=== PATIENT | female | born 1970 | race Caucasian/White ===

== ENCOUNTER 2016-05-16 17:40 | Observation (INO) | payer OTHER ==
[2016-05-16] VITALS (9 sets, daily range): BP systolic 96–119; BP diastolic 53–67
[~2016-05-16] VITALS: Ht 154.9 cm; Wt 75.3 kg
[~2016-05-16 17:40] MED LIST: AMIT10TA6 PO; ASPI-586 PO; DEXT1TAB13 PO; HYOS0.1217 PO; HYOS0.1218 PO; MECL-106 PO; OMEP10CA4 PO; OMEP20TA33 PO; ONDA4TAB8 SL
[2016-05-16] MEDS: RX-NITROGLYCERIN 0.4 MG TAB BTL 25'S SL PRN ×3 (17:55→18:08)
--- NOTE | 2016-05-16 17:57 | ED Chest Pain ---
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 patient denies other symptoms Nursing Sepsis Screen: No Definite Risk Source: patient History of Present Illness Time seen by provider: 17:40 Initial Comments PT ARRIVES VIA POV FROM WORK [facility] SHE WAS SITTING AT WORK AND SUDDENLY BEGAN TO HAVE LEFT CHEST PAIN RADIATING TO LEFT NECK--BEGAN AN HOUR AGO RATES PAIN 8/10 + LIGHTHEADEDNESS + PALPITATIONS--FELT LIKE HER HEART WAS BEATING HARD AND FAST NO NAUSEA/VOMITING NO SWEATS NO SWELLING IN LEGS/ FEET OR PAIN IN [place] HAD SIMILAR CHEST PAIN A YEAR AGO, EXCEPT IT RADIATED INTO LEFT ARM AND NOT INTO NECK--STRESS TEST NEGATIVE AT THAT TIME. HAD ALSO HAD SAME SYMPTOMS A YEAR BEFORE THAT AND WAS SEEN AT [facility] AND STRESS TEST WAS REPORTEDLY NORMAL AT THAT TIME WELL, AND ALSO WORE A 48 HOUR HOLTER MONITOR THAT WAS REPORTEDLY NORMAL WELL. 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 LISHA VAIL AT [facility] Allergies and Home Medications Allergies Coded Allergies: Sulfa (Sulfonamide Antibiotics) (Verified Allergy, Unknown, 01/18/14) ciprofloxacin (Verified Allergy, Unknown, 01/18/14) sulfamethoxazole (Verified Allergy, Unknown, 01/18/14) trimethoprim (Verified Allergy, Unknown, 01/18/14) Home Medications Amitriptyline HCl 10 Mg Tablet, 10 MG PO HS, (Reported) Aspirin 81 Mg Tablet.dr, 81 MG PO HS, (Reported) Hyoscyamine Sulfate 0.125 Mg Tab.rapdis, 0.125 MG PO, (Reported) Meclizine HCl 25 Mg Tab.chew, 25 MG PO, (Reported) Omeprazole Magnesium 20 Mg Tablet.dr, 20 MG PO BID, (Reported) Potassium Gluconate 99 Mg Tablet, 99 MG PO, (Reported) Review of Systems Constitutional: no symptoms reported EENTM: No Symptoms Reported Respiratory: No Symptoms Reported Cardiovascular: See HPI, Chest Pain, Denies Edema, Lightheadedness, Palpitations, Denies Syncope Gastrointestinal: No Symptoms Reported, Denies Abdominal Pain, Denies Nausea, Denies Vomiting Genitourinary: No Symptoms Reported Musculoskeletal: see HPI (LEFT NECK PAIN) Skin: no symptoms reported Psychiatric/Neurological: No Symptoms Reported Endocrine: No Symptoms Reported Hematologic/Lymphatic: No Symptoms Reported Past Jgrbuos-Wqreem-Rtxjge Hx Patient Social History Alcohol Use: Past History (HISTORY OF HEAVY USE--30 PACK/WEEK, QUIT 2001, PER PT ON 05/16/16) Recreational Drug Use: Yes (THC, METH--QUIT 2001,PER PT ON 05/16/16) Smoking Status: Former Smoker (1 1/2 PPD, QUIT 2001, PER PT ON 05/16/16) 2nd Hand Smoke Exposure: Yes Recent Foreign Travel: No Contact w/Someone Who Travel: No Recent Infectious Disease Expo: No Recent Hopitalizations: No Immunizations Up To Date Tetanus Booster (TDap): Less than 5yrs Date of Influenza Vaccine: Nov 12, 2015 Seasonal Allergies Seasonal Allergies: No Surgeries HX Surgeries: Yes (SINUS SURGERY;ABDOMINAL ADHESION REMOVAL;CYST REMOVED FROM NECK; HYST/RIGHT SALPINGO-OOPHORECTOMY; D&C) Surgeries: Appendectomy, Gallbladder, Hysterectomy, Oophorectomy Respiratory Hx Respiratory Disorders: No Cardiovascular Hx Cardiac Disorders: Yes (MURMUR; STRESS TEST 2016 NORMAL) Neurological Hx Neurological Disorders: No Reproductive System Hx Reproductive Disorders: Yes (CERVICAL CANCER) 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 Genitourinary Hx Genitourinary Disorders: No Gastrointestinal Hx Gastrointestinal Disorders: Yes Gastrointestinal Disorders: Gastroesophageal Reflux, Irritable Bowel Musculoskeletal Hx Musculoskeletal Disorders: No Endocrine Hx Endocrine Disorders: Yes (hypoglycemia, hypokalemia) HEENT HX ENT Disorders: No Cancer Hx Cancer: Yes Cancer: Cervical Psychosocial Hx Psychiatric Problems: Yes Behavioral Health Disorders: Depression Integumentary HX Skin/Integumentary Disorder: No Blood Transfusions Hx Blood Disorders: No Adverse Reaction to a Blood Tr: No Physical Exam Vital Signs Vital Sign - Last 12Hours 05/16/16 17:43 Temp 98.2 Pulse 97 Resp 21 B/P (MAP) 144/71 Pulse Ox 97 O2 Delivery Room Air Capillary Refill : Less Than 3 Seconds General Appearance: No Apparent Distress, WD/WN HEENT: PERRL/EOMI Neck: Full Range of Motion, Normal Inspection, Non Tender, Supple, No Carotid Bruit, No JVD Respiratory: Chest Non Tender, Normal Breath Sounds, No Accessory Muscle Use, No Respiratory Distress Cardiovascular: Regular Rate, Rhythm, No Edema, No JVD, No Murmur, Normal Peripheral Pulses Gastrointestinal: Normal Bowel Sounds, No Organomegaly, No Pulsatile Mass, Non Tender, Soft Extremity: Normal Capillary Refill, Normal Inspection, Normal Range of Motion, Non Tender, No Calf Tenderness, No Pedal Edema Neurologic/Psychiatric: Alert, Oriented x3, No Motor/Sensory Deficits, Normal 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, 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 Skin: Normal Color, No Rash Progress/Results/Core Measures Results/Orders Lab Results Laboratory Tests Test 05/16/16 17:50 Range/Units White Blood Count 8.4 4.3-11.0 10^3/uL Red Blood Count 3.93 L 4.35-5.85 10^6/uL Hemoglobin 11.6 11.5-16.0 G/DL Hematocrit 35 35-52 % Mean Corpuscular Volume 89 80-99 FL Mean Corpuscular Hemoglobin 30 25-34 PG Mean Corpuscular Hemoglobin Concent 33 32-36 G/DL Red Cell Distribution Width 12.3 10.0-14.5 % Platelet Count 182 130-400 10^3/uL Mean Platelet Volume 11.3 H 7.4-10.4 FL Neutrophils (%) (Auto) 63 42-75 % Lymphocytes (%) (Auto) 28 12-44 % Monocytes (%) (Auto) 8 0-12 % Eosinophils (%) (Auto) 1 0-10 % Basophils (%) (Auto) 0 0-10 % Neutrophils # (Auto) 5.3 1.8-7.8 X 10^3 Lymphocytes # (Auto) 2.4 1.0-4.0 X 10^3 Monocytes # (Auto) 0.7 0.0-1.0 X 10^3 Eosinophils # (Auto) 0.0 0.0-0.3 10^3/uL Basophils # (Auto) 0.0 0.0-0.1 10^3/uL Prothrombin Time 13.3 12.2-14.7 SEC INR Comment 1.0 0.8-1.4 Activated Partial Thromboplast Time 26 24-35 SEC Sodium Level 141 135-145 MMOL/L Potassium Level 3.6 3.6-5.0 MMOL/L Chloride Level 106 98-107 MMOL/L Carbon Dioxide Level 26 21-32 MMOL/L Anion Gap 9 5-14 MMOL/L Blood Urea Nitrogen 6 L 7-18 MG/DL Creatinine 0.80 0.60-1.30 MG/DL Estimat Glomerular Filtration Rate > 60 BUN/Creatinine Ratio 8 Glucose Level 99 70-105 MG/DL Calcium Level 8.5 8.5-10.1 MG/DL Magnesium Level 1.9 1.8-2.4 MG/DL Total Bilirubin 0.4 0.1-1.0 MG/DL Aspartate Amino Transf (AST/SGOT) 13 5-34 U/L Alanine Aminotransferase (ALT/SGPT) 10 0-55 U/L Alkaline Phosphatase 52 40-136 U/L Total Creatine Kinase 59 29-168 U/L Creatine Kinase MB 0.8 <6.6 NG/ML Troponin I < 0.30 <0.30 NG/ML B-Type Natriuretic Peptide < 10.0 <100.0 PG/ML Total Protein 6.5 6.4-8.2 G/DL Albumin 3.8 3.2-4.5 G/DL Amylase Level 54 25-125 U/L Lipase 27 8-78 U/L My Orders Orders - RICHARD MANN DO Saline Lock/Iv-Start (05/16/16 17:42) Ekg Tracing (05/16/16 17:42) Monitor-Rhythm Ecg Trace Only (05/16/16 17:42) Amylase (05/16/16 17:50) Cbc With Automated Diff (05/16/16 17:50) Comprehensive Metabolic Panel (05/16/16 17:50) Creatine Kinase (05/16/16 17:50) Creatine Kinase Mb (05/16/16 17:50) Lipase (05/16/16 17:50) Partial Thromboplastin Time (05/16/16 17:50) Protime With Inr (05/16/16 17:50) Troponin I (05/16/16 17:50) Chest 1 View, Ap/Pa Only (05/16/16 17:50) Aspirin Chewable Tablet (Baby Aspirin Ch (05/16/16 18:00) Rx-Nitroglycerin Sl Tabs (Rx-Nitrostat S (05/16/16 18:00) BNP (05/16/16 17:50) Magnesium (05/16/16 17:50) Ketorolac Injection (Toradol Injection) (05/16/16 18:30) Ondansetron Injection (Zofran Injectio (05/16/16 18:30) Ondansetron Injection (Zofran Injectio (05/16/16 18:45) Pantoprazole Injection (Protonix Injecti (05/16/16 18:45) Morphine Injection (Morphine Injection (05/16/16 18:39) Scopolamine Patch (Transderm-Scop Patch) (05/16/16 19:00) Medications Given in ED Current Medications Medications Dose Ordered Sig/Gus Route Start Time Stop Time Status Last Admin Dose Admin Aspirin 324 mg ONCE ONCE PO 05/16/16 18:00 05/16/16 18:01 DC 05/16/16 17:54 324 MG Ketorolac Tromethamine 30 mg ONCE ONCE IVP 05/16/16 18:30 05/16/16 18:31 DC 05/16/16 18:23 30 MG Nitroglycerin 0.4 mg UD PRN SL 05/16/16 18:00 05/16/16 19:43 DC 05/16/16 18:08 0.4 MG Ondansetron HCl 4 mg ONCE ONCE IVP 05/16/16 18:30 05/16/16 18:31 DC 05/16/16 18:23 4 MG Ondansetron HCl 8 mg ONCE ONCE IVP 05/16/16 18:45 05/16/16 18:46 DC 05/16/16 18:48 8 MG Pantoprazole 40 mg ONCE ONCE IV 05/16/16 18:45 05/16/16 18:46 DC 05/16/16 18:48 40 MG Vital Signs/I&O Vital Sign - Last 12Hours 05/16/16 05/16/16 17:43 17:43 Temp 98.2 Pulse 97 Resp 21 B/P (MAP) 144/71 Pulse Ox 97 O2 Delivery Room Air Blood Pressure Mean: 95 Progress Note : Progress Note MINIMAL RELIEF WITH NTG X 3--PAIN DOWN TO A 7/10, AND NOW NAUSEATED AND VOMITING GIVEN ZOFRAN AND PROTONIX FOR NAUSEA/VOMITING GIVEN TORADOL WITHOUT RELIEF--STILL RATES PAIN 7/10 PT AMBULATED TO BATHROOM AND SUDDENLY BECAME VERY DIZZY--NO ARRHYTHMIAS NOTED, SCOPOLAMINE PATCH APPLIED MORPHINE NOT GIVEN UNTIL AFTER SHE RETURNED FROM BATHROOM AND NOTED TO HAVE STABLE VITALS, PT STILL C/O CHEST PAIN AND LEFT NECK PAIN AT 7/10 PAIN 6/10 AT TIME OF ADMIT, AFTER MORPHINE DIZZINESS IMPROVED NAUSEA IMPROVED VITAL STABLE ECG Initial ECG Impression Time: 18:44 Initial ECG Rate: 96 Initial ECG Rhythm: Normal Sinus Initial ECG Impression: Normal Initial ECG Comparisson: Unchanged Diagnostic Imaging Comments CXR--NO ACUTE PROCESS, PER RADIOLOGIST REPORT @ 1812 CT CHEST ANGIOGRAM--NO ACUTE PROCESS, NO P.E. --PER RADIOLOGIST REPORT @ 2018 Reviewed: Reviewed by Me Departure Communication Progress Notes 1839--SPOKE WITH DR. RYAN, ACCEPTS PT FOR ADMIT 1842--SPOKE WITH DR. SALEEM FOR CARDIOLOGY CONSULT 1904--DR. SALEEM HERE TO SEE PT. CT CHEST ANGIOGRAM ORDERED. Impression Impression: Primary Impression: Chest pain Additional Impressions: Dizziness Nausea & vomiting Disposition: ADMITTED INPATIENT Condition: Stable Decision to Admit Reason: Admit from ER (General) Decision to Admit/Date: May 16, 2016 Time/Decision to Admit Time: 18:40 Departure-Patient Inst. Referrals: MANISH MEIER (PCP/Family) Primary Care Physician RICHARD MANN DO May 16, 2016 17:57
[2016-05-16 17:58] LABS: BASOPHILS % (AUTO) 0 % (0-10); EOSINOPHILS % (AUTO) 1 % (0-10); LYMPHOCYTES # (AUTO) 2.4 X 10^3 (1.0-4.0); LYMPHOCYTES % (AUTO) 28 % (12-44); MEAN CORPUSCULAR HEMOGLOBIN 30 PG (25-34); MEAN CORPUSCULAR HGB CONC 33 G/DL (32-36); MEAN CORPUSCULAR VOLUME 89 FL (80-99); MEAN PLATELET VOLUME 11.3 FL (7.4-10.4); MONOCYTES # (AUTO) 0.7 X 10^3 (0.0-1.0); MONOCYTES % (AUTO) 8 % (0-12); NEUTROPHILS # (AUTO) 5.3 X 10^3 (1.8-7.8); NEUTROPHILS % (AUTO) 63 % (42-75); PLATELET COUNT 182 10^3/uL (130-400); RED BLOOD COUNT 3.93 10^6/uL (4.35-5.85); RED CELL DISTRIBUTION WIDTH 12.3 % (10.0-14.5); WHITE BLOOD COUNT 8.4 10^3/uL (4.3-11.0)
[2016-05-16] MEDS ORDERED: ASPIRIN 81 MG CHEW (CHILDREN'S ASA) PO ONE (18:00)
--- NOTE | 2016-05-16 18:08 | Diagnostic Imaging Report ---
INDICATION: Chest pain. EXAMINATION: Portable chest at6 6:02 p.m. FINDINGS: Heart size and pulmonary vascularity are normal. Lungs are clear. There are no effusions or pneumothoraces. IMPRESSION: Negative chest. Dictated by: Dictated on workstation # [id number]
[2016-05-16 18:09] LABS: PROTHROMBIN TIME PATIENT 13.3 SEC (12.2-14.7)
[2016-05-16] MEDS ORDERED: HYOS0.1217 PO (18:10)
[2016-05-16] MEDS ORDERED: POTA99TA21 PO ×2 (18:10→22:21)
[2016-05-16] MEDS ORDERED: MECL-124 PO (18:10)
[2016-05-16 18:17] LABS: ALANINE AMINOTRANSFERASE 10 U/L (0-55); ALBUMIN 3.8 G/DL (3.2-4.5); AMYLASE 54 U/L (25-125); ANION GAP 9 MMOL/L (5-14); ASPARTATE AMINO TRANSFERASE 13 U/L (5-34); BILIRUBIN,TOTAL 0.4 MG/DL (0.1-1.0); BLOOD UREA NITROGEN 6 MG/DL (7-18); BUN/CREATININE RATIO 8; CALCIUM 8.5 MG/DL (8.5-10.1); CARBON DIOXIDE 26 MMOL/L (21-32); CHLORIDE 106 MMOL/L (98-107); CREATINE KINASE 59 U/L (29-168); GFR ESTIMATED > 60; GLUCOSE 99 MG/DL (70-105); LIPASE 27 U/L (8-78); MAGNESIUM 1.9 MG/DL (1.8-2.4); POTASSIUM 3.6 MMOL/L (3.6-5.0); SODIUM 141 MMOL/L (135-145); TOTAL PROTEIN 6.5 G/DL (6.4-8.2)
[2016-05-16 18:25] LABS: TROPONIN I < 0.30 NG/ML (<0.30)
[2016-05-16] MEDS ORDERED: ONDANSETRON 4 MG/2 ML (SDV) Z0FRAN IVP ONE ×2 (18:30→18:45)
[2016-05-16] MEDS ORDERED: KETOROLAC 30 MG/ML VIAL IVP ONE (18:30)
[2016-05-16] MEDS ORDERED: morphine INJ 10 MG/ML 1ML (SYR OR VIAL) IVP STA (18:39)
[2016-05-16] MEDS ORDERED: PANTOPRAZOLE 40 MG/10 ML (PROTONIX) VIAL IV ONE (18:45)
[2016-05-16] MEDS ORDERED: SCOPOLAMINE 1.5 MG (TRANSDERM-SCOP) PATCH TD ONE (19:00)
--- NOTE | 2016-05-16 19:21 | Consultation-Cardiology ---
HPI-Cardiology Cardiology Consultation Date of Consultation 05/16/16 Date of Admission Indication: chest pain HPI 45 years old lady with history of chest pain, she was seen in May 2015 for similar episode had a stress test which did not show any ischemia or infarction. Patient was in her usual state of health until this morning when she started having chest pain described it as dull in nature achiness in the retrosternal area radiating to the left side of her neck and jaw, came into the emergency room and had minimal relief with sublingual nitroglycerin. Denied any palpitation, syncope or near syncopal episodes. Denied any claudications. While in the emergency room had episode of nausea and dizziness. Received scopolamine. Feeling slightly better at this time, denied any abdominal pain, no vomiting, no diarrhea or constipation. Home Medications & Allergies Allergies: Coded Allergies: Sulfa (Sulfonamide Antibiotics) (Verified Allergy, Unknown, 01/18/14) ciprofloxacin (Verified Allergy, Unknown, 01/18/14) sulfamethoxazole (Verified Allergy, Unknown, 01/18/14) trimethoprim (Verified Allergy, Unknown, 01/18/14) Home Medication List Reviewed: Yes [id number]-[id number]-Sykoqs Hx Patient Social History Alcohol Use: Past History (HISTORY OF HEAVY USE--30 PACK/WEEK, QUIT 2001, PER PT ON 05/16/16) Recreational Drug Use: Yes (THC, METH--QUIT 2001,PER PT ON 05/16/16) Smoking Status: Former Smoker (1 1/2 PPD, QUIT 2001, PER PT ON 05/16/16) 2nd Hand Smoke Exposure: Yes Recent Foreign Travel: No Recent Infectious Disease Expo: No Recent Hopitalizations: No Immunizations Up To Date Tetanus Booster (TDap): Less than 5yrs Date of Influenza Vaccine: Nov 12, 2015 Past Medical History past medical history as discussed below Family Medical History Family Medical Hx mother has history of hypertension Constitutional: see HPI, dizziness, malaise EENTM: no symptoms reported, see HPI Respiratory: no symptoms reported, see HPI Cardiovascular: see HPI, chest pain, No edema, No Hx of Intervention, No palpitations, No syncope, No vascular heart diseas, No other Gastrointestinal: see HPI, nausea Genitourinary: no symptoms reported, see HPI Musculoskeletal: no symptoms reported, see HPI Skin: no symptoms reported, see HPI Psychiatric/Neurological: No Symptoms Reported, See HPI Reviewed Test Results Reviewed Test Results Lab Laboratory Tests Test 05/16/16 17:50 Range/Units White Blood Count 8.4 4.3-11.0 10^3/uL Red Blood Count 3.93 L 4.35-5.85 10^6/uL Hemoglobin 11.6 11.5-16.0 G/DL Hematocrit 35 35-52 % Mean Corpuscular Volume 89 80-99 FL Mean Corpuscular Hemoglobin 30 25-34 PG Mean Corpuscular Hemoglobin Concent 33 32-36 G/DL Red Cell Distribution Width 12.3 10.0-14.5 % Platelet Count 182 130-400 10^3/uL Mean Platelet Volume 11.3 H 7.4-10.4 FL Neutrophils (%) (Auto) 63 42-75 % Lymphocytes (%) (Auto) 28 12-44 % Monocytes (%) (Auto) 8 0-12 % Eosinophils (%) (Auto) 1 0-10 % Basophils (%) (Auto) 0 0-10 % Neutrophils # (Auto) 5.3 1.8-7.8 X 10^3 Lymphocytes # (Auto) 2.4 1.0-4.0 X 10^3 Monocytes # (Auto) 0.7 0.0-1.0 X 10^3 Eosinophils # (Auto) 0.0 0.0-0.3 10^3/uL Basophils # (Auto) 0.0 0.0-0.1 10^3/uL Prothrombin Time 13.3 12.2-14.7 SEC INR Comment 1.0 0.8-1.4 Activated Partial Thromboplast Time 26 24-35 SEC Sodium Level 141 135-145 MMOL/L Potassium Level 3.6 3.6-5.0 MMOL/L Chloride Level 106 98-107 MMOL/L Carbon Dioxide Level 26 21-32 MMOL/L Anion Gap 9 5-14 MMOL/L Blood Urea Nitrogen 6 L 7-18 MG/DL Creatinine 0.80 0.60-1.30 MG/DL Estimat Glomerular Filtration Rate > 60 BUN/Creatinine Ratio 8 Glucose Level 99 70-105 MG/DL Calcium Level 8.5 8.5-10.1 MG/DL Magnesium Level 1.9 1.8-2.4 MG/DL Total Bilirubin 0.4 0.1-1.0 MG/DL Aspartate Amino Transf (AST/SGOT) 13 5-34 U/L Alanine Aminotransferase (ALT/SGPT) 10 0-55 U/L Alkaline Phosphatase 52 40-136 U/L Total Creatine Kinase 59 29-168 U/L Creatine Kinase MB 0.8 <6.6 NG/ML Troponin I < 0.30 <0.30 NG/ML B-Type Natriuretic Peptide < 10.0 <100.0 PG/ML Total Protein 6.5 6.4-8.2 G/DL Albumin 3.8 3.2-4.5 G/DL Amylase Level 54 25-125 U/L Lipase 27 8-78 U/L Physical Exam Vital Signs Vital Sign - Last 12Hours 05/16/16 17:43 Temp 98.2 Pulse 97 Resp 21 B/P (MAP) 144/71 Pulse Ox 97 O2 Delivery Room Air Capillary Refill : Less Than 3 Seconds General Appearance: No Apparent Distress, WD/WN Eyes: Bilateral Eye EOMI, Bilateral Eye Normal Inspection, Bilateral Eye PERRL HEENT: PERRL/EOMI, TMs Normal, Normal ENT Inspection, Pharynx Normal Neck: Full Range of Motion, Normal Inspection, Non Tender, Supple, Carotid Bruit Respiratory: Chest Non Tender, Lungs Clear, Normal Breath Sounds, No Accessory Muscle Use, No Respiratory Distress Cardiovascular: Regular Rate, Rhythm, No Edema, No Gallop, No JVD, No Murmur, Normal Peripheral Pulses Gastrointestinal: Normal Bowel Sounds, No Organomegaly, No Pulsatile Mass, Non Tender, Soft Back: Normal Inspection, No CVA Tenderness, No Vertebral Tenderness Extremity: Normal Capillary Refill, Normal Inspection, Normal Range of Motion, Non Tender, No Calf Tenderness, No Pedal Edema Neurologic/Psychiatric: Alert, Oriented x3, No Motor/Sensory Deficits, Normal Mood/Affect Skin: Normal Color, Warm/Dry Lymphatic: No Adenopathy A/P-Cardiology Admission Diagnosis Chest pain nonspecific etiology Nausea Dizziness Assessment/Plan Chest pain nonspecific etiology, resembling angina, did not improve with sublingual nitroglycerin, first set of cardiac enzymes and EKG were normal. I will continue monitoring overnight, planning to evaluate stress test if her EKG and cardiac enzymes continue to be negative, patient will have CT scan of the chest done today. Nausea, dizziness, received scopolamine. Reporting improvement. Continue to monitor History of irritable bowel syndrome, she was seen by Dr. Madden in the past History of tobaccoism, stopped smoking 14 years ago History of alcohol use, stopped in the remote past. History of cholecystectomy, appendectomy Clinical Quality Measures AMI/AHF: ASA po Prior to arrival: KENISHA Gómez MD May 16, 2016 19:21
[2016-05-16] MEDS ORDERED: NS 100 ML (IVPB) BAG IV ONE (19:30)
[2016-05-16] MEDS ORDERED: IOHEXOL 350 MG/ML 150 ML (OMNIPAQUE 350) VIAL IV ONE (19:30)
--- NOTE | 2016-05-16 20:04 | Diagnostic Imaging Report ---
Clinical indication: Patient with chest pain and left-sided neck pain. Patient has history of cervical cancer. Exam: CT angiogram of the chest performed with 125 cc of Omnipaque 350 IV contrast. Coronal and oblique MIP images were created to better evaluate the vascular anatomy. Comparison: Chest x-ray dated 05/16/2016. Findings: There is no evidence of pulmonary embolism. Pulmonary arteries are patent. There is no thoracic aortic dissection or aneurysm seen. There is mild dependent atelectasis involving the posterior aspects of both lungs. Otherwise, lungs are clear. There is no pleural effusion or pneumothorax. Pulmonary bronchi are unremarkable. Limited visualization of the thyroid gland is unremarkable. There is no mediastinal lymphadenopathy. There is no axillary lymphadenopathy. Extrathoracic soft tissue is unremarkable. Gallbladder is surgically resected. The remainder of the visualized upper abdominal structures are unremarkable. There is small degenerative spurs involving the thoracic spine. Impression: 1: There is no evidence of pulmonary embolism or thoracic aortic dissection. 2: The remainder of the CT chest exam shows no acute process. Dictated by: Dictated on workstation # [id number]
[2016-05-16] MEDS ORDERED: D5 1/2 NS 1000 ML IV SOLUTION 1,000 ML IV ONE (20:09)
[2016-05-16] MEDS ORDERED: NITROGLYCERIN SUBLINGUAL 0.4 MG TAB (NITROSTAT) SL PRN (20:15)
[2016-05-16] MEDS ORDERED: CATHETER FLUSH 10 ML SYR IV PRN (20:15)
[2016-05-16] MEDS ORDERED: ONDANSETRON 4 MG/2 ML (SDV) Z0FRAN IV PRN (20:15)
[2016-05-16] MEDS: D5 1/2 NS 1000 ML IV SOLUTION 1,000 ML IV SCH (20:29)
[2016-05-16] MEDS ORDERED: ASPI-999 PO (22:17)
[2016-05-16] MEDS ORDERED: HYOS0.1218 SL (22:19)
[2016-05-16] MEDS ORDERED: ONDN4T PO (22:23)
[2016-05-16] MEDS ORDERED: ONDANSETRON 4 MG (ZOFRAN) ORAL DISSOLVE TAB ONE (22:45)
[2016-05-17] VITALS (13 sets, daily range): BP systolic 80–170; BP diastolic 41–63
[2016-05-17 00:35] LABS: MYOGLOBIN SERUM 31.1 NG/ML (10.0-92.0)
[2016-05-17 03:39] LABS: BASOPHILS % (AUTO) 0 % (0-10); EOSINOPHILS # (AUTO) 0.1 10^3/uL (0.0-0.3); EOSINOPHILS % (AUTO) 1 % (0-10); LYMPHOCYTES # (AUTO) 2.8 X 10^3 (1.0-4.0); LYMPHOCYTES % (AUTO) 38 % (12-44); MEAN CORPUSCULAR HEMOGLOBIN 30 PG (25-34); MEAN CORPUSCULAR HGB CONC 33 G/DL (32-36); MEAN CORPUSCULAR VOLUME 89 FL (80-99); MEAN PLATELET VOLUME 11.6 FL (7.4-10.4); MONOCYTES # (AUTO) 0.6 X 10^3 (0.0-1.0); MONOCYTES % (AUTO) 8 % (0-12); NEUTROPHILS # (AUTO) 3.9 X 10^3 (1.8-7.8); NEUTROPHILS % (AUTO) 53 % (42-75); PLATELET COUNT 159 10^3/uL (130-400); RED BLOOD COUNT 3.63 10^6/uL (4.35-5.85); RED CELL DISTRIBUTION WIDTH 12.4 % (10.0-14.5); WHITE BLOOD COUNT 7.4 10^3/uL (4.3-11.0)
[2016-05-17 03:57] LABS: ALANINE AMINOTRANSFERASE 10 U/L (0-55); ALBUMIN 3.2 G/DL (3.2-4.5); ANION GAP 6 MMOL/L (5-14); ASPARTATE AMINO TRANSFERASE 12 U/L (5-34); BILIRUBIN,TOTAL 0.5 MG/DL (0.1-1.0); BLOOD UREA NITROGEN 5 MG/DL (7-18); BUN/CREATININE RATIO 6; CALCIUM 7.9 MG/DL (8.5-10.1); CARBON DIOXIDE 27 MMOL/L (21-32); CHLORIDE 107 MMOL/L (98-107); CHOLESTEROL 156 MG/DL (< 200); CREATININE SERUM 0.78 MG/DL (0.60-1.30); DIRECT LDL 97 MG/DL (1-129); GFR ESTIMATED > 60; GLUCOSE 98 MG/DL (70-105); POTASSIUM 3.8 MMOL/L (3.6-5.0); SODIUM 140 MMOL/L (135-145); TOTAL PROTEIN 5.5 G/DL (6.4-8.2); TRIGLYCERIDES 97 MG/DL (<150); VLDL CHOLESTEROL 19 MG/DL (5-40)
[2016-05-17] MEDS: D5 1/2 NS 1000 ML IV SOLUTION 1,000 ML IV SCH (06:52)
[2016-05-17] MEDS ORDERED: ONDA4TAB10 PO (08:14)
[2016-05-17] MEDS: morphine INJ 4 MG/ML 1 ML (VIAL/SYRINGE) IV PRN ×2 (08:28→14:44)
[2016-05-17] MEDS ORDERED: PANTOPRAZOLE 40 MG/10 ML (PROTONIX) VIAL IV SCH (09:00)
[2016-05-17] MEDS ORDERED: ASPIRIN E.C. 325 MG (ECOTRIN) TABLET PO SCH (09:00)
[2016-05-17] MEDS ORDERED: HYOSCYAMINE 0.125 MG (LEVSIN) TAB SL PRN (10:45)
[2016-05-17] MEDS ORDERED: MECLIZINE 25 MG (ANTIVERT) TAB PO PRN (10:45)
[2016-05-17] MEDS ORDERED: ONDANSETRON 4 MG (ZOFRAN) ORAL DISSOLVE TAB PO PRN (10:45)
--- NOTE | 2016-05-17 10:49 | Short Stay Summary-Hospitalist ---
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 SW Review: Will DC after stress test. Pt has IBS. Patient Interview: Pt states her PCP is Josué Carmen. Pt also sees Dr. Hilton who manages her IBS. Pt denies hx of heart issues. Pt states she quit smoking 14 years ago. Physical exam was stable. Pt was told about stomach issues caused by IBS can mimic heart pain. Pt will have stress test to rule out heart issues. Scribed by Stephen Hidalgo under the direct supervision of Dr. Ryan. Source: patient Exam Limitations: no limitations Date Seen 05/17/16 Attending Physician Mercedez Ryan DO PCP Drew Carmen Referring Physician Date of Admission May 16, 2016 at 18:59 Home Medications & Allergies Home Medications Reviewed patient Home Medication Reconciliation Form Allergies Allergies Coded Allergies Sulfa (Sulfonamide Antibiotics) (Verified Allergy, Unknown, 01/18/14) ciprofloxacin (Verified Allergy, Unknown, 01/18/14) sulfamethoxazole (Verified Allergy, Unknown, 01/18/14) trimethoprim (Verified Allergy, Unknown, 01/18/14) Past Tajalkw-Qrfiar-Iuwcyk Hx Patient Social History Alcohol Use: Denies Use Recreational Drug Use: No Drug of Choice: Hx of HTC and Meth abuse, 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 Smoking Status: Former Smoker Type Used: Cigarettes 2nd Hand Smoke Exposure: Yes Physical Abuse Screen: No Sexual Abuse: No Recent Foreign Travel: No Contact w/other who traveled: No Recent Hopitalizations: No Recent Infectious Disease Expo: No Immunizations Up To Date Tetanus Booster (TDap): Less than 5yrs Date of Influenza Vaccine: Nov 12, 2015 Seasonal Allergies Seasonal Allergies: Yes Surgeries HX Surgeries: Yes (SINUS SURGERY;ABDOMINAL ADHESION REMOVAL;CYST REMOVED FROM NECK; HYST/RIGHT SALPINGO-OOPHORECTOMY; D&C) Surgeries: Appendectomy, Gallbladder, Hysterectomy, Oophorectomy Respiratory Hx Respiratory Disorders: No Cardiovascular Hx Cardiovascular Disorders: Yes (MURMUR; STRESS TEST 2016 NORMAL) Neurological Hx Neurological Disorders: No Reproductive System Hx Reproductive Disorders: Yes (CERVICAL CANCER) Sexually Transmitted Disease: No HIV/AIDS: No Female Reproductive Disorders: Menstrual Problems, Ovarian Cyst Genitourinary Hx Genitourinary Disorders: No Gastrointestinal Hx Gastrointestinal Disorders: Yes Gastrointestinal Disorders: Gastroesophageal Reflux, Irritable Bowel Musculoskeletal Hx Musculoskeletal Disorders: No Endocrine Hx Endocrine Disorders: Yes (hypoglycemia, hypokalemia) HEENT HX ENT Disorders: No Cancer Hx Cancer: Yes Cancer: Cervical Psychosocial Hx Psychiatric Problems: Yes Behavioral Health Disorders: Depression Integumentary HX Skin/Integumentary Disorder: No Blood Transfusions Hx Blood Disorders: No Adverse Reaction to a Blood Tr: No Family Medical History Family Hx: Blood coagulation disorder 19 MOTHER Cancer of mouth Diabetes mellitus 19 MOTHER FH: COPD (chronic obstructive pulmonary disease) 19 MOTHER Hypercholesterolemia 19 MOTHER Hypertension 19 MOTHER Thyroid disease 19 MOTHER Review of Systems Constitutional: see HPI EENTM: no symptoms reported Respiratory: dyspnea on exertion Cardiovascular: chest pain Gastrointestinal: no symptoms reported Genitourinary: no symptoms reported Musculoskeletal: no symptoms reported Skin: no symptoms reported Psychiatric/Neurological: No Symptoms Reported All Other Systems Reviewed Negative Unless Noted: Yes Physical Exam Physical Exam Vital Signs Vital Sign - Last 12Hours 05/16/16 17:43 Temp 98.2 Pulse 97 Resp 21 B/P (MAP) 144/71 O2 Delivery Room Air Capillary Refill : Less Than 3 Seconds General Appearance: No Apparent Distress, WD/WN, Chronically ill Eyes: Bilateral Eye Normal Inspection, Bilateral Eye PERRL HEENT: PERRL/EOMI, Normal ENT Inspection, Pharynx Normal Neck: Full Range of Motion, Normal Inspection, Non Tender, Supple, Carotid Bruit Respiratory: Chest Non Tender, Lungs Clear, Normal Breath Sounds, No Accessory Muscle Use, No Respiratory Distress Cardiovascular: Regular Rate, Rhythm, No Edema, No Gallop, No JVD, No Murmur, Normal Peripheral Pulses Gastrointestinal: Normal Bowel Sounds, No Organomegaly, No Pulsatile Mass, Non Tender, Soft Back: Normal Inspection, No CVA Tenderness, No Vertebral Tenderness Extremity: Normal Capillary Refill, Normal Inspection, Normal Range of Motion, Non Tender, No Calf Tenderness, No Pedal Edema Neurologic/Psychiatric: Alert, Oriented x3, No Motor/Sensory Deficits, Normal Mood/Affect Skin: Normal Color, Warm/Dry Lymphatic: No Adenopathy Results Results/Procedures Lab Laboratory Tests 05/16/16 17:50 05/17/16 03:12 Short Stay Diagnosis Discharge Diagnosis-Short Stay Admission Diagnosis Assessment: Chest pain of unknown etiology Irritable bowel syndrome Chronic dyspepsia Final Discharge Diagnosis Assessment: Chest pain of unknown etiology Irritable bowel syndrome Chronic dyspepsia Conclusion Plan Plan: Appreciate cardiology input likely chest pain is from stomach or esophagus issues that she has chronic dyspepsia and herbal bowel syndrome issues so we'll discharge home cardiac stress test is normal. Clinical Quality Measures AMI/AHF: ASA po Prior to arrival: No DVT/VTE Risk/Contraindication: Risk Factor Score Per Nursin RFS Level Per Nursing on Admit: 2=Moderate MERCEDEZ RYAN DO May 17, 2016 10:49
--- NOTE | 2016-05-17 13:11 | Cardiology Progress Note ---
Subjective Subjective/Events-last exam [facility] for stress test. Denies any active CP. Denies any CP overnight Review of Systems General: No Night Sweats, No Fatigue, No Malaise HEENT: No Visual Changes, No Dysphasia, No Sore Throat Pulmonary: No Dyspnea, No Cough Cardiovascular: No: Chest Pain, Edema, Palpitations Gastrointestinal: No: Abdominal Pain, Nausea, Vomiting Genitourinary: No Dysuria, No Frequency Musculoskeletal: No: back pain, neck pain Neurological: No: Change in speech, Confusion, Numbness, Weakness Objective-Cardiology Exam Last Set of Vital Signs Vital Signs 05/17/16 05/17/16 08:10 12:45 Temp 98.9 Pulse 107 Resp 19 B/P (MAP) 170/62 Pulse Ox 99 O2 Delivery Room Air Capillary Refill : Less Than 3 Seconds I&O Bad tableGeneral: Alert, Oriented X3, Cooperative HEENT: Atraumatic, PERRLA Neck: Supple, No JVD, No Thyromegaly Lungs: Clear to Auscultation, Normal Air Movement Heart: Regular Rate, Normal S1, Normal S2, No Murmurs Abdomen: Normal Bowel Sounds, Soft, No Tenderness, No Hepatosplenomegaly, No Masses Extremities: No Clubbing, No Cyanosis, No Edema, Normal Pulses, No Tenderness/ Swelling Skin: No Rashes, No Breakdown, No Significant Lesion Neuro: Normal Gait, Normal Speech, Strength at 5/5 X4 Ext, Normal Tone, Sensation Intact Psych/Mental Status: Mental Status NL, Mood NL Results Lab Laboratory Tests 05/16/16 17:50 05/17/16 03:12 A/P-Cardiology Admission Diagnosis Chest pain nonspecific etiology Nausea Dizziness Assessment/Plan Chest pain nonspecific etiology, resembling angina, did not improve with sublingual nitroglycerin,cardiac enzymes and EKG were normal. CT chest was normal. Dr. Whitten to read stress test this afternoon. Nausea, dizziness, received scopolamine. Reporting improvement. Continue to monitor History of irritable bowel syndrome, she was seen by Dr. Madden in the past History of tobaccoism, stopped smoking 14 years ago History of alcohol use, stopped in the remote past. History of cholecystectomy, appendectomy Clinical Quality Measures AMI/AHF: ASA po Prior to arrival: No DVT/VTE Risk/Contraindication: Risk Factor Score Per Nursin RFS Level Per Nursing on Admit: 2=Moderate VICK-WAYNE,SARITA K PA May 17, 2016 13:11
--- NOTE | 2016-05-17 14:45 | STRESS TEST ---
PROCEDURE PHYSICIAN: KENISHA SALEEM EXERCISE MYOVIEW STRESS TEST REPORT DATE OF PROCEDURE: 05/17/2016 REFERRING PHYSICIAN: BERTRAM Ngo INDICATION: Chest pain. Baseline heart rate is 64, baseline blood pressure: 106/64. Baseline EKG: Sinus rhythm with no ischemic changes. SUMMARY: The patient was injected with 9.66 mCi of technetium 99 Myoview and the resting images were obtained. Then the patient started exercising with a baseline heart rate, blood pressure and EKG mentioned above. At minute 7, the patient was injected with 32.9 mCi of technetium 99 Myoview. The patient was able to exercise for total of 8 minutes on standard [place] protocol, achieving maximum heart rate of 153, which is 86% of maximum expected heart rate. With peak exercise level, blood pressure was 170/62. EKG was showing minimal nondiagnostic changes. During recovery, heart rate and blood pressure returned to baseline. EKG returned to baseline. The resting and stress images were reviewed and compared in the short axis, horizontal long axis, and vertical long axis views. Review of the images showed good radiotracer uptake with no ischemia or infarction. SSS is 2, SDS 2, TID value 1.02. On the gated images, the left ventricle appeared to be normal size with normal contractility. Calculated ejection fraction 80%. CONCLUSION: 1. Good exercise tolerance a total of 8 minutes on standard [place] protocol. Total of 10.1 METs achieving 86% of maximum expected heart rate. 2. Appropriate heart rate and blood pressure response to exercise. Returned to baseline during recovery. 3. Negative exercise stress test by EKG criteria. 4. No ischemia or infarction on SPECT images. 5. Normal left ventricular size with normal contractility. Calculated ejection fraction 80%. Job ID: [id number] Dictated Date: 05/17/2016 14:10:00 Meat Inspector Date: 05/17/2016 14:40:26 / bandar
--- NOTE | 2016-05-17 15:01 | Cardiology Progress Note ---
Subjective Subjective/Events-last exam Patient is in bed, feeling better, no new complaint. Denied any chest pain. No palpitation. No syncope. Review of Systems General: No Chills, No Night Sweats, No Fatigue, No Malaise, No Appetite, No Other HEENT: No Head Aches, No Visual Changes, No Eye Pain, No Ear Pain, No Dysphasia , No Sinus Congestion, No Post Nasal Drip, No Sore Throat, No Other Pulmonary: No Dyspnea, No Cough, No Pleuritic Chest Pain, No Other Cardiovascular: No: Chest Pain, Edema, Lt Headedness, Orthopnea, Other, Palpitations, Paroxysmal Noc. Dyspnea Objective-Cardiology Exam Last Set of Vital Signs Vital Signs 05/17/16 05/17/16 08:10 12:45 Temp 98.9 Pulse 107 Resp 19 B/P (MAP) 170/62 Pulse Ox 99 O2 Delivery Room Air Capillary Refill : Less Than 3 Seconds I&O Bad tableGeneral: Alert, Oriented X3, Cooperative HEENT: Atraumatic, PERRLA Neck: Supple, No JVD, No Thyromegaly Lungs: Clear to Auscultation, Normal Air Movement Heart: Regular Rate, Normal S1, Normal S2, No Murmurs Abdomen: Normal Bowel Sounds, Soft, No Tenderness, No Hepatosplenomegaly, No Masses Extremities: No Clubbing, No Cyanosis, No Edema, Normal Pulses, No Tenderness/ Swelling Skin: No Rashes, No Breakdown, No Significant Lesion Neuro: Normal Gait, Normal Speech, Strength at 5/5 X4 Ext, Normal Tone, Sensation Intact Psych/Mental Status: Mental Status NL, Mood NL Results Lab Laboratory Tests 05/16/16 17:50 05/17/16 03:12 A/P-Cardiology Admission Diagnosis Chest pain nonspecific etiology Nausea Dizziness Assessment/Plan Chest pain nonspecific etiology, resembling angina, did not improve with sublingual nitroglycerin,cardiac enzymes and EKG were normal. CT chest was normal. stress test did not show ischemia or infarction. Normal LV function. Okay for discharge from cardiology standpoint, follow-up as an outpatient. Nausea, dizziness, received scopolamine. Reporting improvement. Continue to monitor History of irritable bowel syndrome, she was seen by Dr. Madden in the past History of tobaccoism, stopped smoking 14 years ago History of alcohol use, stopped in the remote past. History of cholecystectomy, appendectomy Clinical Quality Measures AMI/AHF: ASA po Prior to arrival: No DVT/VTE Risk/Contraindication: Risk Factor Score Per Nursin RFS Level Per Nursing on Admit: 2=Moderate KENISHA SALEEM MD May 17, 2016 15:01
[2016-05-17] MEDS ORDERED: ASPIRIN 81 MG CHEW (CHILDREN'S ASA) PO SCH (21:00)
[2016-05-17] MEDS ORDERED: AMITRIPTYLINE 10 MG (ELAVIL) TAB PO SCH (21:00)
[2016-05-17] MEDS ORDERED: PANTOPRAZOLE 20 MG TABLET (PROTONIX) PO SCH (21:00)
[2016-05-18] MEDS ORDERED: NON-FORMULARY MEDICATION 1 EA EA (Potassium Gluconate (Potassium) 99 MG) PO SCH (09:00)
--- OUTSIDE RECORDS SUMMARY | 2016-06-17 17:46 | XMS REPORT ---
Author Author DREW MEIER [facility] Address [address] [place], [place] [id number] Care Team Providers Care Rehabilitation Services Coordinator Name Role Phone DREW MEIER PCP Unavailable Allergies and Adverse Reactions Name Reaction Notes ciprofloxacin hives SULFA (SULFONAMIDES) hives Bactrim DS hives Cipro hives Plan of Treatment Not available. Medications Active Name Start Date Estimated Completion Date SIG Comments estradiol 2 mg oral tablet take 1 tablet (2 mg) by oral route once daily Name Start Date Expiration Date SIG Comments Motrin 800 mg oral tablet 03/25/2009 04/04/2009 take 1 tablet by oral route 3 times a day for 10 days phentermine 37.5 mg oral tablet 09/02/2009 09/17/2009 take 1 tablet (37.5 mg/ day) by oral route once daily before breakfast for 15 days Keflex 500 mg oral capsule 10/31/2009 11/10/2009 take 1 capsule (500 mg) by oral route 3 times a day for 10 days Zithromax Z-Addy 250 mg oral tablet 02/14/2011 02/19/2011 take 2 tablets (500 mg ) by oral route once daily for 1 day then 1 tablet (250 mg) by oral route once daily for 4 days citalopram 20 mg oral tablet 10/18/2011 11/17/2011 TAKE ONE TABLET BY MOUTH EVERY DAY [id number]-lxltzpgniwlku-ofwc 50-325-40 mg oral tablet 10/29/2011 11/08/2011 TAKE 1 TABLET EVERY 4 HOURS NEEDED NOT MORE THAN 6 TABS/24HRS hydrocodone-acetaminophen 7.5-325 mg oral tablet 10/29/2011 11/13/2011 TAKE 2 TABLETS DAILY -THANK YOU. amoxicillin 500 mg oral capsule 02/19/2012 take one TID Keflex 500 mg oral capsule 11/11/2012 11/21/2012 take 1 capsule by oral route 3 times a day for 10 days Cipro 500 mg oral tablet 11/25/2012 take 1 tablet (500 mg) by oral route 2 times per day Keflex 500 mg oral capsule take 1 capsule (500 mg) by oral route every 6 hours for 10 days Macrobid 100 mg oral capsule 05/19/2013 05/26/2013 take 1 capsule (100 mg) by oral route every 12 hours with food for 7 days hydrocodone-acetaminophen 7.5-325 mg oral tablet 06/10/2013 06/25/2013 TAKE 2 TABLETS DAILY -THANK YOU. cephalexin 500 mg oral capsule 08/21/2014 08/31/2014 take 1 capsule by oral route 3 times a day for 10 days Discontinued Name Start Date Discontinued Date SIG Comments decadron/depomedrol 6 mg decadron/120 mg depomedrol 02/07/2009 10/18/2011 injected in office Celexa 10 mg oral tablet 03/08/2011 take 1 tablet (10 mg) by oral route once daily ciprofloxacin HCl 500 mg oral tablet 01/12/2010 02/14/2011 take 1 tablet (500 mg) by oral route every 12 hours Cipro 500 mg oral tablet 05/31/2010 02/14/2011 take 1 tablet (500 mg) by oral route 2 times per day Symbicort 80-4.5 mcg/actuation inhalation HFA aerosol inhaler 12/11/201002/28 inhale 2 puffs by inhalation route 2 times per day in the morning and evening Phenergan-Codeine 6.25-10 mg/5 mL oral syrup 02/14/2011 01/01/2012 take 5 milliliters by oral route 4 times a day triamcinolone acetonide 0.1 % topical cream 02/14/2011 02/28/2015 apply a thin layer to the affected area(s) by topical route 3 times per day doxycycline hyclate 100 mg oral capsule 04/12/2011 01/01/2012 take 1 capsule ( 100 mg) by oral route 2 times per day Tessalon Perles 100 mg oral capsule 04/12/2011 01/01/2012 take 1 capsule (100 mg) by oral route every 4 hours as needed Sudafed 30 mg oral tablet 09/03/2011 02/28/2015 take 2 tablets (60 mg) by oral route every 6 hours as needed omeprazole 20 mg oral capsule,delayed release(DR/EC) 01/01/2012 take 1 capsule (20 mg) by oral route once daily before a meal for 30 days Wojciech-Tab 500 mg oral tablet,delayed release (DR/EC) 11/29/2011 01/01/2012 one three times daily Flonase 50 mcg/actuation nasal spray,suspension 02/19/2012 02/28/2015 inhale 1 spray by nasal route 2 times a day Acid Assistant Operations Manager (cimetidine) 200 mg oral tablet 07/22/2013 Premarin 0.3 mg oral tablet 04/28/2012 take 1 tablet (0.3 mg) by oral route once daily Pulmicort Flexhaler 180 mcg/actuation inhalation aerosol powdr breath activated 04/28/2012 02/28/2015 inhale 1 puff (180 mcg) by inhalation route 2 times per day Combivent Respimat 20-100 mcg/actuation inhalation mist 04/28/2012 02/28/2015 inhale 1 puff by inhalation route 4 times per day ; may take additional puffs as needed not to exceed 6 puffs in 24hrs Imitrex 50 mg oral tablet 11/05/2012 02/28/2015 take 1 tablet (50 mg) by oral route once with fluids as early as possible after the onset of a migraine attack ;may repeat after 2 hours if headache returns, not to exceed 200mg in 24hrs Bactrim DS 800-160 mg oral tablet 05/19/2013 05/19/2013 take 1 tablet by oral route 2 times a day for 7 days per history imlsgwjexz-gaopeznkxodqu-uevh 50-325-40 mg oral tablet 06/09/2013 02/28/2015 TAKE 1 TABLET EVERY 4 HOURS NEEDED NOT MORE THAN 6 TABS/24HRS promethazine 25 mg oral tablet 06/10/2013 02/28/2015 take 1 tablet (25 mg) by oral route every 6 hours as needed Dexilant 60 mg oral capsule,biphase delayed releas 02/28/2015 take 1 capsule (60 mg) by oral route once daily Zofran (as hydrochloride) 8 mg oral tablet 02/18/2014 02/28/2015 take 1 tablet (8 mg) by oral route 2 times per day Nitrostat 0.4 mg sublingual tablet, sublingual 07/30/2014 02/28/2015 place 1 tablet (0.4 mg) by buccal route at the first sign of an attack; no more than 3 tabs are recommended within a 15 minute period. Problem List Description Status Onset depression Active Headache Active Allergic rhinitis Active Dyspepsia Active Nausea Active Hyperlipidemia, mixed Active Anemia Active Atopic dermatitis Active 07/28/2012 Migraine Active 11/05/2012 Diarrhea Active 07/21/2013 Abdominal Pain Active 08/06/2013 Vomiting Active 08/06/2013 IBS (irritable bowel syndrome) Active 07/30/2014 Chest discomfort Active 07/30/2014 Vital Signs Date Time BP-Sys(mm[Hg] BP-Nay(mm[Hg]) HR(bpm) RR(rpm) Temp WT HT HC BMI BSA BMI Percentile O2 Sat(%) 06/23/2015 4:02:00 PM 125 mmHg 70 mmHg 80 bpm 16 rpm 97.8 F 168 lbs 61 in 31.74 kg/m2 1.81 m2 99 % 02/24/2015 1:08:00 PM 110 mmHg 70 mmHg 96 bpm 18 rpm 98 F 167.125 lbs 61 in 31.5777 kg/m 1.8063 m 99 % 08/20/2014 11:36:00 AM 110 mmHg 60 mmHg 88 bpm 18 rpm 98.1 F 169 lbs 61 in 31.93 kg/m2 1.82 m2 99 % 07/29/2014 3:05:00 PM 130 mmHg 80 mmHg 76 bpm 18 rpm 98.3 F 169 lbs 61 in 31.9319 kg/m 1.8164 m 99 % 05/28/2014 10:53:00 AM 90 mmHg 60 mmHg 80 bpm 18 rpm 98.8 F 169 lbs 61 in 31.93 kg/m2 1.82 m2 98 % 11/25/2013 10:43:00 AM 118 mmHg 62 mmHg 90 bpm 16 rpm 97.5 F 148 lbs 61 in 27.9641 kg/m 1.6998 m 100 % 10/05/2013 10:14:00 AM 106 mmHg 60 mmHg 84 bpm 16 rpm 97.4 F 143 lbs 61 in 27.02 kg/m2 1.67 m2 99 % 08/07/2013 8:19:00 AM 118 mmHg 66 mmHg 74 bpm 20 rpm 98.6 F 145 lbs 61 in 27.3972 kg/m 1.6825 m 99 % 08/06/2013 8:56:00 AM 116 mmHg 60 mmHg 90 bpm 22 rpm 97.3 F 145 lbs 61 in 27.40 kg/m2 1.68 m2 98 % 07/21/2013 10:33:00 AM 108 mmHg 64 mmHg 74 bpm 18 rpm 97.8 F 150.312 lbs 61 in 28.401 kg/m 1.713 m 07/13/2013 9:10:00 AM 110 mmHg 54 mmHg 84 bpm 16 rpm 97.1 F 153 lbs 61 in 28.91 kg/m2 1.73 m2 99 % 05/18/2013 3:56:00 PM 110 mmHg 60 mmHg 78 bpm 16 rpm 98.3 F 161 lbs 61 in 30.4204 kg/m 1.7729 m 99 % 04/20/2013 2:32:00 PM 130 mmHg 70 mmHg 88 bpm 20 rpm 98.4 F 61 in 100 % 12/02/2012 10:56:00 AM 110 mmHg 60 mmHg 100 bpm 16 rpm 97.1 F 160 lbs 61 in 30.2314 kg/m 1.7674 m 99 % 11/25/2012 9:03:00 AM 120 mmHg 60 mmHg 76 bpm 20 rpm 97.3 F 155 lbs 61 in 29.29 kg/m2 1.74 m2 99 % 11/03/2012 2:06:00 PM 122 mmHg 62 mmHg 88 bpm 16 rpm 97.8 F 156 lbs 61 in 29.4756 kg/m 1.7451 m 100 % 09/30/2012 3:38:00 PM 122 mmHg 60 mmHg 90 bpm 16 rpm 97.8 F 156 lbs 61 in 29.48 kg/m2 1.75 m2 100 % 07/25/2012 10:39:00 AM 120 mmHg 60 mmHg 80 bpm 16 rpm 96 F 156 lbs 61 in 29.4756 kg/m 1.7451 m 99 % 06/12/2012 9:31:00 AM 100 mmHg 64 mmHg 76 bpm 16 rpm 97.1 F 160 lbs 61 in 30.23 kg/m2 1.77 m2 100 % 05/14/2012 9:30:00 AM 110 mmHg 60 mmHg 88 bpm 14 rpm 97.1 F 164 lbs 61 in 30.9872 kg/m 1.7893 m 99 % 04/28/2012 3:04:00 PM 110 mmHg 60 mmHg 80 bpm 16 rpm 98.1 F 168 lbs 61 in 31.74 kg/m2 1.81 m2 99 % 04/01/2012 12:24:00 PM 122 mmHg 62 mmHg 80 bpm 16 rpm 96.9 F 164 lbs 61 in 30.9872 kg/m 1.7893 m 99 % 02/19/2012 1:43:00 PM 110 mmHg 60 mmHg 88 bpm 16 rpm 97.2 F 169.5 lbs 61 in 32.03 kg/m2 1.82 m2 98 % 01/10/2012 9:54:00 AM 128 mmHg 64 mmHg 104 bpm 18 rpm 98.1 F 175 lbs 61 in 33.0656 kg/m 1.8483 m 100 % 01/01/2012 2:41:00 PM 130 mmHg 72 mmHg 100 bpm 16 rpm 97.4 F 170 lbs 61 in 32.12 kg/m2 1.82 m2 100 % 12/13/2011 9:39:00 AM 120 mmHg 65 mmHg 85 bpm 18 rpm 97.4 F 172 lbs 61 in 32.4988 kg/m 1.8324 m 99 % 11/29/2011 1:58:00 PM 110 mmHg 60 mmHg 76 bpm 18 rpm 98.1 F 172 lbs 61 in 32.50 kg/m2 1.83 m2 100 % 10/17/2011 11:23:00 AM 120 mmHg 60 mmHg 90 bpm 18 rpm 97.8 F 170 lbs 61 in 32.1209 kg/m 1.8218 m 09/03/2011 10:16:00 AM 110 mmHg 68 mmHg 88 bpm 170 lbs 61 in 32.12 kg/m2 1.82 m2 07/23/2011 10:38:00 AM 108 mmHg 60 mmHg 80 bpm 166 lbs 61 in 31.3651 kg/m 1.8002 m 06/22/2011 10:45:00 AM 110 mmHg 72 mmHg 76 bpm 166 lbs 61 in 31.37 kg/m2 1.80 m2 05/10/2011 11:37:00 AM 112 mmHg 60 mmHg 80 bpm 166 lbs 61 in 31.3651 kg/m 1.8002 m 04/12/2011 9:16:00 AM 106 mmHg 62 mmHg 68 bpm 167 lbs 61 in 31.55 kg/m2 1.81 m2 02/14/2011 9:50:00 AM 116 mmHg 72 mmHg 72 bpm 168 lbs 61 in 31.743 kg/m 1.811 m 02/06/2011 11:32:00 AM 108 mmHg 60 mmHg 72 bpm 169 lbs 61 in 31.93 kg/m2 1.82 m2 12/11/2010 11:26:00 AM 110 mmHg 62 mmHg 72 bpm 166 lbs 61 in 31.3651 kg/m 1.8002 m 10/13/2010 11:12:00 AM 112 mmHg 74 mmHg 80 bpm 162 lbs 61 in 30.61 kg/m2 1.78 m2 07/13/2010 10:13:00 AM 118 mmHg 76 mmHg 80 bpm 164 lbs 06/05/2010 11:23:00 AM 118 mmHg 68 mmHg 100 bpm 167 lbs 05/31/2010 9:27:00 AM 110 mmHg 64 mmHg 80 bpm 161 lbs 05/24/2010 2:10:00 PM 110 mmHg 60 mmHg 80 bpm 161 lbs 01/12/2010 9:11:00 AM 118 mmHg 70 mmHg 76 bpm 151 lbs 11/22/2009 10:53:00 AM 110 mmHg 60 mmHg 72 bpm 154 lbs 06/14/2009 10:38:00 AM 110 mmHg 64 mmHg 72 bpm 165.437 lbs 03/25/2009 10:40:00 AM 118 mmHg 69 mmHg 68 bpm 165 lbs 61 in 31.18 kg/m2 1.79 m2 02/07/2009 1:41:00 PM 110 mmHg 62 mmHg 76 bpm 161.375 lbs Social History Name Description Comments denies alcohol use Tobacco Never smoker some college Active but no formal exercise Uses seatbelts History of Procedures Date Ordered Description Order Status 10/13/2010 12:00 AM THER/PROPH/DIAG INJ SC/IM Reviewed 10/13/2010 12:00 AM Phenergan 50 Mg Im [id number] Reviewed 10/13/2010 12:00 AM Nubain 10mg Reviewed 02/28/2015 12:00 AM Toradol 60 Mg [facility]#4494-6237-31 Reviewed 03/25/2009 12:00 AM COMPREHEN METABOLIC PANEL Reviewed 03/25/2009 12:00 AM COMPLETE CBC W/AUTO DIFF WBC Reviewed 03/25/2009 12:00 AM CYTOPATH C/V MANUAL Reviewed 03/25/2009 12:00 AM BIOPSY OF UTERUS LINING Reviewed 03/25/2009 12:00 AM ECHO EXAMINATION PROCEDURE Reviewed 03/25/2009 12:00 AM BIOPSY OF UTERUS LINING Reviewed 12/11/2010 12:00 AM THER/PROPH/DIAG INJ SC/IM Reviewed 12/11/2010 12:00 AM Decadron Inj.1mg-([facility]) [facility] #[id number] Reviewed 04/10/2011 12:00 AM ROUTINE VENIPUNCTURE Reviewed 04/10/2011 12:00 AM COMPLETE CBC W/AUTO DIFF WBC Returned 04/10/2011 12:00 AM COMPREHEN METABOLIC PANEL Returned 04/10/2011 12:00 AM LIPID PANEL Returned 05/10/2011 12:00 AM THER/PROPH/DIAG INJ SC/IM Reviewed 05/10/2011 12:00 AM Decadron Inj.1mg-([facility]) [facility] #[id number] Reviewed 05/10/2011 12:00 AM Depo-Medrol 80 Mg Im/[facility] [id number] Reviewed 06/22/2011 12:00 AM THER/PROPH/DIAG INJ SC/IM Reviewed 06/22/2011 12:00 AM Phenergan 50 Mg Im [id number] Reviewed 06/22/2011 12:00 AM Nubain 10mg Reviewed 07/24/2011 12:00 AM ROUTINE VENIPUNCTURE Reviewed 07/24/2011 12:00 AM COMPREHEN METABOLIC PANEL Returned 07/24/2011 12:00 AM ASSAY THYROID STIM HORMONE Returned 07/24/2011 12:00 AM ASSAY OF FREE THYROXINE Returned 10/17/2011 12:00 AM THER/PROPH/DIAG INJ SC/IM Reviewed 10/17/2011 12:00 AM Decadron, Per 1 Mg [facility]# [address]-12 Reviewed 10/17/2011 12:00 AM Depo-Medrol, Per 80 Mg [facility]#6669-3545-12 Reviewed 11/21/2011 12:00 AM THER/PROPH/DIAG INJ SC/IM Reviewed 11/21/2011 12:00 AM Toradol 60 Mg [facility]#6747-7439-63 Reviewed 11/29/2011 12:00 AM THER/PROPH/DIAG INJ SC/IM Reviewed 11/29/2011 12:00 AM Decadron, Per 1 Mg [facility]# [address]-19 Reviewed 12/13/2011 12:00 AM THER/PROPH/DIAG INJ SC/IM Reviewed 12/13/2011 12:00 AM Phenergan, Up to 50 Mg [facility]#5973-8937-50 Reviewed 01/10/2012 12:00 AM THER/PROPH/DIAG INJ SC/IM Reviewed 01/10/2012 12:00 AM Phenergan, Up to 50 Mg [facility]#6774-6145-17 Reviewed 03/28/2012 12:00 AM THER/PROPH/DIAG INJ SC/IM Reviewed 03/28/2012 12:00 AM Toradol 60 Mg [facility]#4405-2455-42 Reviewed 03/28/2012 12:00 AM Phenergan, Up to 50 Mg [facility]#7073-4816-88 Reviewed 05/14/2012 12:00 AM APPLICATION LOWER LEG SPLINT Reviewed 06/12/2012 12:00 AM THER/PROPH/DIAG INJ SC/IM Reviewed 06/12/2012 12:00 AM Decadron, Per 1 Mg [facility]# [address]-87 Reviewed 07/10/2012 12:00 AM COMPLETE CBC W/AUTO DIFF WBC Reviewed 07/10/2012 12:00 AM COMPREHEN METABOLIC PANEL Reviewed 07/10/2012 12:00 AM LIPID PANEL Reviewed 07/10/2012 12:00 AM ASSAY THYROID STIM HORMONE Reviewed 07/10/2012 12:00 AM ROUTINE VENIPUNCTURE Reviewed 09/30/2012 12:00 AM THER/PROPH/DIAG INJ SC/IM Reviewed 09/30/2012 12:00 AM Toradol 60 Mg [facility]#0494-7401-71 Reviewed 09/30/2012 12:00 AM Phenergan, Up to 50 Mg [facility]#2961-0023-63 Reviewed 06/14/2009 12:00 AM THER/PROPH/DIAG INJ SC/IM Reviewed 06/14/2009 12:00 AM Decadron Inj.8mg-([facility]) [facility] #[id number] Reviewed 06/14/2009 12:00 AM Depo-Medrol 80 Mg Im/[facility] [id number] Reviewed 11/03/2012 12:00 AM THER/PROPH/DIAG INJ SC/IM Reviewed 11/03/2012 12:00 AM Toradol 60 Mg [facility]#2810-1597-44 Reviewed 11/03/2012 12:00 AM Phenergan, Up to 50 Mg [facility]#5452-8091-77 Reviewed 11/25/2012 12:00 AM THER/PROPH/DIAG INJ SC/IM Reviewed 11/25/2012 12:00 AM Decadron, Per 1 Mg [facility]# [address]-79 Reviewed 12/04/2012 12:00 AM COMPLETE CBC W/AUTO DIFF WBC Reviewed 12/04/2012 12:00 AM ASSAY THYROID STIM HORMONE Reviewed 12/04/2012 12:00 AM ROUTINE VENIPUNCTURE Reviewed 12/04/2012 12:00 AM RMSF Ab IgG Reviewed 12/04/2012 12:00 AM RICKETTSIA ANTIBODY Reviewed 12/04/2012 12:00 AM Invalid Code Reviewed 12/04/2012 12:00 AM EHRLICHIA ANTIBODY Reviewed 12/04/2012 12:00 AM Invalid Code Reviewed 12/04/2012 12:00 AM LYME DISEASE ANTIBODY Reviewed 12/04/2012 12:00 AM ANTINUCLEAR ANTIBODIES Reviewed 12/04/2012 12:00 AM DNA ANTIBODY [place] Reviewed 12/04/2012 12:00 AM NUCLEAR ANTIGEN ANTIBODY Reviewed 12/04/2012 12:00 AM RHEUMATOID FACTOR QUANT Reviewed 12/04/2012 12:00 AM COMPLEMENT ANTIGEN Reviewed 12/04/2012 12:00 AM THROMBOPLASTIN TIME PARTIAL Reviewed 12/04/2012 12:00 AM ANTINUCLEAR ANTIBODIES Reviewed 12/04/2012 12:00 AM RBC SED RATE AUTOMATED Reviewed 12/04/2012 12:00 AM NUCLEAR ANTIGEN ANTIBODY Reviewed 12/04/2012 12:00 AM ASSAY OF BLOOD/URIC ACID Reviewed 12/04/2012 12:00 AM RHEUMATOID FACTOR QUANT Reviewed 04/20/2013 12:00 AM THER/PROPH/DIAG INJ SC/IM Reviewed 04/20/2013 12:00 AM Phenergan Up to 50 mg [facility] Reviewed 06/04/2013 12:00 AM COMPREHEN METABOLIC PANEL Reviewed 06/04/2013 12:00 AM ROUTINE VENIPUNCTURE Reviewed 11/22/2009 12:00 AM THER/PROPH/DIAG INJ SC/IM Reviewed 11/22/2009 12:00 AM Decadron Inj.8mg-([facility]) [facility] #[id number] Reviewed 11/22/2009 12:00 AM Depo-Medrol 80 Mg Im/[facility] [id number] Reviewed 11/22/2009 12:00 AM Rocephin, Per 250MG - 1 Gram Vial Reviewed 01/12/2010 12:00 AM THER/PROPH/DIAG INJ SC/IM Reviewed 01/12/2010 12:00 AM Decadron Inj.12mg-([facility]) [facility] #[id number] Reviewed 07/21/2013 12:00 AM EGD DIAGNOSTIC BRUSH WASH Reviewed 07/21/2013 12:00 AM DIAGNOSTIC COLONOSCOPY Reviewed 08/07/2013 8:22 AM ASSAY GLUCOSE BLOOD QUANT Reviewed 08/07/2013 12:00 AM ASSAY GLUCOSE BLOOD QUANT Reviewed 10/07/2013 12:00 AM Internal Medicine Consult Reviewed 05/24/2010 12:00 AM THER/PROPH/DIAG INJ SC/IM Reviewed 05/24/2010 12:00 AM Decadron Inj.8mg-([facility]) [facility] #[id number] Reviewed 05/24/2010 12:00 AM Depo-Medrol 80 Mg Im/[facility] [id number] Reviewed 05/31/2010 12:00 AM THER/PROPH/DIAG INJ SC/IM Reviewed 05/31/2010 12:00 AM Decadron Inj.12 mg-([facility]) [facility] #[id number] Reviewed 06/12/2010 12:00 AM ROUTINE VENIPUNCTURE Reviewed 06/12/2010 12:00 AM COMPLETE CBC W/AUTO DIFF WBC Reviewed 06/12/2010 12:00 AM COMPREHEN METABOLIC PANEL Reviewed 06/12/2010 12:00 AM LIPID PANEL Reviewed 07/13/2010 12:00 AM DESTRUCT PREMALG LESION Reviewed 07/29/2014 12:00 AM THER/PROPH/DIAG INJ SC/IM Reviewed 07/29/2014 12:00 AM Toradol 60 Mg [facility]#3725-2833-67 Reviewed Results Summary Data and Description Results 03/25/2009 11:52 AM MCH 29.30 pg%MONO 8.10 %MPV 11.20 fLMCHC 34.10 g/dL#MONO 0.47 HCT 35.80 %HGB 12.20 g/dL%EOS 1.60 %#LYMP 2.27 RBC 4.16 %LYMP 39.20 %#BASO 0.03 RDW CV 12.90 %#NEUT 2.93 #EOS 0.09 MCV 86.0 fLWBC 5.8 %BASO 0.5 %PLT 194 % NEUT 50.60 %GLUCOSE 96 SODIUM 141.0 mmol/LPOTASSIUM 3.70 mmol/LCHLORIDE 107.0 mmol/LCO2 26.0 mmol/LBUN 8.0 mg/dLCREATININE 0.70 mg/dLSGOT/AST 10.0 IU/LSGPT/ ALT 10.0 IU/LALK PHOS 53.0 IU/LTOTAL PROTEIN 6.60 g/dLALBUMIN 3.80 g/dLTOTAL BILI 0.40 mg/dLCALCIUM 8.40 mg/dLeGFR >60 mL/min/1.73 m 06/12/2010 3:28 PM TRIGLYCERIDES 84.0 mg/dLCHOLESTEROL 229.0 mg/dLHDL 65.0 mg/ dLLDL 152.0 mg/dLGLUCOSE 97.0 mg/dLSODIUM 135.0 mmol/LPOTASSIUM 4.40 mmol/ LCHLORIDE 103.0 mmol/LCO2 25.0 mmol/LBUN 9.0 mg/dLCREATININE 0.60 mg/dLSGOT/AST 24.0 IU/LSGPT/ALT 35.0 IU/LALK PHOS 60.0 IU/LTOTAL PROTEIN 6.40 g/dLALBUMIN 3.90 g/dLTOTAL BILI 0.40 mg/dLCALCIUM 7.90 mg/dLeGFR >60 mL/min/1.73 m2WBC 9.2 RBC 4.27 HGB 12.40 g/dLHCT 38.40 %MCV 90.0 fLMCH 29.0 pgMCHC 32.30 g/dLRDW CV 13.40 %MPV 12.10 fLPLT 198 %NEUT 65.40 %%LYMP 25.30 %%MONO 6.60 %%EOS 2.30 %% BASO 0.40 %#NEUT 5.99 #LYMP 2.32 #MONO 0.60 #EOS 0.21 #BASO 0.04 04/10/2011 4:02 PM WBC 5.1 RBC 4.16 HGB 12.30 g/dLHCT 37.0 %MCV 89.0 fLMCH 29.60 pgMCHC 33.20 g/dLRDW CV 13.0 %MPV 13.30 fLPLT 195 %NEUT 54.50 %%LYMP 35.80 %%MONO 8.30 %%EOS 1.0 %%BASO 0.40 %#NEUT 2.75 #LYMP 1.81 #MONO 0.42 #EOS 0.05 #BASO 0.02 GLUCOSE 101.0 mg/dLSODIUM 139.0 mmol/LPOTASSIUM 3.70 mmol/ LCHLORIDE 106.0 mmol/LCO2 25.0 mmol/LBUN 7.0 mg/dLCREATININE 0.80 mg/dLSGOT/AST 13.0 IU/LSGPT/ALT 8.0 IU/LALK PHOS 60.0 IU/LTOTAL PROTEIN 6.60 g/dLALBUMIN 4.20 g/dLTOTAL BILI 0.60 mg/dLCALCIUM 8.50 mg/dLeGFR >60 mL/min/1.73 [id number] 82.0 mg/dLCHOLESTEROL 159.0 mg/dLHDL 42.0 mg/dLLDL (CALC) 101.0 mg/dL 07/24/2011 4:19 PM GLUCOSE 96.0 mg/dLSODIUM 137.0 mmol/LPOTASSIUM 4.40 mmol/ LCHLORIDE 105.0 mmol/LCO2 22.0 mmol/LBUN 10.0 mg/dLCREATININE 0.70 mg/dLSGOT/ AST 11.0 IU/LSGPT/ALT 11.0 IU/LALK PHOS 64.0 IU/LTOTAL PROTEIN 6.70 g/dLALBUMIN 4.10 g/dLTOTAL BILI 0.20 mg/dLCALCIUM 8.60 mg/dLeGFR 60 TSH 1.290 uIU/mL 07/10/2012 3:01 PM WBC 5.8 RBC 4.26 HGB 12.60 g/dLHCT 37.60 %MCV 88.0 fLMCH 29.60 pgMCHC 33.50 g/dLRDW CV 12.70 %MPV 12.90 fLPLT 170 %NEUT 59.90 %%LYMP 32.30 %%MONO 5.90 %%EOS 1.60 %%BASO 0.30 %#NEUT 3.45 #LYMP 1.86 #MONO 0.34 #EOS 0.09 #BASO 0.02 GLUCOSE 73.0 mg/dLSODIUM 140.0 mmol/LPOTASSIUM 4.30 mmol/ LCHLORIDE 105.0 mmol/LCO2 22.0 mmol/LBUN 9.0 mg/dLCREATININE 0.80 mg/dLSGOT/AST 12.0 IU/LSGPT/ALT 9.0 IU/LALK PHOS 58.0 IU/LTOTAL PROTEIN 6.90 g/dLALBUMIN 3.90 g/dLTOTAL BILI 0.20 mg/dLCALCIUM 9.10 mg/dLeGFR 60 TRIGLYCERIDES 136.0 mg/ dLCHOLESTEROL 161.0 mg/dLHDL 46.0 mg/dLLDL 83.0 mg/dLTSH 2.60 uIU/mL 12/04/2012 4:00 PM SEDRATE 16.0 mm/hrTSH 2.740 uIU/mLWBC 7.7 RBC 3.72 HGB 10.90 g/dLHCT 33.0 %MCV 89.0 fLMCH 29.30 pgMCHC 33.0 g/dLRDW CV 13.0 %MPV 12.30 fLPLT 202 %NEUT 47.20 %%LYMP 44.60 %%MONO 7.0 %%EOS 0.90 %%BASO 0.30 %#NEUT 3.62 #LYMP 3.42 #MONO 0.54 #EOS 0.07 #BASO 0.02 C REACTIVE PROTEIN 7.0 mg/LURIC ACID 4.4 mg/dL 06/04/2013 5:05 PM GLUCOSE 84.0 mg/dLSODIUM 139.0 mmol/LPOTASSIUM 3.90 mmol/ LCHLORIDE 106.0 mmol/LCO2 26.0 mmol/LBUN 7.0 mg/dLCREATININE 0.70 mg/dLSGOT/AST 11.0 IU/LSGPT/ALT 9.0 IU/LALK PHOS 53.0 IU/LTOTAL PROTEIN 6.40 g/dLALBUMIN 3.70 g/dLTOTAL BILI 0.40 mg/dLCALCIUM 8.30 mg/dLeGFR 60 07/23/2013 10:30 AM Ova + Parasite Exam Final report 07/23/2013 11:00 AM C DIFFICILE NEGATIVE -- C DIFF TOXIN NOT DETECTED 04/07/2015 2:35 PM TSH 0.740 uIU/mLMAGNESIUM 2.50 mg/dLGLUCOSE 90.0 mg/ dLSODIUM 141.0 mmol/LPOTASSIUM 4.0 mmol/LCHLORIDE 105.0 mmol/LCO2 27.0 mmol/ LBUN 9.0 mg/dLCREATININE 0.70 mg/dLSGOT/AST 16.0 IU/LSGPT/ALT 18.0 IU/LALK PHOS 68.0 IU/LTOTAL PROTEIN 6.90 g/dLALBUMIN 4.0 g/dLTOTAL BILI 0.30 mg/dLCALCIUM 8.60 mg/dLeGFR >60 mL/min/1.73m History Of Immunizations Not available. History of Past Illness Name Date of Onset Comments Bronchitis, Acute Feb 07 2009 1:42PM Cough Feb 07 2009 1:42PM depression Abnormal Uterine Bleeding Mar 25 2009 10:47AM Excessive Or Frequent Menstruation Mar 25 2009 10:47AM Dysfunctional Uterine Bleeding Mar 25 2009 10:47AM Nasopharyngitis, Acute (Common Cold) Jun 14 2009 10:39AM Eustachian Tube Dysfunction Jun 14 2009 10:39AM Seasonal Allergies Jun 14 2009 10:39AM Headache Dyspepsia Allergic rhinitis Nausea Hyperlipidemia, mixed Anemia Atopic dermatitis 07/28/2012 Migraine 11/05/2012 Diarrhea 07/21/2013 Abdominal Pain 08/06/2013 Vomiting 08/06/2013 Nasopharyngitis, Acute (Common Cold) Nov 22 2009 10:54AM Seasonal Allergies Nov 22 2009 10:54AM Cough Jan 12 2010 9:10AM Sinusitis, Acute Jan 12 2010 9:10AM IBS (irritable bowel syndrome) 07/30/2014 Chest discomfort 07/30/2014 Eustachian Tube Dysfunction May 24 2010 2:10PM Sinusitis, Acute May 24 2010 2:10PM Seasonal Allergies May 24 2010 2:10PM Post-nasal drainage May 24 2010 2:10PM Cough May 31 2010 9:27AM Bronchitis, Acute May 31 2010 9:27AM Seasonal Allergies May 31 2010 9:27AM General Medical Exam, Adult Jun 05 2010 11:23AM Palpitations Jun 12 2010 9:49AM Skin tag Jul 13 2010 10:14AM Headache Oct 13 2010 11:09AM Cough Dec 11 2010 11:23AM Seasonal Allergies Dec 11 2010 11:23AM Post-nasal drainage Dec 11 2010 11:23AM Costochondritis Dec 11 2010 11:23AM Lymphadenitis, Acute Feb 06 2011 11:33AM Cough Feb 14 2011 9:51AM Bronchitis, Acute Feb 14 2011 9:51AM Fatigue Apr 10 2011 8:33AM Depression Apr 10 2011 8:33AM Cough Apr 12 2011 9:18AM Sinusitis, Acute Apr 12 2011 9:18AM Post-nasal drainage Apr 12 2011 9:18AM Seasonal Allergies May 10 2011 11:38AM Allergic conjunctivitis May 10 2011 11:38AM Migraine Jun 22 2011 10:46AM Fatigue Jul 23 2011 10:39AM Seasonal Allergies Jul 23 2011 10:39AM Follow-Up Examination Jul 23 2011 10:39AM Fatigue Jul 24 2011 8:13AM Post-nasal drainage Sep 03 2011 10:20AM Effects of heat and light; heat exhaustion, anhydrotic Sep 03 2011 10:20AM Seasonal Allergies Oct 17 2011 11:24AM Headache Nov 21 2011 1:07PM Bronchitis, Acute Nov 29 2011 1:59PM Gastroenteritis, Viral Dec 13 2011 9:41AM Gastroenteritis, Viral Dec 13 2011 12:27PM Gynecological Exam Jan 01 2012 2:42PM Gastroenteritis, Viral Jan 10 2012 9:55AM Nausea Jan 10 2012 9:55AM Vomiting Jan 10 2012 9:55AM Post-nasal drainage Feb 19 2012 1:43PM Sinusitis, Chronic Feb 19 2012 1:43PM Nausea Feb 19 2012 1:43PM Migraine Apr 01 2012 12:25PM Bronchitis, Acute Apr 28 2012 3:04PM 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 3: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 Sprain/Strain May 14 2012 9:31AM Pain in joint; ankle and foot May 14 2012 9:31AM Eustachian Tube Dysfunction Jun 12 2012 9:31AM Seasonal Allergies Jun 12 2012 9:31AM Post-nasal drainage Jun 12 2012 9:31AM Headache Jul 10 2012 10:23AM Dyspepsia Jul 10 2012 10:23AM Nausea Jul 10 2012 10:23AM Hyperlipidemia, Mixed Jul 10 2012 10:23AM Anemia Jul 10 2012 10:23AM Atopic Dermatitis Jul 25 2012 10:39AM Headache Sep 30 2012 3:39PM Migraine Nov 03 2012 2:06PM Cough Nov 25 2012 9:04AM Bronchitis, Acute Nov 25 2012 9:04AM Post-nasal drainage Nov 25 2012 9:04AM Migraine Dec 04 2012 8:40AM Headache Dec 04 2012 8:40AM Nausea Dec 04 2012 8:40AM Anemia Dec 04 2012 8:40AM Fatigue Dec 04 2012 8:40AM Joint Pain Dec 04 2012 8:40AM Upper Respiratory Infection Dec 02 2012 10:56AM Viral Syndrome Dec 02 2012 10:56AM Gastroenteritis, Viral Apr 20 2013 2:33PM Dysuria May 18 2013 3:56PM Urinary Tract Infection May 18 2013 3:56PM Hypokalemia Jun 04 2013 9:21AM Infectious Colitis, Enteritis, And Gastroenteritis Jul 13 2013 9:10AM Abdominal Pain Jul 21 2013 10:34AM Diarrhea Jul 21 2013 10:34AM Abdominal Pain Aug 06 2013 12:12PM Vomiting Aug 06 2013 12:12PM Nausea Aug 06 2013 12:12PM Headache Aug 06 2013 8:57AM Nausea Aug 06 2013 8:57AM Nausea Aug 07 2013 8:22AM Light-headed feeling Aug 07 2013 8:22AM Hypoglycemia Oct 05 2013 10:14AM Hypoglycemia Oct 07 2013 3:13PM Upper Respiratory Infection Nov 25 2013 10:43AM Anxiety Disorder May 28 2014 10:54AM Acute nasopharyngitis (common cold) May 28 2014 10:54AM Lymphadenitis May 28 2014 10:54AM Breast Lump, left May 28 2014 10:54AM Chest discomfort Jul 29 2014 3:05PM IBS (irritable bowel syndrome) Jul 29 2014 3:05PM Cellulitis Aug 20 2014 11:37AM Slow transit constipation Feb 24 2015 1:12PM Mild Acute Abdominal Pain, RLQ Feb 24 2015 1:12PM Insect Bite, Nonvenomous, Without Infection Jun 23 2015 4:02PM Mild Acute Insect bite Jun 23 2015 4:02PM Payers Insurance Name Company Name Plan Name Plan Number Policy Number Policy Group Number Start Date Confinity Confinity [id number] N/A [facility] [id number] N/A [facility] [id number] N/A [facility] [id number] N/A [facility] [id number] N/A [facility] [id number] N/A History of Encounters Visit Date Visit Type Provider 06/23/2015 Office visit DREW BURDEN 02/24/2015 Office visit DREW BURDEN 08/20/2014 Office visit DREW BURDEN 07/29/2014 Office visit 07/29/2014 Office visit DREW BURDEN 05/28/2014 Office visit DREW BURDEN 11/25/2013 Office visit DREW BURDEN 10/05/2013 Office visit DREW BURDEN 08/07/2013 Office visit DREW BURDEN 08/06/2013 Office visit DREW BURDEN 08/01/2013 [facility] Km Tripp MD 07/23/2013 [facility] Luis Branch DO 07/21/2013 Office visit Luis Branch DO 07/13/2013 Office visit DREW MEIER PA 06/04/2013 Office visit DREW MEIER PA 05/18/2013 Office visit DREW MEIER PA 04/20/2013 Office visit DREW MEIER PA 12/04/2012 Office visit DREW MEIER PA 12/02/2012 Office visit DREW MEIER PA 11/25/2012 Office visit DREW MEIER PA 11/03/2012 Office visit DREW MEIER PA 09/30/2012 Office visit DREW MEIER PA 07/25/2012 Office visit DREW MEIER PA 07/10/2012 Office visit DREW MEIER PA 06/12/2012 Office visit DREW MEIER PA 05/14/2012 Office visit DREW MEIER PA 04/28/2012 Office visit DREW MEIER PA 03/28/2012 Office visit DREW MEIER PA 02/19/2012 Office visit DREW MEIER PA 01/10/2012 Office visit DREW MEIER PA 01/01/2012 Office visit DREW MEIER PA 12/13/2011 Office visit DREW MEIER PA 11/29/2011 Office visit DREW MEIER PA 11/21/2011 Office visit DREW MEIER PA 10/17/2011 Office visit DREW MEIER PA 09/03/2011 Office visit DREW MEIER PA 08/21/2011 Kofi Tripp MD 07/24/2011 Office visit DREW MEIER PA 07/23/2011 Office visit DREW MEIER PA 06/22/2011 Office visit DREW MEIER PA 05/10/2011 Office visit DREW MEIER PA 04/12/2011 Office visit DREW MEIER PA 04/10/2011 Office visit DREW MEIER PA 02/14/2011 Office visit DREW MEIER PA 02/06/2011 Office visit DREW MEIER PA 12/11/2010 Office visit Drew Meier PA-C 10/13/2010 Office visit Drew Meier PA-C 07/13/2010 Office visit Drew Meier PA-C 06/12/2010 Office visit Drew Meier PA-C 06/05/2010 Office visit Drew Meier PA-C 05/31/2010 Office visit Drew Meier PA-C 05/24/2010 Office visit Drew BURDEN-C 01/12/2010 Office visit Drew BURDEN-C 12/22/2009 Office visit Drew BURDEN-C 11/22/2009 Office visit Drew BURDEN-C 06/14/2009 Office visit Drew BURDEN-C 04/25/2009 Surgery Drew Patiño MD 03/25/2009 Office visit rEick Carrillo MD 02/07/2009 Office visit Drew BURDEN-C 10/13/2008 Office visit DREW BURDEN 10/04/2008 Office visit DREW BURDEN
--- OUTSIDE RECORDS SUMMARY | 2016-06-17 17:48 | XMS REPORT ---
Author Author DREW MEIER [facility] Address [address] [place], [place] [id number] Care Team Providers Care Dye Range Tender Name Role Phone DREW MEIER PCP Unavailable Allergies and Adverse Reactions Name Reaction Notes ciprofloxacin hives SULFA (SULFONAMIDES) hives Bactrim DS hives Cipro hives Plan of Treatment Not available. Medications Active Name Start Date Estimated Completion Date SIG Comments estradiol 2 mg oral tablet take 1 tablet (2 mg) by oral route once daily fluticasone 50 mcg/actuation nasal spray,suspension 08/12/2015 inhale 1 spray (50 mcg) in each nostril by intranasal route 2 times per day promethazine-codeine 6.25-10 mg/5 mL oral syrup 02/20/2016 take 5 milliliters by oral route every 4-6 hours as needed, not to exceed 30 mL in 24 hours Name Start Date Expiration Date SIG Comments [...] TAKE ONE TABLET BY MOUTH EVERY DAY [id number]-tnfkdhckrkzrz-xcco 50-325-40 mg oral tablet 10/29/2011 11/08/2011 TAKE [...] days Zithromax Z-Addy 250 mg oral tablet 02/22/2016 02/27/2016 take 2 tablets (500 mg) by oral route once daily for 1 day then 1 tablet (250 mg) by oral route once daily for 4 days Medrol (Addy) 4 mg oral tablets,dose pack 02/22/2016 02/27/2016 take as directed for 5 days Discontinued Name Start Date Discontinued Date [...] nasal route 2 times a day Acid Agency Sales Management Assistant (cimetidine) 200 mg oral tablet 07/22/2013 Premarin [...] a day for 7 days per history oqwcvrpxqq-vpzlnluobstoy-sxfe 50-325-40 mg oral tablet 06/09/2013 02/28/2015 TAKE [...] rhinitis Active Dyspepsia Active Nausea Active Hyperlipidemia, Mixed Active Anemia Active Atopic dermatitis Active 07/28/2012 Migraine Active 11/05/2012 Diarrhea Active 07/21/2013 Abdominal Pain Active 08/06/2013 Vomiting Active 08/06/2013 IBS (irritable bowel syndrome) Active 07/30/2014 Chest discomfort Active 07/30/2014 Vital Signs Date Time BP-Sys(mm[Hg] BP-Nay(mm[Hg]) HR(bpm) RR(rpm) Temp WT HT HC BMI BSA BMI Percentile O2 Sat(%) 02/20/2016 3:04:00 PM 122 mmHg 70 mmHg 78 bpm 18 rpm 98.2 F 166 lbs 61 in 31.37 kg/m2 1.80 m2 99 % 08/12/2015 9:01:00 AM 108 mmHg 62 mmHg 76 bpm 16 rpm 98.2 F 169 lbs 61 in 31.9319 kg/m 1.8164 m 99 % 07/05/2015 9:39:00 AM 122 mmHg 80 mmHg 110 bpm 18 rpm 165 lbs 96 % 06/23/2015 4:02:00 PM 125 mmHg 70 mmHg 80 bpm 16 rpm 97.8 F 168 lbs 61 in 31.743 kg/m 1.811 m 99 % 02/24/2015 1:08:00 PM 110 mmHg 70 mmHg 96 bpm 18 rpm 98 F 167.125 lbs 61 in 31.58 kg/m2 1.81 m2 99 % 08/20/2014 11:36:00 AM 110 mmHg 60 mmHg 88 bpm 18 rpm 98.1 F 169 lbs 61 in 31.9319 kg/m 1.8164 m 99 % 07/29/2014 3:05:00 PM 130 mmHg 80 mmHg 76 bpm 18 rpm 98.3 F 169 lbs 61 in 31.93 kg/m2 1.82 m2 99 % 05/28/2014 10:53:00 AM 90 mmHg 60 mmHg 80 bpm 18 rpm 98.8 F 169 lbs 61 in 31.9319 kg/m 1.8164 m 98 % 11/25/2013 10:43:00 AM 118 mmHg 62 mmHg 90 bpm 16 rpm 97.5 F 148 lbs 61 in 27.96 kg/m2 1.70 m2 100 % 10/05/2013 10:14:00 AM 106 mmHg 60 mmHg 84 bpm 16 rpm 97.4 F 143 lbs 61 in 27.0193 kg/m 1.6708 m 99 % 08/07/2013 8:19:00 AM 118 mmHg 66 mmHg 74 bpm 20 rpm 98.6 F 145 lbs 61 in 27.40 kg/m2 1.68 m2 99 % 08/06/2013 8:56:00 AM 116 mmHg 60 mmHg 90 bpm 22 rpm 97.3 F 145 lbs 61 in 27.3972 kg/m 1.6825 m 98 % 07/21/2013 10:33:00 AM 108 mmHg 64 mmHg 74 bpm 18 rpm 97.8 F 150.312 lbs 61 in 28.40 kg/m2 1.71 m2 07/13/2013 9:10:00 AM 110 mmHg 54 mmHg 84 bpm 16 rpm 97.1 F 153 lbs 61 in 28.9088 kg/m 1.7283 m 99 % 05/18/2013 3:56:00 PM 110 mmHg 60 mmHg 78 bpm 16 rpm 98.3 F 161 lbs 61 in 30.42 kg/m2 1.77 m2 99 % 04/20/2013 2:32:00 PM 130 mmHg 70 mmHg 88 bpm 20 rpm 98.4 F 61 in 100 % 12/02/2012 10:56:00 AM 110 mmHg 60 mmHg 100 bpm 16 rpm 97.1 F 160 lbs 61 in 30.23 kg/m2 1.77 m2 99 % 11/25/2012 9:03:00 AM 120 mmHg 60 mmHg 76 bpm 20 rpm 97.3 F 155 lbs 61 in 29.2867 kg/m 1.7395 m 99 % 11/03/2012 2:06:00 PM 122 mmHg 62 mmHg 88 bpm 16 rpm 97.8 F 156 lbs 61 in 29.48 kg/m2 1.75 m2 100 % 09/30/2012 3:38:00 PM 122 mmHg 60 mmHg 90 bpm 16 rpm 97.8 F 156 lbs 61 in 29.4756 kg/m 1.7451 m 100 % 07/25/2012 10:39:00 AM 120 mmHg 60 mmHg 80 bpm 16 rpm 96 F 156 lbs 61 in 29.48 kg/m2 1.75 m2 99 % 06/12/2012 9:31:00 AM 100 mmHg 64 mmHg 76 bpm 16 rpm 97.1 F 160 lbs 61 in 30.2314 kg/m 1.7674 m 100 % 05/14/2012 9:30:00 AM 110 mmHg 60 mmHg 88 bpm 14 rpm 97.1 F 164 lbs 61 in 30.99 kg/m2 1.79 m2 99 % 04/28/2012 3:04:00 PM 110 mmHg 60 mmHg 80 bpm 16 rpm 98.1 F 168 lbs 61 in 31.743 kg/m 1.811 m 99 % 04/01/2012 12:24:00 PM 122 mmHg 62 mmHg 80 bpm 16 rpm 96.9 F 164 lbs 61 in 30.99 kg/m2 1.79 m2 99 % 02/19/2012 1:43:00 PM 110 mmHg 60 mmHg 88 bpm 16 rpm 97.2 F 169.5 lbs 61 in 32.0264 kg/m 1.8191 m 98 % 01/10/2012 9:54:00 AM 128 mmHg 64 mmHg 104 bpm 18 rpm 98.1 F 175 lbs 61 in 33.07 kg/m2 1.85 m2 100 % 01/01/2012 2:41:00 PM 130 mmHg 72 mmHg 100 bpm 16 rpm 97.4 F 170 lbs 61 in 32.1209 kg/m 1.8218 m 100 % 12/13/2011 9:39:00 AM 120 mmHg 65 mmHg 85 bpm 18 rpm 97.4 F 172 lbs 61 in 32.50 kg/m2 1.83 m2 99 % 11/29/2011 1:58:00 PM 110 mmHg 60 mmHg 76 bpm 18 rpm 98.1 F 172 lbs 61 in 32.4988 kg/m 1.8324 m 100 % 10/17/2011 11:23:00 AM 120 mmHg 60 mmHg 90 bpm 18 rpm 97.8 F 170 lbs 61 in 32.12 kg/m2 1.82 m2 09/03/2011 10:16:00 AM 110 mmHg 68 mmHg 88 bpm 170 lbs 61 in 32.1209 kg/m 1.8218 m 07/23/2011 10:38:00 AM 108 mmHg 60 mmHg 80 bpm 166 lbs 61 in 31.37 kg/m2 1.80 m2 06/22/2011 10:45:00 AM 110 mmHg 72 mmHg 76 bpm 166 lbs 61 in 31.3651 kg/m 1.8002 m 05/10/2011 11:37:00 AM 112 mmHg 60 mmHg 80 bpm 166 lbs 61 in 31.37 kg/m2 1.80 m2 04/12/2011 9:16:00 AM 106 mmHg 62 mmHg 68 bpm 167 lbs 61 in 31.554 kg/m 1.8056 m 02/14/2011 9:50:00 AM 116 mmHg 72 mmHg 72 bpm 168 lbs 61 in 31.74 kg/m2 1.81 m2 02/06/2011 11:32:00 AM 108 mmHg 60 mmHg 72 bpm 169 lbs 61 in 31.9319 kg/m 1.8164 m 12/11/2010 11:26:00 AM 110 mmHg 62 mmHg 72 bpm 166 lbs 61 in 31.37 kg/m2 1.80 m2 10/13/2010 11:12:00 AM 112 mmHg 74 mmHg 80 bpm 162 lbs 61 in 30.6093 kg/m 1.7784 m 07/13/2010 10:13:00 AM 118 mmHg 76 mmHg [...] mmHg 68 bpm 165 lbs 61 in 31.1762 kg/m 1.7948 m 02/07/2009 1:41:00 PM 110 mmHg 62 mmHg 76 bpm 161.375 lbs Social History Name Description Comments denies alcohol use Tobacco Never smoker some college Active but no formal exercise Uses seatbelts History of Procedures Date Ordered Description Order Status 10/13/2010 12:00 AM THER/PROPH/DIAG INJ SC/IM Reviewed 10/13/2010 12:00 AM Phenergan 50 Mg Im [id number] Reviewed 10/13/2010 12:00 AM Nubain 10mg Reviewed 02/28/2015 12:00 AM Toradol 60 Mg [facility]#5588-4888-59 Reviewed 03/25/2009 12:00 AM COMPREHEN METABOLIC PANEL Reviewed 03/25/2009 12:00 AM COMPLETE CBC W/AUTO DIFF WBC Reviewed 03/25/2009 12:00 AM CYTOPATH C/V MANUAL Reviewed 03/25/2009 12:00 AM BIOPSY OF UTERUS LINING Reviewed 03/25/2009 12:00 AM ECHO EXAMINATION PROCEDURE Reviewed 03/25/2009 12:00 AM BIOPSY OF UTERUS LINING Reviewed 12/11/2010 12:00 AM THER/PROPH/DIAG INJ SC/IM Reviewed 12/11/2010 12:00 AM Decadron Inj.1mg-([facility]) [facility] #[id number] Reviewed 07/05/2015 12:00 AM Decadron, Per 1 Mg [facility]# [address]-19 Reviewed 08/12/2015 12:00 AM Decadron, Per 1 Mg [facility]# [address]-69 Reviewed 08/12/2015 12:00 AM Depo-Medrol, Per 80 Mg [facility]#1885-2532-99 Reviewed 04/10/2011 12:00 AM ROUTINE VENIPUNCTURE Reviewed 04/10/2011 12:00 AM COMPLETE CBC W/AUTO DIFF WBC Reviewed 04/10/2011 12:00 AM COMPREHEN METABOLIC PANEL Reviewed 04/10/2011 12:00 AM LIPID PANEL Reviewed 05/10/2011 12:00 AM THER/PROPH/DIAG INJ SC/IM Reviewed 05/10/2011 12:00 AM Decadron Inj.1mg-([facility]) [facility] #[id number] Reviewed 05/10/2011 12:00 AM Depo-Medrol 80 Mg Im/[facility] [id number] Reviewed 02/20/2016 12:00 AM THER/PROPH/DIAG INJ SC/IM Reviewed 02/20/2016 12:00 AM Decadron 8mg Injection Reviewed 02/20/2016 12:00 AM Depo-Medrol 80mg Injection Reviewed 02/20/2016 12:00 AM Rocephin 1 gram Injection Reviewed 06/22/2011 12:00 AM THER/PROPH/DIAG INJ SC/IM Reviewed 06/22/2011 12:00 AM Phenergan 50 Mg Im [id number] Reviewed 06/22/2011 12:00 AM Nubain 10mg Reviewed 07/24/2011 12:00 AM ROUTINE VENIPUNCTURE Reviewed 07/24/2011 12:00 AM COMPREHEN METABOLIC PANEL Reviewed 07/24/2011 12:00 AM ASSAY THYROID STIM HORMONE Reviewed 07/24/2011 12:00 AM ASSAY OF FREE THYROXINE Reviewed 10/17/2011 12:00 AM THER/PROPH/DIAG INJ SC/IM Reviewed 10/17/2011 12:00 AM Decadron, Per 1 Mg [facility]# [address]-88 Reviewed 10/17/2011 12:00 AM Depo-Medrol, Per 80 Mg [facility]#7993-4209-33 Reviewed 11/21/2011 12:00 AM THER/PROPH/DIAG INJ SC/IM Reviewed 11/21/2011 12:00 AM Toradol 60 Mg [facility]#9152-3333-50 Reviewed 11/29/2011 12:00 AM THER/PROPH/DIAG INJ SC/IM Reviewed 11/29/2011 12:00 AM Decadron, Per 1 Mg [facility]# [address]-77 Reviewed 12/13/2011 12:00 AM THER/PROPH/DIAG INJ SC/IM Reviewed 12/13/2011 12:00 AM Phenergan, Up to 50 Mg [facility]#5083-6366-79 Reviewed 01/10/2012 12:00 AM THER/PROPH/DIAG INJ SC/IM Reviewed 01/10/2012 12:00 AM Phenergan, Up to 50 Mg [facility]#6736-2847-15 Reviewed 03/28/2012 12:00 AM THER/PROPH/DIAG INJ SC/IM Reviewed 03/28/2012 12:00 AM Toradol 60 Mg [facility]#0140-8668-96 Reviewed 03/28/2012 12:00 AM Phenergan, Up to 50 Mg [facility]#9813-8597-47 Reviewed 05/14/2012 12:00 AM APPLICATION LOWER LEG SPLINT Reviewed 06/12/2012 12:00 AM THER/PROPH/DIAG INJ SC/IM Reviewed 06/12/2012 12:00 AM Decadron, Per 1 Mg [facility]# [address]-53 Reviewed 07/10/2012 12:00 AM COMPLETE CBC W/AUTO DIFF WBC Reviewed 07/10/2012 12:00 AM COMPREHEN METABOLIC PANEL Reviewed 07/10/2012 12:00 AM LIPID PANEL Reviewed 07/10/2012 12:00 AM ASSAY THYROID STIM HORMONE Reviewed 07/10/2012 12:00 AM ROUTINE VENIPUNCTURE Reviewed 09/30/2012 12:00 AM THER/PROPH/DIAG INJ SC/IM Reviewed 09/30/2012 12:00 AM Toradol 60 Mg [facility]#0558-3959-29 Reviewed 09/30/2012 12:00 AM Phenergan, Up to 50 Mg [facility]#2164-0428-55 Reviewed 06/14/2009 12:00 AM THER/PROPH/DIAG INJ SC/IM Reviewed 06/14/2009 12:00 AM Decadron Inj.8mg-([facility]) [facility] #[id number] Reviewed 06/14/2009 12:00 AM Depo-Medrol 80 Mg Im/[facility] [id number] Reviewed 11/03/2012 12:00 AM THER/PROPH/DIAG INJ SC/IM Reviewed 11/03/2012 12:00 AM Toradol 60 Mg [facility]#0568-8092-27 Reviewed 11/03/2012 12:00 AM Phenergan, Up to 50 Mg [facility]#9801-3173-13 Reviewed 11/25/2012 12:00 AM THER/PROPH/DIAG INJ SC/IM Reviewed 11/25/2012 12:00 AM Decadron, Per 1 Mg [facility]# [address]-20 Reviewed 12/04/2012 12:00 AM COMPLETE CBC W/AUTO [...] ANTIBODIES Reviewed 12/04/2012 12:00 AM DNA ANTIBODY CAHTO Reviewed 12/04/2012 12:00 AM NUCLEAR ANTIGEN ANTIBODY [...] SC/IM Reviewed 11/22/2009 12:00 AM Decadron Inj.8mg-([facility]) [facility] #[id number] Reviewed 11/22/2009 12:00 AM Depo-Medrol 80 Mg Im/[facility] [id number] Reviewed 11/22/2009 12:00 AM Rocephin, Per 250MG - 1 Gram Vial Reviewed 01/12/2010 12:00 AM THER/PROPH/DIAG INJ SC/IM Reviewed 01/12/2010 12:00 AM Decadron Inj.12mg-([facility]) [facility] #[id number] Reviewed 07/21/2013 12:00 AM EGD DIAGNOSTIC BRUSH WASH Reviewed 07/21/2013 12:00 AM DIAGNOSTIC COLONOSCOPY Reviewed 08/07/2013 8:22 AM ASSAY GLUCOSE BLOOD QUANT Reviewed 08/07/2013 12:00 AM ASSAY GLUCOSE BLOOD QUANT Reviewed 10/07/2013 12:00 AM Internal Medicine Consult Reviewed 05/24/2010 12:00 AM THER/PROPH/DIAG INJ SC/IM Reviewed 05/24/2010 12:00 AM Decadron Inj.8mg-([facility]) [facility] #[id number] Reviewed 05/24/2010 12:00 AM Depo-Medrol 80 Mg Im/[facility] [id number] Reviewed 05/31/2010 12:00 AM THER/PROPH/DIAG INJ SC/IM Reviewed 05/31/2010 12:00 AM Decadron Inj.12 mg-([facility]) [facility] #[id number] Reviewed 06/12/2010 12:00 AM ROUTINE VENIPUNCTURE Reviewed 06/12/2010 12:00 AM COMPLETE CBC W/AUTO DIFF WBC Reviewed 06/12/2010 12:00 AM COMPREHEN METABOLIC PANEL Reviewed 06/12/2010 12:00 AM LIPID PANEL Reviewed 07/13/2010 12:00 AM DESTRUCT PREMALG LESION Reviewed 07/29/2014 12:00 AM THER/PROPH/DIAG INJ SC/IM Reviewed 07/29/2014 12:00 AM Toradol 60 Mg [facility]#4866-7059-51 Reviewed Results Summary Data and Description Results 03/25/2009 11:52 AM NRBC# 0.00 MCH 29.30 pg%MONO 8.10 %MPV 11.20 fLMCHC 34.10 g /dLRDW SD 40 NRBC% 0.0 #MONO 0.47 HCT 35.80 %HGB 12.20 g/dL%EOS 1.60 %#LYMP 2.27 RBC 4.16 %LYMP 39.20 %#BASO 0.03 RDW CV 12.90 %#NEUT 2.93 #EOS 0.09 MCV 86.0 fLMANUAL DIFF NOT IND WBC 5.8 %BASO 0.5 %PLT 194 %NEUT 50.60 %GLUCOSE 96 SODIUM 141.0 mmol/LPOTASSIUM 3.70 mmol/LCHLORIDE 107.0 mmol/LCO2 26.0 mmol/LBUN 8.0 mg/dLCREATININE 0.70 mg/dLSGOT/AST 10.0 IU/LSGPT/ALT 10.0 IU/LALK PHOS 53.0 IU/LTOTAL PROTEIN 6.60 g/dLALBUMIN 3.80 g/dLTOTAL BILI 0.40 mg/dLCALCIUM 8.40 mg /dLAGE 38 GFR NonAA 95 GFR AA 115 eGFR >60 mL/min/1.73 meGFR AA* >60 06/12/2010 3:28 PM TRIGLYCERIDES 84.0 mg/dLCHOLESTEROL 229.0 mg/dLHDL 65.0 mg/ dLTOT CHOL/HDL 3.5 LDL 152.0 mg/dLGLUCOSE 97.0 mg/dLSODIUM 135.0 mmol/ LPOTASSIUM 4.40 mmol/LCHLORIDE 103.0 mmol/LCO2 25.0 mmol/LBUN 9.0 mg/ dLCREATININE 0.60 mg/dLSGOT/AST 24.0 IU/LSGPT/ALT 35.0 IU/LALK PHOS 60.0 IU/ LTOTAL PROTEIN 6.40 g/dLALBUMIN 3.90 g/dLTOTAL BILI 0.40 mg/dLCALCIUM 7.90 mg/ dLAGE 39 GFR NonAA 112 GFR AA 136 eGFR >60 mL/min/1.73 m2eGFR AA* >60 WBC 9.2 RBC 4.27 HGB 12.40 g/dLHCT 38.40 %MCV 90.0 fLMCH 29.0 pgMCHC 32.30 g/dLRDW SD 44 RDW CV 13.40 %MPV 12.10 fLPLT 198 NRBC# 0.00 NRBC% 0.0 %NEUT 65.40 %%LYMP 25.30 %%MONO 6.60 %%EOS 2.30 %%BASO 0.40 %#NEUT 5.99 #LYMP 2.32 #MONO 0.60 #EOS 0.21 #BASO 0.04 MANUAL DIFF NOT IND 04/10/2011 4:02 PM WBC 5.1 RBC 4.16 HGB 12.30 g/dLHCT 37.0 %MCV 89.0 fLMCH 29.60 pgMCHC 33.20 g/dLRDW SD 42 RDW CV 13.0 %MPV 13.30 fLPLT 195 NRBC# 0.00 NRBC% 0.0 %NEUT 54.50 %%LYMP 35.80 %%MONO 8.30 %%EOS 1.0 %%BASO 0.40 %#NEUT 2.75 #LYMP 1.81 #MONO 0.42 #EOS 0.05 #BASO 0.02 MANUAL DIFF NOT IND GLUCOSE 101.0 mg/dLSODIUM 139.0 mmol/LPOTASSIUM 3.70 mmol/LCHLORIDE 106.0 mmol/LCO2 25.0 mmol/LBUN 7.0 mg/dLCREATININE 0.80 mg/dLSGOT/AST 13.0 IU/LSGPT/ALT 8.0 IU/ LALK PHOS 60.0 IU/LTOTAL PROTEIN 6.60 g/dLALBUMIN 4.20 g/dLTOTAL BILI 0.60 mg/ dLCALCIUM 8.50 mg/dLAGE 40 GFR NonAA 80 GFR AA 97 eGFR >60 mL/min/1.73 m2eGFR AA * >60 TRIGLYCERIDES 82.0 mg/dLCHOLESTEROL 159.0 mg/dLHDL 42.0 mg/dLTOT CHOL/HDL 3.8 LDL (CALC) 101.0 mg/dL 07/24/2011 4:19 PM GLUCOSE 96.0 mg/dLSODIUM 137.0 mmol/LPOTASSIUM 4.40 mmol/ LCHLORIDE 105.0 mmol/LCO2 22.0 mmol/LBUN 10.0 mg/dLCREATININE 0.70 mg/dLSGOT/ AST 11.0 IU/LSGPT/ALT 11.0 IU/LALK PHOS 64.0 IU/LTOTAL PROTEIN 6.70 g/dLALBUMIN 4.10 g/dLTOTAL BILI 0.20 mg/dLCALCIUM 8.60 mg/dLAGE 40 GFR NonAA 94 GFR AA 114 eGFR 60 eGFR AA* 60 FREE T4 0.88 TSH 1.290 uIU/mL 07/10/2012 3:01 PM WBC 5.8 RBC 4.26 HGB 12.60 g/dLHCT 37.60 %MCV 88.0 fLMCH 29.60 pgMCHC 33.50 g/dLRDW SD 41 RDW CV 12.70 %MPV 12.90 fLPLT 170 NRBC# 0.00 NRBC% 0.0 %NEUT 59.90 %%LYMP 32.30 %%MONO 5.90 %%EOS 1.60 %%BASO 0.30 %#NEUT 3.45 #LYMP 1.86 #MONO 0.34 #EOS 0.09 #BASO 0.02 MANUAL DIFF NOT IND GLUCOSE 73.0 mg/dLSODIUM 140.0 mmol/LPOTASSIUM 4.30 mmol/LCHLORIDE 105.0 mmol/LCO2 22.0 mmol/LBUN 9.0 mg/dLCREATININE 0.80 mg/dLSGOT/AST 12.0 IU/LSGPT/ALT 9.0 IU/LALK PHOS 58.0 IU/LTOTAL PROTEIN 6.90 g/dLALBUMIN 3.90 g/dLTOTAL BILI 0.20 mg/ dLCALCIUM 9.10 mg/dLAGE 41 GFR NonAA 80 GFR AA 97 eGFR 60 eGFR AA* 60 TRIGLYCERIDES 136.0 mg/dLCHOLESTEROL 161.0 mg/dLHDL 46.0 mg/dLTOT CHOL/HDL 3.5 LDL 83.0 mg/dLFREE T4 0.98 TSH 2.60 uIU/mL 12/04/2012 4:00 PM SEDRATE 16.0 mm/hrFREE T4 0.97 TSH 2.740 uIU/mLWBC 7.7 RBC 3.72 HGB 10.90 g/dLHCT 33.0 %MCV 89.0 fLMCH 29.30 pgMCHC 33.0 g/dLRDW SD 42 RDW CV 13.0 %MPV 12.30 fLPLT 202 NRBC# 0.00 NRBC% 0.0 %NEUT 47.20 %%LYMP 44.60 %% MONO 7.0 %%EOS 0.90 %%BASO 0.30 %#NEUT 3.62 #LYMP 3.42 #MONO 0.54 #EOS 0.07 # BASO 0.02 MANUAL DIFF NOT IND C REACTIVE PROTEIN 7.0 mg/LURIC ACID 4.4 mg/dL 06/04/2013 5:05 PM GLUCOSE 84.0 mg/dLSODIUM 139.0 mmol/LPOTASSIUM 3.90 mmol/ LCHLORIDE 106.0 mmol/LCO2 26.0 mmol/LBUN 7.0 mg/dLCREATININE 0.70 mg/dLSGOT/AST 11.0 IU/LSGPT/ALT 9.0 IU/LALK PHOS 53.0 IU/LTOTAL PROTEIN 6.40 g/dLALBUMIN 3.70 g/dLTOTAL BILI 0.40 mg/dLCALCIUM 8.30 mg/dLAGE 42 GFR NonAA 93 GFR AA 113 eGFR 60 eGFR AA* 60 07/23/2013 10:30 AM SOURCE: STOOL Ova + Parasite Exam Final report 07/23/2013 11:00 AM C DIFFICILE NEGATIVE -- C DIFF TOXIN NOT DETECTED 04/07/2015 2:35 PM TSH 0.740 uIU/mLMAGNESIUM 2.50 mg/dLGLUCOSE 90.0 mg/ dLSODIUM 141.0 mmol/LPOTASSIUM 4.0 mmol/LCHLORIDE 105.0 mmol/LCO2 27.0 mmol/ LBUN 9.0 mg/dLCREATININE 0.70 mg/dLSGOT/AST 16.0 IU/LSGPT/ALT 18.0 IU/LALK PHOS 68.0 IU/LTOTAL PROTEIN 6.90 g/dLALBUMIN 4.0 g/dLTOTAL BILI 0.30 mg/dLCALCIUM 8.60 mg/dLAGE 44 GFR NonAA 92 GFR AA 112 eGFR >60 mL/min/1.73meGFR AA* >60 History Of Immunizations Not available. History of [...] 10:39AM Headache Dyspepsia Allergic rhinitis Nausea Hyperlipidemia, Mixed Anemia Atopic dermatitis 07/28/2012 Migraine 11/05/2012 Diarrhea [...] Acute Insect bite Jun 23 2015 4:02PM Sunburn of second degree Jul 05 2015 9:40AM Eustachian tube dysfunction, bilateral Aug 12 2015 9:01AM Seasonal Allergies Aug 12 2015 9:01AM Post-nasal drainage Aug 12 2015 9:01AM Nasal congestion Aug 12 2015 9:01AM Mild Acute Ear pain, right Aug 12 2015 9:01AM Mild Acute Cough Feb 20 2016 3:05PM Acute pharyngitis, unspecified etiology Feb 20 2016 3:05PM Purulent postnasal drainage Feb 20 2016 3:05PM Mild Acute Chest congestion Feb 20 2016 3:05PM Payers Insurance Name Company Name Plan Name Plan Number Policy Number Policy Group Number Start Date Confinity Confinity [id number] N/A [employer] [facility] [id number] N/A [employer] [facility] Life [id number] N/A [facility] [id number] N/A [facility] [id number] N/A [employer] [facility] [id number] N/A History of Encounters Visit Date Visit Type Provider 02/20/2016 Office visit DREW BURDEN 10/07/2015 Hospital Km Tripp MD 08/12/2015 Office visit DREW BURDEN 07/05/2015 Office visit DREW BURDEN 06/23/2015 Office visit DREW BURDEN 02/24/2015 Office visit DREW BURDEN 08/20/2014 Office visit DREW BURDEN 07/29/2014 Office visit 07/29/2014 Office visit DREW BURDEN 05/28/2014 Office visit DREW BURDEN 11/25/2013 Office visit DREW BURDEN 10/05/2013 Office visit DREW BURDEN 08/07/2013 Office visit DREW BURDEN 08/06/2013 Office visit DREW BURDEN 08/01/2013 [facility] Km Tripp MD 07/23/2013 [facility]2013 [facility] visit [facility] DO 07/13/2013 Office visit DREW MEIER PA 06/04/2013 Office visit DREW BURDEN 05/18/2013 Office visit DREW BURDEN 04/20/2013 Office visit DREW MEIER PA 12/04/2012 [...] Drew Meier PA-C 05/24/2010 Office visit Drew Meier PA-C 01/12/2010 Office visit Drew Meier PA-C 12/22/2009 Office visit Drew Meier PA-C 11/22/2009 Office visit Drew Meier PA-C 06/14/2009 Office visit Drew Meier PA-C 04/25/2009 Surgery Drew Patiño MD 03/25/2009 Office visit Erick Carrillo MD 02/07/2009 Office visit Drew Meier PA-C 10/13/2008 Office visit DREW MEIER PA 10/04/2008 Office visit DREW MEIER PA
--- OUTSIDE RECORDS SUMMARY | 2016-06-17 17:48 | XMS REPORT ---
Author Author [facility] Medical Staff Organization [facility] Address [address], [place] [address] Phone [phone] Care Team Providers Care Digital Photographer Name Role Phone DREW CAVAZOS PP [phone] Summary purpose TRANSITION OF CARE AUTO GENERATION Chief Complaint and Reason for Visit Admit Diagnosis 1 NAUSEA WITH VOMITING Problem list No authorized problems tracked for continuity of care are available for this visit. Encounters No authorized problems tracked for encounter diagnoses are available for this visit. Medications No home medications recorded for this patient visit Allergies, adverse reactions, alerts Allergen Category Ingredient Status Reaction Severity Onset Cipro Drug Allergy Cipro Confirmed or Verified Cipro Drug Allergy ciprofloxacin Confirmed or Verified Sulfa (Sulfonamide Antibiotics) Drug Allergy Sulfa (Sulfonamide Antibiotics) Confirmed or Verified Bactrim Drug Allergy Bactrim Confirmed or Verified Bactrim Drug Allergy sulfamethoxazole Confirmed or Verified Bactrim Drug Allergy trimethoprim Confirmed or Verified Immunizations No immunizations recorded for this patient visit Relevant diagnostic tests and/or laboratory data RESULTS Routine Urinalysis [id number]:30:00 Result Normal Range Units Color YELLOW Clarity Clear Specific [place] 1.010 1.003-1.035 pH 7.0 4.5-8.0 Glucose NEGATIVE Bilirubin NEGATIVE Ketones NEGATIVE Protein NEGATIVE Urobilinogen 0.2 0-0.2 E.U./dL Nitrites NEGATIVE Blood NEGATIVE Leukocytes NEGATIVE WBCs 0-5 RBCs No RBC's Seen. Squamous Epithelial Few Bacteria Rare Amount Chemistry [id number]:20:00 Result Normal Range Units Sodium 139 134-145 mEq/l Potassium 4.1 3.5-5.1 mEq/l Chloride 103 98-107 mEq/l CO2 27.6 22-28 mEq/l Glucose 98 70-105 mg/dl BUN 11 7-18 mg/dl Creatinine 0.84 0.6-1.0 mg/dl Calcium 9.0 8.4-10.2 mg/dl TP - Total Protein 7.6 6.0-8.3 g/dl Albumin 3.7 3.5-5 g/dl Bilirubin - Total 0.4 0.1-1.0 mg/dl AST 14 10-42 IU/L ALT 16 12-65 IU/L ALP 70 25-72 IU/L Osmolality L 276.9 280-300 mOsm/L Albumin/Globulin Ratio 0.9 0-8 Anion GAP 8.4 8-16 BUN/Creatinine Ratio 13.1 10-20 Estimated GFR 75 >=60 mL/min/1.7 Hematology [id number]:20:00 Result Normal Range Units WBC 7.0 4.8-10.8 103/uL RBC 4.5 4.2-5.4 106/uL HGB 13.4 12.0-16.0 g/dl HCT 39.4 36.9-47.0 % MCV 88.5 81-99 FL MCH 30.1 27-31 pg MCHC 34.0 33-37 g/dl RDW 12.6 11.5-15.5 % PLT 216 130-400 103/uL MPV H 11.1 7.3-10.4 FL Neutro % 69.6 40-70 % Lymph % 23.0 20-40 % [place] % 6.4 0-10.0 % Eos % 0.6 0-7.0 % Baso % 0.4 0-2 % Neutro # 4.9 1.5-7.5 103/uL Lymph # 1.6 0.9-4.0 103/uL [place] # 0.5 0-0.8 103/uL Eos # 0.0 0-0.6 103/uL Baso # 0.0 0-0.1 103/uL Body Fluid [id number]:30:00 Result Normal Range Units pH 7.0 4.5-8.0 Radiology Results [id number]:32:00 Abdomen 2 View PACs Image DATE OF EXAM: Dec 21 2013 RAD 0037-ABDOMEN 2 VIEW : RADIOLOGY REPORT DATE OF SERVICE: 12/21/13 HISTORY: Patient has vomiting. ABDOMEN 2 VIEWS 1230 HOURS Bowel gas pattern is normal. Metal clips are seen in right upper quadrant. No abnormal calcifications are identified. Bony structures are intact. IMPRESSION: Negative study of the abdomen. DO HARSHA Dorantes/jyotsna 12/21/2013 13:06:00 / 12/21/2013 13:12:41 cc:Drew Carmen PA-C This document has been electronically Signed by: On: DATE OF EXAM: Dec 21 2013 RAD 0037-ABDOMEN 2 VIEW : RADIOLOGY REPORT DATE OF SERVICE: 12/21/13 HISTORY: Patient has vomiting. ABDOMEN 2 VIEWS 1230 HOURS Bowel gas pattern is normal. Metal clips are seen in right upper quadrant. No abnormal calcifications are identified. Bony structures are intact. IMPRESSION: Negative study of the abdomen. Domonique Santiago DO /ky 12/21/2013 13:06:00 / 12/21/2013 13:12:41 cc:Drew Carmen PA-C This document has been electronically Signed by: DOMONIQUE SANTIAGO DO On: Dec 23 20133:32P Result Amended on 2013-12-23 at 15:33:04. Previous status was IA. [id number]:20:00 Result Normal Range Units MPV H 11.1 7.3-10.4 FL History of procedures Procedure Code Code Type Description Date Performed Performing Physician 78710 CPT-4 COMPLETE CBC W/AUTO DIFF WBC 12-21-2013 DOMONIQUE DIXON 33697 CPT-4 COMPREHEN METABOLIC PANEL 12-21-2013 DOMONIQUE DIXON 21710 CPT-4 URINALYSIS, AUTO W/SCOPE 12-21-2013 DOMONIQUE DIXON 03004 CPT-4 X-RAY EXAM OF ABDOMEN 12-21-2013 DOMONIQUE DIXON J7120 CPT-4 RINGERS LACTATE INFUSION 12-21-2013 DOMONIQUE DIXON J2405 CPT-4 ONDANSETRON HCL INJECTION 12-21-2013 DOMONIQUE DIXON J2405 CPT-4 ONDANSETRON HCL INJECTION 12-21-2013 DOMONIQUE DIXON 12821 CPT-4 ROUTINE VENIPUNCTURE 12-21-2013 DOMONIQUE DIXON 76592 CPT-4 EMERGENCY DEPT VISIT 12-21-2013 DOMONIQUE DIXON 74631 CPT-4 EMERGENCY DEPT VISIT 12-21-2013 DOMONIQUE DIXON 27155 CPT-4 THER/PROPH/DIAG INJ, IV PUSH 12-21-2013 DOMONIQUE DIXON 49367 CPT-4 TX/PRO/DX INJ NEW DRUG VISE HAND 12-21-2013 DOMONIQUE DIXON 82501 CPT-4 HYDRATE IV INFUSION, ADD-ON 12-21-2013 DOMONIQUE DIXON Functional status No functional or cognitive status observations are available for this visit. Vital signs Type Value Date Respiration Rate 16breaths per minute :00 Pulse 74beats per minute :00 Oxygen Saturation 99% :00 BP Systolic 114mmHg :00 BP Diastolic 58mmHg :00 Temperature 99.0F :00 Height 61inches :00 Weight 152LB :00 Social history Type Value Smoking Status FORMER SMOKER Treatment Plan No treatment plan text is available for this visit. Hospital discharge instructions Dismissal Condition fair Disposition on DC home DC Inst/Educ Give yes Med/Side Effects Rev yes
--- OUTSIDE RECORDS SUMMARY | 2016-06-17 17:48 | XMS REPORT ---
Author Author [email or web address] Medical Staff Organization [facility] Address [address], [place] [address] Phone [phone] Care Team Providers Care Electronic News Gathering Editor Name Role Phone MANISH CAVAZOS PP [phone] Summary purpose TRANSITION OF CARE AUTO GENERATION Chief Complaint and Reason for Visit No authorized Reason for Visit (Admitting Diagnosis) is available for this visit. Problem list No authorized problems tracked for [...] Allergy Sulfa (Sulfonamide Antibiotics) Confirmed or Verified Immunizations No immunizations recorded for this patient visit Relevant diagnostic tests and/or laboratory data RESULTS Chemistry [id number]:10:00 Result Normal Range Units Sodium 141 134-145 mEq/l Potassium 4.4 3.5-5.1 mEq/l Chloride 105 98-107 mEq/l CO2 H 29.5 22-28 mEq/l Glucose 87 70-105 mg/dl BUN 8 7-18 mg/dl Creatinine 0.81 0.6-1.0 mg/dl Calcium 8.8 8.4-10.2 mg/dl TP - Total Protein 7.2 6.0-8.3 g/dl Albumin 3.6 3.5-5 g/dl Bilirubin - Total 0.3 0.1-1.0 mg/dl AST L 7 10-42 IU/L ALT L 11 12-65 IU/L ALP 60 25-72 IU/L Osmolality L 279.0 280-300 mOsm/L Albumin/Globulin Ratio 1.0 0-8 Anion GAP L 6.5 8-16 BUN/Creatinine Ratio L 9.9 10-20 Estimated GFR 78 >=60 mL/min/1.7 C-Reactive Protein < 0.2 0-1 mg/dl Hematology :10:00 Result Normal Range Units WBC 6.7 4.8-10.8 103/uL RBC 4.2 4.2-5.4 106/uL HGB 12.5 12.0-16.0 g/dl HCT 37.9 36.9-47.0 % MCV 90.2 81-99 FL MCH 29.8 27-31 pg MCHC 33.0 33-37 g/dl RDW 12.5 11.5-15.5 % PLT 182 130-400 103/uL MPV H 12.4 7.3-10.4 FL Neutro % 59.3 40-70 % Lymph % 31.6 20-40 % [place] % 7.8 0-10.0 % Eos % 0.7 0-7.0 % Baso % 0.6 0-2 % Neutro # 4.0 1.5-7.5 103/uL Lymph # 2.1 0.9-4.0 103/uL [place] # 0.5 0-0.8 103/uL Eos # 0.1 0-0.6 103/uL Baso # 0.0 0-0.1 103/uL Radiology Results :10:00 Result Normal Range Units MPV H 12.4 7.3-10.4 FL History of procedures No procedures recorded for this patient visit. Functional status No functional or cognitive status observations are available for this visit. Vital signs Type Value Date Respiration Rate 20breaths per minute 15-68-845827:10 Pulse 71beats per minute 16-26-660262:10 Oxygen Saturation 100% 02-31-612215:10 BP Systolic 104mmHg 41-56-901601:10 BP Diastolic 62mmHg 88-54-866937:10 Temperature 98.4F 50-59-851632:10 Social history Type Value Smoking Status NEVER SMOKER Treatment Plan No treatment plan text is available for this visit. Hospital discharge instructions Dismissal Condition fair Disposition on DC home DC Inst/Educ Give yes Med/Side Effects Rev yes
--- OUTSIDE RECORDS SUMMARY | 2016-06-17 17:48 | XMS REPORT ---
Author Author [facility] Medical Staff Organization [facility] Address [address], [place] [address] Phone [phone] Care Team Providers Care Transcripter Name Role Phone DREW CAVAZOS PP [phone] DREW CAVAZOS PP [phone] Summary purpose TRANSITION OF CARE AUTO GENERATION Chief Complaint and Reason for Visit Admit Diagnosis [address] GA Problem list No authorized problems tracked for continuity of care are available for this visit. Encounters The following conditions tracked for encounter diagnoses were recorded for this visit: Finding or Diagnosis Status Certainty Chronicity Onset *CHEST PAIN Active Medications Discharge Medications Status Medication Directions Current amitriptyline 10 mg tablet 10 milligram (s) oral Bedtime daily depression Current Aspirin Child 81 mg chewable tablet 81 milligram (s) oral Bedtime daily Current hyoscyamine 0.125 mg disintegrating tablet 1/2 tab SL for irritable bowel oral Q6 Hours 12-18-24 1/2 tab sl Current IBUPROFEN 800 mg: TABLET 800 MG oral Give PO Q8 Hours As Needed for PAIN/FEVER Current omeprazole 20 mg capsule,delayed release 20 milligram (s) oral Twice a day for GERD Current Phenergan oral 10 milligram (s) oral As Needed every 6 hours as needed for nausea Current Zofran ODT 8 mg disintegrating tablet Nausea oral oral Q6-8 Hours As Needed Allergies, adverse reactions, alerts Allergen Category Ingredient [...] diagnostic tests and/or laboratory data RESULTS Chemistry [id number]:50:00 Result Normal Range Units Sodium 138 134-145 mEq/l Potassium 3.7 3.5-5.1 mEq/l Chloride 107 98-107 mEq/l CO2 H 28.6 22-28 mEq/l Glucose 97 70-105 mg/dl BUN 8 7-18 mg/dl Creatinine 0.85 0.6-1.0 mg/dl Calcium L 7.5 8.4-10.2 mg/dl Osmolality L 273.9 280-300 mOsm/L Anion GAP L 2.4 8-16 BUN/Creatinine Ratio L 9.4 10-20 Estimated GFR 73 >=60 mL/min/1.7 [id number]:34:00 Result Normal Range Units Sodium 137 134-145 mEq/l Potassium 3.5 3.5-5.1 mEq/l Chloride 103 98-107 mEq/l CO2 26.3 22-28 mEq/l Glucose 93 70-105 mg/dl BUN 9 7-18 mg/dl Creatinine 0.74 0.6-1.0 mg/dl Calcium 8.6 8.4-10.2 mg/dl TP - Total Protein 7.2 6.0-8.3 g/dl Albumin 3.6 3.5-5 g/dl Bilirubin - Total 0.3 0.1-1.0 mg/dl AST 14 10-42 IU/L ALT 21 12-65 IU/L ALP H 81 25-72 IU/L Osmolality L 272.2 280-300 mOsm/L Albumin/Globulin Ratio 1.0 0-8 Anion GAP L 7.7 8-16 BUN/Creatinine Ratio 12.2 10-20 Estimated GFR 86 >=60 mL/min/1.7 Hematology [id number]:50:00 Result Normal Range Units WBC 5.9 4.8-10.8 103/uL RBC L 3.8 4.2-5.4 106/uL HGB L 11.1 12.0-16.0 g/dl HCT L 33.6 36.9-47.0 % MCV 89.6 81-99 FL MCH 29.6 27-31 pg MCHC 33.0 33-37 g/dl RDW 12.4 11.5-15.5 % PLT 172 130-400 103/uL MPV H 11.3 7.3-10.4 FL Neutro % 48.8 40-70 % Lymph % H 40.2 20-40 % [place] % 8.6 0-10.0 % Eos % 1.5 0-7.0 % Baso % 0.7 0-2 % Neutro # 2.9 1.5-7.5 103/uL Lymph # 2.4 0.9-4.0 103/uL [place] # 0.5 0-0.8 103/uL Eos # 0.1 0-0.6 103/uL Baso # 0.0 0-0.1 103/uL :34:00 Result Normal Range Units WBC 7.6 4.8-10.8 103/uL RBC 4.2 4.2-5.4 106/uL HGB 12.4 12.0-16.0 g/dl HCT L 36.1 36.9-47.0 % MCV 86.8 81-99 FL MCH 29.8 27-31 pg MCHC 34.3 33-37 g/dl RDW 12.2 11.5-15.5 % PLT 218 130-400 103/uL MPV H 11.2 7.3-10.4 FL Cardiac [id number]:50:00 Result Normal Range Units CK 73 26-192 IU/L CKMB 1.0 0-3.6 ng/ml Patient samples may contain heterophilic antibodies that could react with immunoassays to give falsely elevated or depressed results. This Dimension assay has been designed to minimize interference from heterophilic antibodies. Nevertheless, complete elimination of this interference from all patient specimens cannot be guaranteed. A test result that is inconsistent with the clinical picture and patient history should be interpreted with caution. Troponin I < 0.04 0.0-0.4 ng/ml Patient samples may contain heterophilic antibodies that could react in immunoassays to give falsely elevated or depressed results. This Dimension assay has been designed to minimize interference from heterophilic antibodies. Nevertheless, complete elimination of this interference from all patient specimens cannot be guaranteed. A test result that is inconsistent with the clinical picture and patient history should be interpreted with caution. :34:00 Result Normal Range Units CK 102 26-192 IU/L CKMB < 0.5 0-3.6 ng/ml Patient samples may contain heterophilic antibodies that could react with immunoassays to give falsely elevated or depressed results. This Dimension assay has been designed to minimize interference from heterophilic antibodies. Nevertheless, complete elimination of this interference from all patient specimens cannot be guaranteed. A test result that is inconsistent with the clinical picture and patient history should be interpreted with caution. Troponin I < 0.04 0.0-0.4 ng/ml Patient samples may contain heterophilic antibodies that could react in immunoassays to give falsely elevated or depressed results. This Dimension assay has been designed to minimize interference from heterophilic antibodies. Nevertheless, complete elimination of this interference from all patient specimens cannot be guaranteed. A test result that is inconsistent with the clinical picture and patient history should be interpreted with caution. Radiology Results [id number]:51:00 Chest XRay - Port - 1 View PACs Image DATE OF EXAM: Mar 23 2015 RAD 0292-CHEST 1 VIEW PORT : RADIOLOGY REPORT DATE OF SERVICE: 03/23/15 HISTORY: Chest pain PORTABLE AP CHEST 1953 HOURS The lungs are clear. Heart size and pulmonary vessels are normal. There are no hilar abnormalities. There is no pneumothorax or pleural effusion. The aorta is normal in caliber. IMPRESSION: Negative chest. MD ADOLFO Priest/jyotsna03/24/2015 08:38:00 / 03/24/2015 08:51:15 cc:Drew Carmen PA-C This document has been electronically Signed by: On: DATE OF EXAM: Mar 23 2015 RAD 0292-CHEST 1 VIEW PORT : RADIOLOGY REPORT DATE OF SERVICE: 03/23/15 HISTORY: Chest pain PORTABLE AP CHEST 1953 HOURS The lungs are clear. Heart size and pulmonary vessels are normal. There are no hilar abnormalities. There is no pneumothorax or pleural effusion. The aorta is normal in caliber. IMPRESSION: Negative chest. MD ADOLFO Priest/jyotsna03/24/2015 08:38:00 / 03/24/2015 08:51:15 cc:Drew Carmen PA-C This document has been electronically Signed by: DREW DURAND MD On: Mar 24 20151:51P CHEST PAIN RO GA Result Amended on 2015-03-24 at 13:51:38. Previous status was OK. CHEST PAIN RO GA [id number]:50:00 Result Normal Range Units MPV H 11.3 7.3-10.4 FL [id number]:34:00 Result Normal Range Units MPV H 11.2 7.3-10.4 FL History of procedures Procedure Code Code Type Description Date Performed Performing Physician 45747 CPT-4 ROUTINE VENIPUNCTURE 03-23-2015 MICHAEL CONTRERAS 66300 CPT-4 ROUTINE VENIPUNCTURE 03-24-2015 MICHAEL CONTRERAS 19857 CPT-4 CHEST X-RAY 1 VIEW FRONTAL 03-23-2015 MICHAEL CONTRERAS 00702 CPT-4 METABOLIC PANEL TOTAL CA 03-24-2015 MICHAEL CONTRERAS 47238 CPT-4 COMPREHEN METABOLIC PANEL 03-23-2015 MICHAELREECE CONTRERAS 36137 CPT-4 ASSAY OF CK (CPK) 03-23-2015 MICHAELREECE CONTRERAS 18150 CPT-4 ASSAY OF CK (CPK) 03-24-2015 MICHAELREECE GUILLENMAN 66154 CPT-4 CREATINE MB FRACTION 03-23-2015 MICHAELREECE CONTRERAS 82883 CPT-4 CREATINE MB FRACTION 03-24-2015 MICHAELREECE GUILLENMAN 92975 CPT-4 ASSAY OF TROPONIN QUANT 03-23-2015 MICHAELREECE GUILLENMAN 14859 CPT-4 ASSAY OF TROPONIN QUANT 03-24-2015 MICHAELREECE GUILLENMAN 54684 CPT-4 COMPLETE CBC W/AUTO DIFF WBC 03-24-2015 MICHAELREECE GUILLENMAN 63843 CPT-4 COMPLETE CBC AUTOMATED 03-23-2015 MICHAELREECE GUILLENMAN 99330 CPT-4 ELECTROCARDIOGRAM TRACING 03-23-2015 LEATHA ARAGON 71161 CPT-4 THER/PROPH/DIAG INJ IV PUSH 03-23-2015 MICHAEL CONTRERAS 66677 CPT-4 TX/PRO/DX INJ NEW DRUG ADDON 03-23-2015 MICHAEL CONTRERAS 59420 CPT-4 TX/PRO/DX INJ SAME DRUG RADIOLOGIST 03-23-2015 MICHAEL CONTRERAS 77269 CPT-4 TX/PRO/DX INJ SAME DRUG RADIOLOGIST 03-24-2015 LEATHA ARAGON 25633 CPT-4 EMERGENCY DEPT VISIT 03-23-2015 MICHAEL CONTRERAS 13499 CPT-4 EMERGENCY DEPT VISIT 03-23-2015 MICHAEL CONTRERAS G0378 CPT-4 HOSPITAL OBSERVATION PER HR 03-23-2015 LEATHA ARAGON G0378 CPT-4 HOSPITAL OBSERVATION PER HR 03-24-2015 LEATHA ARAGON J1885 CPT-4 KETOROLAC TROMETHAMINE INJ 03-23-2015 LEATHA ARAGON J2270 CPT-4 MORPHINE SULFATE INJECTION 03-23-2015 LEATHA ARAGON J2270 CPT-4 MORPHINE SULFATE INJECTION 03-23-2015 LEATHA ARAGON J2270 CPT-4 MORPHINE SULFATE INJECTION 03-24-2015 MICHAEL CONTRERAS J3010 CPT-4 FENTANYL CITRATE INJECITON 03-23-2015 LEATHA ARAGON J7030 CPT-4 NORMAL SALINE SOLUTION INFUS 03-24-2015 MICHAEL CONTRERAS Functional status Functional Status Finding Observation Time Hearing Prob Loc none :15 Vision Problems yes :15 Vision Correct Dev glasses 62-35-811785:15 Ambulation Asst Dev none 80-38-936067:15 Range of Motion full :18 Muscle Strength RUE 5 ROM full resist :18 Muscle Strength RLE 5 ROM full resist :18 Muscle Strength LUE 5 ROM full resist :18 Muscle Strength LLE 5 ROM full resist :18 Transfers independent :18 Ambulation up ad eric :18 Balance steady :18 Bathing Assistance none [id number]:15 Eating Assistance none :15 Dressing Assistance none :15 Toileting Assistance none :15 Transfer Assistance none :15 Nutrition normal :18 Diet regular :18 Oral Cavity moist and intact :18 Teeth intact :18 Dental Hygiene poor :18 Abdomen Appearance round :18 Abdomen non-tender :18 Bowel Sounds present :18 NG Tube no :18 Feeding Tube none :18 Her no :18 Cont Bladder Irr no :18 Ostomy no :18 Stool normal :18 Color normal :18 Consistency normal :18 Urination normal :18 Urine Clarity clear :18 Urine Color straw :18 Quality sym/unlabored :18 Cough absent :18 Secretions no :18 Secretion Consist thin : Secretion Color clear :18 Breath Sounds RUL clear :18 Breath Sounds RML clear :18 Breath Sounds RLL clear :18 Breath Sounds GABI clear :18 Breath Sounds LLL clear :18 Airway natural :18 Oxygen no :47 Oxygen Flow Rate RA :47 C-PAP no :18 BI-PAP no :18 New Infection other (specify) :18 Temp >100.4 no :18 Temp <96.8 no :18 Chills with rigors no :18 HR > 90bpm no :18 Respirations > 20 no :18 Systolic <90 no :18 headache stiff neck no :18 WBC > 65491 no :18 WBC < 4000 no :18 IV Site Location left AC :50 IV Type peripheral :50 IV Site Information discontinued :50 IV Site Start Attmpt 1 times [id number]:15 IV Site To 20 :50 IV Site Appearance WNL :50 IV Site Color clear :50 IV Site Patent yes :50 Dressing Type gauze :50 Nursing Note Pt. states that appears to be lots better went back to work yesterday. :25 Cognitive Status Finding Observation Time Oriented To Date 5 Yes :[address] 5 Yes :15 Name 3 Objects 3 Yes :15 Name Object in Rm 2 Yes :15 Recall 3 Objects 3 Yes :15 Repeats a Phrase 1 Yes :15 Follows Verbal Direc 3 Yes :15 Follows Written Dire 1 Yes :15 Write a Sentance 1 Yes : Draw an Object 1 Yes :15 Mini Mental Total 25 points :15 Learning Ability comprehends well :18 Neurological no :18 Psychological no :18 Physical no :18 Hearing no :18 Shaping Machine Tender Needed no :18 Sign Language no :18 Emotional no :18 Vision no :18 [place]uage no :18 Financial no :18 Vital signs Type Value Date Respiration Rate 20breaths per minute :47 Pulse 88beats per minute :47 Oxygen Saturation 98% :47 BP Systolic 122mmHg :47 BP Diastolic 57mmHg :47 Temperature 98.1F :47 Height 61inches :17 Weight 168.5LB :17 Social history Type Value Smoking Status FORMER SMOKER Treatment Plan No treatment plan text is available for this visit. Hospital discharge instructions Discharge Date/Time 03/24/15 1004 Relationship spouse/signif other Dismissal Condition good Disposition on DC home Valuables yes Valuable Type billfold/purse Valuables Returned T patient DC Inst/Educ Give yes Exit Care Educ Given yes Med/Side Effects Rev yes DC Med Rec Rev yes Immun Indicated no PNE Vac none Flu Vac 2014 Tetanus Vac up to date Diet Explained yes Follow up appt call for appointment
--- OUTSIDE RECORDS SUMMARY | 2016-06-17 17:50 | XMS REPORT ---
Author Author [facility] Medical Staff Organization [facility] Address [address], [place] [address] Phone [phone] Care Team Providers Care Photography Teacher Name Role Phone DREW CAVAZOS PP [phone] Summary purpose TRANSITION OF CARE AUTO GENERATION Chief Complaint and Reason for Visit Admit Diagnosis 1 HYPOGLYCEMIA NOS Problem list No authorized problems tracked for [...] tests and/or laboratory data RESULTS Routine Urinalysis [id number]:55:00 Result Normal Range Units Color YELLOW Clarity Clear Specific [place] 1.005 pH 5.5 4.5-8.0 Glucose NEGATIVE Bilirubin NEGATIVE Ketones NEGATIVE Protein NEGATIVE Urobilinogen 0.2 0-0.2 E.U./dL Nitrites NEGATIVE Blood NEGATIVE Leukocytes NEGATIVE WBCs 0-5 RBCs No RBC's Seen. Squamous Epithelial 1+ Bacteria Occasional Chemistry [id number]:00:00 Result Normal Range Units Sodium 138 134-145 mEq/l Potassium 4.0 3.5-5.1 mEq/l Chloride 102 98-107 mEq/l CO2 27.6 22-28 mEq/l Glucose 103 70-105 mg/dl BUN 11 7-18 mg/dl Creatinine 0.80 0.6-1.0 mg/dl Calcium 9.0 8.4-10.2 mg/dl TP - Total Protein 7.7 6.0-8.3 g/dl Albumin 3.8 3.5-5 g/dl Bilirubin - Total 0.3 0.1-1.0 mg/dl AST 12 10-42 IU/L ALT 20 12-65 IU/L ALP H 73 25-72 IU/L Osmolality L 275.3 280-300 mOsm/L Albumin/Globulin Ratio 1.0 0-8 Anion GAP 8.4 8-16 BUN/Creatinine Ratio 13.8 10-20 Estimated GFR 79 >=60 mL/min/1.7 Hematology :00:00 Result Normal Range Units WBC 8.1 4.8-10.8 103/uL RBC 4.8 4.2-5.4 106/uL HGB 14.3 12.0-16.0 g/dl HCT 43.2 36.9-47.0 % MCV 90.0 81-99 FL MCH 29.8 27-31 pg MCHC 33.1 33-37 g/dl RDW 12.5 11.5-15.5 % PLT 247 130-400 103/uL MPV H 10.7 7.3-10.4 FL Neutro % 65.8 40-70 % Lymph % 26.7 20-40 % [place] % 6.0 0-10.0 % Eos % 1.0 0-7.0 % Baso % 0.5 0-2 % Neutro # 5.3 1.5-7.5 103/uL Lymph # 2.2 0.9-4.0 103/uL [place] # 0.5 0-0.8 103/uL Eos # 0.1 0-0.6 103/uL Baso # 0.0 0-0.1 103/uL Body Fluid [id number]:55:00 Result Normal Range Units pH 5.5 4.5-8.0 Thyroid Testing :00:00 Result Normal Range Units TSH 1.29 0.36-3.74 uIU/mL Radiology Results [id number]:28:00 Chest X-Ray - 2 View PACs Image DATE OF EXAM: 2014 RAD 0300-CHEST XRAY 2 VIEW : RADIOLOGY REPORT DATE OF SERVICE: 02/11/14 HISTORY: Hypoglycemia, cough CHEST 2 VIEWS 1455 HOURS The lungs are clear. Heart size and pulmonary vessels are normal. There are no infiltrates or masses. IMPRESSION: Normal chest. MD ADOLFO Priest/la02/11/2014 17:19:00 / 02/12/2014 08:12:01 cc:Drew Carmen PA-C This document has been electronically Signed by: On: DATE OF EXAM: 2014 RAD 0300-CHEST XRAY 2 VIEW : RADIOLOGY REPORT DATE OF SERVICE: 02/11/14 HISTORY: Hypoglycemia, cough CHEST 2 VIEWS 1455 HOURS The lungs are clear. Heart size and pulmonary vessels are normal. There are no infiltrates or masses. IMPRESSION: Normal chest. MD ADOLFO Priest/la02/11/2014 17:19:00 / 02/12/2014 08:12:01 cc:Drew Camren PA-C This document has been electronically Signed by: DREW DURAND On: 2014 12:28P Result Amended on 2014-02-12 at 12:28:32. Previous status was [place]. [id number]:00:00 Result Normal Range Units MPV H 10.7 7.3-10.4 FL History of procedures Procedure Code Code Type Description Date Performed Performing Physician 67804 CPT-4 COMPLETE CBC W/AUTO DIFF WBC 02-11-2014 FLACOZACHARY WINTER 71519 CPT-4 COMPREHEN METABOLIC PANEL 02-11-2014 FLACOZACHARY WINTER 68574 CPT-4 MYCOPLASMA ANTIBODY 02-11-2014 FLACO WINTER 55281 CPT-4 ASSAY THYROID STIM HORMONE 02-11-2014 FLACO WINTER 12072 CPT-4 URINALYSIS, AUTO W/SCOPE 02-11-2014 FLACO WINTER 88342 CPT-4 CHEST X-RAY 02-11-2014 FLACO WINTER 78843 CPT-4 ROUTINE VENIPUNCTURE 02-11-2014 FLACO WINTER 33255 CPT-4 EMERGENCY DEPT VISIT 02-11-2014 FLACO WINTER 06226 CPT-4 EMERGENCY DEPT VISIT 02-11-2014 FLACO WINTER Functional status Functional Status Finding Observation Time Abdomen Appearance flat 19-84-953763:30 Abdomen soft 00-14-812043:30 Urination normal 40-57-660441:30 Quality sym/unlabored 39-56-471207:30 Breath Sounds RUL clear 31-18-942835:30 Breath Sounds RML clear 60-19-523134:30 Breath Sounds RLL clear :30 Breath Sounds GABI clear :30 Breath Sounds LLL clear :30 Oxygen no :30 Temp >100.4 no : Temp <96.8 no : Chills with rigors no : HR > 90bpm no : Respirations > 20 no : Systolic <90 no : headache stiff neck no :30 Rapid Resp no :30 Nursing Note Vs obtained. Pt denies needs. 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 :30 Vital signs Type Value Date Respiration Rate 18breaths per minute :30 Pulse 78beats per minute :30 Oxygen Saturation 98% :30 BP Systolic 114mmHg :30 BP Diastolic 47mmHg :30 Temperature 99.0F :30 Height 61inches :30 Weight 158LB :30 Social history Type Value Smoking Status FORMER SMOKER Treatment Plan No treatment plan text is available for this visit. Hospital discharge instructions Dismissal Condition good Disposition on DC home DC Inst/Educ Give yes Med/Side Effects Rev yes
--- OUTSIDE RECORDS SUMMARY | 2016-06-17 17:50 | XMS REPORT ---
Author Author DREW MEIER [facility] Address [address] [place], [place] [address] Care Team Providers Care Risk And Compliance Analytics Director Name Role Phone DREW MEIER PCP Unavailable [...] by intranasal route 2 times per day fluticasone 50 mcg/actuation nasal spray,suspension 08/12/2015 inhale 1 spray (50 mcg) in each nostril by intranasal route 2 times per day Name Start Date Expiration Date SIG Comments [...] TAKE ONE TABLET BY MOUTH EVERY DAY eujzsxgycb-navptoktwimsb-onsj 50-325-40 mg oral tablet 10/29/2011 11/08/2011 TAKE [...] 3 times a day for 10 days Medrol (Addy) 4 mg oral tablets,dose pack 08/17/2015 08/22/2015 take as directed for 5 days Zithromax Z-Addy 250 mg oral tablet 08/17/2015 08/22/2015 take 2 tablets (500 mg ) by oral route once daily for 1 day then 1 tablet (250 mg) by oral route once daily for 4 days Discontinued Name Start Date Discontinued Date [...] nasal route 2 times a day Acid Concierge (cimetidine) 200 mg oral tablet 07/22/2013 Premarin [...] a day for 7 days per history ueiwflxrkr-mclvdtqgpcvrm-savs 50-325-40 mg oral tablet 06/09/2013 02/28/2015 TAKE [...] HC BMI BSA BMI Percentile O2 Sat(%) 08/12/2015 9:01:00 AM 108 mmHg 62 mmHg 76 bpm 16 rpm 98.2 F 169 lbs 61 in 31.93 kg/m2 1.82 m2 99 % 07/05/2015 9:39:00 AM 122 mmHg [...] 10/13/2010 12:00 AM Phenergan 50 Mg Im [id number] Reviewed 10/13/2010 12:00 AM Nubain 10mg Reviewed 02/28/2015 12:00 AM Toradol 60 Mg [facility]#[id number] Reviewed 03/25/2009 12:00 AM COMPREHEN METABOLIC PANEL Reviewed 03/25/2009 12:00 AM COMPLETE CBC W/AUTO DIFF WBC Reviewed 03/25/2009 12:00 AM CYTOPATH C/V MANUAL Reviewed 03/25/2009 12:00 AM BIOPSY OF UTERUS LINING Reviewed 03/25/2009 12:00 AM ECHO EXAMINATION PROCEDURE Reviewed 03/25/2009 12:00 AM BIOPSY OF UTERUS LINING Reviewed 12/11/2010 12:00 AM THER/PROPH/DIAG INJ SC/IM Reviewed 12/11/2010 12:00 AM Decadron Inj.1mg-([facility]) [facility] #[id number] Reviewed 07/05/2015 12:00 AM Decadron, Per 1 Mg [facility]# [address]-95 Reviewed 04/10/2011 12:00 AM ROUTINE VENIPUNCTURE Reviewed 04/10/2011 12:00 AM COMPLETE CBC W/AUTO DIFF WBC Returned 04/10/2011 12:00 AM COMPREHEN METABOLIC PANEL Returned 04/10/2011 12:00 AM LIPID PANEL Returned 05/10/2011 12:00 AM THER/PROPH/DIAG INJ SC/IM Reviewed 05/10/2011 12:00 AM Decadron Inj.1mg-([facility]) [facility] #[id number] Reviewed 05/10/2011 12:00 AM Depo-Medrol 80 Mg Im/St Satya [facility] [id number] Reviewed 06/22/2011 12:00 AM THER/PROPH/DIAG INJ SC/IM Reviewed 06/22/2011 12:00 AM Phenergan 50 Mg Im [id number] Reviewed 06/22/2011 12:00 AM Nubain 10mg Reviewed 07/24/2011 12:00 AM ROUTINE VENIPUNCTURE Reviewed 07/24/2011 12:00 AM COMPREHEN METABOLIC PANEL Returned 07/24/2011 12:00 AM ASSAY THYROID STIM HORMONE Returned 07/24/2011 12:00 AM ASSAY OF FREE THYROXINE Returned 10/17/2011 12:00 AM THER/PROPH/DIAG INJ SC/IM Reviewed 10/17/2011 12:00 AM Decadron, Per 1 Mg [facility]# [address]-66 Reviewed 10/17/2011 12:00 AM Depo-Medrol, Per 80 Mg [place]#8813-4577-61 Reviewed 11/21/2011 12:00 AM THER/PROPH/DIAG INJ SC/IM Reviewed 11/21/2011 12:00 AM Toradol 60 Mg [place]#0577-1507-65 Reviewed 11/29/2011 12:00 AM THER/PROPH/DIAG INJ SC/IM Reviewed 11/29/2011 12:00 AM Decadron, Per 1 Mg [facility]# [address]-83 Reviewed 12/13/2011 12:00 AM THER/PROPH/DIAG INJ SC/IM Reviewed 12/13/2011 12:00 AM Phenergan, Up to 50 Mg [facility]#7650-5792-96 Reviewed 01/10/2012 12:00 AM THER/PROPH/DIAG INJ SC/IM Reviewed 01/10/2012 12:00 AM Phenergan, Up to 50 Mg [facility]#8192-8080-11 Reviewed 03/28/2012 12:00 AM THER/PROPH/DIAG INJ SC/IM Reviewed 03/28/2012 12:00 AM Toradol 60 Mg [place]#6262-4026-05 Reviewed 03/28/2012 12:00 AM Phenergan, Up to 50 Mg [facility]#3338-3321-47 Reviewed 05/14/2012 12:00 AM APPLICATION LOWER LEG SPLINT Reviewed 06/12/2012 12:00 AM THER/PROPH/DIAG INJ SC/IM Reviewed 06/12/2012 12:00 AM Decadron, Per 1 Mg [facility]# [address]-29 Reviewed 07/10/2012 12:00 AM COMPLETE CBC W/AUTO DIFF WBC Reviewed 07/10/2012 12:00 AM COMPREHEN METABOLIC PANEL Reviewed 07/10/2012 12:00 AM LIPID PANEL Reviewed 07/10/2012 12:00 AM ASSAY THYROID STIM HORMONE Reviewed 07/10/2012 12:00 AM ROUTINE VENIPUNCTURE Reviewed 09/30/2012 12:00 AM THER/PROPH/DIAG INJ SC/IM Reviewed 09/30/2012 12:00 AM Toradol 60 Mg [facility]#5134-8991-55 Reviewed 09/30/2012 12:00 AM Phenergan, Up to 50 Mg [facility]#4605-5567-53 Reviewed 06/14/2009 12:00 AM THER/PROPH/DIAG INJ SC/IM Reviewed 06/14/2009 12:00 AM Decadron Inj.8mg-([facility]ya) [facility] #[id number] Reviewed 06/14/2009 12:00 AM Depo-Medrol 80 Mg Im/St Satya [facility] [id number] Reviewed 11/03/2012 12:00 AM THER/PROPH/DIAG INJ SC/IM Reviewed 11/03/2012 12:00 AM Toradol 60 Mg [facility]#1030-0909-25 Reviewed 11/03/2012 12:00 AM Phenergan, Up to 50 Mg [facility]#7245-5817-02 Reviewed 11/25/2012 12:00 AM THER/PROPH/DIAG INJ SC/IM Reviewed 11/25/2012 12:00 AM Decadron, Per 1 Mg [facility]# [address]-86 Reviewed 12/04/2012 12:00 AM COMPLETE CBC W/AUTO [...] ANTIBODIES Reviewed 12/04/2012 12:00 AM DNA ANTIBODY ZUNI Reviewed 12/04/2012 12:00 AM NUCLEAR ANTIGEN ANTIBODY [...] 12:00 AM Phenergan Up to 50 mg C Medicare Reviewed 06/04/2013 12:00 AM COMPREHEN METABOLIC PANEL Reviewed 06/04/2013 12:00 AM ROUTINE VENIPUNCTURE Reviewed 11/22/2009 12:00 AM THER/PROPH/DIAG INJ SC/IM Reviewed 11/22/2009 12:00 AM Decadron Inj.8mg-(St.Satya) [facility] #[id number] Reviewed 11/22/2009 12:00 AM Depo-Medrol 80 Mg Im/St Satya [facility] [id number] Reviewed 11/22/2009 12:00 AM Rocephin, Per 250MG - 1 Gram Vial Reviewed 01/12/2010 12:00 AM THER/PROPH/DIAG INJ SC/IM Reviewed 01/12/2010 12:00 AM Decadron Inj.12mg-([facility]) [facility] #[id number] Reviewed 07/21/2013 12:00 AM EGD DIAGNOSTIC BRUSH WASH Reviewed 07/21/2013 12:00 AM DIAGNOSTIC COLONOSCOPY Reviewed 08/07/2013 8:22 AM ASSAY GLUCOSE BLOOD QUANT Reviewed 08/07/2013 12:00 AM ASSAY GLUCOSE BLOOD QUANT Reviewed 10/07/2013 12:00 AM Internal Medicine Consult Reviewed 05/24/2010 12:00 AM THER/PROPH/DIAG INJ SC/IM Reviewed 05/24/2010 12:00 AM Decadron Inj.8mg-(St.[facility]) [facility] #[id number] Reviewed 05/24/2010 12:00 AM Depo-Medrol 80 Mg Im/St Satya [facility] [phone] Reviewed 05/31/2010 12:00 AM THER/PROPH/DIAG INJ SC/IM Reviewed 05/31/2010 12:00 AM Decadron Inj.12 mg-(St.Satya) [facility] #[id number] Reviewed 06/12/2010 12:00 AM ROUTINE VENIPUNCTURE Reviewed 06/12/2010 12:00 AM COMPLETE CBC W/AUTO DIFF WBC Reviewed 06/12/2010 12:00 AM COMPREHEN METABOLIC PANEL Reviewed 06/12/2010 12:00 AM LIPID PANEL Reviewed 07/13/2010 12:00 AM DESTRUCT PREMALG LESION Reviewed 07/29/2014 12:00 AM THER/PROPH/DIAG INJ SC/IM Reviewed 07/29/2014 12:00 AM Toradol 60 Mg [facility]#8196-3799-62 Reviewed Results Summary Data and Description Results [...] 12.40 g/dLHCT 38.40 %MCV 90.0 fLMCH 29.0 pgHC 32.30 g/dLRDW CV 13.40 %MPV 12.10 fLPLT 198 %NEUT 65.40 %%LYMP 25.30 %%MONO 6.60 %%EOS 2.30 %% BASO 0.40 %#NEUT 5.99 #LYMP 2.32 #MONO 0.60 #EOS 0.21 #BASO 0.04 04/10/2011 4:02 PM WBC 5.1 RBC 4.16 HGB 12.30 g/dLHCT 37.0 %MCV 89.0 fLH 29.60 pgHC 33.20 g/dLRDW CV 13.0 %MPV 13.30 fLPLT 195 %NEUT 54.50 %%LYMP 35.80 %%MONO 8.30 %%EOS 1.0 %%BASO 0.40 %#NEUT 2.75 #LYMP 1.81 #MONO 0.42 #EOS 0.05 #BASO 0.02 GLUCOSE 101.0 mg/dLSODIUM 139.0 mmol/LPOTASSIUM 3.70 mmol/ LCHLORIDE 106.0 mmol/LCO2 25.0 mmol/LBUN 7.0 mg/dLCREATININE 0.80 mg/dLSGOT/AST 13.0 IU/LSGPT/ALT 8.0 IU/LALK PHOS 60.0 IU/LTOTAL PROTEIN 6.60 g/dLALBUMIN 4.20 g/dLTOTAL BILI 0.60 mg/dLCALCIUM 8.50 mg/dLeGFR >60 mL/min/1.73 [id number] 82.0 mg/dLCHOLESTEROL 159.0 mg/dLHDL 42.0 mg/dLLDL (CALC) [...] Ear pain, right Aug 12 2015 9:01AM Payers Insurance Name Company Name Plan Name Plan Number Policy Number Policy Group Number Start Date Confinity Confinity [id number] N/A [facility] [id number] N/A [facility] [id number] N/A [facility] [id number] N/A [facility] [id number] N/A [facility] [id number] N/A History of Encounters Visit Date Visit Type Provider 08/12/2015 Office visit DREW BURDEN 07/05/2015 Office visit DREW BURDEN 06/23/2015 Office visit DREW BURDEN 02/24/2015 Office visit DREW BURDEN 08/20/2014 Office visit DREW BURDEN 07/29/2014 Office visit 07/29/2014 Office visit DREW BURDEN 05/28/2014 Office visit DREW BURDEN 11/25/2013 Office visit DREW BURDEN 10/05/2013 Office visit DREW BURDEN 08/07/2013 Office visit DREW BURDEN 08/06/2013 Office visit DREW BURDEN 08/01/2013 [facility] Km Tripp MD 07/23/2013 [facility] Luis Branch DO 07/21/2013 Office visit Luis Branch DO 07/13/2013 Office visit DREW BURDEN 06/04/2013 Office visit DREW BURDEN 05/18/2013 Office visit DREW BURDEN 04/20/2013 Office visit DREW BURDEN 12/04/2012 Office visit DREW BURDEN 12/02/2012 Office visit DREW BURDEN 11/25/2012 Office visit DREW BURDEN 11/03/2012 Office visit DREW BURDEN 09/30/2012 Office visit DREW BURDEN 07/25/2012 Office visit DREW BURDEN 07/10/2012 Office visit DREW BURDEN 06/12/2012 Office visit DREW MEIER PA 05/14/2012 [...] DREW MEIER PA 02/06/2011 Office visit DREW MEIRE PA 12/11/2010 Office visit Drew Meier PA-C [...] 06/14/2009 Office visit Drew Meier PA-C 04/25/2009 [facility] Drew Patiño MD 03/25/2009 Office visit Erick Carrillo MD 02/07/2009 Office visit Drew Meier PA-C 10/13/2008 Office visit DREW MEIER PA 10/04/2008 Office visit DREW MEIER PA
--- OUTSIDE RECORDS SUMMARY | 2016-06-17 17:50 | XMS REPORT ---
Author Author [facility] Medical Staff Organization [email or web address] Address [address], [place] [address] Phone [phone] Care Team Providers Care Policyholder Information Clerk Name Role Phone MANISH CAVAZOS PP [phone] Summary purpose TRANSITION OF CARE AUTO GENERATION [...] visit Relevant diagnostic tests and/or laboratory data No authorized results are available for this patient visit History of procedures No procedures recorded for this patient visit. Functional status No functional or cognitive status observations are available for this visit. Vital signs Type Value Date Respiration Rate 18breaths per minute :10 Pulse 88beats per minute :10 Oxygen Saturation 100% :10 BP Systolic 104mmHg :10 BP Diastolic 71mmHg :10 Temperature 98.0F :10 Social history Type Value Smoking Status NEVER SMOKER Treatment Plan No treatment plan text is available for this visit. Hospital discharge instructions Dismissal Condition good Disposition on DC home DC Inst/Educ Give yes Med/Side Effects Rev yes
--- OUTSIDE RECORDS SUMMARY | 2016-06-17 17:50 | XMS REPORT ---
Author [facility] Organization [facility] Address [address] [place], [place] [address] Phone [phone] Care Team Providers Care Behavioral Health Worker Name Role Phone DREW CAVAZOS PP [phone] DREW CAVAZOS PP [phone] Summary purpose TRANSITION OF CARE AUTO GENERATION Chief Complaint and Reason for Visit Admit Diagnosis 1 CHEST PAIN RO VA Problem list No authorized problems tracked for [...] SL for irritable bowel oral Q6 Hours 07-23-18-24 1/2 tab sl Current IBUPROFEN 800 mg: [...] diagnostic tests and/or laboratory data RESULTS Chemistry [id number]:50:00 Result Normal Range Units Sodium 138 134-145 mEq/l Potassium 3.7 3.5-5.1 mEq/l Chloride 107 98-107 mEq/l CO2 H 28.6 22-28 mEq/l Glucose 97 70-105 mg/dl BUN 8 7-18 mg/dl Creatinine 0.85 0.6-1.0 mg/dl Calcium L 7.5 8.4-10.2 mg/dl Osmolality L 273.9 280-300 mOsm/L Anion GAP L 2.4 8-16 BUN/Creatinine Ratio L 9.4 10-20 Estimated GFR 73 >=60 mL/min/1.7 [id number]:34:00 Result Normal Range Units Sodium 137 134-145 [...] 10-20 Estimated GFR 86 >=60 mL/min/1.7 Hematology [id number]:50:00 Result Normal Range Units WBC 5.9 4.8-10.8 103/uL RBC L 3.8 4.2-5.4 106/uL HGB L 11.1 12.0-16.0 g/dl HCT L 33.6 36.9-47.0 % MCV 89.6 81-99 FL MCH 29.6 27-31 pg MCHC 33.0 33-37 g/dl RDW 12.4 11.5-15.5 % PLT 172 130-400 103/uL MPV H 11.3 7.3-10.4 FL Neutro % 48.8 40-70 % Lymph % H 40.2 20-40 % [place] % 8.6 0-10.0 % Eos % 1.5 0-7.0 % Baso % 0.7 0-2 % Neutro # 2.9 1.5-7.5 103/uL Lymph # 2.4 0.9-4.0 103/uL [place] # 0.5 0-0.8 103/uL Eos # 0.1 0-0.6 103/uL Baso # 0.0 0-0.1 103/uL :34:00 Result Normal Range Units WBC 7.6 4.8-10.8 103/uL RBC 4.2 4.2-5.4 106/uL HGB 12.4 12.0-16.0 g/dl HCT L 36.1 36.9-47.0 % MCV 86.8 81-99 FL MCH 29.8 27-31 pg MCHC 34.3 33-37 g/dl RDW 12.2 11.5-15.5 % PLT 218 130-400 103/uL MPV H 11.2 7.3-10.4 FL Cardiac [id number]:50:00 Result Normal Range Units CK 73 26-192 [...] should be interpreted with caution. Radiology Results [id number]:51:00 Chest XRay - Port - 1 View [...] On: Mar 24 20151:51P CHEST PAIN RO [facility] Result Amended on 2015-03-24 at 13:51:38. Previous status was CO. CHEST PAIN RO VA [id number]:50:00 Result Normal Range Units MPV H 11.3 7.3-10.4 FL [id number]:34:00 Result Normal Range Units MPV H 11.2 7.3-10.4 FL History of procedures No procedures recorded for this patient visit. Functional status Functional Status Finding Observation Time Hearing Prob Loc none :15 Vision Problems yes :15 Vision Correct Dev glasses :15 Ambulation Asst Dev none :15 Range of Motion full :18 Muscle Strength RUE 5 ROM full resist :18 Muscle Strength RLE 5 ROM full resist :18 Muscle Strength LUE 5 ROM full resist :18 Muscle Strength LLE 5 ROM full resist :18 Transfers independent : Ambulation up ad eric : Balance steady :18 Bathing Assistance none :15 Eating Assistance none :15 Dressing Assistance none [...] :18 Secretions no :18 Secretion Consist thin :18 Secretion Color clear :18 Breath Sounds RUL clear :18 Breath Sounds RML clear :18 Breath Sounds RLL clear :18 Breath Sounds GABI clear :18 Breath Sounds LLL clear :18 Airway natural :18 Oxygen no :47 Oxygen Flow Rate RA :47 C-PAP no :18 BI-PAP no :18 New Infection other (specify) : Temp >100.4 no :18 Temp <96.8 no :18 Chills with rigors no : HR > 90bpm no :18 Respirations > 20 no :18 Systolic <90 no :18 headache stiff neck no :18 WBC > 28069 no :18 WBC < 4000 no :18 IV Site Location left AC :50 IV Type peripheral :50 IV Site Information discontinued :50 IV Site Start Attmpt 1 times [id number]:15 IV Site To 20 :50 IV Site Appearance WNL :50 IV Site Color clear :50 IV Site Patent yes :50 Dressing Type gauze :50 Nursing Note Pt ambulated off unit to personal vehicle. Pt in good condition. Personal belongings in hand. :04 Cognitive Status Finding Observation Time Oriented To Date 5 Yes :[address] 5 Yes :15 Name 3 Objects 3 Yes :15 Name Object in Rm 2 Yes :15 Recall 3 Objects 3 Yes :15 Repeats a Phrase 1 Yes :15 Follows Verbal Direc 3 Yes :15 Follows Written Dire 1 Yes :15 Write a Sentance 1 Yes :15 Draw an Object 1 Yes :15 Mini Mental Total 25 points :15 Learning Ability comprehends well :18 Neurological no :18 Psychological no :18 Physical no :18 Hearing no :18 Helpdesk Specialist Needed no :18 Sign Language no :18 [...]
--- OUTSIDE RECORDS SUMMARY | 2016-06-17 17:50 | XMS REPORT ---
Author Author [facility] Medical Staff Organization [facility] Address [address], [place] [address] Phone [phone] Care Team Providers Care Search Optimization Analyst Name Role Phone MANISH CAVAZOS PP [phone] Summary purpose TRANSITION OF CARE AUTO GENERATION Chief Complaint and Reason for Visit Admit Diagnosis 1 ACUTE PHARYNGITIS Problem list No authorized problems tracked for [...] diagnostic tests and/or laboratory data RESULTS Routine Cultures [id number]:55:00 Wound Culture Plate Date and Time 11/22/2013 20:07 SourceTHUMB GRAM STAIN Occasional Squamous Epithelial Cells Occasional Gram Positive Cocci Release Date/Time: 11/23/2013 08:12 CULTURE REPORT No Pathogens Isolated at 1 day. Release Date/Time: 11/23/2013 10:40 CULTURE REPORT Culture should have been ordered as a throat culture. Charges have been cancelled and culture has been reordered. Release Date/Time: 11/23/2013 11:05 Nose/Throat Culture Plate Date and Time 11/23/2013 11:11 SourceTHROAT CULTURE REPORT Moderate Amount Apparent Normal Swati Release Date/Time: 11/23/2013 11:15 CULTURE REPORT Large Amount Apparent Normal Swati Release Date/Time: 11/24/2013 07:59 History of procedures Procedure Code Code Type Description Date Performed Performing Physician 59797 CPT-4 SMEAR, GRAM STAIN 11-22-2013 DOMONIQUE LAZ 01257 CPT-4 CULTR BACTERIA, EXCEPT BLOOD 11-22-2013 DOMONIQUE LAZ 10446 CPT-4 CULTURE BACTERI AEROBIC OTHR 11-22-2013 DOMONIQUE LAZ 00884 CPT-4 EMERGENCY DEPT VISIT 11-22-2013 DOMONIQUE LAZ 61381 CPT-4 EMERGENCY DEPT VISIT 11-22-2013 DOMONIQUE LAZ Functional status No functional or cognitive status observations are available for this visit. Vital signs Type Value Date Respiration Rate 18breaths per minute 36-97-796114:10 Pulse 88beats per minute :10 Oxygen Saturation 100% 26-87-457506:10 BP Systolic 104mmHg 53-03-740392:10 BP Diastolic 71mmHg 51-66-768813:10 Temperature 98.0F :10 Social history Type Value Smoking Status NEVER SMOKER Treatment Plan No treatment plan text is available for this visit. Hospital discharge instructions Dismissal Condition good Disposition on DC home DC Inst/Educ Give yes Med/Side Effects Rev yes
--- OUTSIDE RECORDS SUMMARY | 2016-06-17 17:52 | XMS REPORT ---
Author Author [facility] Medical Staff Organization [facility] Address [address], [place] [address] Phone [phone] Care Team Providers Care Director Of Collections Name Role Phone DREW CAVAZOS PP [phone] Summary purpose TRANSITION OF CARE AUTO GENERATION [...] tests and/or laboratory data RESULTS Routine Urinalysis [id number]:30:00 Result Normal Range Units Color YELLOW Clarity Clear Specific [place] 1.010 1.003-1.035 pH 7.0 4.5-8.0 Glucose NEGATIVE Bilirubin NEGATIVE Ketones NEGATIVE Protein NEGATIVE Urobilinogen 0.2 0-0.2 E.U./dL Nitrites NEGATIVE Blood NEGATIVE Leukocytes NEGATIVE WBCs 0-5 RBCs No RBC's Seen. Squamous Epithelial Few Bacteria Rare Amount Chemistry [id number]:00 Result Normal Range Units Sodium 139 134-145 [...] 10-20 Estimated GFR 75 >=60 mL/min/1.7 Hematology [id number]:20:00 Result Normal Range Units WBC 7.0 4.8-10.8 103/uL RBC 4.5 4.2-5.4 106/uL HGB 13.4 12.0-16.0 g/dl HCT 39.4 36.9-47.0 % MCV 88.5 81-99 FL MCH 30.1 27-31 pg MCHC 34.0 33-37 g/dl RDW 12.6 11.5-15.5 % PLT 216 130-400 103/uL MPV H 11.1 7.3-10.4 FL Neutro % 69.6 40-70 % Lymph % 23.0 20-40 % Perkins % 6.4 0-10.0 % Eos % 0.6 0-7.0 % Baso % 0.4 0-2 % Neutro # 4.9 1.5-7.5 103/uL Lymph # 1.6 0.9-4.0 103/uL Perkins # 0.5 0-0.8 103/uL Eos # 0.0 0-0.6 103/uL Baso # 0.0 0-0.1 103/uL Body Fluid [id number]:30:00 Result Normal Range Units pH 7.0 4.5-8.0 Radiology Results [id number]:00 Abdomen 2 View PACs Image DATE OF [...] study of the abdomen. Domonique Santiago DO /ms 12/21/2013 13:06:00 / 12/21/2013 13:12:41 cc:Drew Carmen PA-C This document has been electronically Signed by: DOMONIQUE SANTIAGO DO On: Dec 23 20133:32P Result Amended on 2013-12-23 at 15:33:04. Previous status was [place]. [id number]:20:00 Result Normal Range Units MPV H 11.1 7.3-10.4 FL History of procedures Procedure Code Code Type Description Date Performed Performing Physician 37176 CPT-4 COMPLETE CBC W/AUTO DIFF WBC 12-21-2013 DOMONIQUE DIXON 14309 CPT-4 COMPREHEN METABOLIC PANEL 12-21-2013 DOMONIQUE DIXON 70856 CPT-4 URINALYSIS, AUTO W/SCOPE 12-21-2013 DOMONIQUE DIXON 91710 CPT-4 X-RAY EXAM OF ABDOMEN 12-21-2013 DOMONIQUE DIXON J7120 CPT-4 RINGERS LACTATE INFUSION 12-21-2013 DOMONIQUE DIXON J2405 CPT-4 ONDANSETRON HCL INJECTION 12-21-2013 DOMONIQUE DIXON J2405 CPT-4 ONDANSETRON HCL INJECTION 12-21-2013 DOMONIQUE DIXON 00428 CPT-4 ROUTINE VENIPUNCTURE 12-21-2013 DOMONIQUE DIXON 72581 CPT-4 EMERGENCY DEPT VISIT 12-21-2013 DOMONIQUE DIXON 08557 CPT-4 EMERGENCY DEPT VISIT 12-21-2013 DOMONIQUE DIXON 04169 CPT-4 THER/PROPH/DIAG INJ, IV PUSH 12-21-2013 DOMONIQUE DIXNO 20196 CPT-4 TX/PRO/DX INJ NEW DRUG 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
--- OUTSIDE RECORDS SUMMARY | 2016-06-17 17:52 | XMS REPORT ---
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 Name Role Phone DREW MEIER PCP Unavailable Allergies and Adverse Reactions Name Reaction Notes ciprofloxacin hives SULFA (SULFONAMIDES) hives Bactrim DS hives Cipro hives Plan of Treatment Planned Activity Comments Planned Date Planned Time Plan/Goal Injection, Subcutaneous/IM 04/16/2016 12:00 AM Medications Active Name Start Date Estimated Completion [...] to exceed 30 mL in 24 hours Rociada 5-325 mg oral tablet 04/16/2016 take 1 tablet by oral route every 4-6 hours as needed for pain penicillin V potassium 500 mg oral tablet 04/16/2016 take 1 tablet (500 mg) by oral route 4 times per day Name Start Date Expiration [...] TAKE ONE TABLET BY MOUTH EVERY DAY rjuqjwzoox-vodnbmuheceti-oevj 50-325-40 mg oral tablet 10/29/2011 11/08/2011 TAKE [...] nasal route 2 times a day Acid Cutting Tool Sharpener (cimetidine) 200 mg oral tablet 07/22/2013 Premarin [...] a day for 7 days per history pimfnjugcv-rykcizjhjctqa-xgnf 50-325-40 mg oral tablet 06/09/2013 02/28/2015 TAKE [...] HC BMI BSA BMI Percentile O2 Sat(%) 04/16/2016 11:52:00 AM 118 mmHg 80 mmHg 90 bpm 16 rpm 97 F 163 lbs 61 in 30.80 kg/m2 1.78 m2 97 % 02/20/2016 3:04:00 PM 122 mmHg 70 mmHg 78 bpm 18 rpm 98.2 F 166 lbs 61 in 31.3651 kg/m 1.8002 m 99 % 08/12/2015 9:01:00 AM 108 mmHg [...] 10/13/2010 12:00 AM Phenergan 50 Mg Im [id number] Reviewed 10/13/2010 12:00 AM Nubain 10mg Reviewed 02/28/2015 12:00 AM Toradol 60 Mg [facility]#3008-5019-89 Reviewed 03/25/2009 12:00 AM COMPREHEN METABOLIC PANEL Reviewed 03/25/2009 12:00 AM COMPLETE CBC W/AUTO DIFF WBC Reviewed 03/25/2009 12:00 AM CYTOPATH C/V MANUAL Reviewed 03/25/2009 12:00 AM BIOPSY OF UTERUS LINING Reviewed 03/25/2009 12:00 AM ECHO EXAMINATION PROCEDURE Reviewed 03/25/2009 12:00 AM BIOPSY OF UTERUS LINING Reviewed 12/11/2010 12:00 AM THER/PROPH/DIAG INJ SC/IM Reviewed 12/11/2010 12:00 AM Decadron Inj.1mg-([facility]) [facility] #[id number] Reviewed 07/05/2015 12:00 AM Decadron, Per 1 Mg [facility]# [address]-54 Reviewed 08/12/2015 12:00 AM Decadron, Per 1 Mg [facility]# [address]-63 Reviewed 08/12/2015 12:00 AM Depo-Medrol, Per 80 Mg [facility]#8663-4828-28 Reviewed 04/10/2011 12:00 AM ROUTINE VENIPUNCTURE Reviewed 04/10/2011 12:00 AM COMPLETE CBC W/AUTO DIFF WBC Reviewed 04/10/2011 12:00 AM COMPREHEN METABOLIC PANEL Reviewed 04/10/2011 12:00 AM LIPID PANEL Reviewed 05/10/2011 12:00 AM THER/PROPH/DIAG INJ SC/IM Reviewed 05/10/2011 12:00 AM Decadron Inj.1mg-([facility]) [facility] #[id number] Reviewed 05/10/2011 12:00 AM Depo-Medrol 80 Mg Im/[facility] [id number] Reviewed 02/20/2016 12:00 AM THER/PROPH/DIAG INJ SC/IM Reviewed 02/20/2016 12:00 AM Decadron 8mg Injection Reviewed 02/20/2016 12:00 AM Depo-Medrol 80mg Injection Reviewed 02/20/2016 12:00 AM Rocephin 1 gram Injection Reviewed 06/22/2011 12:00 AM THER/PROPH/DIAG INJ SC/IM Reviewed 06/22/2011 12:00 AM Phenergan 50 Mg Im [id number] Reviewed 06/22/2011 12:00 AM Nubain 10mg Reviewed 07/24/2011 12:00 AM ROUTINE VENIPUNCTURE Reviewed 07/24/2011 12:00 AM COMPREHEN METABOLIC PANEL Reviewed 07/24/2011 12:00 AM ASSAY THYROID STIM HORMONE Reviewed 07/24/2011 12:00 AM ASSAY OF FREE THYROXINE Reviewed 10/17/2011 12:00 AM THER/PROPH/DIAG INJ SC/IM Reviewed 10/17/2011 12:00 AM Decadron, Per 1 Mg [facility]# [address]-89 Reviewed 10/17/2011 12:00 AM Depo-Medrol, Per 80 Mg [facility]#0159-3781-34 Reviewed 11/21/2011 12:00 AM THER/PROPH/DIAG INJ SC/IM Reviewed 11/21/2011 12:00 AM Toradol 60 Mg [facility]#8090-4791-59 Reviewed 11/29/2011 12:00 AM THER/PROPH/DIAG INJ SC/IM Reviewed 11/29/2011 12:00 AM Decadron, Per 1 Mg [facility]# [address]-81 Reviewed 12/13/2011 12:00 AM THER/PROPH/DIAG INJ SC/IM Reviewed 12/13/2011 12:00 AM Phenergan, Up to 50 Mg [facility]#0695-3441-37 Reviewed 01/10/2012 12:00 AM THER/PROPH/DIAG INJ SC/IM Reviewed 01/10/2012 12:00 AM Phenergan, Up to 50 Mg [facility]#0460-7884-56 Reviewed 03/28/2012 12:00 AM THER/PROPH/DIAG INJ SC/IM Reviewed 03/28/2012 12:00 AM Toradol 60 Mg [facility]#5590-0692-40 Reviewed 03/28/2012 12:00 AM Phenergan, Up to 50 Mg [facility]#2934-2294-91 Reviewed 05/14/2012 12:00 AM APPLICATION LOWER LEG SPLINT Reviewed 06/12/2012 12:00 AM THER/PROPH/DIAG INJ SC/IM Reviewed 06/12/2012 12:00 AM Decadron, Per 1 Mg [facility]# [address]-41 Reviewed 07/10/2012 12:00 AM COMPLETE CBC W/AUTO DIFF WBC Reviewed 07/10/2012 12:00 AM COMPREHEN METABOLIC PANEL Reviewed 07/10/2012 12:00 AM LIPID PANEL Reviewed 07/10/2012 12:00 AM ASSAY THYROID STIM HORMONE Reviewed 07/10/2012 12:00 AM ROUTINE VENIPUNCTURE Reviewed 09/30/2012 12:00 AM THER/PROPH/DIAG INJ SC/IM Reviewed 09/30/2012 12:00 AM Toradol 60 Mg [facility]#2194-7497-71 Reviewed 09/30/2012 12:00 AM Phenergan, Up to 50 Mg [facility]#0781-8330-03 Reviewed 06/14/2009 12:00 AM THER/PROPH/DIAG INJ SC/IM Reviewed 06/14/2009 12:00 AM Decadron Inj.8mg-([facility]) [facility] #[id number] Reviewed 06/14/2009 12:00 AM Depo-Medrol 80 Mg Im/[facility] 0009-855876 Reviewed 11/03/2012 12:00 AM THER/PROPH/DIAG INJ SC/IM Reviewed 11/03/2012 12:00 AM Toradol 60 Mg [facility]#8867-4848-90 Reviewed 11/03/2012 12:00 AM Phenergan, Up to 50 Mg [facility]#7589-2281-51 Reviewed 11/25/2012 12:00 AM THER/PROPH/DIAG INJ SC/IM Reviewed 11/25/2012 12:00 AM Decadron, Per 1 Mg [facility]# [address]-35 Reviewed 12/04/2012 12:00 AM COMPLETE CBC W/AUTO [...] ANTIBODIES Reviewed 12/04/2012 12:00 AM DNA ANTIBODY NEWTOK Reviewed 12/04/2012 12:00 AM NUCLEAR ANTIGEN ANTIBODY [...] SC/IM Reviewed 11/22/2009 12:00 AM Decadron Inj.8mg-([facility]) [facility] #[id number] Reviewed 11/22/2009 12:00 AM Depo-Medrol 80 Mg Im/[facility] 0009-769124 Reviewed 11/22/2009 12:00 AM Rocephin, Per 250MG - 1 Gram Vial Reviewed 01/12/2010 12:00 AM THER/PROPH/DIAG INJ SC/IM Reviewed 01/12/2010 12:00 AM Decadron Inj.12mg-([facility]) [facility] #[id number] Reviewed 07/21/2013 12:00 AM EGD DIAGNOSTIC BRUSH WASH Reviewed 07/21/2013 12:00 AM DIAGNOSTIC COLONOSCOPY Reviewed 08/07/2013 8:22 AM ASSAY GLUCOSE BLOOD QUANT Reviewed 08/07/2013 12:00 AM ASSAY GLUCOSE BLOOD QUANT Reviewed 10/07/2013 12:00 AM Internal Medicine Consult Reviewed 05/24/2010 12:00 AM THER/PROPH/DIAG INJ SC/IM Reviewed 05/24/2010 12:00 AM Decadron Inj.8mg-([facility]) [facility] #[id number] Reviewed 05/24/2010 12:00 AM Depo-Medrol 80 Mg Im/St Sat[facility] [id number] Reviewed 05/31/2010 12:00 AM THER/PROPH/DIAG INJ SC/IM Reviewed 05/31/2010 12:00 AM Decadron Inj.12 mg-([facility]) [facility] #[id number] Reviewed 06/12/2010 12:00 AM ROUTINE VENIPUNCTURE Reviewed 06/12/2010 12:00 AM COMPLETE CBC W/AUTO DIFF WBC Reviewed 06/12/2010 12:00 AM COMPREHEN METABOLIC PANEL Reviewed 06/12/2010 12:00 AM LIPID PANEL Reviewed 07/13/2010 12:00 AM DESTRUCT PREMALG LESION Reviewed 07/29/2014 12:00 AM THER/PROPH/DIAG INJ SC/IM Reviewed 07/29/2014 12:00 AM Toradol 60 Mg [facility]#6626-4389-75 Reviewed Results Summary Data and Description Results [...] Acute Chest congestion Feb 20 2016 3:05PM Severe Acute Apical abscess Apr 16 2016 11:53AM Severe Acute Tooth pain Apr 16 2016 11:53AM Moderate Chronic Periodontitis Apr 16 2016 11:53AM Payers Insurance Name Company Name Plan Name Plan Number Policy Number Policy Group Number Start Date Confinity Confinity [id number] N/A [facility] [id number] N/A [facility] [id number] N/A [facility] [id number] N/A [facility] [id number] N/A [facility] [id number] N/A History of Encounters Visit Date Visit Type Provider 04/16/2016 Office visit DREW BURDEN 02/20/2016 Office visit DREW BURDEN 10/07/2015 [facility] Km Tripp MD 08/12/2015 Office visit DREW BURDEN 07/05/2015 Office visit DREW BURDEN 06/23/2015 Office visit DREW BURDEN 02/24/2015 Office visit DREW BURDEN 08/20/2014 Office visit DREW BURDEN 07/29/2014 Office visit 07/29/2014 Office visit DREW BURDEN 05/28/2014 Office visit DREW BURDEN 11/25/2013 Office visit DREW BURDEN 10/05/2013 Office visit DREW BURDEN 08/07/2013 Office visit DREW BURDEN 08/06/2013 Office visit DREW BURDEN 08/01/2013 [facility] Km Tripp MD 07/23/2013 [facility] Luis Branch DO 07/21/2013 Office visit [...] visit DREW MEIER PA 04/28/2012 Office visit DRWE MEIER PA 03/28/2012 Office visit DREW MEIER PA 02/19/2012 Office visit DREW MEIER PA 01/10/2012 Office visit DREW MEIER PA 01/01/2012 Office visit DREW MEIER PA 12/13/2011 Office visit DREW MEIER PA 11/29/2011 Office visit DREW MEIER PA 11/21/2011 Office visit DREW BURDEN 10/17/2011 Office visit DREW BURDEN 09/03/2011 Office visit DREW MEIER PA 08/21/2011 [facility] Robby Tripp MD 07/24/2011 Office visit DREW MEIER [...] visit Drew Meier PA-C 07/13/2010 Office visit rDew Meier PA-C 06/12/2010 Office visit Drew Meier PA-C 06/05/2010 Office visit Drew Meier PA-C 05/31/2010 Office visit Drew Meier PA-C 05/24/2010 Office visit Drew BURDEN-C 01/12/2010 Office visit Drew BURDEN-C 12/22/2009 Office visit Drew BURDEN-C 11/22/2009 Office visit Drew BURDEN-C 06/14/2009 Office visit Drew BURDEN-C 04/25/2009 Surgery Drew Patiño MD 03/25/2009 Office visit Erick Carrillo MD 02/07/2009 Office visit Drew SANCHESC 10/13/2008 Office visit DREW BURDEN 10/04/2008 Office visit DREW BURDEN
--- OUTSIDE RECORDS SUMMARY | 2016-06-17 17:53 | XMS REPORT ---
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 Medications Active Name Start Date Estimated Completion Date SIG Comments Symbicort Inhalation HFA Aerosol Inhaler 80-4.5 mcg/Actuation 12/11/2010 inhale 2 puffs by inhalation route 2 times per day in the morning and evening triamcinolone acetonide Topical Cream 0.1 % 02/14/2011 apply a thin layer to the affected area(s) by topical route 3 times per day Sudafed Oral Tablet 30 mg 09/03/2011 take 2 tablets (60 mg) by oral route every 6 hours as needed Flonase Nasal [place], Suspension 50 mcg/actuation 02/19/2012 inhale 1 spray by nasal route 2 times a day estradiol Oral tablet 2 mg take 1 tablet (2 mg) by oral route once daily Pulmicort Flexhaler Inhalation Aerosol Powdr Breath Activated 180 mcg/ actuation 04/28/2012 inhale 1 puff (180 mcg) by inhalation route 2 times per day Combivent Respimat Inhalation Aerosol 20-100 mcg/actuation 04/28/2012 inhale 1 puff by inhalation route 4 times per day ; may take additional puffs as needed not to exceed 6 puffs in 24hrs Imitrex Oral tablet 50 mg 11/05/2012 take 1 tablet (50 mg) by oral route once with fluids as early as possible after the onset of a migraine attack;may repeat after 2 hours if headache returns, not to exceed 200mg in 24hrs vwzoquisiq-thkupmtxrjhse-nkkd oral tablet 50-325-40 mg 06/09/2013 TAKE 1 TABLET EVERY 4 HOURS NEEDED NOT MORE THAN 6 TABS/24HRS promethazine Oral tablet 25 mg 06/10/2013 take 1 tablet (25 mg) by oral route every 6 hours as needed Dexilant oral capsule,biphase delayed releas 60 mg take 1 capsule (60 mg ) by oral route once daily Zofran Oral tablet 8 mg 02/18/2014 take 1 tablet (8 mg) by oral route 2 times per day Name Start Date Expiration Date SIG Comments Motrin Oral Tablet 800 mg 03/25/2009 04/04/2009 take 1 tablet by oral route 3 times a day for 10 days Phentermine Oral Tablet 37.5 mg 09/02/2009 09/17/2009 take 1 tablet (37.5 mg/ day) by oral route once daily before breakfast for 15 days Keflex Oral Capsule 500 mg 10/31/2009 11/10/2009 take 1 capsule (500 mg) by oral route 3 times a day for 10 days Zithromax Z-Addy Oral Tablet 250 mg 02/14/2011 02/19/2011 take 2 tablets (500 mg ) by oral route once daily for 1 day then 1 tablet (250 mg) by oral route once daily for 4 days citalopram Oral tablet 20 mg 10/18/2011 11/17/2011 TAKE ONE TABLET BY MOUTH EVERY DAY jrantqizni-jadlyzarpiizf-aelu Oral tablet 50-325-40 mg 10/29/2011 11/08/2011 TAKE 1 TABLET EVERY 4 HOURS NEEDED NOT MORE THAN 6 TABS/24HRS hydrocodone-acetaminophen Oral tablet 7.5-325 mg 10/29/2011 11/13/2011 TAKE 2 TABLETS DAILY -THANK YOU. amoxicillin Oral capsule 500 mg 02/19/2012 take one TID Keflex Oral capsule 500 mg 11/11/2012 11/21/2012 take 1 capsule by oral route 3 times a day for 10 days Cipro Oral Tablet 500 mg 11/25/2012 take 1 tablet (500 mg) by oral route 2 times per day Keflex oral capsule 500 mg take 1 capsule (500 mg) by oral route every 6 hours for 10 days Macrobid oral capsule 100 mg 05/19/2013 05/26/2013 take 1 capsule (100 mg) by oral route every 12 hours with food for 7 days hydrocodone-acetaminophen Oral tablet 7.5-325 mg 06/10/2013 06/25/2013 TAKE 2 TABLETS DAILY -THANK YOU. Discontinued Name Start Date Discontinued Date SIG Comments decadron/depomedrol 6 mg decadron/120 mg depomedrol 02/07/2009 10/18/2011 injected in office Celexa Oral Tablet 10 mg 03/08/2011 take 1 tablet (10 mg) by oral route once daily Ciprofloxacin Oral Tablet 500 mg 01/12/2010 02/14/2011 take 1 tablet (500 mg) by oral route every 12 hours Cipro Oral Tablet 500 mg 05/31/2010 02/14/2011 take 1 tablet (500 mg) by oral route 2 times per day Phenergan-Codeine Oral Syrup 6.25-10 mg/5 mL 02/14/2011 01/01/2012 take 5 milliliters by oral route 4 times a day doxycycline hyclate Oral Capsule 100 mg 04/12/2011 01/01/2012 take 1 capsule ( 100 mg) by oral route 2 times per day Tessalon Perles Oral Capsule 100 mg 04/12/2011 01/01/2012 take 1 capsule (100 mg) by oral route every 4 hours as needed omeprazole Oral capsule,delayed release(DR/EC) 20 mg 01/01/2012 take 1 capsule (20 mg) by oral route once daily before a meal for 30 days Wojciech-Tab Oral tablet,delayed release (DR/EC) 500 mg 11/29/2011 01/01/2012 one three times daily Acid Traffic Police Officer (cimetidine) Oral tablet 200 mg 07/22/2013 Premarin Oral tablet 0.3 mg 04/28/2012 take 1 tablet (0.3 mg) by oral route once daily Bactrim DS oral tablet 800-160 mg 05/19/2013 05/19/2013 take 1 tablet by oral route 2 times a day for 7 days per history Problem List Description Status Onset depression Active Headache Active Allergic rhinitis Active Dyspepsia Active Nausea Active Hyperlipidemia, Mixed Active Anemia Active Atopic dermatitis Active 07/28/2012 Migraine Active 11/05/2012 Diarrhea Active 07/21/2013 Abdominal Pain Active 08/06/2013 Vomiting Active 08/06/2013 Vital Signs Date Time BP-Sys(mm[Hg] BP-Nay(mm[Hg]) HR(bpm) RR(rpm) Temp WT HT HC BMI BSA BMI Percentile O2 Sat(%) 05/28/2014 10:53:00 AM 90 mmHg 60 mmHg [...] 10/13/2010 12:00 AM THER/PROPH/DIAG INJ SC/IM Reviewed 03/25/2009 12:00 AM COMPREHEN METABOLIC PANEL Reviewed 03/25/2009 12:00 AM COMPLETE CBC W/AUTO DIFF WBC Reviewed 03/25/2009 12:00 AM CYTOPATH C/V MANUAL Reviewed 03/25/2009 12:00 AM BIOPSY OF UTERUS LINING Reviewed 03/25/2009 12:00 AM ECHO EXAMINATION PROCEDURE Reviewed 03/25/2009 12:00 AM BIOPSY OF UTERUS LINING Reviewed 12/11/2010 12:00 AM THER/PROPH/DIAG INJ SC/IM Reviewed 04/10/2011 12:00 AM ROUTINE VENIPUNCTURE Reviewed 04/10/2011 12:00 AM COMPLETE CBC W/AUTO DIFF WBC Returned 04/10/2011 12:00 AM COMPREHEN METABOLIC PANEL Returned 04/10/2011 12:00 AM LIPID PANEL Returned 05/10/2011 12:00 AM THER/PROPH/DIAG INJ SC/IM Reviewed 06/22/2011 12:00 AM THER/PROPH/DIAG INJ SC/IM Reviewed 07/24/2011 12:00 AM ROUTINE VENIPUNCTURE Reviewed 07/24/2011 12:00 AM COMPREHEN METABOLIC PANEL Returned 07/24/2011 12:00 AM ASSAY THYROID STIM HORMONE Returned 07/24/2011 12:00 AM ASSAY OF FREE THYROXINE Returned 10/17/2011 12:00 AM THER/PROPH/DIAG INJ SC/IM Reviewed 11/21/2011 12:00 AM THER/PROPH/DIAG INJ SC/IM Reviewed 11/29/2011 12:00 AM THER/PROPH/DIAG INJ SC/IM Reviewed 12/13/2011 12:00 AM THER/PROPH/DIAG INJ SC/IM Reviewed 01/10/2012 12:00 AM THER/PROPH/DIAG INJ SC/IM Reviewed 03/28/2012 12:00 AM THER/PROPH/DIAG INJ SC/IM Reviewed 05/14/2012 12:00 AM APPLICATION LOWER LEG SPLINT Reviewed 06/12/2012 12:00 AM THER/PROPH/DIAG INJ SC/IM Reviewed 07/10/2012 12:00 AM COMPLETE CBC W/AUTO DIFF WBC Reviewed 07/10/2012 12:00 AM COMPREHEN METABOLIC PANEL Reviewed 07/10/2012 12:00 AM LIPID PANEL Reviewed 07/10/2012 12:00 AM ASSAY THYROID STIM HORMONE Reviewed 07/10/2012 12:00 AM ROUTINE VENIPUNCTURE Reviewed 09/30/2012 12:00 AM THER/PROPH/DIAG INJ SC/IM Reviewed 06/14/2009 12:00 AM THER/PROPH/DIAG INJ SC/IM Reviewed 11/03/2012 12:00 AM THER/PROPH/DIAG INJ SC/IM Reviewed 11/25/2012 12:00 AM THER/PROPH/DIAG INJ SC/IM Reviewed 12/04/2012 12:00 AM COMPLETE CBC W/AUTO DIFF WBC Reviewed 12/04/2012 12:00 AM ASSAY THYROID STIM HORMONE Reviewed 12/04/2012 12:00 AM ROUTINE VENIPUNCTURE Reviewed 12/04/2012 12:00 AM RICKETTSIA ANTIBODY Reviewed 12/04/2012 12:00 AM EHRLICHIA ANTIBODY Reviewed 12/04/2012 12:00 AM LYME DISEASE ANTIBODY Reviewed 12/04/2012 12:00 AM ANTINUCLEAR ANTIBODIES Reviewed 12/04/2012 12:00 AM DNA ANTIBODY OSAGE Reviewed 12/04/2012 12:00 AM NUCLEAR ANTIGEN ANTIBODY [...] 04/20/2013 12:00 AM THER/PROPH/DIAG INJ SC/IM Reviewed 06/04/2013 12:00 AM COMPREHEN METABOLIC PANEL Reviewed 06/04/2013 12:00 AM ROUTINE VENIPUNCTURE Reviewed 11/22/2009 12:00 AM THER/PROPH/DIAG INJ SC/IM Reviewed 01/12/2010 12:00 AM THER/PROPH/DIAG INJ SC/IM Reviewed 07/21/2013 12:00 AM EGD DIAGNOSTIC BRUSH WASH Reviewed 07/21/2013 12:00 AM DIAGNOSTIC COLONOSCOPY Reviewed 08/07/2013 8:22 AM ASSAY GLUCOSE BLOOD QUANT Reviewed 08/07/2013 12:00 AM ASSAY GLUCOSE BLOOD QUANT Reviewed 05/24/2010 12:00 AM THER/PROPH/DIAG INJ SC/IM Reviewed 05/31/2010 12:00 AM THER/PROPH/DIAG INJ SC/IM Reviewed 06/12/2010 12:00 AM ROUTINE VENIPUNCTURE Reviewed 06/12/2010 12:00 AM COMPLETE CBC W/AUTO DIFF WBC Reviewed 06/12/2010 12:00 AM COMPREHEN METABOLIC PANEL Reviewed 06/12/2010 12:00 AM LIPID PANEL Reviewed 07/13/2010 12:00 AM DESTRUCT PREMALG LESION Reviewed Results Summary Data and Description Results [...] BILI 0.60 mg/dLCALCIUM 8.50 mg/dLeGFR >60 mL/min/1.73 [id number] 82.0 mg/dLCHOLESTEROL 159.0 mg/dLHDL 42.0 mg/dLLDL (CALC) [...] BILI 0.40 mg/dLCALCIUM 8.30 mg/dLeGFR 60 07/23/2013 11:00 AM C DIFFICILE NEGATIVE -- C DIFF TOXIN NOT DETECTED History Of Immunizations Not available. History of [...] 9:10AM Sinusitis, Acute Jan 12 2010 9:10AM Eustachian Tube Dysfunction May 24 2010 2:10PM [...] Breast Lump, left May 28 2014 10:54AM Payers Insurance Name Company Name Plan Name Plan Number Policy Number Policy Group Number Start Date [facility] [id number] N/A [facility] [id number] N/A [facility] [id number] N/A [facility] [id number] N/A History of Encounters Visit Date Visit Type Provider 05/28/2014 Office visit DREW BURDEN 11/25/2013 Office [...] visit DREW BURDEN 07/25/2012 Office visit DREW MEIER PA 07/10/2012 [...] DREW MEIER PA 11/29/2011 Office visit DREW MEIRE PA 11/21/2011 Office visit DREW MEIER PA [...] Drew Meier PA-C 10/13/2008 Office visit DREW BURDEN 10/04/2008 Office visit DREW BURDEN
--- OUTSIDE RECORDS SUMMARY | 2016-06-17 17:54 | XMS REPORT | CCD ---
Author Author CIRO RAMON Organization Unknown Address [address] [facility] [address] [place] [address] Care Team Providers Care Tax Manager Name Role Phone ROSEMARY BUNN, MANISH Wu Attphys ROSEMARY BUNN, MANISH Morrellsutheresa Allergies Allergy Code Allergy Type Reaction Status Unknown Code - 0 0 Propensity to adverse reactions Active CIPROFLOXACIN 2551 Drug allergy HIVES, MODERATE Active SULFONAMIDE 0 Drug allergy HIVES, MODERATE Active BACTRIM 997204 Drug allergy Active BACTRIM DS 471864 Drug allergy Active Active Medications Unknown or Not Available. Problems Unknown or Not Available. Procedures Procedure Code Procedure Type Date CX CHEST [address] 10/07/2015 CT HEAD W/O CONTRAST 416923491 SNOMED CT 10/07/2015 TROPONIN-I ADV 872918311 SNOMED CT 10/07/2015 COMPREHENSIVE METABOLIC PANEL 152453980 SNOMED CT 2015 CBC W/ AUTO DIFF (RFLX MAN DIFF IF IND) 1627769 SNOMED CT 10/07/2015 ^CBC W/AUTO DIFF 8204304 SNOMED CT 10/07/2015 Results COMPREHENSIVE METABOLIC PANEL - Collect Date/Time: 10/07/2015 18:30 Test Name Code Test Result Test Units Test Ref Range GLUCOSE 2345-7 102 MG/DL L=70 H=100 SODIUM 2951-2 143 MEQ/L L=135 H=148 POTASSIUM 2823-3 3.6 MEQ/L L=3.5 H=5.3 CHLORIDE 2075-0 108 MEQ/L L=96 H=110 CO2 2028-9 27 MEQ/L L=22 H=29 BUN 3094-0 5 MG/DL L=8 H=22 CREATININE 2160-0 0.8 MG/DL L=0.6 H=1.6 SGOT/AST 1920-8 13 IU/L L=10 H=40 SGPT/ALT 1742-6 14 IU/L L=8 H=54 ALK PHOS 6768-6 62 IU/L L=35 H=115 TOTAL PROTEIN 2885-2 7.1 G/DL L=5.5 H=8.5 ALBUMIN 1751-7 4.1 G/DL L=3.1 H=5.4 TOTAL BILI 1975-2 0.3 MG/DL L=0.0 H=1.5 CALCIUM 00046-1 9.1 MG/DL L=8.2 H=10.6 AGE 44 yrs GFR NonAA 79 GFR AA 96 eGFR >60 N/A eGFR AA* >60 N/A CBC W/ AUTO DIFF (RFLX MAN DIFF IF IND) - Collect Date/Time: 10/07/2015 18:30 Test Name Code Test Result Test Units Test Ref Range WBC 11272-6 6.4 TH/CMM L=4.5 H=10.8 RBC 789-8 4.19 ML/CMM L=4.20 H=5.40 HGB 718-7 12.4 G/DL L=12.0 H=16.0 HCT 4544-3 38.2 % L=37.0 H=47.0 MCV 91 FL L=81 H=99 MCH 29.6 PG L=27.0 H=33.0 MCHC 32.5 G/DL L=31.0 H=36.0 RDW SD 40 FL L=36 H=50 RDW CV 12.2 % L=0.0 H=14.8 MPV 10.6 FL L=9.3 H=12.5 PLT 777-3 201 TH/CMM L=130 H=440 NRBC# 0.00 TH/CMM L=0.00 H=0.00 NRBC% 0.0 /100WBC L=0.0 H=2.0 %NEUT 56.2 % %LYMP 35.9 % %MONO 6.2 % %EOS 0.8 % %BASO 0.6 % #NEUT 3.62 TH/CMM L=2.10 H=8.20 #LYMP 2.31 TH/CMM L=0.90 H=5.20 #MONO 0.40 TH/CMM L=0.16 H=1.00 #EOS 0.05 TH/CMM L=0.00 H=0.80 #BASO 0.04 TH/CMM L=0.00 H=0.20 MANUAL DIFF NOT IND N/A TROPONIN-I ADV - Collect Date/Time: 10/07/2015 18:30 Test Name Code Test Result Test Units [place] [address]-5 <0.04 ng/mL L=0.04 H= 0.40 Function Status Unknown or Not Available. History of Immunizations Unknown or Not Available. Plan of Treatment Unknown or Not Available. Social History Smoking Status Code Start Date End Date Never smoker [id number] Vital Signs Unknown or Not Available. Function Status Unknown or Not Available. Goals Unknown or Not Available. ASSESSMENTS Unknown or Not Available. Health Concerns Section Unknown or Not Available.
--- OUTSIDE RECORDS SUMMARY | 2016-06-17 17:55 | XMS REPORT ---
Author Author DREW MEIER [facility] Address [address] [place], [place] [address] Care Team Providers Care Project Account Manager Name Role Phone DREW MEIER PCP Unavailable [...] TAKE ONE TABLET BY MOUTH EVERY DAY wxpctveifa-ifrtjavrstcxx-ekrv 50-325-40 mg oral tablet 10/29/2011 11/08/2011 TAKE [...] nasal route 2 times a day Acid Distribution Sales Representative (cimetidine) 200 mg oral tablet 07/22/2013 Premarin [...] a day for 7 days per history coqoarutdj-vynrwknzoysiq-saep 50-325-40 mg oral tablet 06/09/2013 02/28/2015 TAKE [...] HC BMI BSA BMI Percentile O2 Sat(%) 07/05/2015 9:39:00 AM 122 mmHg 80 mmHg [...] 10/13/2010 12:00 AM Phenergan 50 Mg Im [id number] Reviewed 10/13/2010 12:00 AM Nubain 10mg Reviewed 02/28/2015 12:00 AM Toradol 60 Mg [facility]#3690-2719-25 Reviewed 03/25/2009 12:00 AM COMPREHEN METABOLIC PANEL Reviewed 03/25/2009 12:00 AM COMPLETE CBC W/AUTO DIFF WBC Reviewed 03/25/2009 12:00 AM CYTOPATH C/V MANUAL Reviewed 03/25/2009 12:00 AM BIOPSY OF UTERUS LINING Reviewed 03/25/2009 12:00 AM ECHO EXAMINATION PROCEDURE Reviewed 03/25/2009 12:00 AM BIOPSY OF UTERUS LINING Reviewed 12/11/2010 12:00 AM THER/PROPH/DIAG INJ SC/IM Reviewed 12/11/2010 12:00 AM Decadron Inj.1mg-(St.Satya) [facility] #[id number] Reviewed 04/10/2011 12:00 AM ROUTINE VENIPUNCTURE Reviewed 04/10/2011 12:00 AM COMPLETE CBC W/AUTO DIFF WBC Returned 04/10/2011 12:00 AM COMPREHEN METABOLIC PANEL Returned 04/10/2011 12:00 AM LIPID PANEL Returned 05/10/2011 12:00 AM THER/PROPH/DIAG INJ SC/IM Reviewed 05/10/2011 12:00 AM Decadron Inj.1mg-([facility]) [facility] #[id number] Reviewed 05/10/2011 12:00 AM Depo-Medrol 80 Mg Im/St Satya [facility] [id number] Reviewed 06/22/2011 12:00 AM THER/PROPH/DIAG INJ SC/IM Reviewed 06/22/2011 12:00 AM Phenergan 50 Mg Im [id number] Reviewed 06/22/2011 12:00 AM Nubain 10mg Reviewed 07/24/2011 12:00 AM ROUTINE VENIPUNCTURE Reviewed 07/24/2011 12:00 AM COMPREHEN METABOLIC PANEL Returned 07/24/2011 12:00 AM ASSAY THYROID STIM HORMONE Returned 07/24/2011 12:00 AM ASSAY OF FREE THYROXINE Returned 10/17/2011 12:00 AM THER/PROPH/DIAG INJ SC/IM Reviewed 10/17/2011 12:00 AM Decadron, Per 1 Mg [facility]# [address]-95 Reviewed 10/17/2011 12:00 AM Depo-Medrol, Per 80 Mg [facility]#9977-7597-49 Reviewed 11/21/2011 12:00 AM THER/PROPH/DIAG INJ SC/IM Reviewed 11/21/2011 12:00 AM Toradol 60 Mg [facility]#1264-4112-53 Reviewed 11/29/2011 12:00 AM THER/PROPH/DIAG INJ SC/IM Reviewed 11/29/2011 12:00 AM Decadron, Per 1 Mg [facility]# [address]-95 Reviewed 12/13/2011 12:00 AM THER/PROPH/DIAG INJ SC/IM Reviewed 12/13/2011 12:00 AM Phenergan, Up to 50 Mg [facility]#0147-1145-50 Reviewed 01/10/2012 12:00 AM THER/PROPH/DIAG INJ SC/IM Reviewed 01/10/2012 12:00 AM Phenergan, Up to 50 Mg [facility]#3851-9128-66 Reviewed 03/28/2012 12:00 AM THER/PROPH/DIAG INJ SC/IM Reviewed 03/28/2012 12:00 AM Toradol 60 Mg [place]#9844-1157-10 Reviewed 03/28/2012 12:00 AM Phenergan, Up to 50 Mg [facility]#2004-5282-21 Reviewed 05/14/2012 12:00 AM APPLICATION LOWER LEG SPLINT Reviewed 06/12/2012 12:00 AM THER/PROPH/DIAG INJ SC/IM Reviewed 06/12/2012 12:00 AM Decadron, Per 1 Mg [facility]# [address]-21 Reviewed 07/10/2012 12:00 AM COMPLETE CBC W/AUTO DIFF WBC Reviewed 07/10/2012 12:00 AM COMPREHEN METABOLIC PANEL Reviewed 07/10/2012 12:00 AM LIPID PANEL Reviewed 07/10/2012 12:00 AM ASSAY THYROID STIM HORMONE Reviewed 07/10/2012 12:00 AM ROUTINE VENIPUNCTURE Reviewed 09/30/2012 12:00 AM THER/PROPH/DIAG INJ SC/IM Reviewed 09/30/2012 12:00 AM Toradol 60 Mg [place]#9031-6173-63 Reviewed 09/30/2012 12:00 AM Phenergan, Up to 50 Mg [facility]#8199-2573-73 Reviewed 06/14/2009 12:00 AM THER/PROPH/DIAG INJ SC/IM Reviewed 06/14/2009 12:00 AM Decadron Inj.8mg-([facility]Satya) [facility] #[id number] Reviewed 06/14/2009 12:00 AM Depo-Medrol 80 Mg Im/St Satya [facility] [id number] Reviewed 11/03/2012 12:00 AM THER/PROPH/DIAG INJ SC/IM Reviewed 11/03/2012 12:00 AM Toradol 60 Mg [facility]#7513-0332-27 Reviewed 11/03/2012 12:00 AM Phenergan, Up to 50 Mg [facility]#2665-6461-21 Reviewed 11/25/2012 12:00 AM THER/PROPH/DIAG INJ SC/IM Reviewed 11/25/2012 12:00 AM Decadron, Per 1 Mg [facility]# [address]-86 Reviewed 12/04/2012 12:00 AM COMPLETE CBC W/AUTO [...] ANTIBODIES Reviewed 12/04/2012 12:00 AM DNA ANTIBODY [place] Reviewed 12/04/2012 12:00 AM NUCLEAR ANTIGEN ANTIBODY [...] SC/IM Reviewed 11/22/2009 12:00 AM Decadron Inj.8mg-(St[facility]) [facility] #[id number] Reviewed 11/22/2009 12:00 AM Depo-Medrol 80 Mg Im/St Satya [facility] 0009-688568 Reviewed 11/22/2009 12:00 AM Rocephin, Per 250MG - 1 Gram Vial Reviewed 01/12/2010 12:00 AM THER/PROPH/DIAG INJ SC/IM Reviewed 01/12/2010 12:00 AM Decadron Inj.12mg-([facility]) [facility] #[id number] Reviewed 07/21/2013 12:00 AM EGD DIAGNOSTIC BRUSH WASH Reviewed 07/21/2013 12:00 AM DIAGNOSTIC COLONOSCOPY Reviewed 08/07/2013 8:22 AM ASSAY GLUCOSE BLOOD QUANT Reviewed 08/07/2013 12:00 AM ASSAY GLUCOSE BLOOD QUANT Reviewed 10/07/2013 12:00 AM Internal Medicine Consult Reviewed 05/24/2010 12:00 AM THER/PROPH/DIAG INJ SC/IM Reviewed 05/24/2010 12:00 AM Decadron Inj.8mg-([facility]) [facility] #[id number] Reviewed 05/24/2010 12:00 AM Depo-Medrol 80 Mg Im/St Satya [facility] 0009-307026 Reviewed 05/31/2010 12:00 AM THER/PROPH/DIAG INJ SC/IM Reviewed 05/31/2010 12:00 AM Decadron Inj.12 mg-(St[facility]Satya) [facility] #[id number] Reviewed 06/12/2010 12:00 AM ROUTINE VENIPUNCTURE Reviewed 06/12/2010 12:00 AM COMPLETE CBC W/AUTO DIFF WBC Reviewed 06/12/2010 12:00 AM COMPREHEN METABOLIC PANEL Reviewed 06/12/2010 12:00 AM LIPID PANEL Reviewed 07/13/2010 12:00 AM DESTRUCT PREMALG LESION Reviewed 07/29/2014 12:00 AM THER/PROPH/DIAG INJ SC/IM Reviewed 07/29/2014 12:00 AM Toradol 60 Mg [facility]#1414-2163-22 Reviewed Results Summary Data and Description Results [...] BILI 0.60 mg/dLCALCIUM 8.50 mg/dLeGFR >60 mL/min/1.73 [id number] 82.0 mg/dLCHOLESTEROL 159.0 mg/dLHDL 42.0 mg/dLLDL (CALC) [...] of second degree Jul 05 2015 9:40AM Payers Insurance Name Company Name Plan Name Plan Number Policy Number Policy Group Number Start Date Confinity Confinity [id number] N/A [facility] [id number] N/A [employer] [facility] [id number] N/A [facility] [id number] N/A [facility] [id number] N/A [facility] [id number] N/A History of Encounters Visit Date Visit Type Provider 07/05/2015 Office visit DREW BURDEN 06/23/2015 Office visit DREW BURDEN 02/24/2015 Office visit DREW BURDEN 08/20/2014 Office visit DREW BURDEN 07/29/2014 Office visit 07/29/2014 Office visit DREW BURDEN 05/28/2014 Office visit DREW BURDEN 11/25/2013 Office visit DREW BURDEN 10/05/2013 Office visit DREW BURDEN 08/07/2013 Office visit DREW MEIER PA 08/06/2013 Office visit DREW MEIER PA 08/01/2013 [facility] Km Tripp MD 07/23/2013 [facility] Branch DO 07/21/2013 Office visit [...] visit DREW MEIER PA 03/28/2012 Office visit DERW MEIER PA 02/19/2012 Office visit DREW MEIER PA 01/10/2012 Office visit DREW MEIER PA 01/01/2012 Office visit DREW MEIER PA 12/13/2011 Office visit DREW MEIER PA 11/29/2011 Office visit DREW MEIER PA 11/21/2011 Office visit DREW MEIER PA 10/17/2011 Office visit DREW MEIER PA 09/03/2011 Office visit DREW BURDEN 08/21/2011 [facility] Km Tripp MD 07/24/2011 Office visit DREW MEIER [...]
--- OUTSIDE RECORDS SUMMARY | 2016-06-17 17:56 | XMS REPORT ---
Author DREW Bearden [facility] Address [address] [place], [place] [address] Care Team Providers Care Stabilizer Operator Name Role Phone DREW MEIER PCP Unavailable DREW MEIER PreferredProvider Unavailable Allergies and Adverse Reactions Name Reaction Notes ciprofloxacin hives SULFA (SULFONAMIDES) hives Bactrim DS hives Cipro hives Plan of Treatment Planned Activity Comments Planned Date Planned Time Plan/Goal CBC with Differential 05/14/2016 12:00 AM Lipid Blood Profile 05/14/2016 12:00 AM Medications Active Name Start Date [...] to exceed 30 mL in 24 hours [place] 5-325 mg oral tablet 04/16/2016 take 1 [...] TAKE ONE TABLET BY MOUTH EVERY DAY jnpfqrkafb-aeauluadndpue-nsbb 50-325-40 mg oral tablet 10/29/2011 11/08/2011 TAKE [...] nasal route 2 times a day Acid Policy Writer (cimetidine) 200 mg oral tablet 07/22/2013 Premarin [...] a day for 7 days per history duhcuigmqd-enuwhczmwacxa-pucs 50-325-40 mg oral tablet 06/09/2013 02/28/2015 TAKE [...] 10/13/2010 12:00 AM Phenergan 50 Mg Im [id number] Reviewed 10/13/2010 12:00 AM Nubain 10mg Reviewed 02/28/2015 12:00 AM Toradol 60 Mg [facility]#0377-4063-75 Reviewed 03/25/2009 12:00 AM COMPREHEN METABOLIC PANEL Reviewed 03/25/2009 12:00 AM COMPLETE CBC W/AUTO DIFF WBC Reviewed 03/25/2009 12:00 AM CYTOPATH C/V MANUAL Reviewed 03/25/2009 12:00 AM BIOPSY OF UTERUS LINING Reviewed 03/25/2009 12:00 AM ECHO EXAMINATION PROCEDURE Reviewed 03/25/2009 12:00 AM BIOPSY OF UTERUS LINING Reviewed 12/11/2010 12:00 AM THER/PROPH/DIAG INJ SC/IM Reviewed 12/11/2010 12:00 AM Decadron Inj.1mg-(St[facility]) [facility] #[id number] Reviewed 07/05/2015 12:00 AM Decadron, Per 1 Mg [facility]# [address]-96 Reviewed 08/12/2015 12:00 AM Decadron, Per 1 Mg [facility]# [address]-23 Reviewed 08/12/2015 12:00 AM Depo-Medrol, Per 80 Mg [facility]#7470-5976-20 Reviewed 04/10/2011 12:00 AM ROUTINE VENIPUNCTURE Reviewed 04/10/2011 12:00 AM COMPLETE CBC W/AUTO DIFF WBC Reviewed 04/10/2011 12:00 AM COMPREHEN METABOLIC PANEL Reviewed 04/10/2011 12:00 AM LIPID PANEL Reviewed 05/10/2011 12:00 AM THER/PROPH/DIAG INJ SC/IM Reviewed 05/10/2011 12:00 AM Decadron Inj.1mg-(St[facility]) [facility] #[id number] Reviewed 05/10/2011 12:00 AM Depo-Medrol 80 Mg Im/St Satya [facility] 0009-123142 Reviewed 02/20/2016 12:00 AM THER/PROPH/DIAG INJ SC/IM Reviewed 02/20/2016 12:00 AM Decadron 8mg Injection Reviewed 02/20/2016 12:00 AM Depo-Medrol 80mg Injection Reviewed 02/20/2016 12:00 AM Rocephin 1 gram Injection Reviewed 06/22/2011 12:00 AM THER/PROPH/DIAG INJ SC/IM Reviewed 06/22/2011 12:00 AM Phenergan 50 Mg Im [id number] Reviewed 06/22/2011 12:00 AM Nubain 10mg Reviewed 04/16/2016 12:00 AM Toradol 60 Mg Injection Reviewed 04/16/2016 12:00 AM THER/PROPH/DIAG INJ SC/IM Reviewed 07/24/2011 12:00 AM ROUTINE VENIPUNCTURE Reviewed 07/24/2011 12:00 AM COMPREHEN METABOLIC PANEL Reviewed 07/24/2011 12:00 AM ASSAY THYROID STIM HORMONE Reviewed 07/24/2011 12:00 AM ASSAY OF FREE THYROXINE Reviewed 10/17/2011 12:00 AM THER/PROPH/DIAG INJ SC/IM Reviewed 10/17/2011 12:00 AM Decadron, Per 1 Mg [facility]# [address]-78 Reviewed 10/17/2011 12:00 AM Depo-Medrol, Per 80 Mg [facility]#8375-9744-41 Reviewed 11/21/2011 12:00 AM THER/PROPH/DIAG INJ SC/IM Reviewed 11/21/2011 12:00 AM Toradol 60 Mg [facility]#6344-7569-59 Reviewed 11/29/2011 12:00 AM THER/PROPH/DIAG INJ SC/IM Reviewed 11/29/2011 12:00 AM Decadron, Per 1 Mg [facility]# [address]-51 Reviewed 12/13/2011 12:00 AM THER/PROPH/DIAG INJ SC/IM Reviewed 12/13/2011 12:00 AM Phenergan, Up to 50 Mg [facility]#5527-1685-07 Reviewed 01/10/2012 12:00 AM THER/PROPH/DIAG INJ SC/IM Reviewed 01/10/2012 12:00 AM Phenergan, Up to 50 Mg [facility]#7004-5503-20 Reviewed 03/28/2012 12:00 AM THER/PROPH/DIAG INJ SC/IM Reviewed 03/28/2012 12:00 AM Toradol 60 Mg [facility]#6999-4579-00 Reviewed 03/28/2012 12:00 AM Phenergan, Up to 50 Mg [facility]#4017-8619-21 Reviewed 05/14/2012 12:00 AM APPLICATION LOWER LEG SPLINT Reviewed 06/12/2012 12:00 AM THER/PROPH/DIAG INJ SC/IM Reviewed 06/12/2012 12:00 AM Decadron, Per 1 Mg [facility]# [address]-66 Reviewed 07/10/2012 12:00 AM COMPLETE CBC W/AUTO DIFF WBC Reviewed 07/10/2012 12:00 AM COMPREHEN METABOLIC PANEL Reviewed 07/10/2012 12:00 AM LIPID PANEL Reviewed 07/10/2012 12:00 AM ASSAY THYROID STIM HORMONE Reviewed 07/10/2012 12:00 AM ROUTINE VENIPUNCTURE Reviewed 09/30/2012 12:00 AM THER/PROPH/DIAG INJ SC/IM Reviewed 09/30/2012 12:00 AM Toradol 60 Mg [facility]#1619-4584-18 Reviewed 09/30/2012 12:00 AM Phenergan, Up to 50 Mg [facility]#5495-4273-67 Reviewed 06/14/2009 12:00 AM THER/PROPH/DIAG INJ SC/IM Reviewed 06/14/2009 12:00 AM Decadron Inj.8mg-(St.Satya) [facility] #[id number] Reviewed 06/14/2009 12:00 AM Depo-Medrol 80 Mg Im/St Satya [facility] 0009-648466 Reviewed 11/03/2012 12:00 AM THER/PROPH/DIAG INJ SC/IM Reviewed 11/03/2012 12:00 AM Toradol 60 Mg [facility]#8391-0467-54 Reviewed 11/03/2012 12:00 AM Phenergan, Up to 50 Mg [facility]#1810-7253-03 Reviewed 11/25/2012 12:00 AM THER/PROPH/DIAG INJ SC/IM Reviewed 11/25/2012 12:00 AM Decadron, Per 1 Mg [facility]# [address]-64 Reviewed 12/04/2012 12:00 AM COMPLETE CBC W/AUTO [...] ANTIBODIES Reviewed 12/04/2012 12:00 AM DNA ANTIBODY [place] Reviewed 12/04/2012 12:00 AM NUCLEAR ANTIGEN ANTIBODY [...] SC/IM Reviewed 11/22/2009 12:00 AM Decadron Inj.8mg-(St.Satya) [facility] #[id number] Reviewed 11/22/2009 12:00 AM Depo-Medrol 80 Mg Im/St Satya [facility] 0009-678121 Reviewed 11/22/2009 12:00 AM Rocephin, Per 250MG - 1 Gram Vial Reviewed 01/12/2010 12:00 AM THER/PROPH/DIAG INJ SC/IM Reviewed 01/12/2010 12:00 AM Decadron Inj.12mg-([facility]) [facility] #[id number] Reviewed 07/21/2013 12:00 AM EGD DIAGNOSTIC BRUSH WASH Reviewed 07/21/2013 12:00 AM DIAGNOSTIC COLONOSCOPY Reviewed 08/07/2013 8:22 AM ASSAY GLUCOSE BLOOD QUANT Reviewed 08/07/2013 12:00 AM ASSAY GLUCOSE BLOOD QUANT Reviewed 10/07/2013 12:00 AM Internal Medicine Consult Reviewed 05/24/2010 12:00 AM THER/PROPH/DIAG INJ SC/IM Reviewed 05/24/2010 12:00 AM Decadron Inj.8mg-([facility]) [facility] #[id number] Reviewed 05/24/2010 12:00 AM Depo-Medrol 80 Mg Im/[facility] 0009-000660 Reviewed 05/31/2010 12:00 AM THER/PROPH/DIAG INJ SC/IM Reviewed 05/31/2010 12:00 AM Decadron Inj.12 mg-([facility]) [facility] #[id number] Reviewed 06/12/2010 12:00 AM ROUTINE VENIPUNCTURE Reviewed 06/12/2010 12:00 AM COMPLETE CBC W/AUTO DIFF WBC Reviewed 06/12/2010 12:00 AM COMPREHEN METABOLIC PANEL Reviewed 06/12/2010 12:00 AM LIPID PANEL Reviewed 07/13/2010 12:00 AM DESTRUCT PREMALG LESION Reviewed 07/29/2014 12:00 AM THER/PROPH/DIAG INJ SC/IM Reviewed 07/29/2014 12:00 AM Toradol 60 Mg [facility]#5811-3793-26 Reviewed Results Summary Data and Description Results [...] Moderate Chronic Periodontitis Apr 16 2016 11:53AM Hyperlipidemia, Mixed May 14 2016 9:55AM Anemia May 14 2016 9:55AM Hypokalemia May 14 2016 9:55AM Payers Insurance Name Company Name Plan Name Plan Number Policy Number Policy Group Number Start Date BCBS [facility] [id number] N/A Confinity Confinity [id number] N/A [employer] [id number] N/A [facility] [facility] [id number] N/A [facility] [id number] N/A [facility] [id number] N/A History of Encounters Visit Date Visit Type Provider 05/14/2016 Office visit DREW BURDEN 04/16/2016 Office visit DREW BURDEN 02/20/2016 Office visit DREW BURDEN 10/07/2015 [facility] Km Tripp MD 08/12/2015 Office visit DREW BURDEN 07/05/2015 Office visit DREW BURDEN 06/23/2015 Office visit DREW BURDEN 02/24/2015 Office visit DREW BURDEN 08/20/2014 Office visit DREW BURDEN 07/29/2014 Office visit 07/29/2014 Office visit DREW BURDEN 05/28/2014 Office visit DREW BURDEN 11/25/2013 Office visit DREW MEIER PA 10/05/2013 Office visit DREW MEIER PA 08/07/2013 Office visit DREW MEIER PA 08/06/2013 Office visit DREW MEIER PA 08/01/2013 [facility] Tripp MD 07/23/2013 [facility] Luis Branch DO 07/21/2013 [facility] 07[facility]13/2013 Office visit DREW MEIER PA 06/04/2013 Office visit DREW MEIER PA 05/18/2013 Office visit DREW MEIER PA 04/20/2013 Office visit DREW MEIER PA 12/04/2012 Office visit DREW MEIER PA 12/02/2012 Office visit DREW EMIER PA 11/25/2012 Office visit DREW MEIER PA [...] 09/03/2011 Office visit DREW MEIER PA 08/21/2011 [facility] Km Tripp MD 07/24/2011 Office visit DREW MEIER PA 07/23/2011 Office visit DREW MEIER PA 06/22/2011 Office visit DREW MEIER PA 05/10/2011 Office visit DREW MEIER PA 04/12/2011 Office visit DREW MEIER PA 04/10/2011 Office visit DREW MEIER PA 02/14/2011 Office visit DREW MEIER PA 02/06/2011 Office visit DREW BURDEN 12/11/2010 Office visit Drew Meier PA-C 10/13/2010 [...]
--- OUTSIDE RECORDS SUMMARY | 2016-06-17 17:58 | XMS REPORT ---
Author Author [facility] Medical Staff Organization [facility] Address [address], [place] [address] Phone [phone] Care Team Providers Care Social Service Assistant Name Role Phone MANISH CAVAZOS PP [phone] Summary purpose TRANSITION OF CARE AUTO GENERATION [...] tests and/or laboratory data RESULTS Routine Urinalysis 03-31-248717:55:00 Result Normal Range Units Color YELLOW Clarity Clear Specific [place] 1.005 pH 5.5 4.5-8.0 Glucose NEGATIVE Bilirubin NEGATIVE Ketones NEGATIVE Protein NEGATIVE Urobilinogen 0.2 0-0.2 E.U./dL Nitrites NEGATIVE Blood NEGATIVE Leukocytes NEGATIVE WBCs 0-5 RBCs No RBC's Seen. Squamous Epithelial 1+ Bacteria Occasional Chemistry :00:00 Result Normal Range Units Sodium 138 134-145 [...] 40-70 % Lymph % 26.7 20-40 % [place] % 6.0 0-10.0 % Eos % 1.0 0-7.0 % Baso % 0.5 0-2 % Neutro # 5.3 1.5-7.5 103/uL Lymph # 2.2 0.9-4.0 103/uL [place] # 0.5 0-0.8 103/uL Eos # 0.1 0-0.6 103/uL Baso # 0.0 0-0.1 103/uL Body Fluid :55:00 Result Normal Range Units pH 5.5 4.5-8.0 Thyroid Testing :00:00 Result Normal Range Units TSH 1.29 0.36-3.74 uIU/mL Radiology Results :00:00 Result Normal Range Units MPV H 10.7 7.3-10.4 FL History of procedures No procedures recorded for this patient visit. Functional status Functional Status Finding Observation Time Abdomen Appearance flat [id number] Abdomen soft 25-59-030086:30 Urination normal :30 Quality sym/unlabored :30 Breath Sounds RUL clear :30 Breath Sounds RML clear :30 Breath Sounds RLL clear :30 Breath Sounds GABI clear : Breath Sounds LLL clear :30 Oxygen no :30 Temp >100.4 no : Temp <96.8 no : Chills with rigors no : HR > 90bpm no : Respirations > 20 no : Systolic <90 no : headache stiff neck no : Rapid Resp no :30 Nursing Note Vs obtained. Pt denies needs. 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 :30 Vital signs Type Value Date Respiration [...]
--- OUTSIDE RECORDS SUMMARY | 2016-06-17 17:58 | XMS REPORT ---
Author Author [facility] Medical Staff Organization [facility] Address [address], [place] [address] Phone [phone] Care Team Providers Care Systems Analyst Name Role Phone MANISH CAVAZOS PP [phone] Summary purpose TRANSITION OF CARE AUTO GENERATION Chief Complaint and Reason for Visit Admit Diagnosis 1 CHEST PAIN NOS Problem list No authorized problems tracked [...] diagnostic tests and/or laboratory data RESULTS Chemistry [id number]:10:00 Result Normal Range Units Sodium 141 134-145 [...] C-Reactive Protein < 0.2 0-1 mg/dl Hematology [id number]:10:00 Result Normal Range Units WBC 6.7 4.8-10.8 103/uL RBC 4.2 4.2-5.4 106/uL HGB 12.5 12.0-16.0 g/dl HCT 37.9 36.9-47.0 % MCV 90.2 81-99 FL MCH 29.8 27-31 pg MCHC 33.0 33-37 g/dl RDW 12.5 11.5-15.5 % PLT 182 130-400 103/uL MPV H 12.4 7.3-10.4 FL Neutro % 59.3 40-70 % Lymph % 31.6 20-40 % [place] % 7.8 0-10.0 % Eos % 0.7 0-7.0 % Baso % 0.6 0-2 % Neutro # 4.0 1.5-7.5 103/uL Lymph # 2.1 0.9-4.0 103/uL [place] # 0.5 0-0.8 103/uL Eos # 0.1 0-0.6 103/uL Baso # 0.0 0-0.1 103/uL Radiology Results [id number]:30:00 Chest X-Ray - 2 View PACs Image DATE OF EXAM: Nov 07 2013 RAD 0300-CHEST XRAY 2 VIEW : RADIOLOGY REPORT DATE OF SERVICE: 11/07/2013 HISTORY: Patient has chest tightness. CHEST 2 VIEWS 1717 HOURS Heart and mediastinum are normal.Lungs are clear.No effusion is seen. IMPRESSION: Negative study of the chest. DO HARSHA Dorantes/antolin 11/08/2013 09:12: / 11/08/2013 12:07:52 cc:Krupa Nicholson This document has been electronically Signed by: On: DATE OF EXAM: Nov 07 2013 RAD 0300-CHEST XRAY 2 VIEW : RADIOLOGY REPORT DATE OF SERVICE: 11/07/2013 HISTORY: Patient has chest tightness. CHEST 2 VIEWS 1717 HOURS Heart and mediastinum are normal.Lungs are clear.No effusion is seen. IMPRESSION: Negative study of the chest. DO HARSHA Dorantes/antolin 11/08/2013 09:12: / 11/08/2013 12:07:52 cc:Krupa Nicholson This document has been electronically Signed by: On: DATE OF EXAM: Nov 07 2013 RAD 0300-CHEST XRAY 2 VIEW : RADIOLOGY REPORT DATE OF SERVICE: 11/07/2013 HISTORY: Patient has chest tightness. CHEST 2 VIEWS 1717 HOURS Heart and mediastinum are normal.Lungs are clear.No effusion is seen. IMPRESSION: Negative study of the chest. Domonique Santiago DO MW/gc 11/08/2013 09:12:00 / 11/08/2013 12:07:52 cc:Krupa Nicholson This document has been electronically Signed by: DOMONIQUE SANTIAGO DO On: Nov 08 20138:30P Result Amended on 2013-11-08 at 17:29:21. Previous status was [place]. Result Amended on 2013-11-08 at 20:30:05. Previous status was [place]. [id number]:10:00 Result Normal Range Units MPV H 12.4 7.3-10.4 FL History of procedures Procedure Code Code Type Description Date Performed Performing Physician 93919 CPT-4 COMPLETE CBC W/AUTO DIFF WBC 11-07-2013 KRUPA NICHOLSON 64192 CPT-4 COMPREHEN METABOLIC PANEL 11-07-2013 KRUPA NICHOLSON 07806 CPT-4 C-REACTIVE PROTEIN 11-07-2013 KRUPA NICHOLSON 94029 CPT-4 CHEST X-RAY 11-07-2013 KRUPA NICHOLSON 59767 CPT-4 ELECTROCARDIOGRAM, TRACING 11-07-2013 KRUPA NICHOLSON J1200 CPT-4 DIPHENHYDRAMINE HCL INJECTIO 11-07-2013 KRUPA NICHOLSON J2930 CPT-4 SOLU-MEDROL 125MG VIAL 11-07-2013 KRUPA NICHOLSON J1885 CPT-4 TORADOL SYR 30MG/ML 11-07-2013 KRUPA NICHOLSON 93957 CPT-4 EMERGENCY DEPT VISIT 11-07-2013 KRUPA NICHOLSON 70341 CPT-4 EMERGENCY DEPT VISIT 11-07-2013 KRUPA NICHOLSON 03596 CPT-4 THER/PROPH/DIAG INJ, IV PUSH 11-07-2013 KRUPA NICHOLSON 59975 CPT-4 TX/PRO/DX INJ NEW DRUG ADDON 11-07-2013 KRUPA NICHOLSON Functional status No functional or cognitive status observations are available for this visit. Vital signs Type Value Date Respiration Rate 20breaths per minute 16-31-025437:10 Pulse 71beats per minute [id number]:10 Oxygen Saturation 100% :10 BP Systolic 104mmHg :10 BP Diastolic 62mmHg :10 Temperature 98.4F :10 Social history Type Value Smoking Status NEVER SMOKER Treatment Plan No treatment plan text is available for this visit. Hospital discharge instructions Dismissal Condition fair Disposition on DC home DC Inst/Educ Give yes Med/Side Effects Rev yes
--- OUTSIDE RECORDS SUMMARY | 2016-06-17 17:58 | XMS REPORT ---
Author Author [facility] Organization [facility] Address [address] [place], [place] [address] Care Team Providers Care Grounds Manager Name Role Phone PCP Unavailable Allergies and [...] every 6 hours as needed Flonase Nasal [place], Suspension 50 mcg/actuation 02/19/2012 inhale 1 spray [...] returns, not to exceed 200mg in 24hrs [id number] oral tablet 50-325-40 mg 06/09/2013 TAKE 1 [...] oral route 2 times per day Nitrostat sublingual tablet, sublingual 0.4 mg 07/30/2014 place 1 tablet ( 0.4 mg) by buccal route at the first sign of an attack; no more than 3 tabs are recommended within a 15 minute period. Name Start Date Expiration Date SIG Comments [...] TAKE ONE TABLET BY MOUTH EVERY DAY [id number] Oral tablet 50-325-40 mg 10/29/2011 11/08/2011 TAKE [...] 11/29/2011 01/01/2012 one three times daily Acid Used Car Renovator (cimetidine) Oral tablet 200 mg 07/22/2013 Premarin [...] Active Hyperlipidemia, Mixed Active Anemia Active Atopic Dermatitis Active 07/28/2012 Migraine Active 11/05/2012 Diarrhea Active 07/21/2013 Abdominal Pain Active 08/06/2013 Vomiting Active 08/06/2013 IBS (irritable bowel syndrome) Active 07/30/2014 Chest discomfort Active 07/30/2014 Vital Signs Date Time BP-Sys(mm[Hg] BP-Nay(mm[Hg]) HR(bpm) RR(rpm) Temp WT HT HC BMI BSA BMI Percentile O2 Sat(%) 07/29/2014 3:05:00 PM 130 mmHg 80 mmHg [...] ANTIBODIES Reviewed 12/04/2012 12:00 AM DNA ANTIBODY [place] Reviewed 12/04/2012 12:00 AM NUCLEAR ANTIGEN ANTIBODY [...] BILI 0.60 mg/dLCALCIUM 8.50 mg/dLeGFR >60 mL/min/1.73 [id number] 82.0 mg/dLCHOLESTEROL 159.0 mg/dLHDL 42.0 mg/dLLDL (CALC) [...] Allergic rhinitis Nausea Hyperlipidemia, Mixed Anemia Atopic Dermatitis 07/28/2012 Migraine 11/05/2012 Diarrhea 07/21/2013 Abdominal Pain [...] (irritable bowel syndrome) Jul 29 2014 3:05PM Payers Insurance Name Company Name Plan Name Plan Number Policy Number Policy Group Number Start Date [facility] [id number] N/A [facility] [id number] N/A [employer] [facility] [id number] N/A [facility] [id number] N/A History of Encounters Visit Date Visit Type Provider 07/29/2014 Office visit DREW BURDEN 05/28/2014 Office visit DREW BURDEN 11/25/2013 Office visit DREW BURDEN 10/05/2013 Office visit DREW BURDEN 08/07/2013 Office visit DREW BURDEN 08/06/2013 Office visit DREW MEIER PA 08/01/2013 [...] 09/03/2011 Office visit DREW MEIER PA 08/21/2011 [facility] Tripp MD 07/24/2011 Office visit DREW MEIER PA 07/23/2011 Office visit DREW MEIER PA 06/22/2011 Office visit DREW MEIER PA 05/10/2011 Office visit DREW MEIER PA 04/12/2011 Office visit DREW MEIER PA 04/10/2011 Office visit DREW MEIER PA 02/14/2011 Office visit DREW MEIER PA 02/06/2011 Office visit RDEW MEIER PA 12/11/2010 Office visit Drew Meier PA-C 10/13/2010 Office visit Drew Meier PA-C 07/13/2010 Office visit Drew Meier PA-C 06/12/2010 Office visit Drew Meier PA-C 06/05/2010 Office visit Drew Meier PA-C 05/31/2010 Office visit Drew Meier PA-C 05/24/2010 Office visit Drew Meier PA-C 01/12/2010 Office visit Drew Meier PA-C 12/22/2009 Office visit Drew BURDEN-C 11/22/2009 Office visit Drew BURDEN-C 06/14/2009 Office visit Drew BURDEN-C 04/25/2009 Surgery Drew Patiño MD 03/25/2009 Office visit Erick Carrillo MD 02/07/2009 Office visit Drew BURDEN-C 10/13/2008 Office visit DREW BURDEN 10/04/2008 Office visit DREW BURDEN
--- OUTSIDE RECORDS SUMMARY | 2016-06-17 17:59 | XMS REPORT ---
Author [facility] Medical Staff Organization [facility] Address [address], [place] [address] Phone [phone] Care Team Providers Care Demolition Worker Name Role Phone DREW CAVAZOS PP [phone] Summary purpose TRANSITION OF CARE AUTO GENERATION [...] tests and/or laboratory data RESULTS Routine Urinalysis [id number]:30:00 Result Normal Range Units Color YELLOW Clarity Clear Specific [place] 1.010 1.003-1.035 pH 7.0 4.5-8.0 Glucose NEGATIVE Bilirubin NEGATIVE Ketones NEGATIVE Protein NEGATIVE Urobilinogen 0.2 0-0.2 E.U./dL Nitrites NEGATIVE Blood NEGATIVE Leukocytes NEGATIVE WBCs 0-5 RBCs No RBC's Seen. Squamous Epithelial Few Bacteria Rare Amount Chemistry [id number]:20:00 Result Normal Range Units Sodium 139 134-145 [...] 10-20 Estimated GFR 75 >=60 mL/min/1.7 Hematology [id number]:20:00 Result Normal Range Units WBC 7.0 4.8-10.8 103/uL RBC 4.5 4.2-5.4 106/uL HGB 13.4 12.0-16.0 g/dl HCT 39.4 36.9-47.0 % MCV 88.5 81-99 FL MCH 30.1 27-31 pg MCHC 34.0 33-37 g/dl RDW 12.6 11.5-15.5 % PLT 216 130-400 103/uL MPV H 11.1 7.3-10.4 FL Neutro % 69.6 40-70 % Lymph % 23.0 20-40 % [place] % 6.4 0-10.0 % Eos % 0.6 0-7.0 % Baso % 0.4 0-2 % Neutro # 4.9 1.5-7.5 103/uL Lymph # 1.6 0.9-4.0 103/uL [place] # 0.5 0-0.8 103/uL Eos # 0.0 0-0.6 103/uL Baso # 0.0 0-0.1 103/uL Body Fluid [id number]:30:00 Result Normal Range Units pH 7.0 4.5-8.0 Radiology Results [id number]:17:00 Abdomen 2 View PACs Image DATE OF EXAM: Dec 21 2013 RAD 0037-ABDOMEN 2 VIEW : RADIOLOGY REPORT DATE OF SERVICE: 12/21/13 HISTORY: Patient has vomiting. ABDOMEN 2 VIEWS 1230 HOURS Bowel gas pattern is normal. Metal clips are seen in right upper quadrant. No abnormal calcifications are identified. Bony structures are intact. IMPRESSION: Negative study of the abdomen. DO HARSHA Dorantes/nh 12/21/2013 13:06:00 / 12/21/2013 13:12:41 cc:Drew Carmen PA-C This document has been electronically Signed by: On: [id number]:00 Result Normal Range Units MPV H 11.1 7.3-10.4 FL History of procedures No procedures recorded for this patient visit. Functional status No functional or cognitive status observations are available for this visit. Vital signs Type Value Date Respiration Rate 16breaths per minute : Pulse 74beats per minute : Oxygen Saturation 99% :00 BP Systolic 114mmHg [...]
--- OUTSIDE RECORDS SUMMARY | 2016-06-17 17:59 | XMS REPORT | Continuity of Care Document ---
Demographics Preferred Language Unknown Marital Status Unknown Mormon Affiliation Unknown Race Unknown Ethnic Group Unknown Author Author [facility] Organization [facility] Address Unknown Phone Unavailable Allergies Active Description Code Type Severity Reaction Onset Reported/Identified Relationship to Patient Clinical Status Yes Bactrim 5086 Drug Allergy N/A N/A Yes Cipro 1118 Drug Allergy N/A N/A Yes ciprofloxacin 2882 Drug Allergy N/A N/A Confirmed or Verified Yes No known drug allergies [id number] Drug Allergy N/A N/A Confirmed but inactive Yes Sulfa (Sulfonamide Antibiotics) 491 Drug Allergy N/A N/A Confirmed or Verified Yes sulfamethoxazole 2827 Drug Allergy N/A N/A Confirmed or Verified Yes trimethoprim 2873 Drug Allergy N/A N/A Confirmed or Verified Yes ciprofloxacin [id number] Drug Allergy Unknown N/A 01/18/2014 Yes Sulfa (Sulfonamide Antibiotics) [id number] Drug Allergy Unknown N/A 01/18/2014 Yes sulfamethoxazole [id number] Drug Allergy Unknown N/A 01/18/2014 Yes trimethoprim [id number] Drug Allergy Unknown N/A 01/18/2014 Medications Problems Date Dx Coded Attending Type Code Diagnosis Diagnosed By 01/18/2014 ANGLE BUNN, CATHY Lee Ot 251.2 HYPOGLYCEMIA NOS 09/29/2014 ANITRA BUNN, EMILIA Mcmanus Ot 786.50 CHEST PAIN NOS 12/24/2014 MAREK PUENTE DO Ot Z12.31 06/01/2015 MAREK PUENTE DO Ot Z12.31 ENCNTR SCREEN MAMMOGRAM FOR MALIGNANT NE 06/02/2015 TITI RYAN DOI Ot E87.6 HYPOKALEMIA 06/02/2015 TITI RYAN DOI Ot K21.9 GASTRO-ESOPHAGEAL REFLUX DISEASE WITHOUT 06/02/2015 TITI RYAN DOI Ot K58.9 IRRITABLE BOWEL SYNDROME WITHOUT DIARRHE 06/02/2015 JONY RYAN DO Ot R07.9 CHEST PAIN, UNSPECIFIED 06/02/2015 JONY RYAN DO Ot Z87.891 PERSONAL HISTORY OF NICOTINE DEPENDENCE 06/02/2015 JONY RYAN DO Ot E87.6 HYPOKALEMIA 06/02/2015 JONY RYAN DO Ot K21.9 GASTRO-ESOPHAGEAL REFLUX DISEASE WITHOUT 06/02/2015 JONY RYAN DO Ot K58.9 IRRITABLE BOWEL SYNDROME WITHOUT DIARRHE 06/02/2015 JONY RYAN DO Ot R07.9 CHEST PAIN, UNSPECIFIED 06/02/2015 JONY RYAN DO Ot Z87.891 PERSONAL HISTORY OF NICOTINE DEPENDENCE 07/04/2015 DEONDRE CHARLES APRN Ot L55.0 SUNBURN OF FIRST DEGREE 07/05/2015 KWAME DO MAREK G Ot Z12.31 ENCNTR SCREEN MAMMOGRAM FOR MALIGNANT NE 02/10/2016 PUENTE DO MAREK G Ot Z12.31 ENCNTR SCREEN MAMMOGRAM FOR MALIGNANT NE 02/10/2016 PUENTE DO MAREK G Ot Z12.31 ENCNTR SCREEN MAMMOGRAM FOR MALIGNANT NE 05/17/2016 RYANJONY HOOD DO Ot K58.9 IRRITABLE BOWEL SYNDROME WITHOUT DIARRHE 05/17/2016 RYAN JONY REED Ot R07.9 CHEST PAIN, UNSPECIFIED 05/17/2016 RYAN DO JONY Ot R10.13 EPIGASTRIC PAIN 05/17/2016 RYAN DO JONY Ot R11.2 NAUSEA WITH VOMITING, UNSPECIFIED 05/17/2016 JONY RYAN DO Ot R42 DIZZINESS AND GIDDINESS 05/17/2016 RYAN DO JONY Ot Z87.891 PERSONAL HISTORY OF NICOTINE DEPENDENCE Procedures Code [place] [address] ROUTINE VENIPUNCTURE 03/24/2015 69938 CHEST X-RAY 03/24 90637 METABOLIC PANEL TOTAL CA 03/24/2015 79757 COMPREHEN METABOLIC PANEL 03/24/2015 21026 ASSAY OF CK (CPK) 03/24/2015 15045 CREATINE, MB FRACTION 03/24/2015 97161 ASSAY OF TROPONIN, QUANT 03/24/2015 26227 COMPLETE CBC W/AUTO DIFF WBC 03/24/2015 26789 COMPLETE CBC, AUTOMATED 03/24/2015 J2270 MORPHINE SULFATE INJECTION 03/24/2015 Results Test Result Range CBC WITH DIFF - 08/04/13 00:00 BASO% 0.3 % 0-2 EOS% 0.6 % 0-7.0 HCT 38.5 % 36.9-47.0 HGB 13.4 G/DL 12.0-16.0 LYMPH% 20.2 % 20-40 MCH 29.5 PG 27-31 MCHC 34.8 G/DL 33-37 MCV 84.6 FL 81-99 MONO% 7.8 % 0-10.0 MPV 12.2 FL 7.3-10.4 NEUTRO% 71.1 % 40-70 PLT 165 10^3u 130-400 RBC 4.6 10^6u 4.2-5.4 RDW 12.5 % 11.5-15.5 WBC 7.8 10^3u 4.8-10.8 NEUTRO# 5.6 10^3u 1.5-7.5 LYMPH# 1.6 10^3u 0.9-4.0 MONO# 0.6 10^3u 0-0.8 EOS# 0.1 10^3u 0-0.6 BASO# 0.0 10^3u 0-0.1 CMP - 08/04/13 00:00 ALB 3.9 G/DL 3.5-5 ALP 72 IU/L 32-92 ALT 23 IU/L 12-65 AST 13 IU/L 10-42 BCR 9.3 10-20 BUN 8 MG/DL 7-18 CA 9.2 MG/DL 8.4-10.2 CL 105 MEQ/L 98-107 CO2 25.3 MEQ/L 22-28 CREA 0.86 MG/DL 0.6-1.0 EGFR 73 eGFR >=60 GLU 98 MG/DL 70-105 K 3.9 MEQ/L 3.5-5.1 NA 142 MEQ/L 134-145 OSMSC 281.4 MOSML 280-300 TBIL 0.6 MG/DL 0.1-1.0 TP 7.4 G/DL 6.0-8.3 Albumin/Globulin Ratio 1.1 0-8 Anion Gap 11.7 8-16 TSH - 08/04/13 00:00 TSH 0.84 UIUML 0.34-4.82 LYME AB SCREEN WITH REFLEX - 08/04/13 00:00 LYME AB SCREEN WITH REFLEX < OR=0.90 [facility] - 08/04/13 00:00 RMSF1 NOT DETECTED RMSF3 NOT DETECTED CBC WITH DIFF - 10/03/13 00:00 BASO% 0.5 % 0-2 EOS% 1.2 % 0-7.0 HCT 40.9 % 36.9-47.0 HGB 13.3 G/DL 12.0-16.0 LYMPH% 27.6 % 20-40 MCH 29.6 PG 27-31 MCHC 32.5 G/DL 33-37 MCV 90.9 FL 81-99 MONO% 7.8 % 0-10.0 MPV 11.5 FL 7.3-10.4 NEUTRO% 62.9 % 40-70 PLT 194 10^3u 130-400 RBC 4.5 10^6u 4.2-5.4 RDW 12.6 % 11.5-15.5 WBC 5.7 10^3u 4.8-10.8 NEUTRO# 3.6 10^3u 1.5-7.5 LYMPH# 1.6 10^3u 0.9-4.0 MONO# 0.4 10^3u 0-0.8 EOS# 0.1 10^3u 0-0.6 BASO# 0.0 10^3u 0-0.1 UA - 10/03/13 00:00 PH 8.0 4.5-8.0 SG 1.010 1.003-1.035 UABILI NEGATIVE UABLD NEGATIVE UACOLOR YEL UAGLU NEGATIVE UAKET NEGATIVE UALEUK NEGATIVE UANIT NEGATIVE UAURO 0.2 0-0.2 CLARITY CL PROTEIN NEGATIVE UA WBC NOWBC UA RBC NORBC SQUAMOUS EPITHELIAL CELLS 1+ CMP - 10/03/13 00:00 ALB 4.0 G/DL 3.5-5 ALP 89 IU/L 32-92 ALT 16 IU/L 12-65 AST 8 IU/L 10-42 BCR 11.1 10-20 BUN 10 MG/DL 7-18 CA 9.1 MG/DL 8.4-10.2 CL 100 MEQ/L 98-107 CO2 33.6 MEQ/L 22-28 CREA 0.90 MG/DL 0.6-1.0 EGFR 69 eGFR >=60 GLU 98 MG/DL 70-105 K 3.8 MEQ/L 3.5-5.1 NA 136 MEQ/L 134-145 OSMSC 271.0 MOSML 280-300 TBIL 0.4 MG/DL 0.1-1.0 TP 7.9 G/DL 6.0-8.3 Albumin/Globulin Ratio 1.0 0-8 Anion Gap 2.4 8-16 LIP - 10/03/13 00:00 LIP 141 U/L 73-393 SOLEDAD - 10/03/13 00:00 SOLEDAD 49 U/L 25-125 CBC WITH DIFF - 10/19/13 00:00 BASO% 0.4 % 0-2 EOS% 0.4 % 0-7.0 HCT 40.0 % 36.9-47.0 HGB 12.8 G/DL 12.0-16.0 LYMPH% 22.3 % 20-40 MCH 29.2 PG 27-31 MCHC 32.0 G/DL 33-37 MCV 91.3 FL 81-99 MONO% 5.5 % 0-10.0 MPV 11.8 FL 7.3-10.4 NEUTRO% 71.4 % 40-70 PLT 210 10^3u 130-400 RBC 4.4 10^6u 4.2-5.4 RDW 12.6 % 11.5-15.5 WBC 10.6 10^3u 4.8-10.8 NEUTRO# 7.6 10^3u 1.5-7.5 LYMPH# 2.4 10^3u 0.9-4.0 MONO# 0.6 10^3u 0-0.8 EOS# 0.0 10^3u 0-0.6 BASO# 0.0 10^3u 0-0.1 CMP - 10/19/13 00:00 ALB 3.7 G/DL 3.5-5 ALP 91 IU/L 32-92 ALT 12 IU/L 12-65 AST 9 IU/L 10-42 BCR 5.7 10-20 BUN 5 MG/DL 7-18 CA 9.4 MG/DL 8.4-10.2 CL 105 MEQ/L 98-107 CO2 30.7 MEQ/L 22-28 CREA 0.88 MG/DL 0.6-1.0 EGFR 71 eGFR >=60 GLU 101 MG/DL 70-105 K 3.6 MEQ/L 3.5-5.1 NA 143 MEQ/L 134-145 OSMSC 282.4 MOSML 280-300 TBIL 0.4 MG/DL 0.1-1.0 TP 7.1 G/DL 6.0-8.3 Albumin/Globulin Ratio 1.1 0-8 Anion Gap 7.3 8-16 LIP - 10/19/13 00:00 LIP 157 U/L 73-393 CBC WITH DIFF - 11/07/13 00:00 BASO% 0.6 % 0-2 EOS% 0.7 % 0-7.0 HCT 37.9 % 36.9-47.0 HGB 12.5 G/DL 12.0-16.0 LYMPH% 31.6 % 20-40 MCH 29.8 PG 27-31 MCHC 33.0 G/DL 33-37 MCV 90.2 FL 81-99 MONO% 7.8 % 0-10.0 MPV 12.4 FL 7.3-10.4 NEUTRO% 59.3 % 40-70 PLT 182 10^3u 130-400 RBC 4.2 10^6u 4.2-5.4 RDW 12.5 % 11.5-15.5 WBC 6.7 10^3u 4.8-10.8 NEUTRO# 4.0 10^3u 1.5-7.5 LYMPH# 2.1 10^3u 0.9-4.0 MONO# 0.5 10^3u 0-0.8 EOS# 0.1 10^3u 0-0.6 BASO# 0.0 10^3u 0-0.1 CRP - 11/07/13 00:00 CRP < 0.2 MG/DL 0-1 CMP - 11/07/13 00:00 ALB 3.6 G/DL 3.5-5 ALP 60 IU/L 25-72 ALT 11 IU/L 12-65 AST 7 IU/L 10-42 BCR 9.9 10-20 BUN 8 MG/DL 7-18 CA 8.8 MG/DL 8.4-10.2 CL 105 MEQ/L 98-107 CO2 29.5 MEQ/L 22-28 CREA 0.81 MG/DL 0.6-1.0 EGFR 78 eGFR >=60 GLU 87 MG/DL 70-105 K 4.4 MEQ/L 3.5-5.1 NA 141 MEQ/L 134-145 OSMSC 279.0 MOSML 280-300 TBIL 0.3 MG/DL 0.1-1.0 TP 7.2 G/DL 6.0-8.3 Albumin/Globulin Ratio 1.0 0-8 Anion Gap 6.5 8-16 CBC WITH DIFF - 12/21/13 00:00 BASO% 0.4 % 0-2 EOS% 0.6 % 0-7.0 HCT 39.4 % 36.9-47.0 HGB 13.4 G/DL 12.0-16.0 LYMPH% 23.0 % 20-40 MCH 30.1 PG 27-31 MCHC 34.0 G/DL 33-37 MCV 88.5 FL 81-99 MONO% 6.4 % 0-10.0 MPV 11.1 FL 7.3-10.4 NEUTRO% 69.6 % 40-70 PLT 216 10^3u 130-400 RBC 4.5 10^6u 4.2-5.4 RDW 12.6 % 11.5-15.5 WBC 7.0 10^3u 4.8-10.8 NEUTRO# 4.9 10^3u 1.5-7.5 LYMPH# 1.6 10^3u 0.9-4.0 MONO# 0.5 10^3u 0-0.8 EOS# 0.0 10^3u 0-0.6 BASO# 0.0 10^3u 0-0.1 UA - 12/21/13 00:00 PH 7.0 4.5-8.0 SG 1.010 1.003-1.035 UABILI NEGATIVE UABLD NEGATIVE UACOLOR YEL UAGLU NEGATIVE UAKET NEGATIVE UALEUK NEGATIVE UANIT NEGATIVE UAURO 0.2 0-0.2 CLARITY CL PROTEIN NEGATIVE UA WBC R05 UA RBC NORBC SQUAMOUS EPITHELIAL CELLS FEW BACTERIA RARE CMP - 12/21/13 00:00 ALB 3.7 G/DL 3.5-5 ALP 70 IU/L 25-72 ALT 16 IU/L 12-65 AST 14 IU/L 10-42 BCR 13.1 10-20 BUN 11 MG/DL 7-18 CA 9.0 MG/DL 8.4-10.2 CL 103 MEQ/L 98-107 CO2 27.6 MEQ/L 22-28 CREA 0.84 MG/DL 0.6-1.0 EGFR 75 eGFR >=60 GLU 98 MG/DL 70-105 K 4.1 MEQ/L 3.5-5.1 NA 139 MEQ/L 134-145 OSMSC 276.9 MOSML 280-300 TBIL 0.4 MG/DL 0.1-1.0 TP 7.6 G/DL 6.0-8.3 Albumin/Globulin Ratio 0.9 0-8 Anion Gap 8.4 8-16 CBC WITH DIFF - 02/11/14 00:00 BASO% 0.5 % 0-2 EOS% 1.0 % 0-7.0 HCT 43.2 % 36.9-47.0 HGB 14.3 G/DL 12.0-16.0 LYMPH% 26.7 % 20-40 MCH 29.8 PG 27-31 MCHC 33.1 G/DL 33-37 MCV 90.0 FL 81-99 MONO% 6.0 % 0-10.0 MPV 10.7 FL 7.3-10.4 NEUTRO% 65.8 % 40-70 PLT 247 10^3u 130-400 RBC 4.8 10^6u 4.2-5.4 RDW 12.5 % 11.5-15.5 WBC 8.1 10^3u 4.8-10.8 NEUTRO# 5.3 10^3u 1.5-7.5 LYMPH# 2.2 10^3u 0.9-4.0 MONO# 0.5 10^3u 0-0.8 EOS# 0.1 10^3u 0-0.6 BASO# 0.0 10^3u 0-0.1 RAPID MYCOPLASMA - 02/11/14 00:00 RAPMYCO N Negative CMP - 02/11/14 00:00 ALB 3.8 G/DL 3.5-5 ALP 73 IU/L 25-72 ALT 20 IU/L 12-65 AST 12 IU/L 10-42 BCR 13.8 10-20 BUN 11 MG/DL 7-18 CA 9.0 MG/DL 8.4-10.2 CL 102 MEQ/L 98-107 CO2 27.6 MEQ/L 22-28 CREA 0.80 MG/DL 0.6-1.0 EGFR 79 eGFR >=60 GLU 103 MG/DL 70-105 K 4.0 MEQ/L 3.5-5.1 NA 138 MEQ/L 134-145 OSMSC 275.3 MOSML 280-300 TBIL 0.3 MG/DL 0.1-1.0 TP 7.7 G/DL 6.0-8.3 Albumin/Globulin Ratio 1.0 0-8 Anion Gap 8.4 8-16 TSH - 02/11/14 00:00 TSH 1.29 UIUML 0.36-3.74 UA - 02/11/14 00:00 PH 5.5 4.5-8.0 SG 1.005 UABILI NEGATIVE UABLD NEGATIVE UACOLOR YEL UAGLU NEGATIVE UAKET NEGATIVE UALEUK NEGATIVE UANIT NEGATIVE UAURO 0.2 0-0.2 CLARITY CL PROTEIN NEGATIVE UA WBC R05 UA RBC NORBC SQUAMOUS EPITHELIAL CELLS 1+ BACTERIA OCC CBC - 03/23/15 00:00 HCT 36.1 % 36.9-47.0 HGB 12.4 G/DL 12.0-16.0 MCH 29.8 PG 27-31 MCHC 34.3 G/DL 33-37 MCV 86.8 FL 81-99 MPV 11.2 FL 7.3-10.4 PLT 218 10^3u 130-400 RBC 4.2 10^6u 4.2-5.4 RDW 12.2 % 11.5-15.5 WBC 7.6 10^3u 4.8-10.8 CMP - 03/23/15 00:00 ALB 3.6 G/DL 3.5-5 ALP 81 IU/L 25-72 ALT 21 IU/L 12-65 AST 14 IU/L 10-42 BCR 12.2 10-20 BUN 9 MG/DL 7-18 CA 8.6 MG/DL 8.4-10.2 CL 103 MEQ/L 98-107 CO2 26.3 MEQ/L 22-28 CREA 0.74 MG/DL 0.6-1.0 EGFR 86 eGFR >=60 GLU 93 MG/DL 70-105 K 3.5 MEQ/L 3.5-5.1 NA 137 MEQ/L 134-145 OSMSC 272.2 MOSML 280-300 TBIL 0.3 MG/DL 0.1-1.0 TP 7.2 G/DL 6.0-8.3 Albumin/Globulin Ratio 1.0 0-8 Anion Gap 7.7 8-16 CK - 03/23/15 00:00 CK 102 IU/L 26-192 TROP - 03/23/15 00:00 TROP < 0.04 NG/ML 0.0-0.4 CKMB - 03/23/15 00:00 CKMB < 0.5 NG/ML 0-3.6 CBC WITH DIFF - 03/24/15 00:00 BASO% 0.7 % 0-2 EOS% 1.5 % 0-7.0 HCT 33.6 % 36.9-47.0 HGB 11.1 G/DL 12.0-16.0 LYMPH% 40.2 % 20-40 MCH 29.6 PG 27-31 MCHC 33.0 G/DL 33-37 MCV 89.6 FL 81-99 MONO% 8.6 % 0-10.0 MPV 11.3 FL 7.3-10.4 NEUTRO% 48.8 % 40-70 PLT 172 10^3u 130-400 RBC 3.8 10^6u 4.2-5.4 RDW 12.4 % 11.5-15.5 WBC 5.9 10^3u 4.8-10.8 NEUTRO# 2.9 10^3u 1.5-7.5 LYMPH# 2.4 10^3u 0.9-4.0 MONO# 0.5 10^3u 0-0.8 EOS# 0.1 10^3u 0-0.6 BASO# 0.0 10^3u 0-0.1 IMM GRANULOCYTE % 0.2 % IMM GRANULOCYTE # 0.0 10^3u 0-5 CKMB - 03/24/15 00:00 CKMB 1.0 NG/ML 0-3.6 CK - 03/24/15 00:00 CK 73 IU/L 26-192 BMP - 03/24/15 00:00 BCR 9.4 10-20 BUN 8 MG/DL 7-18 CA 7.5 MG/DL 8.4-10.2 CL 107 MEQ/L 98-107 CO2 28.6 MEQ/L 22-28 CREA 0.85 MG/DL 0.6-1.0 EGFR 73 eGFR >=60 GLU 97 MG/DL 70-105 K 3.7 MEQ/L 3.5-5.1 NA 138 MEQ/L 134-145 OSMSC 273.9 MOSML 280-300 Anion Gap 2.4 8-16 TROP - 03/24/15 00:00 TROP < 0.04 NG/ML 0.0-0.4 Complete blood count (CBC) with automated white blood cell (WBC) differential - 12/30/15 10:50 Blood leukocytes automated count (number/volume) 6.1 10*3/ uL 4.3-11.0 Blood erythrocytes automated count (number/volume) 4.10 10*6 /uL 4.35-5.85 Venous blood hemoglobin measurement (mass/volume) 12.3 g/dL 11.5-16.0 Blood hematocrit (volume fraction) 36 % 35-52 Automated erythrocyte mean corpuscular volume 88 [foz_us] 80-99 Automated erythrocyte mean corpuscular hemoglobin (mass per erythrocyte) 30 pg 25-34 Automated erythrocyte mean corpuscular hemoglobin concentration measurement ( mass/volume) 34 g/dL 32-36 Automated erythrocyte distribution width ratio 12.2 % 10.0-14.5 Automated blood platelet count (count/volume) 194 10*3/uL 130-400 Automated blood platelet mean volume measurement 12.0 [foz_ us] 7.4-10.4 Automated blood neutrophils/100 leukocytes 51 % 42-75 Automated blood lymphocytes/100 leukocytes 40 % 12-44 Blood monocytes/100 leukocytes 8 % 0-12 Automated blood eosinophils/100 leukocytes 1 % 0-10 Automated blood basophils/100 leukocytes 1 % 0-10 Blood neutrophils automated count (number/volume) 3.1 10*3 1.8-7.8 Blood lymphocytes automated count (number/volume) 2.5 10*3 1.0-4.0 Blood monocytes automated count (number/volume) 0.5 10*3 0.0-1.0 Automated eosinophil count 0.1 10*3/uL 0.0-0.3 Automated blood basophil count (count/volume) 0.0 10*3/uL 0.0-0.1 PT panel in platelet poor plasma by coagulation assay - 12/30/15 10:50 Prothrombin time (PT) in platelet poor plasma by coagulation assay 12.5 s 12.2-14.7 INR in platelet poor plasma or blood by coagulation assay 1.0 0.8-1.4 Activated partial thromboplastin time (aPTT) in platelet poor plasma bycoagulation assay - 12/30/15 10:50 Activated partial thromboplastin time (aPTT) in platelet poor plasma bycoagulation assay 27 s 24-35 Comprehensive metabolic panel - 12/30/15 10:50 Serum or plasma sodium measurement (moles/volume) 137 mmol/ L 135-145 Serum or plasma potassium measurement (moles/volume) 3.9 mmol/L 3.6-5.0 Serum or plasma chloride measurement (moles/volume) 107 mmol /L 98-107 Carbon dioxide 22 mmol/L 21-32 Serum or plasma anion gap determination (moles/volume) 8 mmol/L 5-14 Serum or plasma urea nitrogen measurement (mass/volume) 12 mg/dL 7-18 Serum or plasma creatinine measurement (mass/volume) 0.79 mg /dL 0.60-1.30 Serum or plasma urea nitrogen/creatinine mass ratio 15 NRG Serum or plasma creatinine measurement with calculation of estimated glomerular filtration rate > NRG Serum or plasma glucose measurement (mass/volume) 97 mg/dL 70-105 Serum or plasma calcium measurement (mass/volume) 8.9 mg/dL 8.5-10.1 Serum or plasma total bilirubin measurement (mass/volume) 0.3 mg/dL 0.1-1.0 Serum or plasma alkaline phosphatase measurement (enzymatic activity/volume) 55 U/L 40-136 Serum or plasma aspartate aminotransferase measurement (enzymatic activity/ volume) 18 U/L 5-34 Serum or plasma alanine aminotransferase measurement (enzymatic activity/volume ) 8 U/L 0-55 Serum or plasma protein measurement (mass/volume) 6.9 g/dL 6.4-8.2 Serum or plasma albumin measurement (mass/volume) 4.0 g/dL 3.2-4.5 Magnesium - 12/30/15 10:50 Magnesium 2.0 mg/dL 1.8-2.4 Serum or plasma troponin i.cardiac measurement (mass/volume) - 12/30/15 10:50 Serum or plasma troponin i.cardiac measurement (mass/volume) < ng/mL <0.30 Myoglobin, serum - 12/30/15 10:50 Myoglobin, serum 25.2 ng/mL 10.0-92.0 Complete blood count (CBC) with automated white blood cell (WBC) differential - 05/16/16 17:50 Blood leukocytes automated count (number/volume) 8.4 10*3/ uL 4.3-11.0 Blood erythrocytes automated count (number/volume) 3.93 10*6 /uL 4.35-5.85 Venous blood hemoglobin measurement (mass/volume) 11.6 g/dL 11.5-16.0 Blood hematocrit (volume fraction) 35 % 35-52 Automated erythrocyte mean corpuscular volume 89 [foz_us] 80-99 Automated erythrocyte mean corpuscular hemoglobin (mass per erythrocyte) 30 pg 25-34 Automated erythrocyte mean corpuscular hemoglobin concentration measurement ( mass/volume) 33 g/dL 32-36 Automated erythrocyte distribution width ratio 12.3 % 10.0-14.5 Automated blood platelet count (count/volume) 182 10*3/uL 130-400 Automated blood platelet mean volume measurement 11.3 [foz_ us] 7.4-10.4 Automated blood neutrophils/100 leukocytes 63 % 42-75 Automated blood lymphocytes/100 leukocytes 28 % 12-44 Blood monocytes/100 leukocytes 8 % 0-12 Automated blood eosinophils/100 leukocytes 1 % 0-10 Automated blood basophils/100 leukocytes 0 % 0-10 Blood neutrophils automated count (number/volume) 5.3 10*3 1.8-7.8 Blood lymphocytes automated count (number/volume) 2.4 10*3 1.0-4.0 Blood monocytes automated count (number/volume) 0.7 10*3 0.0-1.0 Automated eosinophil count 0.0 10*3/uL 0.0-0.3 Automated blood basophil count (count/volume) 0.0 10*3/uL 0.0-0.1 PT panel in platelet poor plasma by coagulation assay - 05/16/16 17:50 Prothrombin time (PT) in platelet poor plasma by coagulation assay 13.3 s 12.2-14.7 INR in platelet poor plasma or blood by coagulation assay 1.0 0.8-1.4 Activated partial thromboplastin time (aPTT) in platelet poor plasma bycoagulation assay - 05/16/16 17:50 Activated partial thromboplastin time (aPTT) in platelet poor plasma bycoagulation assay 26 s 24-35 Comprehensive metabolic panel - 05/16/16 17:50 Serum or plasma sodium measurement (moles/volume) 141 mmol/ L 135-145 Serum or plasma potassium measurement (moles/volume) 3.6 mmol/L 3.6-5.0 Serum or plasma chloride measurement (moles/volume) 106 mmol /L 98-107 Carbon dioxide 26 mmol/L 21-32 Serum or plasma anion gap determination (moles/volume) 9 mmol/L 5-14 Serum or plasma urea nitrogen measurement (mass/volume) 6 mg /dL 7-18 Serum or plasma creatinine measurement (mass/volume) 0.80 mg /dL 0.60-1.30 Serum or plasma urea nitrogen/creatinine mass ratio 8 NRG Serum or plasma creatinine measurement with calculation of estimated glomerular filtration rate > NRG Serum or plasma glucose measurement (mass/volume) 99 mg/dL 70-105 Serum or plasma calcium measurement (mass/volume) 8.5 mg/dL 8.5-10.1 Serum or plasma total bilirubin measurement (mass/volume) 0.4 mg/dL 0.1-1.0 Serum or plasma alkaline phosphatase measurement (enzymatic activity/volume) 52 U/L 40-136 Serum or plasma aspartate aminotransferase measurement (enzymatic activity/ volume) 13 U/L 5-34 Serum or plasma alanine aminotransferase measurement (enzymatic activity/volume ) 10 U/L 0-55 Serum or plasma protein measurement (mass/volume) 6.5 g/dL 6.4-8.2 Serum or plasma albumin measurement (mass/volume) 3.8 g/dL 3.2-4.5 Magnesium - 05/16/16 17:50 Magnesium 1.9 mg/dL 1.8-2.4 Serum or plasma creatine kinase measurement (enzymatic activity/volume) - 05/16 17:50 Serum or plasma creatine kinase measurement (enzymatic activity/volume) 59 U/L 29-168 Serum or plasma creatine kinase MB measurement (enzymatic activity/volume) - 17:50 Serum or plasma creatine kinase MB measurement (enzymatic activity/volume) 0.8 ng/mL <6.6 Serum or plasma troponin i.cardiac measurement (mass/volume) - 05/16/16 17:50 Serum or plasma troponin i.cardiac measurement (mass/volume) < ng/mL <0.30 Serum or plasma amylase measurement (enzymatic activity/volume) - 05/16/16 17: 50 Serum or plasma amylase measurement (enzymatic activity/volume) 54 U/L 25-125 Lipase - 05/16/16 17:50 Lipase 27 U/L 8-78 Serum or plasma lithium measurement (moles/volume) - 05/16/16 17:50 BNP level < pg/mL <100.0 Serum or plasma troponin i.cardiac measurement (mass/volume) - 05/16/16 23:52 Serum or plasma troponin i.cardiac measurement (mass/volume) < ng/mL <0.30 Myoglobin, serum - 05/16/16 23:52 Myoglobin, serum 31.1 ng/mL 10.0-92.0 Complete blood count (CBC) with automated white blood cell (WBC) differential - 05/17/16 03:12 Blood leukocytes automated count (number/volume) 7.4 10*3/ uL 4.3-11.0 Blood erythrocytes automated count (number/volume) 3.63 10*6 /uL 4.35-5.85 Venous blood hemoglobin measurement (mass/volume) 10.7 g/dL 11.5-16.0 Blood hematocrit (volume fraction) 32 % 35-52 Automated erythrocyte mean corpuscular volume 89 [foz_us] 80-99 Automated erythrocyte mean corpuscular hemoglobin (mass per erythrocyte) 30 pg 25-34 Automated erythrocyte mean corpuscular hemoglobin concentration measurement ( mass/volume) 33 g/dL 32-36 Automated erythrocyte distribution width ratio 12.4 % 10.0-14.5 Automated blood platelet count (count/volume) 159 10*3/uL 130-400 Automated blood platelet mean volume measurement 11.6 [foz_ us] 7.4-10.4 Automated blood neutrophils/100 leukocytes 53 % 42-75 Automated blood lymphocytes/100 leukocytes 38 % 12-44 Blood monocytes/100 leukocytes 8 % 0-12 Automated blood eosinophils/100 leukocytes 1 % 0-10 Automated blood basophils/100 leukocytes 0 % 0-10 Blood neutrophils automated count (number/volume) 3.9 10*3 1.8-7.8 Blood lymphocytes automated count (number/volume) 2.8 10*3 1.0-4.0 Blood monocytes automated count (number/volume) 0.6 10*3 0.0-1.0 Automated eosinophil count 0.1 10*3/uL 0.0-0.3 Automated blood basophil count (count/volume) 0.0 10*3/uL 0.0-0.1 Comprehensive metabolic panel - 05/17/16 03:12 Serum or plasma sodium measurement (moles/volume) 140 mmol/ L 135-145 Serum or plasma potassium measurement (moles/volume) 3.8 mmol/L 3.6-5.0 Serum or plasma chloride measurement (moles/volume) 107 mmol /L 98-107 Carbon dioxide 27 mmol/L 21-32 Serum or plasma anion gap determination (moles/volume) 6 mmol/L 5-14 Serum or plasma urea nitrogen measurement (mass/volume) 5 mg /dL 7-18 Serum or plasma creatinine measurement (mass/volume) 0.78 mg /dL 0.60-1.30 Serum or plasma urea nitrogen/creatinine mass ratio 6 NRG Serum or plasma creatinine measurement with calculation of estimated glomerular filtration rate > NRG Serum or plasma glucose measurement (mass/volume) 98 mg/dL 70-105 Serum or plasma calcium measurement (mass/volume) 7.9 mg/dL 8.5-10.1 Serum or plasma total bilirubin measurement (mass/volume) 0.5 mg/dL 0.1-1.0 Serum or plasma alkaline phosphatase measurement (enzymatic activity/volume) 45 U/L 40-136 Serum or plasma aspartate aminotransferase measurement (enzymatic activity/ volume) 12 U/L 5-34 Serum or plasma alanine aminotransferase measurement (enzymatic activity/volume ) 10 U/L 0-55 Serum or plasma protein measurement (mass/volume) 5.5 g/dL 6.4-8.2 Serum or plasma albumin measurement (mass/volume) 3.2 g/dL 3.2-4.5 Lipid 1996 panel - 05/17/16 03:12 Serum or plasma triglyceride measurement (mass/volume) 97 mg /dL <150 Serum or plasma cholesterol measurement (mass/volume) 156 mg /dL < 200 Serum or plasma cholesterol in HDL measurement (mass/volume) 40 mg/dL 40-60 Cholesterol in LDL [mass/volume] in serum or plasma by direct assay 97 mg/dL 1-129 Serum or plasma cholesterol in VLDL measurement (mass/volume) 19 mg/dL 5-40 Encounters ACCT No. Visit Date/Time Discharge Status Pt. Type Provider Facility Loc./Unit Complaint [id number] 03/23/2015 23:10:00 03/24/2015 10 :04:00 DIS Outpatient LEATHA ARAGON [facility] OBS [id number] 02/11/2014 14:18:00 02/11/2014 16 :33:00 DIS Emergency FLACO WINTER [facility] EMR [id number] 12/21/2013 11:56:00 12/21/2013 14 :09:00 DIS Emergency SUDHEERLEATHA VILLALTA [facility] EMR [id number] 11/22/2013 18:50:00 11/22/2013 20 :11:00 DIS Emergency DOMONIQUE NESBITT [place] [facility] EMR [id number] 11/07/2013 15:37:00 11/07/2013 18 :20:00 DIS Emergency HARVEY, KRUPA Petar [facility] EMR [id number] 10/19/2013 21:57:00 10/20/2013 00 :45:00 DIS Emergency ZACHARIAH PRINCE [facility] EMR [id number] 10/03/2013 08:56:00 10/03/2013 11 :20:00 DIS Emergency FLACO WINTER [facility] EMR [id number] 01/10/2015 00:00:00 Document Registration [id number] 01/10/2014 00:00:00 Document Registration [id number] 01/10/2013 00:00:00 Document Registration [id number] 01/10/2013 00:00:00 Document Registration [id number] 01/10/2013 00:00:00 Document Registration [id number] 01/10/2013 00:00:00 Document Registration [id number] 01/10/2013 00:00:00 Document Registration
--- OUTSIDE RECORDS SUMMARY | 2016-06-17 18:12 | XMS REPORT | Continuity of Care Document ---
Demographics Preferred Language Unknown Marital Status Unknown Oriental Orthodox Affiliation Unknown Race Unknown Ethnic Group Unknown Author Author [facility] Organization [facility] Address Unknown Phone Unavailable Allergies Active Description Code Type Severity Reaction Onset Reported/Identified Relationship to Patient Clinical Status Yes Bactrim 5086 Drug Allergy N/A N/A Yes Cipro 1118 Drug Allergy N/A N/A Yes ciprofloxacin 2882 Drug Allergy N/A N/A Confirmed or Verified Yes No known drug allergies [id number] Drug Allergy N/A N/A Confirmed but inactive Yes Sulfa (Sulfonamide Antibiotics) 491 Drug Allergy N/A N/A Confirmed or Verified Yes sulfamethoxazole 2827 Drug Allergy N/A N/A Confirmed or Verified Yes trimethoprim 2873 Drug Allergy N/A N/A Confirmed or Verified Yes ciprofloxacin [id number] Drug Allergy Unknown N/A 01/18/2014 Yes Sulfa (Sulfonamide Antibiotics) [id number] Drug Allergy Unknown N/A 01/18/2014 Yes sulfamethoxazole [id number] Drug Allergy Unknown N/A 01/18/2014 Yes trimethoprim [id number] Drug Allergy Unknown N/A 01/18/2014 Medications Problems [...] Procedures Code Description [place] [address] ROUTINE VENIPUNCTURE 03/24/2015 34116 CHEST X-RAY 03/24 78006 METABOLIC PANEL TOTAL CA 03/24/2015 75339 COMPREHEN METABOLIC PANEL 03/24/2015 72865 ASSAY OF CK (CPK) 03/24/2015 89093 CREATINE, MB FRACTION 03/24/2015 29840 ASSAY OF TROPONIN, QUANT 03/24/2015 37024 COMPLETE CBC W/AUTO DIFF WBC 03/24/2015 91133 COMPLETE CBC, AUTOMATED 03/24/2015 J2270 MORPHINE SULFATE [...] AB SCREEN WITH REFLEX < OR=0.90 [facility] - 08[facility]04/13 00:00 RMSF1 NOT [...] Status Pt. Type Provider Facility Loc./Unit Complaint [id number] 03/23/2015 23:10:00 03/24/2015 10 :04:00 DIS Outpatient LEATHA ARAGON [facility] OBS [id number] 02/11/2014 14:18:00 02/11/2014 16 :33:00 DIS Emergency FLACO WINTER [facility] EMR [id number] 12/21/2013 11:56:00 12/21/2013 14 :09:00 DIS Emergency SUDHEERLEATHA VILLALTA [facility] EMR [id number] 11/22/2013 18:50:00 11/22/2013 20 :11:00 DIS Emergency DOMONIQUE NESBITT [place] [facility] EMR [id number] 11/07/2013 15:37:00 11/07/2013 18 :20:00 DIS Emergency HARVEY, KRUPA Petar [facility] EMR [id number] 10/19/2013 21:57:00 10/20/2013 00 :45:00 DIS Emergency ZACHARIAH PRINCE [facility] EMR [id number] 10/03/2013 08:56:00 10/03/2013 11 :20:00 DIS Emergency FLACO WINTER [facility] EMR [id number] 01/10/2015 00:00:00 Document Registration [id number] 01/10/2014 00:00:00 Document Registration [id number] 01/10/2013 00:00:00 Document Registration [id number] 01/10/2013 00:00:00 Document Registration [id number] 01/10/2013 00:00:00 Document Registration [id number] 01/10/2013 00:00:00 Document Registration [id number] 01/10/2013 00:00:00 Document Registration
== END 2016-05-17 10:36 | disposition home or self-care (01) ==
LOC: EDUNIT# 17:40 → ER 17:41 → ICU 18:59 → UNDOADMOB 18:59 → ICU 19:55
PROVIDERS: ADMIT Internal Medicine; ATTEND Internal Medicine
DX: R07.9 Chest pain, unspecified (principal); K58.9 Irritable bowel syndrome, unspecified; R10.13 Epigastric pain; R11.2 Nausea with vomiting, unspecified; R42 Dizziness and giddiness; Z87.891 Personal history of nicotine dependence
CPT/HCPCS: 36415; 71010; 71275; 78452; 80053; 80061; 82150; 82550; 82553; 83690; 83735; 83874; 83880; 84484; 85025; 85610; 85730; 93005; 93017; 93041; 96374; 96375; G0378

== ENCOUNTER 2016-09-25 16:24 | Observation (INO) | payer OTHER ==
[~2016-09-25] VITALS: Ht 154.9 cm; Wt 74.8 kg
[~2016-09-25 16:24] MED LIST changes: +ASPI-999 PO; +HYOS-19 PO; +HYOS-19 SL; +HYOS-6 PO; -HYOS0.1218 PO; +MECL-124 PO; +ONDA4TAB10 PO; +ONDN4T PO; +POTA99TA21 PO
[2016-09-25] MEDS ORDERED: NS IV 1000 ML 1,000 ML IV ONE (16:33)
--- OUTSIDE RECORDS SUMMARY | 2016-09-25 16:35 | XMS REPORT ---
Author DREW Bearden [facility] Address [address] [place], [place] [id number] Care Team Providers Care Supervising Fire Marshal Name Role Phone DREW MEIER PCP Unavailable DREW MEIER PreferredProvider Unavailable Allergies and Adverse Reactions Name Reaction Notes ciprofloxacin hives SULFA (SULFONAMIDES) hives Bactrim DS hives Cipro hives Plan of Treatment Planned Activity Comments Planned Date Planned Time Plan/Goal Injection, Subcutaneous/IM 08/23/2016 12:00 AM Medications Active Name Start Date Estimated Completion Date SIG Comments estradiol 2 mg oral tablet take 1 tablet (2 mg) by oral route once daily Shiloh 5-325 mg oral tablet 04/16/2016 take 1 tablet by oral route every 4-6 hours as needed for pain Keflex 500 mg oral capsule 08/24/2016 one PO TID fluticasone 50 mcg/actuation nasal spray,suspension 08/24/2016 inhale 1 spray (50 mcg) in each [...] TAKE ONE TABLET BY MOUTH EVERY DAY xnqegbeczs-lfojupqlscjmh-rigr 50-325-40 mg oral tablet 10/29/2011 11/08/2011 TAKE [...] 02/27/2016 take as directed for 5 days penicillin V potassium 500 mg oral tablet 04/16/2016 take 1 tablet (500 mg) by oral route 4 times per day Discontinued Name Start Date Discontinued Date SIG [...] nasal route 2 times a day Acid Coverstitch Elastic Attacher (cimetidine) 200 mg oral tablet 07/22/2013 Premarin [...] a day for 7 days per history [id number]-cngxkhypjtfvp-gynn 50-325-40 mg oral tablet 06/09/2013 02/28/2015 TAKE [...] are recommended within a 15 minute period. promethazine-codeine 6.25-10 mg/5 mL oral syrup 02/20/2016 08/24/2016 take 5 milliliters by oral route every 4-6 hours as needed, not to exceed 30 mL in 24 hours Problem List Description Status Onset depression Active Headache Active Allergic rhinitis Active Dyspepsia Active Nausea Active Hyperlipidemia, Mixed Active Anemia Active Atopic dermatitis Active 07/28/2012 Migraine Active 11/05/2012 Diarrhea Active 07/21/2013 Abdominal Pain Active 08/06/2013 Vomiting Active 08/06/2013 IBS (irritable bowel syndrome) Active 07/30/2014 Chest discomfort Active 07/30/2014 Second hand smoke exposure Active 08/24/2016 Vital Signs Date Time BP-Sys(mm[Hg] BP-Nay(mm[Hg]) HR(bpm) RR(rpm) Temp WT HT HC BMI BSA BMI Percentile O2 Sat(%) 08/23/2016 4:41:00 PM 128 mmHg 76 mmHg 99 bpm 16 rpm 98 F 169 lbs 92 % 04/16/2016 11:52:00 AM 118 mmHg 80 mmHg 90 bpm 16 rpm 97 F 163 lbs 61 in 30.7983 kg/m 1.7839 m 97 % 02/20/2016 3:04:00 PM 122 mmHg [...] 10/13/2010 12:00 AM Phenergan 50 Mg Im [id number] Reviewed 10/13/2010 12:00 AM Nubain 10mg Reviewed 02/28/2015 12:00 AM Toradol 60 Mg [facility]#2324-9222-45 Reviewed 03/25/2009 12:00 AM COMPREHEN METABOLIC PANEL Reviewed 03/25/2009 12:00 AM COMPLETE CBC W/AUTO DIFF WBC Reviewed 03/25/2009 12:00 AM CYTOPATH C/V MANUAL Reviewed 03/25/2009 12:00 AM BIOPSY OF UTERUS LINING Reviewed 03/25/2009 12:00 AM ECHO EXAMINATION PROCEDURE Reviewed 03/25/2009 12:00 AM BIOPSY OF UTERUS LINING Reviewed 12/11/2010 12:00 AM THER/PROPH/DIAG INJ SC/IM Reviewed 12/11/2010 12:00 AM Decadron Inj.1mg-(St.Satya) [facility] #[id number] Reviewed 07/05/2015 12:00 AM Decadron, Per 1 Mg [facility]# [address]-44 Reviewed 08/12/2015 12:00 AM Decadron, Per 1 Mg [facility]# [address]-59 Reviewed 08/12/2015 12:00 AM Depo-Medrol, Per 80 Mg [facility]#6131-8419-91 Reviewed 04/10/2011 12:00 AM ROUTINE VENIPUNCTURE Reviewed 04/10/2011 12:00 AM COMPLETE CBC W/AUTO DIFF WBC Reviewed 04/10/2011 12:00 AM COMPREHEN METABOLIC PANEL Reviewed 04/10/2011 12:00 AM LIPID PANEL Reviewed 05/10/2011 12:00 AM THER/PROPH/DIAG INJ SC/IM Reviewed 05/10/2011 12:00 AM Decadron Inj.1mg-(St.Satya) [facility] #[id number] Reviewed 05/10/2011 12:00 AM Depo-Medrol 80 Mg Im/St Satya [facility] [id number] Reviewed 02/20/2016 12:00 AM THER/PROPH/DIAG INJ SC/IM Reviewed 02/20/2016 12:00 AM Decadron 8mg Injection Reviewed 02/20/2016 12:00 AM Depo-Medrol 80mg Injection Reviewed 02/20/2016 12:00 AM Rocephin 1 gram Injection Reviewed 06/22/2011 12:00 AM THER/PROPH/DIAG INJ SC/IM Reviewed 06/22/2011 12:00 AM Phenergan 50 Mg Im [id number] Reviewed 06/22/2011 12:00 AM Nubain 10mg Reviewed 04/16/2016 12:00 AM Toradol 60 Mg Injection Reviewed 04/16/2016 12:00 AM THER/PROPH/DIAG INJ SC/IM Reviewed 07/24/2011 12:00 AM ROUTINE VENIPUNCTURE Reviewed 07/24/2011 12:00 AM COMPREHEN METABOLIC PANEL Reviewed 07/24/2011 12:00 AM ASSAY THYROID STIM HORMONE Reviewed 07/24/2011 12:00 AM ASSAY OF FREE THYROXINE Reviewed 05/14/2016 12:00 AM COMPLETE CBC W/AUTO DIFF WBC Returned 05/14/2016 12:00 AM LIPID PANEL Returned 10/17/2011 12:00 AM THER/PROPH/DIAG INJ SC/IM Reviewed 10/17/2011 12:00 AM Decadron, Per 1 Mg [facility]# [address]-95 Reviewed 10/17/2011 12:00 AM Depo-Medrol, Per 80 Mg [facility]#1067-6680-66 Reviewed 11/21/2011 12:00 AM THER/PROPH/DIAG INJ SC/IM Reviewed 11/21/2011 12:00 AM Toradol 60 Mg [place]#2492-2740-79 Reviewed 11/29/2011 12:00 AM THER/PROPH/DIAG INJ SC/IM Reviewed 11/29/2011 12:00 AM Decadron, Per 1 Mg [place]# [address]-98 Reviewed 12/13/2011 12:00 AM THER/PROPH/DIAG INJ SC/IM Reviewed 12/13/2011 12:00 AM Phenergan, Up to 50 Mg [place]#2704-8432-96 Reviewed 01/10/2012 12:00 AM THER/PROPH/DIAG INJ SC/IM Reviewed 01/10/2012 12:00 AM Phenergan, Up to 50 Mg [facility]#9218-4536-00 Reviewed 03/28/2012 12:00 AM THER/PROPH/DIAG INJ SC/IM Reviewed 03/28/2012 12:00 AM Toradol 60 Mg [place]#5504-9156-57 Reviewed 03/28/2012 12:00 AM Phenergan, Up to 50 Mg [facility]#0745-8349-85 Reviewed 05/14/2012 12:00 AM APPLICATION LOWER LEG SPLINT Reviewed 06/12/2012 12:00 AM THER/PROPH/DIAG INJ SC/IM Reviewed 06/12/2012 12:00 AM Decadron, Per 1 Mg [facility]# [address]-69 Reviewed 07/10/2012 12:00 AM COMPLETE CBC W/AUTO DIFF WBC Reviewed 07/10/2012 12:00 AM COMPREHEN METABOLIC PANEL Reviewed 07/10/2012 12:00 AM LIPID PANEL Reviewed 07/10/2012 12:00 AM ASSAY THYROID STIM HORMONE Reviewed 07/10/2012 12:00 AM ROUTINE VENIPUNCTURE Reviewed 09/30/2012 12:00 AM THER/PROPH/DIAG INJ SC/IM Reviewed 09/30/2012 12:00 AM Toradol 60 Mg [place]#9045-8238-29 Reviewed 09/30/2012 12:00 AM Phenergan, Up to 50 Mg [facility]#3859-8709-16 Reviewed 06/14/2009 12:00 AM THER/PROPH/DIAG INJ SC/IM Reviewed 06/14/2009 12:00 AM Decadron Inj.8mg-(St.Satya) [facility] #[id number] Reviewed 06/14/2009 12:00 AM Depo-Medrol 80 Mg Im/St Satya [facility] [id number] Reviewed 11/03/2012 12:00 AM THER/PROPH/DIAG INJ SC/IM Reviewed 11/03/2012 12:00 AM Toradol 60 Mg [facility]#7180-0875-73 Reviewed 11/03/2012 12:00 AM Phenergan, Up to 50 Mg [facility]#1166-3705-33 Reviewed 11/25/2012 12:00 AM THER/PROPH/DIAG INJ SC/IM Reviewed 11/25/2012 12:00 AM Decadron, Per 1 Mg [facility]# [address]-89 Reviewed 12/04/2012 12:00 AM COMPLETE CBC W/AUTO [...] ANTIBODIES Reviewed 12/04/2012 12:00 AM DNA ANTIBODY [place] Reviewed 12/04/2012 12:00 AM NUCLEAR ANTIGEN ANTIBODY [...] SC/IM Reviewed 11/22/2009 12:00 AM Decadron Inj.8mg-(St.Satya) [facility] #[id number] Reviewed 11/22/2009 12:00 AM Depo-Medrol 80 Mg Im/St Satya [facility] [id number] Reviewed 11/22/2009 12:00 AM Rocephin, Per 250MG - 1 Gram Vial Reviewed 01/12/2010 12:00 AM THER/PROPH/DIAG INJ SC/IM Reviewed 01/12/2010 12:00 AM Decadron Inj.12mg-(St.Satya) [facility] #[id number] Reviewed 07/21/2013 12:00 AM EGD DIAGNOSTIC BRUSH WASH Reviewed 07/21/2013 12:00 AM DIAGNOSTIC COLONOSCOPY Reviewed 08/07/2013 8:22 AM ASSAY GLUCOSE BLOOD QUANT Reviewed 08/07/2013 12:00 AM ASSAY GLUCOSE BLOOD QUANT Reviewed 10/07/2013 12:00 AM Internal Medicine Consult Reviewed 05/24/2010 12:00 AM THER/PROPH/DIAG INJ SC/IM Reviewed 05/24/2010 12:00 AM Decadron Inj.8mg-(St.Satya) [facility] #[id number] Reviewed 05/24/2010 12:00 AM Depo-Medrol 80 Mg Im/St Satya [facility] [id number] Reviewed 05/31/2010 12:00 AM THER/PROPH/DIAG INJ SC/IM Reviewed 05/31/2010 12:00 AM Decadron Inj.12 mg-(St.Satya) [facility] #[id number] Reviewed 06/12/2010 12:00 AM ROUTINE VENIPUNCTURE Reviewed 06/12/2010 12:00 AM COMPLETE CBC W/AUTO DIFF WBC Reviewed 06/12/2010 12:00 AM COMPREHEN METABOLIC PANEL Reviewed 06/12/2010 12:00 AM LIPID PANEL Reviewed 07/13/2010 12:00 AM DESTRUCT PREMALG LESION Reviewed 07/29/2014 12:00 AM THER/PROPH/DIAG INJ SC/IM Reviewed 07/29/2014 12:00 AM Toradol 60 Mg [facility]#2792-5340-41 Reviewed Results Summary Date and Description Results 03/25/2009 11:52 AM NRBC# [...] AA 112 eGFR >60 mL/min/1.73meGFR AA* >60 05/14/2016 5:08 PM WBC 5.8 RBC 4.27 HGB 12.50 g/dLHCT 39.10 %MCV 92.0 fLMCH 29.30 pgMCHC 32.0 g/dLRDW SD 41 RDW CV 12.40 %MPV 12.20 fLPLT 196 NRBC# 0.00 NRBC% 0.0 %NEUT 56.10 %%LYMP 34.90 %%MONO 7.30 %%EOS 1.0 %%BASO 0.50 %#NEUT 3.24 #LYMP 2.02 #MONO 0.42 #EOS 0.06 #BASO 0.03 MANUAL DIFF NOT IND GLUCOSE 89.0 mg/dLSODIUM 140.0 mmol/LPOTASSIUM 4.20 mmol/LCHLORIDE 104.0 mmol/LCO2 26.0 mmol/LBUN 8.0 mg/dLCREATININE 0.80 mg/dLSGOT/AST 14.0 IU/LSGPT/ALT 9.0 IU/LALK PHOS 54.0 IU/LTOTAL PROTEIN 6.70 g/dLALBUMIN 4.0 g/dLTOTAL BILI 0.60 mg/ dLCALCIUM 9.0 mg/dLAGE 45 GFR NonAA 78 GFR AA 95 eGFR >60 mL/min/1.73meGFR AA * >60 TRIGLYCERIDES 146.0 mg/dLCHOLESTEROL 199.0 mg/dLHDL 46.0 mg/dLTOT CHOL/ HDL 4.3 LDL (CALC) 124.0 mg/dL History Of Immunizations Not available. History of [...] 9:49AM Skin tag Jul 13 2010 10:14AM Second hand smoke exposure 08/24/2016 Headache Oct 13 2010 11:09AM Cough Dec [...] 2016 9:55AM Hypokalemia May 14 2016 9:55AM Acute pharyngitis, unspecified etiology Aug 23 2016 4:41PM Purulent postnasal drainage Aug 23 2016 4:41PM Sinus pressure Aug 23 2016 4:41PM Environmental and seasonal allergies Aug 23 2016 4:41PM Second hand smoke exposure Aug 23 2016 4:41PM Payers Insurance Name Company Name Plan Name Plan Number Policy Number Policy Group Number Start Date [employer] [facility] [id number] Friday, 2016 Confinity Confinity [id number] [id number] [id number] N/A [facility] [id number] N/A [facility] [id number] N/A History of Encounters Visit Date Visit Type Provider 08/23/2016 Office visit DREW BURDEN 05/14/2016 Laboratory DREW BURDEN 04/16/2016 Office visit DREW BURDEN 02/20/2016 Office visit DREW BURDEN 10/07/2015 Hospital [...] DREW MEIER PA 01/01/2012 Office visit DREW BURDEN 12/13/2011 Office visit DREW MEIER PA 11/29/2011 Office visit DREW MEIER PA 11/21/2011 Office visit DREW BURDEN 10/17/2011 Office visit DREW MEIER PA 09/03/2011 Office visit DREW BURDEN 08/21/2011 [facility] Km Tripp MD 07/24/2011 Office visit DREW MEIER PA 07/23/2011 Office visit DREW MEIER PA 06/22/2011 Office visit DREW MEIER PA 05/10/2011 Office visit DREW MEIER PA 04/12/2011 Office visit DREW MEIER PA 04/10/2011 Office visit DREW MEIER PA 02/14/2011 Office visit DREW MEIER PA 02/06/2011 Office visit DREW MEIER PA 12/11/2010 Office visit rDew Meier PA-C 10/13/2010 Office visit Drew Meier [...]
[2016-09-25] MEDS ORDERED: OMEG-154 PO (16:39)
[2016-09-25 16:41] LABS: BASOPHILS % (AUTO) 0 % (0-10); EOSINOPHILS # (AUTO) 0.1 10^3/uL (0.0-0.3); EOSINOPHILS % (AUTO) 1 % (0-10); LYMPHOCYTES # (AUTO) 3.5 X 10^3 (1.0-4.0); LYMPHOCYTES % (AUTO) 33 % (12-44); MEAN CORPUSCULAR HEMOGLOBIN 30 PG (25-34); MEAN CORPUSCULAR HGB CONC 33 G/DL (32-36); MEAN CORPUSCULAR VOLUME 89 FL (80-99); MONOCYTES # (AUTO) 0.7 X 10^3 (0.0-1.0); MONOCYTES % (AUTO) 7 % (0-12); NEUTROPHILS # (AUTO) 6.3 X 10^3 (1.8-7.8); NEUTROPHILS % (AUTO) 59 % (42-75); PLATELET COUNT 220 10^3/uL (130-400); RED BLOOD COUNT 4.04 10^6/uL (4.35-5.85); RED CELL DISTRIBUTION WIDTH 12.4 % (10.0-14.5); WHITE BLOOD COUNT 10.6 10^3/uL (4.3-11.0)
[2016-09-25] MEDS ORDERED: ASPIRIN 81 MG CHEW (CHILDREN'S ASA) PO ONE (16:45)
[2016-09-25] MEDS ORDERED: ONDANSETRON 4 MG/2 ML (SDV) Z0FRAN IVP ONE ×2 (16:45→17:30)
--- NOTE | 2016-09-25 16:47 | ED Chest Pain ---
General Chief Complaint: Chest Pain Stated Complaint: CHEST TIGHTNESS/HEADACHE/NAUSEA Nursing Triage Note: PT REPORTS MEDIAL CP STARTING AT 1530. PT ALSO REPORTS NAUSEA AND DIZZINESS. Nursing Sepsis Screen: No Definite Risk Source: patient Exam Limitations: no limitations History of Present Illness Time seen by provider: 16:25 Initial Comments Here with report of central chest tightness that started approximately one hour prior to arrival. This was associated with nausea, dizziness and sweating. She has not had any vomiting. She has had previous chest pain events and stress test subsequently was negative. Denies other recent illness. Does have history of irritable bowel syndrome. Timing/Duration: 1 hour, getting worse Severity/Quality: moderate, tightness Location: central Radiation: no radiation Activities at Onset: none Prior CP/Workup: stress test Modifying Factors: improves with rest ASA po MATCHBOOK ASSEMBLER: No NTG SL MATCHBOOK ASSEMBLER: No Associated Symptoms: abdominal pain, diaphoresis, No edema, No fever/chills, nausea/vomiting, No shortness of breath, No weakness Allergies and Home Medications Allergies Coded Allergies: Sulfa (Sulfonamide Antibiotics) (Verified Allergy, Unknown, 01/18/14) ciprofloxacin (Verified Allergy, Unknown, 01/18/14) sulfamethoxazole (Verified Allergy, Unknown, 01/18/14) trimethoprim (Verified Allergy, Unknown, 01/18/14) Home Medications Amitriptyline HCl 10 Mg Tablet, 10 MG PO HS, (Reported) Aspirin 81 Mg Tab.chew, 81 MG PO BID, (Reported) Hyoscyamine Sulfate 0.125 Mg Tab.subl, 0.125 MG SL Q12H PRN for ABDOMINAL PAIN, (Reported) Meclizine HCl 25 Mg Tab.chew, 25 MG PO Q8H PRN for DIZZINESS, (Reported) [place]-3S/Dha/Epa/Fish Oil 1 Each Capsule.dr, 1 EACH PO, (Reported) Omeprazole Magnesium 20 Mg Tablet.dr, 20 MG PO BID, (Reported) Ondansetron HCl 4 Mg Tablet, 4 MG PO Q6H PRN for NAUSEA/VOMITING-1ST LINE, ( Reported) Potassium Gluconate 99 Mg Tablet, 99 MG PO DAILY, (Reported) Review of Systems Constitutional: see HPI, No chills, diaphoresis, No fever EENTM: No Symptoms Reported Respiratory: Denies Cough, Denies Shortness of Air Cardiovascular: See HPI, Chest Pain, Denies Edema, Lightheadedness Gastrointestinal: Abdominal Pain, Denies Diarrhea, Nausea, Denies Vomiting Genitourinary: No Symptoms Reported Musculoskeletal: no symptoms reported Skin: no symptoms reported Psychiatric/Neurological: No Symptoms Reported All Other Systems Reviewed Negative Unless Noted: Yes Past Knpdnbh-Zqzevb-Uhifwr Hx Patient Social History Alcohol Use: Denies Use Recreational Drug Use: No Drug of Choice: Hx of HTC and Meth abuse, 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 Smoking Status: Former Smoker Type Used: Cigarettes 2nd Hand Smoke Exposure: Yes Recent Foreign Travel: No Contact w/Someone Who Travel: No Recent Infectious Disease Expo: No Recent Hopitalizations: No Immunizations Up To Date Tetanus Booster (TDap): Less than 5yrs PED Vaccines UTD: No Date of Influenza Vaccine: Nov 12, 2015 Seasonal Allergies Seasonal Allergies: Yes Surgeries HX Surgeries: Yes Surgeries: Appendectomy, Gallbladder, Hysterectomy, Oophorectomy Respiratory Hx Respiratory Disorders: No Respiratory Disorders: Pneumonia Cardiovascular Hx Cardiac Disorders: Yes (MURMUR; STRESS TEST 2016 NORMAL) Neurological Hx Neurological Disorders: No Reproductive System Hx Reproductive Disorders: Yes (CERVICAL CANCER) Sexually Transmitted Disease: No HIV/AIDS: No Female Reproductive Disorders: Menstrual Problems, 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 Genitourinary Hx Genitourinary Disorders: No Gastrointestinal Hx Gastrointestinal Disorders: Yes Gastrointestinal Disorders: Gastroesophageal Reflux, Irritable Bowel Musculoskeletal Hx Musculoskeletal Disorders: No Endocrine Hx Endocrine Disorders: Yes (hypoglycemia, hypokalemia) HEENT HX ENT Disorders: No Cancer Hx Cancer: Yes Cancer: Cervical Psychosocial Hx Psychiatric Problems: Yes Behavioral Health Disorders: Depression Integumentary HX Skin/Integumentary Disorder: No Blood Transfusions Hx Blood Disorders: No Adverse Reaction to a Blood Tr: No Reviewed Nursing Assessment Reviewed/Agree w Nursing PMH: Yes Family Medical History Family Medial History: Blood coagulation disorder 19 MOTHER Cancer of mouth Diabetes mellitus 19 MOTHER FH: COPD (chronic obstructive pulmonary disease) 19 MOTHER Hypercholesterolemia 19 MOTHER Hypertension 19 MOTHER Thyroid disease 19 MOTHER Physical Exam Vital Signs Vital Sign - Last 12Hours 09/25/ 16:34 Temp 100.2 Pulse 90 Resp 18 B/P (MAP) 142/76 Pulse Ox 100 Capillary Refill : Less Than 3 Seconds General Appearance: No Apparent Distress, WD/WN HEENT: PERRL/EOMI, Pharynx Normal Neck: Non Tender, Supple Respiratory: Lungs Clear, Normal Breath Sounds Cardiovascular: Regular Rate, Rhythm, No Murmur Gastrointestinal: Non Tender, Soft Extremity: Normal Inspection, Normal Range of Motion, Non Tender, No Calf Tenderness Neurologic/Psychiatric: Oriented x3, No Motor/Sensory Deficits Skin: Normal Color, Warm/Dry Progress/Results/Core Measures Results/Orders Lab Results Laboratory Tests Test 09/25/16 16:30 Range/Units White Blood Count 10.6 4.3-11.0 10^3/uL Red Blood Count 4.04 L 4.35-5.85 10^6/uL Hemoglobin 11.9 11.5-16.0 G/DL Hematocrit 36 35-52 % Mean Corpuscular Volume 89 80-99 FL Mean Corpuscular Hemoglobin 30 25-34 PG Mean Corpuscular Hemoglobin Concent 33 32-36 G/DL Red Cell Distribution Width 12.4 10.0-14.5 % Platelet Count 220 130-400 10^3/uL Mean Platelet Volume 11.0 H 7.4-10.4 FL Neutrophils (%) (Auto) 59 42-75 % Lymphocytes (%) (Auto) 33 12-44 % Monocytes (%) (Auto) 7 0-12 % Eosinophils (%) (Auto) 1 0-10 % Basophils (%) (Auto) 0 0-10 % Neutrophils # (Auto) 6.3 1.8-7.8 X 10^3 Lymphocytes # (Auto) 3.5 1.0-4.0 X 10^3 Monocytes # (Auto) 0.7 0.0-1.0 X 10^3 Eosinophils # (Auto) 0.1 0.0-0.3 10^3/uL Basophils # (Auto) 0.0 0.0-0.1 10^3/uL Prothrombin Time 11.9 L 12.2-14.7 SEC INR Comment 0.9 0.8-1.4 Activated Partial Thromboplast Time 28 24-35 SEC D-Dimer < 0.27 0.00-0.49 UG/ML Sodium Level 138 135-145 MMOL/L Potassium Level 3.6 3.6-5.0 MMOL/L Chloride Level 104 98-107 MMOL/L Carbon Dioxide Level 27 21-32 MMOL/L Anion Gap 7 5-14 MMOL/L Blood Urea Nitrogen 9 7-18 MG/DL Creatinine 0.75 0.60-1.30 MG/DL Estimat Glomerular Filtration Rate > 60 BUN/Creatinine Ratio 12 Glucose Level 95 70-105 MG/DL Calcium Level 9.0 8.5-10.1 MG/DL Magnesium Level 1.9 1.8-2.4 MG/DL Total Bilirubin 0.3 0.1-1.0 MG/DL Aspartate Amino Transf (AST/SGOT) 14 5-34 U/L Alanine Aminotransferase (ALT/SGPT) 11 0-55 U/L Alkaline Phosphatase 56 40-136 U/L Myoglobin 20.7 10.0-92.0 NG/ML Troponin I < 0.30 <0.30 NG/ML Total Protein 7.1 6.4-8.2 GM/DL Albumin 3.9 3.2-4.5 GM/DL Amylase Level 62 25-125 U/L Lipase 45 8-78 U/L My Orders Orders - EMILIA AYOUB MD Ekg Tracing (09/25/16 16:26) Cbc With Automated Diff (09/25/16 16:33) Magnesium (09/25/16 16:33) Chest 1 View, Ap/Pa Only (09/25/16 16:33) Cardiac Profile 1 (09/25/16 16:33) Comprehensive Metabolic Panel (09/25/16 16:33) Myoglobin Serum (09/25/16 16:33) Protime With Inr (09/25/16 16:33) Partial Thromboplastin Time (09/25/16 16:33) O2 (09/25/16 16:33) Monitor-Rhythm Ecg Trace Only (09/25/16 16:33) Lipid Panel (09/26/16 06:00) Aspirin Chewable Tablet (Baby Aspirin Ch (09/25/16 16:45) Saline Lock/Iv-Start (09/25/16 16:33) Lipase (09/25/16 16:33) Amylase (09/25/16 16:33) Fibrin Degradation Products (09/25/16 16:33) Ondansetron Injection (Zofran Injectio (09/25/16 16:45) Saline Lock/Iv-Start (09/25/16 16:33) Ns Iv 1000 Ml (Sodium Chloride 0.9%) (09/25/16 16:33) Ondansetron Injection (Zofran Injectio (09/25/16 17:30) Hyoscyamine Sl Tablet (Levsin Sl Tablet) (09/25/16 17:30) Promethazine Injection (Phenergan Injec (09/25/16 17:44) Medications Given in ED Current Medications Medications Dose Ordered Sig/Gus Route Start Time Stop Time Status Last Admin Dose Admin Aspirin 324 mg ONCE ONCE PO 09/25/16 16:45 09/25/16 16:46 DC 09/25/16 16:48 324 MG Hyoscyamine Sulfate 0.125 mg ONCE ONCE SL 09/25/16 17:30 09/25/16 17:31 DC 09/25/16 17:25 0.125 MG Ondansetron HCl 4 mg ONCE ONCE IVP 09/25/16 16:45 09/25/16 16:46 DC 09/25/16 16:48 4 MG Ondansetron HCl 4 mg ONCE ONCE IVP 09/25/16 17:30 09/25/16 17:31 DC 09/25/16 17:25 4 MG Sodium Chloride 1,000 ml @ 0 mls/hr Q0M ONCE IV 09/25/16 16:33 09/25/16 16:35 DC 09/25/16 16:48 0 MLS/HR Vital Signs/I&O Vital Sign - Last 12Hours 09/25/16 16:34 Temp 100.2 Pulse 90 Resp 18 B/P (MAP) 142/76 Pulse Ox 100 Blood Pressure Mean: 98 Progress Note : Progress Note Seen and evaluated. IV, labs, EKG and chest x-ray ordered. ASA 324 mg by mouth given. Zofran 4 mg IV ordered. Monitor patient. Repeat Zofran and added Levsin 0.125 mg by mouth for persistent nausea and central chest discomfort that is reported as tightness. Monitor patient. 1745: Patient has persistence of symptoms. Phenergan 25 mg IV due to persistent vomiting. I did discuss the case with Dr. MUNROE and he accepts patient for admission, observation status. Due to the chest discomfort as well, he is requesting cardiology evaluation. Dr. Whitten has seen the patient in past. I did discuss this with him at 1750 and he accepts patient for consult. Patient agrees with plan. ECG Initial ECG Impression Date: Sep 25, 2016 Initial ECG Impression Time: 16:27 Initial ECG Rate: 93 Initial ECG Rhythm: Normal Sinus Initial ECG Comparisson: Unchanged Comment Sinus rhythm with normal axis. No evidence of ST elevation TN. Unchanged from previous. Interpreted by me. Departure Communication Time/Spoke to Admitting Phy: 17:45 Time/Spoke to Consulting Physi: 17:50 Impression Impression: Primary Impression: Atypical chest pain Additional Impression: Nausea and vomiting Qualified Codes: R11.14 - Bilious vomiting Disposition: ADMITTED INPATIENT Condition: Stable Admissions Decision to Admit Reason: Admit from ER (General) Decision to Admit/Date: Sep 25, 2016 Time/Decision to Admit Time: 17:45 Departure-Patient Inst. Referrals: MANISH MEIER (PCP/Family) Primary Care Physician EMILIA AYOUB MD Sep 25, 2016 16:47
[2016-09-25 16:51] LABS: INR 0.9 (0.8-1.4); PROTHROMBIN TIME PATIENT 11.9 SEC (12.2-14.7)
[2016-09-25 17:01] LABS: ALANINE AMINOTRANSFERASE 11 U/L (0-55); ALBUMIN 3.9 GM/DL (3.2-4.5); AMYLASE 62 U/L (25-125); ANION GAP 7 MMOL/L (5-14); ASPARTATE AMINO TRANSFERASE 14 U/L (5-34); BILIRUBIN,TOTAL 0.3 MG/DL (0.1-1.0); BLOOD UREA NITROGEN 9 MG/DL (7-18); BUN/CREATININE RATIO 12; CARBON DIOXIDE 27 MMOL/L (21-32); CHLORIDE 104 MMOL/L (98-107); CREATININE SERUM 0.75 MG/DL (0.60-1.30); GFR ESTIMATED > 60; GLUCOSE 95 MG/DL (70-105); LIPASE 45 U/L (8-78); MAGNESIUM 1.9 MG/DL (1.8-2.4); POTASSIUM 3.6 MMOL/L (3.6-5.0); SODIUM 138 MMOL/L (135-145); TOTAL PROTEIN 7.1 GM/DL (6.4-8.2)
--- NOTE | 2016-09-25 17:07 | Diagnostic Imaging Report ---
INDICATION: Chest pain and pressure. FINDINGS: The heart size is within normal limits. There is no vascular congestion, no edema, pneumonia, effusion or pneumothorax. No free air beneath the diaphragms. IMPRESSION: No acute-appearing abnormality. Dictated by: Dictated on workstation # [id number]
[2016-09-25 17:08] LABS: MYOGLOBIN SERUM 20.7 NG/ML (10.0-92.0)
[2016-09-25] MEDS ORDERED: HYOSCYAMINE 0.125 MG (LEVSIN) TAB SL ONE (17:30)
[2016-09-25] MEDS ORDERED: PROMETHAZINE INJ 25 MG/ML (PHENERGAN) AMP IVP STA (17:44)
[2016-09-25 18:19] VITALS: BP 121/76
[2016-09-25] MEDS: NS IV 1000 ML 1,000 ML IV SCH (18:42)
[2016-09-25] MEDS ORDERED: morphine INJ 4 MG/ML 1 ML (VIAL/SYRINGE) IV PRN (18:45)
[2016-09-25] MEDS ORDERED: NITROGLYCERIN SUBLINGUAL 0.4 MG TAB (NITROSTAT) SL PRN (18:45)
[2016-09-25] MEDS ORDERED: PROMETHAZINE INJ 25 MG/ML (PHENERGAN) AMP IV PRN (18:45)
[2016-09-25 20:00] VITALS: BP 102/65
[2016-09-25] MEDS: ONDANSETRON 4 MG/2 ML (SDV) Z0FRAN IV PRN (21:01)
[2016-09-25 22:42] LABS: CREATINE KINASE 58 U/L (29-168)
[2016-09-25 22:49] LABS: MYOGLOBIN SERUM 32.4 NG/ML (10.0-92.0); TROPONIN I < 0.30 NG/ML (<0.30)
[2016-09-25] MEDS: HYOSCYAMINE 0.125 MG (LEVSIN) TAB PO PRN (23:13)
[2016-09-26 00:15] VITALS: BP 107/66
[2016-09-26 04:05] VITALS: BP 107/64
[2016-09-26] MEDS: NS IV 1000 ML 1,000 ML IV SCH (04:11)
[2016-09-26 06:13] LABS: BASOPHILS % (AUTO) 0 % (0-10); EOSINOPHILS # (AUTO) 0.1 10^3/uL (0.0-0.3); EOSINOPHILS % (AUTO) 1 % (0-10); LYMPHOCYTES # (AUTO) 2.5 X 10^3 (1.0-4.0); LYMPHOCYTES % (AUTO) 39 % (12-44); MEAN CORPUSCULAR HEMOGLOBIN 29 PG (25-34); MEAN CORPUSCULAR HGB CONC 33 G/DL (32-36); MEAN CORPUSCULAR VOLUME 90 FL (80-99); MEAN PLATELET VOLUME 11.4 FL (7.4-10.4); MONOCYTES # (AUTO) 0.4 X 10^3 (0.0-1.0); MONOCYTES % (AUTO) 7 % (0-12); NEUTROPHILS # (AUTO) 3.4 X 10^3 (1.8-7.8); NEUTROPHILS % (AUTO) 53 % (42-75); PLATELET COUNT 185 10^3/uL (130-400); RED BLOOD COUNT 3.71 10^6/uL (4.35-5.85); RED CELL DISTRIBUTION WIDTH 12.6 % (10.0-14.5); WHITE BLOOD COUNT 6.4 10^3/uL (4.3-11.0)
[2016-09-26 06:35] LABS: CHOLESTEROL 165 MG/DL (< 200); DIRECT LDL 110 MG/DL (1-129); TRIGLYCERIDES 76 MG/DL (<150); VLDL CHOLESTEROL 15 MG/DL (5-40)
[2016-09-26 06:39] LABS: ALANINE AMINOTRANSFERASE 9 U/L (0-55); ALBUMIN 3.2 GM/DL (3.2-4.5); ANION GAP 8 MMOL/L (5-14); ASPARTATE AMINO TRANSFERASE 11 U/L (5-34); BILIRUBIN,TOTAL 0.6 MG/DL (0.1-1.0); BLOOD UREA NITROGEN 7 MG/DL (7-18); BUN/CREATININE RATIO 10; CALCIUM 7.9 MG/DL (8.5-10.1); CARBON DIOXIDE 23 MMOL/L (21-32); CHLORIDE 110 MMOL/L (98-107); CREATININE SERUM 0.69 MG/DL (0.60-1.30); GFR ESTIMATED > 60; GLUCOSE 90 MG/DL (70-105); POTASSIUM 3.6 MMOL/L (3.6-5.0); SODIUM 141 MMOL/L (135-145); TOTAL PROTEIN 5.5 GM/DL (6.4-8.2)
[2016-09-26 07:54] VITALS: BP 110/70
[2016-09-26] MEDS: ONDANSETRON 4 MG/2 ML (SDV) Z0FRAN IV PRN (08:02)
[2016-09-26] MEDS ORDERED: CHOL10007 PO (08:30)
[2016-09-26] MEDS ORDERED: [UNRECOGNIZED DRUG - CODE] PO (08:30)
--- NOTE | 2016-09-26 08:32 | Consultation-Cardiology ---
HPI-Cardiology Cardiology Consultation Date of Consultation 09/26/16 Date of Admission Time Seen by Provider: 08:27 Indication: Chest pain HPI Patient is a 45 y/o female with history of CP, chronic intermittent dizziness, HTN, history of IBS. Presented to the ER yesterday evening with complaints of chest pain. Reports pain began while she was at work. Upon arrival to the ER she began having nausea and vomiting. Associated diaphoresis and dizziness. Denies any active CP at this time. Denies any syncope. Has had cardiac workup in the past including stress test in May 2015 and May 2016. Has followed with Dr. Madden in the past for IBS. Continues to complain of nausea and vomiting this morning, relieved with Zofran. Patient was seen and evaluated with Monique she is a 45-year-old lady with history of chest pain, had a stress test done in May 2016 for the same reason and workup was negative, had a similar test done last year and was negative, known to have history of irritable bowel syndrome, has been seen by Dr. Madden had capsule endoscopy in the past, last workup was done about 3 years ago, was having recurrent chest pain, atypical in presentation, but in nature in the retrosternal area, had some nausea, this morning she has been feeling better, Cardec enzymes and EKG did not show any abnormality. 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 Smoking Status: Former Smoker Type Used: Cigarettes 2nd Hand Smoke Exposure: Yes Recent Foreign Travel: No Recent Infectious Disease Expo: No Recent Hopitalizations: No Physical Abuse Screen: No Sexual Abuse: No Immunizations Up To Date Tetanus Booster (TDap): Less than 5yrs Date of Influenza Vaccine: Nov 12, 2015 Past Medical History HTN, IBS Family Medical History Significant Family History: No Pertinent Family Hx Family History: Blood coagulation disorder 19 MOTHER Cancer of mouth Diabetes mellitus 19 MOTHER FH: COPD (chronic obstructive pulmonary disease) 19 MOTHER Hypercholesterolemia 19 MOTHER Hypertension 19 MOTHER Thyroid disease 19 MOTHER Constitutional: No chills, No diaphoresis, No fever, No malaise, No weakness EENTM: No ear pain, No blurred vision, No double vision, No eye pain, No vision loss, No epistaxis, No throat pain Respiratory: No cough, No dyspnea on exertion, No phlegm, No short of breath Cardiovascular: chest pain, No edema, No Hx of Intervention, No palpitations, No vascular heart diseas Gastrointestinal: No abdominal pain, nausea, vomiting Genitourinary: No dysuria, No frequency Musculoskeletal: No back pain, No joint pain Skin: No lesions, No rash Psychiatric/Neurological: Denies Anxiety, Denies Depressed Reviewed Test Results Reviewed Test Results Lab Laboratory Tests 09/25/16 16:30: White Blood Count 10.6, Red Blood Count 4.04L, Hemoglobin 11.9, Hematocrit 36, Mean Corpuscular Volume 89, Mean Corpuscular Hemoglobin 30, Mean Corpuscular Hemoglobin Concent 33, Red Cell Distribution Width 12.4, Platelet Count 220, Mean Platelet Volume 11.0H, Neutrophils (%) (Auto) 59, Lymphocytes (%) (Auto) 33 , Monocytes (%) (Auto) 7, Eosinophils (%) (Auto) 1, Basophils (%) (Auto) 0, Neutrophils # (Auto) 6.3, Lymphocytes # (Auto) 3.5, Monocytes # (Auto) 0.7, Eosinophils # (Auto) 0.1, Basophils # (Auto) 0.0, Prothrombin Time 11.9L, INR Comment 0.9, Activated Partial Thromboplast Time 28, D-Dimer < 0.27, Sodium Level 138, Potassium Level 3.6, Chloride Level 104, Carbon Dioxide Level 27, Anion Gap 7, Blood Urea Nitrogen 9, Creatinine 0.75, Estimat Glomerular Filtration Rate > 60, BUN/Creatinine Ratio 12, Glucose Level 95, Calcium Level 9.0, Magnesium Level 1.9, Total Bilirubin 0.3, Aspartate Amino Transf (AST/SGOT ) 14, Alanine Aminotransferase (ALT/SGPT) 11, Alkaline Phosphatase 56, Myoglobin 20.7, Troponin I < 0.30, Total Protein 7.1, Albumin 3.9, Amylase Level 62, Lipase 45 09/25/16 22:15: Myoglobin 32.4, Troponin I < 0.30, Total Creatine Kinase 58 09/26/16 05:32: White Blood Count 6.4, Red Blood Count 3.71L, Hemoglobin 10.9L, Hematocrit 33L, Mean Corpuscular Volume 90, Mean Corpuscular Hemoglobin 29, Mean Corpuscular Hemoglobin Concent 33, Red Cell Distribution Width 12.6, Platelet Count 185, Mean Platelet Volume 11.4H, Neutrophils (%) (Auto) 53, Lymphocytes (%) (Auto) 39 , Monocytes (%) (Auto) 7, Eosinophils (%) (Auto) 1, Basophils (%) (Auto) 0, Neutrophils # (Auto) 3.4, Lymphocytes # (Auto) 2.5, Monocytes # (Auto) 0.4, Eosinophils # (Auto) 0.1, Basophils # (Auto) 0.0, Sodium Level 141, Potassium Level 3.6, Chloride Level 110H, Carbon Dioxide Level 23, Anion Gap 8, Blood Urea Nitrogen 7, Creatinine 0.69, Estimat Glomerular Filtration Rate > 60, BUN/ Creatinine Ratio 10, Glucose Level 90, Calcium Level 7.9L, Total Bilirubin 0.6, Aspartate Amino Transf (AST/SGOT) 11, Alanine Aminotransferase (ALT/SGPT) 9, Alkaline Phosphatase 44, Total Protein 5.5L, Albumin 3.2, Triglycerides Level 76 , Cholesterol Level 165, LDL Cholesterol Direct 110, VLDL Cholesterol 15, HDL Cholesterol 48 ECG Impression ECG Initial ECG Rhythm: Normal Sinus Physical Exam Vital Signs Vital Sign - Last 12Hours 09/25/16 09/25/16 16:34 18:19 Temp 100.2 Pulse 90 Resp 18 B/P (MAP) 142/76 Pulse Ox 100 O2 Delivery Room Air Capillary Refill : Less Than 3 Seconds General Appearance: No Apparent Distress, WD/WN HEENT: PERRL/EOMI, Normal ENT Inspection Neck: Full Range of Motion, Normal Inspection, Non Tender, Supple Respiratory: Chest Non Tender, Lungs Clear, Normal Breath Sounds, No Accessory Muscle Use, No Respiratory Distress Cardiovascular: Regular Rate, Rhythm, No Edema, No Gallop, No JVD, No Murmur, Normal Peripheral Pulses Gastrointestinal: Normal Bowel Sounds, No Pulsatile Mass, Non Tender, Soft Rectal: Deferred Back: No CVA Tenderness Extremity: Non Tender, No Calf Tenderness Neurologic/Psychiatric: Alert, Oriented x3, home maker II-XII Norm as Tested Skin: Normal Color, Warm/Dry Lymphatic: No Adenopathy A/P-Cardiology Admission Diagnosis Chest pain Nausea and vomiting HTN HLP Assessment/Plan Chest pain, nonspecific etiology- EKG reveals no acute changes. Cardiac enzymes negative. Stress test both in May 2015 in May 2016 revealing no ischemia or infarct. Unlikely to be cardiac in nature. Reassurance was given to patient. We will continue to monitor. Nausea/vomiting- continue Zofran, phenergan Chronic dizziness-managed by primary care physician Hypertension. Blood pressure currently well controlled. Not on any antihypertensive medications at this time. Continue to monitor. Hyperlipidemia- mildly elevated LDL. Maintained on fish oil as outpatient. Continue to monitor. History of irritable bowel syndrome. Ex-tobaccoism History of alcohol use in the remote past History of cholecystectomy, appendectomy,hysterectomy. Thank you for allowing us to participate in the management of Ms. Dykes. This is Monique Ferreira PA-C as a scribe for Dr. Whitten. This is Dr. Whitten, I have seen and evaluated Mrs. Dykes with Monique, discussed the management plan and perform physical examination, interviewed the patient and agree with the current scribe, on examination lungs were clear to auscultation bilaterally, heart is regular rate and rhythm patient had recurrent chest pain, nausea and vomiting, chronic dizziness, hypertension hyperlipidemia. Had workup done in May this year in May last year and was negative, currently feeling better, cardiac enzymes and EKG did not show any abnormality. I reassured the patient at this time, conservative management, recommended follow-up with Dr. Madden. I made a few modifications to North and used Italic Font Clinical Quality Measures AMI/AHF: ASA po Prior to arrival: No DVT/VTE Risk/Contraindication: Risk Factor Score Per Nursin RFS Level Per Nursing on Admit: 2=Moderate MONIQUE FOUNTAIN Sep 26, 2016 08:32 KENISHA WHITTEN MD Sep 26, 2016 14:45
[2016-09-26] MEDS ORDERED: ASPIRIN E.C. 325 MG (ECOTRIN) TABLET PO SCH (09:00)
[2016-09-26] MEDS: HYOSCYAMINE 0.125 MG (LEVSIN) TAB PO PRN (10:15)
--- NOTE | 2016-09-26 11:44 | Short Stay Summary-Hospitalist ---
HPI History of Present Illness: HPI/Chief Complaint CC: Chest pain HPI: This is a 45 yoWF pt who presented with chest pain. She has had two cardiac stress tests, in 05/27 and 05/28, and she sees Dr. Madden for IBS. Patient Interview: Pt confirms having abdominal pain Pt denies seeing Dr. Madden recently and pt confirms taking meds from [place]. I will send my note to Dr. Madden he will most likely review her meds Pt confirms taking Zofran and confirms having a supply at home Pt denies eating, she states that she drank a Sprite and could not keep it down. Physical exam stable. Pt confirms PCP as Dr. Carmen in [place] and Dr. Hilton Pt confirms having BM yesterday Pt has been ambulating and was encouraged to ambulate the halls Scribed by Cornelia Castillo under the direct supervision of Dr. Ryan. Source: patient Exam Limitations: no limitations Date Seen 09/26/16 Time Seen by Provider: 11:00 Attending Physician Moshe Campuzano MD PCP Drew Carmen Referring Physician Date of Admission Sep 25, 2016 at 17:50 Home Medications & Allergies Home Medications Reviewed patient Home Medication Reconciliation Form Allergies Allergies Coded Allergies Sulfa (Sulfonamide Antibiotics) (Verified Allergy, Unknown, 01/18/14) ciprofloxacin (Verified Allergy, Unknown, 01/18/14) sulfamethoxazole (Verified Allergy, Unknown, 01/18/14) trimethoprim (Verified Allergy, Unknown, 01/18/14) Past Rgwrnub-Otilfj-Rqonga Hx Patient Social History Marrital Status: Employed/Student: employed Alcohol Use: Past History Recreational Drug Use: No Drug of Choice: Hx of HTC and Meth abuse, 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 Smoking Status: Former Smoker Type Used: Cigarettes 2nd Hand Smoke Exposure: Yes Physical Abuse Screen: No Sexual Abuse: No Recent Foreign Travel: No Contact w/other who traveled: No Recent Hopitalizations: No Recent Infectious Disease Expo: No Immunizations Up To Date Tetanus Booster (TDap): Less than 5yrs Date of Influenza Vaccine: Nov 12, 2015 Seasonal Allergies Seasonal Allergies: Yes Surgeries HX Surgeries: Yes Surgeries: Appendectomy, Gallbladder, Hysterectomy, Oophorectomy Respiratory Hx Respiratory Disorders: No Cardiovascular Hx Cardiovascular Disorders: Yes (MURMUR; STRESS TEST 2015 NORMAL) Neurological Hx Neurological Disorders: No Reproductive System Hx Reproductive Disorders: Yes (CERVICAL CANCER) Sexually Transmitted Disease: No HIV/AIDS: No Female Reproductive Disorders: Menstrual Problems, Ovarian Cyst Genitourinary Hx Genitourinary Disorders: No Gastrointestinal Hx Gastrointestinal Disorders: Yes Gastrointestinal Disorders: Gastroesophageal Reflux, Irritable Bowel Musculoskeletal Hx Musculoskeletal Disorders: No Endocrine Hx Endocrine Disorders: Yes (hypoglycemia, hypokalemia) HEENT HX ENT Disorders: No Cancer Hx Cancer: Yes Cancer: Cervical Psychosocial Hx Psychiatric Problems: Yes Behavioral Health Disorders: Depression Integumentary HX Skin/Integumentary Disorder: No Blood Transfusions Hx Blood Disorders: No Adverse Reaction to a Blood Tr: No Reviewed Nursing Assessment Reviewed/Agree w Nursing PMH: Yes Family Medical History Significant Family History: No Pertinent Family Hx Family Hx: Blood coagulation disorder 19 MOTHER Cancer of mouth Diabetes mellitus 19 MOTHER FH: COPD (chronic obstructive pulmonary disease) 19 MOTHER Hypercholesterolemia 19 MOTHER Hypertension 19 MOTHER Thyroid disease 19 MOTHER Review of Systems Constitutional: see HPI EENTM: no symptoms reported Respiratory: no symptoms reported Cardiovascular: chest pain Gastrointestinal: nausea, vomiting Musculoskeletal: no symptoms reported Skin: no symptoms reported Psychiatric/Neurological: No Symptoms Reported All Other Systems Reviewed Negative Unless Noted: Yes Physical Exam Physical Exam Vital Signs Vital Sign - Last 12Hours 09/25/16 09/25/16 16:34 18:19 Temp 100.2 Pulse 90 Resp 18 B/P (MAP) 142/76 Pulse Ox 100 O2 Delivery Room Air Capillary Refill : Less Than 3 Seconds General Appearance: No Apparent Distress, WD/WN, Chronically ill, Obese Eyes: Bilateral Eye Normal Inspection, Bilateral Eye PERRL HEENT: PERRL/EOMI, Normal ENT Inspection, Pharynx Normal Neck: Full Range of Motion, Normal Inspection, Non Tender, Supple, Carotid Bruit Respiratory: Chest Non Tender, Lungs Clear, Normal Breath Sounds, No Accessory Muscle Use, No Respiratory Distress Cardiovascular: Regular Rate, Rhythm, No Edema, No Gallop, No JVD, No Murmur, Normal Peripheral Pulses Gastrointestinal: Normal Bowel Sounds, No Organomegaly, No Pulsatile Mass, Non Tender, Soft Back: Normal Inspection, No CVA Tenderness, No Vertebral Tenderness Extremity: Normal Capillary Refill, Normal Inspection, Normal Range of Motion, Non Tender, No Calf Tenderness, No Pedal Edema Neurologic/Psychiatric: Alert, Oriented x3, No Motor/Sensory Deficits, Normal Mood/Affect Skin: Normal Color, Warm/Dry Lymphatic: No Adenopathy Results Results/Procedures Lab Laboratory Tests 09/25/16 16:30 09/26/16 05:32 Short Stay Diagnosis Discharge Diagnosis-Short Stay Admission Diagnosis Assessment: Chest pain non-cardiac in origin IBS w/flare Final Discharge Diagnosis Assessment: Chest pain non-cardiac in origin IBS w/flare Conclusion Plan Plan: Follow up with all doctors, especially Dr. Madden for IBS flare Ambulate DC home Clinical Quality Measures AMI/AHF: ASA po Prior to arrival: No DVT/VTE Risk/Contraindication: Risk Factor Score Per Nursin RFS Level Per Nursing on Admit: 2=Moderate JONY RYAN DO Sep 26, 2016 11:44
[2016-09-26 12:51] VITALS: BP 114/73
== END 2016-09-26 11:48 | disposition home or self-care (01) ==
LOC: EDUNIT# 16:24 → ER 16:26 → 4TH 17:50 → UNDOADMOB 17:50 → 4TH 18:20 → UNDODISOB 09-26 13:25
PROVIDERS: ADMIT Internal Medicine; ATTEND Internal Medicine
DX: R07.89 Other chest pain (principal); I10 Essential (primary) hypertension; F41.9 Anxiety disorder, unspecified; F31.9 Bipolar disorder, unspecified; F17.220 Nicotine dependence, chewing tobacco, uncomplicated
CPT/HCPCS: 36415; 71010; 80053; 80061; 82150; 82550; 83690; 83735; 83874; 84484; 85025; 85379; 85610; 85730; 93041; 96361; 96374; 96375; 96376; G0378

== ENCOUNTER 2016-11-10 17:33 | Emergency (ER) | payer OTHER ==
[~2016-11-10] VITALS: Ht 154.9 cm; Wt 74.8 kg
[~2016-11-10 17:33] MED LIST changes: +CHOL10007 PO; +OMEG-154 PO; +[UNRECOGNIZED DRUG - CODE] PO
[2016-11-10] MEDS ORDERED: ANTACID SUSP 30 ML UDC (MYLANTA) PO ONE (17:45)
[2016-11-10] MEDS ORDERED: LIDOCAINE 2% VISCOUS 15 ML UDC PO ONE (17:45)
[2016-11-10] MEDS ORDERED: morphine INJ 10 MG/ML 1ML (SYR OR VIAL) IV STA (17:45)
--- NOTE | 2016-11-10 17:49 | ED Chest Pain ---
General Chief Complaint: Chest Pain Stated Complaint: CHEST PAIN History of Present Illness Time seen by provider: 17:40 Initial Comments Patient reports left-sided chest pain that began approximately one hour ago, she is rating it 9 out of 10. She's had no pre-arrival treatment. She's had previous cardiac workup. She took an 81 mg aspirin earlier today. She reports history of GERD and IBS. She sees Dr. Madden for her GI problems. She works at [employer], she did work today and denies having a more stressful to him and normal. She denies nausea or diaphoresis. She is admitted May 17 and September 26, 2016 for atypical chest pain, she had a stress test in May 2016 which was essentially normal showing an ejection fraction of 80%. 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 NTG SL POLITICAL SCIENTIST: No Associated Symptoms: No abdominal pain, No back pain, No diaphoresis, No dizziness, No edema, No fatigue, No fever/chills, No headache, heartburn, No nausea/vomiting, No rash, No shortness of breath, No swelling/lump in chest, No syncope, No weakness Allergies and Home Medications Allergies Coded Allergies: Sulfa (Sulfonamide Antibiotics) (Verified Allergy, Unknown, 01/18/14) ciprofloxacin (Verified Allergy, Unknown, 01/18/14) sulfamethoxazole (Verified Allergy, Unknown, 01/18/14) trimethoprim (Verified Allergy, Unknown, 01/18/14) Home Medications Amitriptyline HCl 10 Mg Tablet, 10 MG PO HS, (Reported) Aspirin 81 Mg Tab.chew, 81 MG PO BID, (Reported) Calcium Carb/Magnesium Hydrox 1 Each Tab.chew, 750 MG PO QID PRN for INDIGESTION , (Reported) Cholecalciferol (Vitamin D3) 1,000 Unit Capsule, 1,000 UNIT PO DAILY, (Reported) Hyoscyamine Sulfate 0.125 Mg Tab.subl, 0.0625 MG SL Q6H, (Reported) TAKES 1/2 (0.125MG) TABLET Meclizine HCl 25 Mg Tab.chew, 25 MG PO TID PRN for DIZZINESS, (Reported) Aspers-3S/Dha/Epa/Fish Oil 1 Each Capsule.dr, 1 CAP PO DAILY, (Reported) Omeprazole Magnesium 20 Mg Tablet.dr, 20 MG PO BID, (Reported) Ondansetron HCl 4 Mg Tablet, 4 MG PO Q6H PRN for NAUSEA/VOMITING-1ST LINE, ( Reported) Potassium Gluconate 99 Mg Tablet, 99 MG PO DAILY, (Reported) Tramadol HCl 50 Mg Tablet, 50 MG PO Q8H PRN for PAIN-MILD TO MODERATE, #12 Ref 0 Prescribed by: SOLEDAD KENDRICK on 11/10/161 Review of Systems Constitutional: no symptoms reported, see HPI, No diaphoresis, No dizziness Cardiovascular: Chest Pain, Denies Lightheadedness, Denies Palpitations, Denies Syncope Gastrointestinal: No Symptoms Reported, See HPI Genitourinary: No Symptoms Reported, See HPI All Other Systems Reviewed Negative Unless Noted: Yes Past Zspfmjq-Jbfaca-Ibjzua Hx Patient Social History Drug of Choice: Hx of HTC and Meth abuse, 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 Type Used: Cigarettes Former Smoker, Quit: May 16, 2001 2nd Hand Smoke Exposure: Yes Recent Foreign Travel: No Contact w/Someone Who Travel: No Recent Hopitalizations: No Immunizations Up To Date Tetanus Booster (TDap): Less than 5yrs PED Vaccines UTD: No Date of Influenza Vaccine: Nov 12, 2015 Seasonal Allergies Seasonal Allergies: Yes Surgeries History of Surgeries: Yes Surgeries: Appendectomy, Gallbladder, Hysterectomy, Oophorectomy Respiratory History of Respiratory Disorde: No Respiratory Disorders: Pneumonia Cardiovascular History of Cardiac Disorders: Yes (MURMUR; STRESS TEST 2016 NORMAL) Neurological History of Neurological Disord: No Reproductive System Hx Reproductive Disorders: Yes (CERVICAL CANCER) Sexually Transmitted Disease: No HIV/AIDS: No Female Reproductive Disorders: Menstrual Problems, 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 Genitourinary History of Genitourinary Disor: No Gastrointestinal History of Gastrointestinal Di: Yes Gastrointestinal Disorders: Gastroesophageal Reflux, Irritable Bowel Musculoskeletal History of Musculoskeletal Dis: No Endocrine History of Endocrine Disorders: Yes (hypoglycemia, hypokalemia) HEENT History of HEENT Disorders: No Cancer History of Cancer: Yes Cancer: Cervical Did You Recieve Any Treatments: Yes Type of Tx Receive: Surgical Intervention Psychosocial History of Psychiatric Problem: Yes Behavioral Health Disorders: Depression Integumentary History of Skin or Integumenta: No Blood Transfusions History of Blood Disorders: Yes (Anemia) Adverse Reaction to a Blood Tr: No Reviewed Nursing Assessment Reviewed/Agree w Nursing PMH: Yes Family Medical History Significant Family History: No Pertinent Family Hx Family Medial History: Blood coagulation disorder 19 MOTHER Cancer of mouth Diabetes mellitus 19 MOTHER FH: COPD (chronic obstructive pulmonary disease) 19 MOTHER Hypercholesterolemia 19 MOTHER Hypertension 19 MOTHER Thyroid disease 19 MOTHER Physical Exam Vital Signs Vital Sign - Last 12Hours Capillary Refill : Less Than 3 Seconds General Appearance: No Apparent Distress, WD/WN HEENT: PERRL/EOMI, TMs Normal, Normal ENT Inspection, Pharynx Normal Neck: Full Range of Motion, Normal Inspection, Non Tender, Supple Respiratory: Chest Non Tender, Lungs Clear, Normal Breath Sounds Cardiovascular: Regular Rate, Rhythm, No Edema, No Murmur, Normal Peripheral Pulses Gastrointestinal: Normal Bowel Sounds, Non Tender, Soft Extremity: Normal Capillary Refill, Normal Inspection, Normal Range of Motion, No Pedal Edema Neurologic/Psychiatric: Alert, Oriented x3, No Motor/Sensory Deficits, Normal Mood/Affect Skin: Normal Color, Warm/Dry Lymphatic: No Adenopathy Progress/Results/Core Measures Results/Orders Lab Results Laboratory Tests Test 11/10/16 17:39 11/10/16 19:30 Range/Units White Blood Count 9.7 4.3-11.0 10^3/uL Red Blood Count 4.14 L 4.35-5.85 10^6/uL Hemoglobin 12.3 11.5-16.0 G/DL Hematocrit 37 35-52 % Mean Corpuscular Volume 88 80-99 FL Mean Corpuscular Hemoglobin 30 25-34 PG Mean Corpuscular Hemoglobin Concent 34 32-36 G/DL Red Cell Distribution Width 12.4 10.0-14.5 % Platelet Count 229 130-400 10^3/uL Mean Platelet Volume 10.9 H 7.4-10.4 FL Neutrophils (%) (Auto) 58 42-75 % Lymphocytes (%) (Auto) 34 12-44 % Monocytes (%) (Auto) 7 0-12 % Eosinophils (%) (Auto) 1 0-10 % Basophils (%) (Auto) 0 0-10 % Neutrophils # (Auto) 5.6 1.8-7.8 X 10^3 Lymphocytes # (Auto) 3.3 1.0-4.0 X 10^3 Monocytes # (Auto) 0.7 0.0-1.0 X 10^3 Eosinophils # (Auto) 0.1 0.0-0.3 10^3/uL Basophils # (Auto) 0.0 0.0-0.1 10^3/uL Prothrombin Time 13.2 12.2-14.7 SEC INR Comment 1.0 0.8-1.4 Activated Partial Thromboplast Time 27 24-35 SEC Sodium Level 139 135-145 MMOL/L Potassium Level 3.4 L 3.6-5.0 MMOL/L Chloride Level 105 98-107 MMOL/L Carbon Dioxide Level 24 21-32 MMOL/L Anion Gap 10 5-14 MMOL/L Blood Urea Nitrogen 8 7-18 MG/DL Creatinine 0.84 0.60-1.30 MG/DL Estimat Glomerular Filtration Rate > 60 BUN/Creatinine Ratio 10 Glucose Level 102 70-105 MG/DL Calcium Level 9.1 8.5-10.1 MG/DL Magnesium Level 1.9 1.8-2.4 MG/DL Total Bilirubin 0.3 0.1-1.0 MG/DL Aspartate Amino Transf (AST/SGOT) 12 5-34 U/L Alanine Aminotransferase (ALT/SGPT) 12 0-55 U/L Alkaline Phosphatase 54 40-136 U/L Myoglobin 51.3 10.0-92.0 NG/ML Troponin I < 0.30 <0.30 NG/ML Total Protein 7.3 6.4-8.2 GM/DL Albumin 4.0 3.2-4.5 GM/DL Urine Color YELLOW Urine Clarity CLEAR Urine pH 7 5-9 Urine Specific [place] 1.010 L 1.016-1.022 Urine Protein NEGATIVE NEGATIVE Urine Glucose (UA) NEGATIVE NEGATIVE Urine Ketones NEGATIVE NEGATIVE Urine Nitrite NEGATIVE NEGATIVE Urine Bilirubin NEGATIVE NEGATIVE Urine Urobilinogen NORMAL NORMAL MG/DL Urine Leukocyte Esterase NEGATIVE NEGATIVE Urine RBC (Auto) NEGATIVE NEGATIVE Urine RBC NONE /HPF Urine WBC 2-5 /HPF Urine Squamous Epithelial Cells 10-25 H /HPF Urine Crystals NONE /LPF Urine Bacteria NEGATIVE /HPF Urine Casts NONE /LPF Urine Mucus SMALL H /LPF Urine Culture Indicated NO My Orders Orders - SOLEDAD KENDRICK Cbc With Automated Diff (11/10/16 17:45) Magnesium (11/10/16 17:45) Chest 1 View, Ap/Pa Only (11/10/16 17:45) Ekg Tracing (11/10/16 17:45) Cardiac Profile 1 (11/10/16 17:45) Comprehensive Metabolic Panel (11/10/16 17:45) Myoglobin Serum (11/10/16 17:45) Protime With Inr (11/10/16 17:45) Partial Thromboplastin Time (11/10/16 17:45) Monitor-Rhythm Ecg Trace Only (11/10/16 17:45) Morphine Injection (Morphine Injection (11/10/16 17:45) Saline Lock/Iv-Start (11/10/16 17:45) Lidocaine 2% Viscous 15 Ml (Xylocaine Vi (11/10/16 17:45) Antacid Suspension (Mylanta Suspension (11/10/16 17:45) Ondansetron Injection (Zofran Injectio (11/10/16 18:06) Hyoscyamine Sl Tablet (Levsin Sl Tablet) (11/10/16 18:45) Rx-Nitroglycerin Sl Tabs (Rx-Nitrostat S (11/10/16 19:00) Nitroglycerin 0.4 Mg Btl 25's (Nitrostat (11/10/16 18:57) Promethazine Injection (Phenergan Injec (11/10/16 19:13) Ketorolac Injection (Toradol Injection) (11/10/16 19:14) Ua Culture If Indicated (11/10/16 19:29) Ekg Tracing (11/10/16 20:03) Rx-Tramadol Hcl (Rx-Ultram) (11/10/16 21:05) Medications Given in ED Current Medications Medications Dose Ordered Sig/Gus Route Start Time Stop Time Status Last Admin Dose Admin Al Hydrox/Mg Hydrox/Simethicone 30 ml ONCE ONCE PO 11/10/16 17:45 11/10/16 17:48 DC 11/10/16 17:57 30 ML Hyoscyamine Sulfate 0.125 mg ONCE ONCE SL 11/10/16 18:45 11/10/16 18:46 DC 11/10/16 18:47 0.125 MG Lidocaine HCl 15 ml ONCE ONCE PO 11/10/16 17:45 11/10/16 17:47 DC 11/10/16 17:57 15 ML Nitroglycerin 0.4 mg STK-MED ONCE SL 11/10/16 18:57 11/10/16 19:05 DC 11/10/16 19:07 0.4 MG Ondansetron HCl 4 mg STK-MED ONCE .ROUTE 11/10/16 18:06 11/10/16 18:14 DC 11/10/16 18:18 8 MG Vital Signs/I&O Vital Sign - Last 12Hours 11/10/16 11/10/16 11/10/16 17:33 17:33 21:25 Temp 98.1 98.1 Pulse 104 93 Resp 24 18 B/P (MAP) 126/57 Pulse Ox 100 97 O2 Delivery Room Air Room Air Room Air Progress Note : Time: 17:40 Progress Note Initial chest pain workup started including EKG, labs, IV access and evaluation. Recommended starting with morphine 5 mg IV and GI cocktail. Reviewed previous admissions over the last 18 months for atypical chest pain. 1800 patient vomited times one, the emesis was recently eaten food. She reports mild nausea at this time Zofran 8 mg IV given. She reports trace improvement in her left-sided chest pain. The pain is specifically in the upper outer chest wall. 1844 patient continues to have sided chest wall pain. States that her reflux has been bad recently, Dr. Madden started on CoQ10 and another vitamin that she is unsure of. Levsin 0.125 mg sublingual. Labs, EKG, and chest ray all essentially normal with a negative troponin. 1899 patient continues to have chest pain rating at 7 out of 10 heart rate continues to be in the 90s to 110. Nitroglycerin 0.4 mg sublingual. 1914 patient vomited times one, continues to complain of chest pain 7/10. Phenergan 25 mg IV for nausea and Toradol 30 mg IV for pain. 1999 heart rate now in the 80s to 90s repeat EKG obtained, no abnormalities noted. 2034 patient able to rest for approximately 15 minutes, reports that her pain has improved slightly. Reviewed patient's care to this point with Dr. Hernandez , agreed with treatment plan. 2104 Spoke to patient at length, discussed their psychosocial issues that could be aggravating her cardiac history, IBS or GERD. She has a history of depression , denies any anxiety. She states that hasn't had she feels under less stress than normal. She denies any problems or at home. Discussed options and treatment at this point, admission for observation versus discharge to home. Since she feels there is some improvement in her symptoms, discharge to home and reasons to return to emergency department were discussed and she verbalized understanding. Her pain is atypical for being cardiac in nature. ECG Initial ECG Impression Date: Nov 10, 2016 Initial ECG Impression Time: 17:34 Initial ECG Rate: 114 Initial ECG Rhythm: S.Tach Initial ECG Intervals: Normal Initial ECG Intervals UT 136, QRS D 82, QT 320, QTC 441. [place] P 53, QRS 28, T 23. Initial ECG Impression: Normal Initial ECG Comparisson: Unchanged Comment Reviewed with Dr. Romero, concurred with the interpretation. Will repeat when heart rate is 90 or lower. EKG : EKG Time: 20:04 Rate: 91 Rhythm: Normal Sinus Intervals: Normal Intervals UT 148, QRS the 76, QT 344, QTC 424. [place] P 52, QRS 17, T 15. ECG Comparisson: Unchanged ECG Impression: Normal Comment Reviewed with Dr. Hernandez concurred with interpretation. Diagnostic Imaging Diagonstic Imaging: Xray Plain Films/CT/US/NM/MRI: chest Comments NAME: ANDREZ HOFFMAN MED REC#: [id number] PT STATUS: REG ER : 1970 PHYSICIAN: SOLEDAD KENDRICK ADMIT DATE: 11/10/16/ER Draft Date of Exam:11/10/16 CHEST 1 VIEW, AP/PA ONLY INDICATION: Left upper chest pain. COMPARISON: 09/25/16. FINDINGS: Single view of the chest demonstrates clear lungs bilaterally. The heart is normal. No pneumothorax. Osseous structures are normal. IMPRESSION: Negative chest. Dictated on workstation # [id number] Dict: 11/10/16 1800 Trans: 11/10/16 1804 [id number] Interpreted by: VICKIE AYERS Electronically signed by: Reviewed: Reviewed by Me Departure Impression Impression: Primary Impression: Chest pain Qualified Codes: R07.82 - Intercostal pain Additional Impression: Chest wall pain Disposition: 01 HOME, SELF-CARE Condition: Improved Departure-Patient Inst. Decision time for Depature: 21:00 Referrals: KEI BELLO MD (PCP/Family) Primary Care Physician Patient Instructions: Chest Pain That Is Not Caused by the Heart (DC) Add. Discharge Instructions: Continue home medications as prescribed. Apply warm moist compresses to area of pain. Use Tramadol for pain, may also take ibuprofen 600 mg every 8 hours. Follow-up with BERTRAM Ngo on Saturday. Return to emergency Department if chest pain increases/returns, difficulty breathing, vomiting, fever greater than 101, dizziness or fatigue, or new problems. All discharge instructions reviewed with patient and/or family. Voiced understanding. Scripts Tramadol HCl (Tramadol HCl) 50 Mg Tablet 50 MG PO Q8H Y for PAIN-MILD TO MODERATE, #12 TAB 0 Refills Prov: SOLEDAD KENDRICK 11/10/16 Work/School Note: Work Release Form Date Seen in the Emergency Department: Nov 10, 2016 Return to Work: Nov 13, 2016 Restrictions: No Restrictions Copy Copies To 1: KENISHA SALEEM MD, AMY ARNP Nov 10, 2016 17:49
[2016-11-10 17:52] LABS: BASOPHILS % (AUTO) 0 % (0-10); EOSINOPHILS # (AUTO) 0.1 10^3/uL (0.0-0.3); EOSINOPHILS % (AUTO) 1 % (0-10); LYMPHOCYTES # (AUTO) 3.3 X 10^3 (1.0-4.0); LYMPHOCYTES % (AUTO) 34 % (12-44); MEAN CORPUSCULAR HEMOGLOBIN 30 PG (25-34); MEAN CORPUSCULAR HGB CONC 34 G/DL (32-36); MEAN CORPUSCULAR VOLUME 88 FL (80-99); MEAN PLATELET VOLUME 10.9 FL (7.4-10.4); MONOCYTES # (AUTO) 0.7 X 10^3 (0.0-1.0); MONOCYTES % (AUTO) 7 % (0-12); NEUTROPHILS # (AUTO) 5.6 X 10^3 (1.8-7.8); NEUTROPHILS % (AUTO) 58 % (42-75); PLATELET COUNT 229 10^3/uL (130-400); RED BLOOD COUNT 4.14 10^6/uL (4.35-5.85); RED CELL DISTRIBUTION WIDTH 12.4 % (10.0-14.5); WHITE BLOOD COUNT 9.7 10^3/uL (4.3-11.0)
[2016-11-10 17:58] LABS: PROTHROMBIN TIME PATIENT 13.2 SEC (12.2-14.7)
--- NOTE | 2016-11-10 18:05 | Diagnostic Imaging Report ---
INDICATION: Left upper chest pain. COMPARISON: 09/25/16. FINDINGS: Single view of the chest demonstrates clear lungs bilaterally. The heart is normal. No pneumothorax. Osseous structures are normal. IMPRESSION: Negative chest. Dictated by: Dictated on workstation # [id number]
[2016-11-10] MEDS ORDERED: ONDANSETRON 4 MG/2 ML (SDV) Z0FRAN ONE (18:06)
[2016-11-10 18:07] LABS: ALANINE AMINOTRANSFERASE 12 U/L (0-55); ANION GAP 10 MMOL/L (5-14); ASPARTATE AMINO TRANSFERASE 12 U/L (5-34); BILIRUBIN,TOTAL 0.3 MG/DL (0.1-1.0); BLOOD UREA NITROGEN 8 MG/DL (7-18); BUN/CREATININE RATIO 10; CALCIUM 9.1 MG/DL (8.5-10.1); CARBON DIOXIDE 24 MMOL/L (21-32); CHLORIDE 105 MMOL/L (98-107); CREATININE SERUM 0.84 MG/DL (0.60-1.30); GFR ESTIMATED > 60; GLUCOSE 102 MG/DL (70-105); MAGNESIUM 1.9 MG/DL (1.8-2.4); POTASSIUM 3.4 MMOL/L (3.6-5.0); SODIUM 139 MMOL/L (135-145); TOTAL PROTEIN 7.3 GM/DL (6.4-8.2)
[2016-11-10 18:13] LABS: MYOGLOBIN SERUM 51.3 NG/ML (10.0-92.0)
[2016-11-10] MEDS ORDERED: HYOSCYAMINE 0.125 MG (LEVSIN) TAB SL ONE (18:45)
[2016-11-10] MEDS ORDERED: NITROGLYCERIN 0.4 MG SL TABS BTL 25'S SL ONE (18:57)
[2016-11-10] MEDS ORDERED: RX-NITROGLYCERIN 0.4 MG TAB BTL 25'S SL PRN (19:00)
[2016-11-10] MEDS ORDERED: PROMETHAZINE INJ 25 MG/ML (PHENERGAN) AMP IVP STA (19:13)
[2016-11-10] MEDS ORDERED: KETOROLAC 30 MG/ML VIAL IVP STA (19:14)
[2016-11-10 19:41] LABS: BILIRUBIN,URINE NEGATIVE (NEGATIVE); KETONES,URINE NEGATIVE (NEGATIVE); LEUKOCYTE ESTERASE ,URINE NEGATIVE (NEGATIVE); NITRITE,URINE NEGATIVE (NEGATIVE); PH,URINE 7 (5-9); PROTEIN,URINE NEGATIVE (NEGATIVE); UROBILINOGEN,URINE NORMAL (NORMAL)
[2016-11-10] MEDS ORDERED: RX-TRAMADOL 50 MG (ULTRAM) TAB PPK#4 PO STA (21:05)
[2016-11-10] MEDS ORDERED: TRAM50TA2 PO (21:11)
[2016-11-10 21:25] VITALS: BP 117/81
== END 2016-11-10 21:25 | disposition home or self-care (01) ==
LOC: EDUNIT# 17:33 → ER 17:34
DX: R07.89 Other chest pain (principal); F32.9 Major depressive disorder, single episode, unspecified; K21.9 Gastro-esophageal reflux disease without esophagitis; Z87.19 Personal history of other diseases of the digestive system; Z87.891 Personal history of nicotine dependence; Z79.82 Long term (current) use of aspirin; Z80.0 Family history of malignant neoplasm of digestive organs; Z82.49 Family history of ischemic heart disease and other diseases of the circulatory system; Z90.49 Acquired absence of other specified parts of digestive tract; Z90.710 Acquired absence of both cervix and uterus; Z87.01 Personal history of pneumonia (recurrent); Z85.41 Personal history of malignant neoplasm of cervix uteri
CPT/HCPCS: 36415; 71010; 80053; 81000; 83735; 83874; 84484; 85025; 85610; 85730; 93005; 93041; 96374; 96375

== ENCOUNTER → 2017-03-29 | Outpatient (CLI) | payer OTHER ==
[~2017-03-29] MED LIST changes: +TRAM50TA2 PO
--- NOTE | 2017-03-29 18:11 | Diagnostic Imaging Report ---
INDICATION: Routine screening. Comparison is made with prior mammogram from 02/09/2016 and 12/13/2014. The current study was also evaluated with a Computer Aided Detection (CAD) system. Scattered fibroglandular densities are identified bilaterally. The parenchymal pattern appears to be stable. No dominant mass or malignant appearing microcalcifications are seen. The axillae are unremarkable. IMPRESSION: No mammographic features suspicious for malignancy are identified. ACR BI-RADS Category 1: Negative. Result letter will be mailed to the patient. Note: At least 10% of breast cancer is not imaged by mammography. Dictated by: Dictated on workstation # [id number]
== END ==
LOC: RAD 10:08
PROVIDERS: ATTEND Internal Medicine
DX: Z12.31 Encounter for screening mammogram for malignant neoplasm of breast (principal)
CPT/HCPCS: 77067

== ENCOUNTER → 2017-08-19 | Outpatient (CLI) | payer OTHER ==
--- NOTE | 2017-08-19 17:05 | Diagnostic Imaging Report ---
EXAMINATION: Right foot, three views. COMPARISON: None. HISTORY: 46-year-old female, dropped object on foot two weeks ago. Persistent foot pain. FINDINGS: There is normal variant congenital fusion of the fifth digit middle and distal phalanges. There is no identified acute fracture or dislocation. There is no radiopaque foreign body. The joint spaces are well-preserved. IMPRESSION: 1. No identified acute bony abnormality of the right foot. Dictated by: Dictated on workstation # [id number]
== END ==
LOC: RAD 15:42
PROVIDERS: ATTEND Nurse Practitioner Family
DX: M79.671 Pain in right foot (principal)
CPT/HCPCS: 73630

== ENCOUNTER 2017-10-18 10:13 | Emergency (ER) | payer OTHER ==
[~2017-10-18] VITALS: Ht 154.9 cm; Wt 79.4 kg
[2017-10-18] MEDS ORDERED: ONDANSETRON 4 MG (ZOFRAN) ORAL DISSOLVE TAB PO ONE (10:45)
[2017-10-18] MEDS ORDERED: HYDROcodone/APAP 5 MG/325 MG (LORTAB) TAB PO ONE (10:45)
[2017-10-18] MEDS ORDERED: CLINDAMYCIN 150 MG (CLEOCIN) CAP PO ONE (10:45)
[2017-10-18] MEDS ORDERED: CLIN300C11 PO (10:50)
[2017-10-18] MEDS ORDERED: HYDR-4226 PO (10:50)
--- NOTE | 2017-10-18 10:50 | ED Integumentary General ---
General Chief Complaint: Skin/Wound Problems Stated Complaint: ABSCESS/POSS BITE UNDER LEFT ARM Source: patient Exam Limitations: no limitations History of Present Illness Date Seen by Provider: Oct 18, 2017 Time Seen by Provider: 10:43 Initial Comments To ER with c/o bites under left arm in the axilla. She was seen by PCP and given keflex without improvement a few weeks ago. Finished that course of antibiotics, no improvement. Now has nausea and pain down left arm. No fevers. Timing/Duration: constant Severity: moderate Location: extremities Possible Cause: no cause identified Allergies and Home Medications Allergies Coded Allergies: Sulfa (Sulfonamide Antibiotics) (Verified Allergy, Unknown, 01/18/14) ciprofloxacin (Verified Allergy, Unknown, 01/18/14) sulfamethoxazole (Verified Allergy, Unknown, 01/18/14) trimethoprim (Verified Allergy, Unknown, 01/18/14) Home Medications Amitriptyline HCl 10 Mg Tablet, 10 MG PO HS, (Reported) Aspirin 81 Mg Tab.chew, 81 MG PO BID, (Reported) Calcium Carb/Magnesium Hydrox 1 Each Tab.chew, 750 MG PO QID PRN for INDIGESTION , (Reported) Cholecalciferol (Vitamin D3) 1,000 Unit Capsule, 1,000 UNIT PO DAILY, (Reported) Hyoscyamine Sulfate 0.125 Mg Tab.subl, 0.0625 MG SL Q6H, (Reported) TAKES 1/2 (0.125MG) TABLET Meclizine HCl 25 Mg Tab.chew, 25 MG PO TID PRN for DIZZINESS, (Reported) [place]-3S/Dha/Epa/Fish Oil 1 Each Capsule.dr, 1 CAP PO DAILY, (Reported) Omeprazole Magnesium 20 Mg Tablet.dr, 20 MG PO BID, (Reported) Ondansetron HCl 4 Mg Tablet, 4 MG PO Q6H PRN for NAUSEA/VOMITING-1ST LINE, ( Reported) Potassium Gluconate 99 Mg Tablet, 99 MG PO DAILY, (Reported) Tramadol HCl 50 Mg Tablet, 50 MG PO Q8H PRN for PAIN-MILD TO MODERATE Prescribed by: SOLEDAD KENDRICK on 11/10/16 0180 Patient Home Medication List Home Medication List Reviewed: Yes Review of Systems Review of Systems Constitutional: see HPI; No chills, No fever EENTM: see HPI Respiratory: no symptoms reported Cardiovascular: no symptoms reported Genitourinary: no symptoms reported Musculoskeletal: no symptoms reported Skin: see HPI Psychiatric/Neurological: No Symptoms Reported Endocrine: No Symptoms Reported Past Yxfvvst-Ayhxwn-Wukyks Hx Patient Social History Drug of Choice: Hx of HTC and Meth abuse, 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 Type Used: Cigarettes Former Smoker, Quit: May 16, 2001 2nd Hand Smoke Exposure: Yes Recent Hopitalizations: No Immunizations Up To Date Tetanus Booster (TDap): Less than 5yrs PED Vaccines UTD: No Date of Influenza Vaccine: Nov 12, 2015 Seasonal Allergies Seasonal Allergies: Yes Past Medical History Surgeries: Yes Appendectomy, Gallbladder, Hysterectomy, Oophorectomy Respiratory: Yes Pneumonia Cardiac: Yes Heart Murmur Neurological: No Reproductive Disorders: Yes (CERVICAL CANCER) Female Reproductive Disorders: Menstrual 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, 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 Sexually Transmitted Disease: No HIV/AIDS: No Genitourinary: No Gastrointestinal: Yes Gastroesophageal Reflux, Irritable Bowel Musculoskeletal: No Endocrine: Yes (hypoglycemia, hypokalemia) HEENT: No Cancer: Yes Cervical Did You Recieve Any Treatments: Yes What Type of Treatment Did You: Surgical Intervention Psychosocial: Yes Depression Integumentary: No Blood Disorders: Yes (Anemia) Adverse Reaction/Blood Tranf: No Family Medical History Blood coagulation disorder 19 MOTHER Cancer of mouth Diabetes mellitus 19 MOTHER FH: COPD (chronic obstructive pulmonary disease) 19 MOTHER Hypercholesterolemia 19 MOTHER Hypertension 19 MOTHER Thyroid disease 19 MOTHER No Pertinent Family Hx Physical Exam Vital Signs Capillary Refill : General Appearance: WD/WN, no apparent distress HEENT: PERRL/EOMI, normal ENT inspection Neck: non-tender, full range of motion Respiratory: no respiratory distress, no accessory muscle use Gastrointestinal: normal bowel sounds, non tender Neurologic/Psychiatric: alert, normal mood/affect, oriented x 3 Skin: normal color, warm/dry Skin Problem Character: abscess, other (there are 3-4 very small pustules in the left axilla where she does shave the arm pit. Inferior and anterior to this there is a half-dollar sized area of erythema without induration but this is exquisitely tender. There are no vesicles to suggest a herpes zoster. Additionally, these lesions have been present for nearly a month. He area of erythema is in but would be considered the tail of [place] this may warrant a breast ultrasound during outpatient follow-up) Progress/Results/Core Measures Results/Orders My Orders Orders - DEONDRE CHARLES APRN Cbc With Automated Diff (10/18/17 10:41) Basic Metabolic Panel (10/18/17 10:41) Ondansetron Oral Dissolve Tab (Zofran (10/18/17 10:45) Hydrocodone/Apap 5/325 Tablet (Lortab 5 (10/18/17 10:45) Clindamycin Capsule (Cleocin Capsule) (10/18/17 10:45) Departure Impression Primary Impression: pustule of axilla Additional Impressions: Nausea erythema of axilla Disposition: HOME, SELF-CARE Condition: Stable Departure-Patient Inst. Decision time for Depature: 10:48 Referrals: KEI BELLO MD (PCP/Family) Primary Care Physician Patient Instructions: Folliculitis (DC) Add. Discharge Instructions: 1. Antibiotics as directed 2. Follow-up with primary care within 1 week. If this does not improve you may need to ask about an ultrasound of the breast to look at this area of redness and pain. All discharge instructions reviewed with patient and/or family. Voiced understanding. Scripts Clindamycin HCl (Clindamycin HCl) 300 Mg Capsule 300 MG PO TID, #21 CAP Prov: DEONDRE CHARLES APRN 10/18/17 Hydrocodone/Acetaminophen ([place] 5-325 Tablet) 1 Each Tablet 1 EACH PO Q4H PRN for PAIN-MODERATE TO SEVERE, #20 TAB Prov: DEONDRE CHARLES APRN 10/18/17 Work/School Note: Work Release Form Date Seen in the Emergency Department: Oct 18, 2017 Return to Work: Oct 19, 2017 DEONDRE CHARLES APRN Oct 18, 2017 10:50
[2017-10-18 11:39] LABS: BASOPHILS % (AUTO) 0 % (0-10); EOSINOPHILS # (AUTO) 0.1 10^3/uL (0.0-0.3); EOSINOPHILS % (AUTO) 1 % (0-10); HEMATOCRIT 38 % (35-52); HEMOGLOBIN 12.9 G/DL (11.5-16.0); LYMPHOCYTES # (AUTO) 1.9 X 10^3 (1.0-4.0); LYMPHOCYTES % (AUTO) 25 % (12-44); MEAN CORPUSCULAR HEMOGLOBIN 30 PG (25-34); MEAN CORPUSCULAR HGB CONC 34 G/DL (32-36); MEAN CORPUSCULAR VOLUME 88 FL (80-99); MEAN PLATELET VOLUME 11.3 FL (7.4-10.4); MONOCYTES # (AUTO) 0.5 X 10^3 (0.0-1.0); MONOCYTES % (AUTO) 6 % (0-12); NEUTROPHILS % (AUTO) 67 % (42-75); PLATELET COUNT 219 10^3/uL (130-400); RED BLOOD COUNT 4.33 10^6/uL (4.35-5.85); RED CELL DISTRIBUTION WIDTH 12.6 % (10.0-14.5); WHITE BLOOD COUNT 7.4 10^3/uL (4.3-11.0)
[2017-10-18 12:01] LABS: BUN/CREATININE RATIO 8; CALCIUM 9.1 MG/DL (8.5-10.1); CARBON DIOXIDE 24 MMOL/L (21-32); CHLORIDE 103 MMOL/L (98-107); CREATININE SERUM 0.78 MG/DL (0.60-1.30); GFR ESTIMATED > 60; GLUCOSE 97 MG/DL (70-105); POTASSIUM 3.7 MMOL/L (3.6-5.0); SODIUM 135 MMOL/L (135-145)
[2017-10-18 12:10] VITALS: BP 124/76
[2017-10-18 12:14] LABS: BILIRUBIN,URINE NEGATIVE (NEGATIVE); CLARITY,URINE CLEAR; COLOR,URINE YELLOW; GLUCOSE, URINE (UA) NEGATIVE (NEGATIVE); KETONES,URINE NEGATIVE (NEGATIVE); LEUKOCYTE ESTERASE ,URINE NEGATIVE (NEGATIVE); NITRITE,URINE NEGATIVE (NEGATIVE); PH,URINE 7 (5-9); PROTEIN,URINE NEGATIVE (NEGATIVE); UROBILINOGEN,URINE NORMAL (NORMAL)
[2017-10-18 12:21] LABS: BACTERIA,URINE NEGATIVE /HPF
== END 2017-10-18 12:28 | disposition home or self-care (01) ==
LOC: EDUNIT# 10:13 → ER 10:15
DX: L08.9 Local infection of the skin and subcutaneous tissue, unspecified (principal); L53.9 Erythematous condition, unspecified; R11.0 Nausea; K21.9 Gastro-esophageal reflux disease without esophagitis; F32.9 Major depressive disorder, single episode, unspecified; Z80.0 Family history of malignant neoplasm of digestive organs; Z82.49 Family history of ischemic heart disease and other diseases of the circulatory system; Z87.19 Personal history of other diseases of the digestive system; Z85.41 Personal history of malignant neoplasm of cervix uteri; Z87.448 Personal history of other diseases of urinary system; Z87.01 Personal history of pneumonia (recurrent); Z90.89 Acquired absence of other organs; Z90.710 Acquired absence of both cervix and uterus; Z87.891 Personal history of nicotine dependence; Z88.2 Allergy status to sulfonamides; Z88.0 Allergy status to penicillin; Z88.8 Allergy status to other drugs, medicaments and biological substances; Z79.82 Long term (current) use of aspirin
CPT/HCPCS: 36415; 80048; 81000; 84703; 85025; 99283

== ENCOUNTER → 2017-10-28 | Outpatient (CLI) | payer OTHER ==
[~2017-10-28] MED LIST changes: +CLIN300C11 PO; +HYDR-4226 PO
== END ==
LOC: CARD 10:22
PROVIDERS: ATTEND Internal Medicine Cardiovascular Disease
DX: R07.89 Other chest pain (principal); I10 Essential (primary) hypertension; E66.9 Obesity, unspecified; K21.9 Gastro-esophageal reflux disease without esophagitis
CPT/HCPCS: 93017

== ENCOUNTER → 2018-10-06 | Outpatient (CLI) | payer OTHER ==
[~2018-10-06] MED LIST changes: +CALC-844 PO; -[UNRECOGNIZED DRUG - CODE] PO
[2018-10-06 14:55] LABS: ALANINE AMINOTRANSFERASE 15 U/L (0-55); ALKALINE PHOSPHATASE 55 U/L (40-136); BILIRUBIN,TOTAL 0.3 MG/DL (0.1-1.0); BUN/CREATININE RATIO 9; CALCIUM 8.5 MG/DL (8.5-10.1); CARBON DIOXIDE 27 MMOL/L (21-32); CHLORIDE 104 MMOL/L (98-107); CREATININE SERUM 0.76 MG/DL (0.60-1.30); GFR ESTIMATED > 60; GLUCOSE 96 MG/DL (70-105); POTASSIUM 3.7 MMOL/L (3.6-5.0); SODIUM 137 MMOL/L (135-145); TOTAL PROTEIN 6.8 GM/DL (6.4-8.2)
[2018-10-07 10:29] LABS: BASOPHILS % (AUTO) 0 % (0-10); EOSINOPHILS # (AUTO) 0.1 10^3/uL (0.0-0.3); EOSINOPHILS % (AUTO) 1 % (0-10); HEMATOCRIT 37 % (35-52); HEMOGLOBIN 12.3 G/DL (11.5-16.0); LYMPHOCYTES # (AUTO) 2.1 X 10^3 (1.0-4.0); LYMPHOCYTES % (AUTO) 32 % (12-44); MEAN CORPUSCULAR HEMOGLOBIN 29 PG (25-34); MEAN CORPUSCULAR HGB CONC 34 G/DL (32-36); MEAN CORPUSCULAR VOLUME 87 FL (80-99); MEAN PLATELET VOLUME 11.6 FL (7.4-10.4); MONOCYTES # (AUTO) 0.5 X 10^3 (0.0-1.0); MONOCYTES % (AUTO) 7 % (0-12); NEUTROPHILS # (AUTO) 3.8 X 10^3 (1.8-7.8); NEUTROPHILS % (AUTO) 59 % (42-75); PLATELET COUNT 218 10^3/uL (130-400); RED CELL DISTRIBUTION WIDTH 12.9 % (10.0-14.5); WHITE BLOOD COUNT 6.4 10^3/uL (4.3-11.0)
== END ==
LOC: LAB 14:15
PROVIDERS: ATTEND Internal Medicine Cardiovascular Disease
DX: K21.9 Gastro-esophageal reflux disease without esophagitis (principal); I10 Essential (primary) hypertension; R00.2 Palpitations
CPT/HCPCS: 36415; 80053; 80061; 84443

== ENCOUNTER 2018-10-20 07:56 | Outpatient (RCR) | payer OTHER ==
[~2018-10-20 07:56] MED LIST changes: -TRAM50TA2 PO; +TRM50T PO
== END 2019-01-18 | disposition home or self-care (01) ==
LOC: CARD 07:56
PROVIDERS: ATTEND Internal Medicine Cardiovascular Disease
DX: I10 Essential (primary) hypertension (principal); R07.89 Other chest pain; K21.9 Gastro-esophageal reflux disease without esophagitis; R00.2 Palpitations
CPT/HCPCS: 93306

== ENCOUNTER 2018-12-29 11:16 | Emergency (ER) | payer OTHER ==
[~2018-12-29] VITALS: Ht 154 cm; Wt 84.0 kg
[~2018-12-29 11:16] MED LIST changes: +TRAM50TA2 PO; -TRM50T PO
[2018-12-29] MEDS ORDERED: ONDANSETRON 4 MG/2 ML (SDV) Z0FRAN IVP ONE (11:30)
[2018-12-29] MEDS ORDERED: NS IV 1000 ML 1,000 ML IV ONE (11:30)
[2018-12-29 11:43] LABS: BASOPHILS % (AUTO) 0 % (0-10); EOSINOPHILS # (AUTO) 0.1 10^3/uL (0.0-0.3); EOSINOPHILS % (AUTO) 1 % (0-10); HEMATOCRIT 40 % (35-52); HEMOGLOBIN 13.3 G/DL (11.5-16.0); LYMPHOCYTES # (AUTO) 2.4 X 10^3 (1.0-4.0); LYMPHOCYTES % (AUTO) 40 % (12-44); MEAN CORPUSCULAR HEMOGLOBIN 29 PG (25-34); MEAN CORPUSCULAR HGB CONC 34 G/DL (32-36); MEAN CORPUSCULAR VOLUME 87 FL (80-99); MEAN PLATELET VOLUME 11.5 FL (7.4-10.4); MONOCYTES # (AUTO) 0.5 X 10^3 (0.0-1.0); MONOCYTES % (AUTO) 8 % (0-12); NEUTROPHILS # (AUTO) 3.1 X 10^3 (1.8-7.8); NEUTROPHILS % (AUTO) 51 % (42-75); PLATELET COUNT 242 10^3/uL (130-400); RED CELL DISTRIBUTION WIDTH 13.1 % (10.0-14.5)
--- NOTE | 2018-12-29 11:46 | ED General ---
General Chief Complaint: Dizziness/Syncope Stated Complaint: DIZZINESS;NAUSEA Allergies and Home Medications Allergies Coded Allergies: Sulfa (Sulfonamide Antibiotics) (Verified Allergy, Unknown, 01/18/14) ciprofloxacin (Verified Allergy, Unknown, 01/18/14) sulfamethoxazole (Verified Allergy, Unknown, 01/18/14) trimethoprim (Verified Allergy, Unknown, 01/18/14) Home Medications Amitriptyline HCl 10 Mg Tablet, 10 MG PO HS, (Reported) Aspirin 81 Mg Tab.chew, 81 MG PO BID, (Reported) Calcium Carb/Magnesium Hydrox 1 Each Tab.chew, 750 MG PO QID PRN for INDIGESTION, (Reported) Cholecalciferol (Vitamin D3) 1,000 Unit Capsule, 1,000 UNIT PO DAILY, (Reported) Clindamycin HCl 300 Mg Capsule, 300 MG PO TID Prescribed by: DEONDRE CHARLES on 10/18/17 1050 Hydrocodone/Acetaminophen 1 Each Tablet, 1 EACH PO Q4H PRN for PAIN-MODERATE TO SEVERE Prescribed by: DEONDRE CHARLES on 10/18/17 1050 Hyoscyamine Sulfate 0.125 Mg Tab.subl, 0.0625 MG SL Q6H, (Reported) TAKES 1/2 (0.125MG) TABLET Meclizine HCl 25 Mg Tab.chew, 25 MG PO TID PRN for DIZZINESS, (Reported) [place]-3S/Dha/Epa/Fish Oil 1 Each Capsule.dr, 1 CAP PO DAILY, (Reported) Omeprazole Magnesium 20 Mg Tablet.dr, 20 MG PO BID, (Reported) Ondansetron HCl 4 Mg Tablet, 4 MG PO Q6H PRN for NAUSEA/VOMITING-1ST LINE, (Reported) Potassium Gluconate 99 Mg Tablet, 99 MG PO DAILY, (Reported) Tramadol HCl 50 Mg Tablet, 50 MG PO Q8H PRN for PAIN-MILD TO MODERATE Prescribed by: SOLEDAD KENDRICK on 11/10/162110 Past Entxqlw-Rcibvc-Kxzxcx Hx Patient Social History Drug of Choice: Hx of HTC and Meth abuse, 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 Type Used: Cigarettes Former Smoker, Quit: May 16, 2001 2nd Hand Smoke Exposure: Yes Recent Hopitalizations: No Immunizations Up To Date Tetanus Booster (TDap): Less than 5yrs PED Vaccines UTD: No Date of Influenza Vaccine: Nov 12, 2015 Seasonal Allergies Seasonal Allergies: Yes Past Medical History Surgeries: Yes Appendectomy, Gallbladder, Hysterectomy, Oophorectomy Respiratory: Yes Pneumonia Cardiac: Yes Heart Murmur Neurological: No Reproductive Disorders: Yes (CERVICAL CANCER) Female Reproductive Disorders: Menstrual Problems, Ovarian Cyst 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 Sexually Transmitted Disease: No HIV/AIDS: No Genitourinary: No Gastrointestinal: Yes Gastroesophageal Reflux, Irritable Bowel Musculoskeletal: No Endocrine: Yes (hypoglycemia, hypokalemia) HEENT: No Cancer: Yes Cervical Did You Recieve Any Treatments: Yes What Type of Treatment Did You: Surgical Intervention Psychosocial: Yes Depression Integumentary: No Blood Disorders: Yes (Anemia) Adverse Reaction/Blood Tranf: No Family Medical History Blood coagulation disorder 19 MOTHER Cancer of mouth Diabetes mellitus 19 MOTHER FH: COPD (chronic obstructive pulmonary disease) 19 MOTHER Hypercholesterolemia 19 MOTHER Hypertension 19 MOTHER Thyroid disease 19 MOTHER No Pertinent Family Hx Physical Exam Vital Signs Capillary Refill : Height, Weight, BMI Height: 5'1.00" Weight: 175lbs. 0.0oz. 79.711641ku; 31.2 BMI Method:Stated Progress/Results/Core Measures Suspected Sepsis SIRS Temperature: Pulse: Respiratory Rate: Laboratory Tests 12/29/18 11:26: White Blood Count 6.0 Blood Pressure / Mean: Laboratory Tests 12/29/18 11:26: Platelet Count 242 Results/Orders Lab Results Laboratory Tests Test 12/29/18 11:26 Range/Units White Blood Count 6.0 4.3-11.0 10^3/uL Red Blood Count 4.53 4.35-5.85 10^6/uL Hemoglobin 13.3 11.5-16.0 G/DL Hematocrit 40 35-52 % Mean Corpuscular Volume 87 80-99 FL Mean Corpuscular Hemoglobin 29 25-34 PG Mean Corpuscular Hemoglobin Concent 34 32-36 G/DL Red Cell Distribution Width 13.1 10.0-14.5 % Platelet Count 242 130-400 10^3/uL Mean Platelet Volume 11.5 H 7.4-10.4 FL Neutrophils (%) (Auto) 51 42-75 % Lymphocytes (%) (Auto) 40 12-44 % Monocytes (%) (Auto) 8 0-12 % Eosinophils (%) (Auto) 1 0-10 % Basophils (%) (Auto) 0 0-10 % Neutrophils # (Auto) 3.1 1.8-7.8 X 10^3 Lymphocytes # (Auto) 2.4 1.0-4.0 X 10^3 Monocytes # (Auto) 0.5 0.0-1.0 X 10^3 Eosinophils # (Auto) 0.1 0.0-0.3 10^3/uL Basophils # (Auto) 0.0 0.0-0.1 10^3/uL My Orders Orders - SOLEDAD KENDRICK Ondansetron Injection (Zofran Injectio (12/29/18 11:30) Cbc With Automated Diff (12/29/18 11:24) Comprehensive Metabolic Panel (12/29/18 11:24) Ekg Tracing (12/29/18 11:24) Accucheck Stat ONCE (12/29/18 11:24) Ns Iv 1000 Ml (Sodium Chloride 0.9%) (12/29/18 11:30) Vital Signs/I&O Capillary Refill : ECG Initial ECG Impression Date: Dec 29, 2018 Initial ECG Impression Time: 11:39 Initial ECG Rate: 68 Initial ECG Rhythm: Normal Sinus Initial ECG Intervals: Normal Initial ECG Intervals [place] 168, QRSD 76, QT 388, QTC 413; and axis P 29, QRS 15, T 25. Initial ECG Impression: Normal Initial ECG Comparisson: Unchanged Comment Reviewed with Dr. Romero, agreed with interpretation. Departure Departure-Patient Inst. Referrals: KEI BELLO MD (PCP/Family) Primary Care Physician SOLEDAD KENDRICK Dec 29, 2018 11:46 POS
--- NOTE | 2018-12-29 11:53 | ED Syncope ---
General Chief Complaint: Dizziness/Syncope Stated Complaint: DIZZINESS;NAUSEA History of Present Illness Date Seen by Provider: Dec 29, 2018 Time Seen by Provider: 11:30 Initial Comments This is a 48-year-old female that presents to the emergency room with complaints of vertigo that started at 9:00 this morning while she was standing at work. Patient has a history of this and took 25 mg of her meclizine but has not had any improvement in her symptoms. Patient is nauseated at this time and reports that the symptoms are much worse with movement and mildly improved when she is lying still. Complains of nausea as well. States that she is being treated for an upper respiratory tract infection with Augmentin and Tessalon Perles, which she is still currently taking both of them. Patient was able to ambulate to the exam bed without difficulty and independently. Timing/Prior Episodes: No Prior History Symptoms Prior to Episode: Nausea Precipitating Factors: Activity, Standing Loss of Consciousness: No Loss of Consciousness Current Symptoms: Nausea Allergies and Home Medications Allergies Coded Allergies: Sulfa (Sulfonamide Antibiotics) (Verified Allergy, Unknown, 01/18/14) ciprofloxacin (Verified Allergy, Unknown, 01/18/14) sulfamethoxazole (Verified Allergy, Unknown, 01/18/14) trimethoprim (Verified Allergy, Unknown, 01/18/14) Home Medications Amitriptyline HCl 10 Mg Tablet, 10 MG PO HS, (Reported) Aspirin 81 Mg Tab.chew, 81 MG PO BID, (Reported) Calcium Carb/Magnesium Hydrox 1 Each Tab.chew, 750 MG PO QID PRN for INDIGESTION, (Reported) Cholecalciferol (Vitamin D3) 1,000 Unit Capsule, 1,000 UNIT PO DAILY, (Reported) Clindamycin HCl 300 Mg Capsule, 300 MG PO TID Prescribed by: DEONDRE CHARLES on 10/18/17 1050 Hydrocodone/Acetaminophen 1 Each Tablet, 1 EACH PO Q4H PRN for PAIN-MODERATE TO SEVERE Prescribed by: DEONDRE CHARLES on 10/18/17 1050 Hyoscyamine Sulfate 0.125 Mg Tab.subl, 0.0625 MG SL Q6H, (Reported) TAKES 1/2 (0.125MG) TABLET Meclizine HCl 25 Mg Tab.chew, 25 MG PO TID PRN for DIZZINESS, (Reported) [place]-3S/Dha/Epa/Fish Oil 1 Each Capsule.dr, 1 CAP PO DAILY, (Reported) Omeprazole Magnesium 20 Mg Tablet.dr, 20 MG PO BID, (Reported) Ondansetron HCl 4 Mg Tablet, 4 MG PO Q6H PRN for NAUSEA/VOMITING-1ST LINE, (Reported) Potassium Gluconate 99 Mg Tablet, 99 MG PO DAILY, (Reported) Tramadol HCl 50 Mg Tablet, 50 MG PO Q8H PRN for PAIN-MILD TO MODERATE Prescribed by: SOLEDAD KENDRICK on 11/10/162110 Patient Home Medication List Home Medication List Reviewed: Yes Review of Systems Constitutional: see HPI, dizziness EENTM: see HPI, no symptoms reported Respiratory: no symptoms reported, see HPI Cardiovascular: no symptoms reported, see HPI Gastrointestinal: see HPI, nausea Genitourinary: no symptoms reported, see HPI Musculoskeletal: no symptoms reported, see HPI Skin: no symptoms reported, see HPI Psychiatric/Neurological: No Symptoms Reported, See HPI All Other Systems Reviewed Negative Unless Noted: Yes Past Sqevnmf-Hgboxj-Bcdroj Hx Past Med/Social Hx: Reviewed Nursing Past Med/Soc Hx Patient Social History Drug of Choice: Hx of HTC and Meth abuse, 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 Type Used: Cigarettes Former Smoker, Quit: May 16, 2001 2nd Hand Smoke Exposure: Yes Recent Hopitalizations: No Immunizations Up To Date Tetanus Booster (TDap): Less than 5yrs PED Vaccines UTD: No Date of Influenza Vaccine: Nov 12, 2015 Seasonal Allergies Seasonal Allergies: Yes Past Medical History Surgeries: Yes Appendectomy, Gallbladder, Hysterectomy, Oophorectomy Respiratory: Yes Pneumonia Cardiac: Yes Heart Murmur Neurological: No Reproductive Disorders: Yes (CERVICAL CANCER) Female Reproductive Disorders: Menstrual Problems, 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 Sexually Transmitted Disease: No HIV/AIDS: No Genitourinary: No Gastrointestinal: Yes Gastroesophageal Reflux, Irritable Bowel Musculoskeletal: No Endocrine: Yes (hypoglycemia, hypokalemia) HEENT: No Cancer: Yes Cervical Did You Recieve Any Treatments: Yes What Type of Treatment Did You: Surgical Intervention Psychosocial: Yes Depression Integumentary: No Blood Disorders: Yes (Anemia) Adverse Reaction/Blood Tranf: No Family Medical History Blood coagulation disorder 19 MOTHER Cancer of mouth Diabetes mellitus 19 MOTHER FH: COPD (chronic obstructive pulmonary disease) 19 MOTHER Hypercholesterolemia 19 MOTHER Hypertension 19 MOTHER Thyroid disease 19 MOTHER No Pertinent Family Hx Physical Exam Vital Signs Vital Signs - First Documented 12/29/18 11:18 Temp 36.6 Pulse 81 Resp 18 B/P (MAP) 135/81 (99) Pulse Ox 97 Capillary Refill : Height, Weight, BMI Height: 5'1.00" Weight: 175lbs. 0.0oz. 79.628829et; 31.2 BMI Method:Stated General Appearance: No Apparent Distress, WD/WN HEENT: PERRL/EOMI, TMs Normal, Normal ENT Inspection, Pharynx Normal Neck: Full Range of Motion, Normal Inspection, Non Tender, Supple Cardiovascular: Regular Rate, Rhythm, No Edema, No Gallop, No JVD, No Murmur, Normal Peripheral Pulses Respiratory: Chest Non Tender, Lungs Clear, Normal Breath Sounds, No Accessory Muscle Use, No Respiratory Distress Gastrointestinal: Normal Bowel Sounds, No Pulsatile Mass, Non Tender, Soft Back: Normal Inspection, No CVA Tenderness Extremities: Normal Capillary Refill, Normal Inspection, Normal Range of Motion, Non Tender, No Calf Tenderness Neurologic/Psychiatric: Alert, Oriented x3 Cranial Nerves: Normal Hearing, Normal Speech, PERRL Coordination/Gait: Normal Finger to Nose, Normal Gait Motor/Sensory: No Motor Deficit, No Sensory Deficit Skin: Normal Color, Warm/Dry Lymphatic: No Adenopathy Progress/Results/Core Measures Results/Orders Lab Results Laboratory Tests Test 12/29/18 11:26 12/29/18 11:38 Range/Units White Blood Count 6.0 4.3-11.0 10^3/uL Red Blood Count 4.53 4.35-5.85 10^6/uL Hemoglobin 13.3 11.5-16.0 G/DL Hematocrit 40 35-52 % Mean Corpuscular Volume 87 80-99 FL Mean Corpuscular Hemoglobin 29 25-34 PG Mean Corpuscular Hemoglobin Concent 34 32-36 G/DL Red Cell Distribution Width 13.1 10.0-14.5 % Platelet Count 242 130-400 10^3/uL Mean Platelet Volume 11.5 H 7.4-10.4 FL Neutrophils (%) (Auto) 51 42-75 % Lymphocytes (%) (Auto) 40 12-44 % Monocytes (%) (Auto) 8 0-12 % Eosinophils (%) (Auto) 1 0-10 % Basophils (%) (Auto) 0 0-10 % Neutrophils # (Auto) 3.1 1.8-7.8 X 10^3 Lymphocytes # (Auto) 2.4 1.0-4.0 X 10^3 Monocytes # (Auto) 0.5 0.0-1.0 X 10^3 Eosinophils # (Auto) 0.1 0.0-0.3 10^3/uL Basophils # (Auto) 0.0 0.0-0.1 10^3/uL Sodium Level 141 135-145 MMOL/L Potassium Level 3.7 3.6-5.0 MMOL/L Chloride Level 105 98-107 MMOL/L Carbon Dioxide Level 25 21-32 MMOL/L Anion Gap 11 5-14 MMOL/L Blood Urea Nitrogen 9 7-18 MG/DL Creatinine 0.84 0.60-1.30 MG/DL Estimat Glomerular Filtration Rate > 60 BUN/Creatinine Ratio 11 Glucose Level 101 70-105 MG/DL Calcium Level 9.5 8.5-10.1 MG/DL Corrected Calcium 8.5-10.1 MG/DL Total Bilirubin 0.4 0.1-1.0 MG/DL Aspartate Amino Transf (AST/SGOT) 14 5-34 U/L Alanine Aminotransferase (ALT/SGPT) 15 0-55 U/L Alkaline Phosphatase 64 40-136 U/L Total Protein 7.9 6.4-8.2 GM/DL Albumin 4.6 H 3.2-4.5 GM/DL Glucometer 95 70-110 MG/DL My Orders Orders - SOLEDAD KENDRICK Ondansetron Injection (Zofran Injectio (12/29/18 11:30) Cbc With Automated Diff (12/29/18 11:24) Comprehensive Metabolic Panel (12/29/18 11:24) Ekg Tracing (12/29/18 11:24) Accucheck Stat ONCE (12/29/18 11:24) Ns Iv 1000 Ml (Sodium Chloride 0.9%) (12/29/18 11:30) Medications Given in ED Current Medications Medications Dose Ordered Sig/Gus Route Start Time Stop Time Status Last Admin Dose Admin Ondansetron HCl 4 mg ONCE ONCE IVP 12/29/18 11:30 12/29/18 11:31 DC 12/29/18 12:03 4 MG Sodium Chloride 1,000 ml @ 0 mls/hr Q0M ONCE IV 12/29/18 11:30 12/29/18 11:31 DC 11/18/19 12:03 1,000 MLS/HR Vital Signs/I&O 12/29/18 12/29/18 11:18 13:07 Temp 36.6 Pulse 81 75 Resp 18 18 B/P (MAP) 135/81 (99) 121/75 (99) Pulse Ox 97 97 Progress Progress Note : Time: 12:40 Progress Note Patient is feeling better and able to sit on the side of the bed without getting dizzy. Patient states that she is ready to go home and is planning to rest. Discharge instructions and return precautions were reviewed with her. All questions answered. Initial ECG Impression Date: Dec 29, 2018 Initial ECG Impression Time: 11:39 Initial ECG Rate: 68 Initial ECG Rhythm: Normal Sinus Initial ECG Intervals: Normal Initial ECG Intervals [place] 168; QRSD 76; QT 388; QTc 413. [place] P 29; QRS 15; T 25. Initial ECG Impression: Normal Initial ECG Comparisson: Unchanged Comment Reviewed with Dr. Romero, agreed with interpretation. Departure Impression Primary Impression: Vertigo Additional Impression: Nausea & vomiting Qualified Codes: R11.2 - Nausea with vomiting, unspecified Disposition: 01 HOME, SELF-CARE Condition: Improved Departure-Patient Inst. Decision time for Depature: 12:40 Referrals: KEI BELLO MD (PCP/Family) Primary Care Physician Patient Instructions: Vertigo (a Type of Dizziness) (DC) Add. Discharge Instructions: Go home and rest today. You need to increase you oral intake of fluids as this can cause your vertigo to flair up. Return with any emergent medical problems All discharge instructions reviewed with patient and/or family. Voiced understanding. SOLEDAD KENDRICK Dec 29, 2018 11:53 POS
[2018-12-29 12:07] LABS: ALANINE AMINOTRANSFERASE 15 U/L (0-55); ALBUMIN 4.6 GM/DL (3.2-4.5); ALKALINE PHOSPHATASE 64 U/L (40-136); BILIRUBIN,TOTAL 0.4 MG/DL (0.1-1.0); BUN/CREATININE RATIO 11; CALCIUM 9.5 MG/DL (8.5-10.1); CARBON DIOXIDE 25 MMOL/L (21-32); CHLORIDE 105 MMOL/L (98-107); CREATININE SERUM 0.84 MG/DL (0.60-1.30); GFR ESTIMATED > 60; GLUCOSE 101 MG/DL (70-105); POTASSIUM 3.7 MMOL/L (3.6-5.0); SODIUM 141 MMOL/L (135-145); TOTAL PROTEIN 7.9 GM/DL (6.4-8.2)
[2018-12-29 13:07] VITALS: BP 121/75
== END 2018-12-29 13:09 | disposition home or self-care (01) ==
LOC: EDUNIT# 11:16 → ER 11:17
DX: R42 Dizziness and giddiness (principal); R11.2 Nausea with vomiting, unspecified; K21.9 Gastro-esophageal reflux disease without esophagitis; K58.9 Irritable bowel syndrome, unspecified; F32.9 Major depressive disorder, single episode, unspecified; D64.9 Anemia, unspecified; Z85.41 Personal history of malignant neoplasm of cervix uteri; Z90.49 Acquired absence of other specified parts of digestive tract; Z90.710 Acquired absence of both cervix and uterus; Z88.2 Allergy status to sulfonamides; Z88.1 Allergy status to other antibiotic agents; Z79.82 Long term (current) use of aspirin; Z87.891 Personal history of nicotine dependence; Z77.22 Contact with and (suspected) exposure to environmental tobacco smoke (acute) (chronic); Z82.49 Family history of ischemic heart disease and other diseases of the circulatory system; Z80.8 Family history of malignant neoplasm of other organs or systems
CPT/HCPCS: 36415; 80053; 82962; 85025; 93005

== ENCOUNTER → 2020-07-29 | Outpatient (CLI) | payer OTHER ==
[~2020-07-29] MED LIST changes: +AMT10T PO; -CLIN300C11 PO; +CLIN300C12 PO; -MECL-106 PO; +MECL-149 PO; +ONDA-105 PO; -ONDA4TAB10 PO; -TRAM50TA2 PO; +TRM50T PO
--- NOTE | 2020-07-29 13:23 | Diagnostic Imaging Report ---
INDICATION: Jumped from truck five weeks ago and now has chronic right ankle pain. FINDINGS: Three views. Articulating surfaces are smooth. Joint spaces are well-maintained. There are no fractures. No soft tissue swelling noted. IMPRESSION: Normal right ankle. Dictated by: Dictated on workstation # [id number]
--- NOTE | 2020-07-29 13:24 | Diagnostic Imaging Report ---
INDICATION: Jumped from truck five weeks ago with persistent pain laterally in the right foot. FINDINGS: Three views. There are no fractures present. No dislocation. Articulating surfaces appear normal. No periosteal reactive changes. IMPRESSION: Normal right foot. Dictated by: Dictated on workstation # [id number]
== END ==
LOC: RAD 10:01
PROVIDERS: ATTEND Physician Assistant
DX: M25.571 Pain in right ankle and joints of right foot (principal); M79.671 Pain in right foot
CPT/HCPCS: 73610; 73630

== ENCOUNTER → 2020-11-25 | Outpatient (CLI) | payer OTHER ==
[2020-11-25 08:43] LABS: ALBUMIN 3.9 GM/DL (3.2-4.5); BILIRUBIN,TOTAL 0.4 MG/DL (0.1-1.0); CALCIUM 9.4 MG/DL (8.5-10.1); CREATININE SERUM 0.87 MG/DL (0.60-1.30); POTASSIUM 4.2 MMOL/L (3.6-5.0); TOTAL PROTEIN 7.1 GM/DL (6.4-8.2)
== END ==
LOC: LAB 08:04
PROVIDERS: ATTEND Physician Assistant
DX: I10 Essential (primary) hypertension (principal); E78.2 Mixed hyperlipidemia
CPT/HCPCS: 36415; 80053; 80061

== ENCOUNTER → 2021-03-08 | Outpatient (CLI) | payer OTHER ==
[~2021-03-08] MED LIST changes: +CLIN-144 PO; -CLIN300C12 PO; -POTA99TA21 PO; +POTA99TA26 PO
[2021-03-08 08:49] LABS: POTASSIUM 3.9 MMOL/L (3.6-5.0)
[2021-03-08 08:50] LABS: ALBUMIN 3.9 GM/DL (3.2-4.5)
[2021-03-08 08:51] LABS: CALCIUM 9.4 MG/DL (8.5-10.1)
[2021-03-08 08:54] LABS: BILIRUBIN,TOTAL 0.4 MG/DL (0.1-1.0)
[2021-03-08 08:56] LABS: CREATININE SERUM 0.79 MG/DL (0.60-1.30)
== END ==
LOC: LAB 08:07
PROVIDERS: ATTEND Internal Medicine Cardiovascular Disease
DX: E78.2 Mixed hyperlipidemia (principal)
CPT/HCPCS: 36415; 80053; 80061

== ENCOUNTER 2021-05-15 14:31 | Emergency (ER) | payer OTHER ==
[~2021-05-15] VITALS: Ht 154.9 cm; Wt 88.4 kg
[2021-05-15] MEDS ORDERED: ONDANSETRON 4 MG/2 ML (SDV) Z0FRAN IVP ONE (15:00)
[2021-05-15] MEDS ORDERED: KETOROLAC 30 MG/ML VIAL IVP ONE (15:00)
--- NOTE | 2021-05-15 15:00 | ED Abdominal Pain ---
General Chief Complaint: Abdominal/GI Problems Stated Complaint: ABD PAIN Nursing Triage Note: PT AMB TO RM 10 WITH COMPLAINT OF LOWER ABD PAIN THAT STARTED THIS MORNING. Source of Information: Patient Exam Limitations: No Limitations History of Present Illness Date Seen by Provider: May 15, 2021 Time Seen by Provider: 14:58 Initial Comments To ER with diffuse lower abdominal pain onset this morning. Normal bowel movements and normal passing gas that she does not like abdomen is more distended than normal. She has nausea without vomiting. She has a history of p artial hysterectomy, appendectomy, cholecystectomy. She believes her pain is from either her IBS or gastroparesis. Timing/Duration: 12 Hours Severity/Quality: Moderate, Severe Location: Generalized Abdomen, Suprapubic Radiation: No Radiation Activities at Onset: None Associated Symptoms: Nausea/Vomiting Allergies and Home Medications Allergies Coded Allergies: Sulfa (Sulfonamide Antibiotics) (Verified Allergy, Unknown, 01/18/14) ciprofloxacin (Verified Allergy, Unknown, 01/18/14) sulfamethoxazole (Verified Allergy, Unknown, 01/18/14) trimethoprim (Verified Allergy, Unknown, 01/18/14) Patient Home Medication List Home Medication List Reviewed: Yes Amitriptyline HCl (Amitriptyline HCl) 10 Mg Tablet, 10 MG PO HS, (Reported) Entered as Reported by: SUSAN GALINDO on 06/01/15 1249 Aspirin (Aspirin) 81 Mg Tab.chew, 81 MG PO BID, (Reported) Entered as Reported by: ALBAN ELISE on 05/16/16 2217 Calcium Carb/Magnesium Hydrox (Antacid Extra Strngth Tab Chew) 1 Each Tab.chew, 750 MG PO QID PRN for INDIGESTION, (Reported) Entered as Reported by: YEHUDA ANDREW on 09/26/16 0830 Cholecalciferol (Vitamin D3) (Vitamin D3) 1,000 Unit Capsule, 1,000 UNIT PO DAILY, (Reported) Entered as Reported by: YEHUDA ANDREW on 09/26/16 0830 Clindamycin HCl (Clindamycin HCl) 300 Mg Capsule, 300 MG PO TID Prescribed by: DEONDRE CHARLES on 10/18/17 1050 Hydrocodone/Acetaminophen (Hydrocodone/Acetaminophen 5 MG/325 MG TAB) 1 Each Tablet, 1 EACH PO Q4H PRN for PAIN-MODERATE TO SEVERE Prescribed by: DEONDRE CHARLES on 10/18/17 1050 Hyoscyamine Sulfate (Hyoscyamine Sulfate) 0.125 Mg Tab.subl, 0.0625 MG SL Q6H, (Reported) Entered as Reported by: ALBAN ELISE on 05/16/16 2219 Meclizine HCl (Meclizine HCl) 25 Mg Tab.chew, 25 MG PO TID PRN for DIZZINESS, (Reported) Entered as Reported by: SUSAN GALINDO on 05/16/16 1810 [place]-3S/Dha/Epa/Fish Oil (Fish Oil [place]-3 Softgel) 1 Each Capsule.dr, 1 CAP PO DAILY, (Reported) Entered as Reported by: CLAUDETTE FRASER on 09/25/16 1639 Omeprazole Magnesium (Prilosec Otc) 20 Mg Tablet.dr, 20 MG PO BID, (Reported) Entered as Reported by: SUSAN GALINDO on 06/01/15 1249 Ondansetron HCl (Ondansetron HCl) 4 Mg Tablet, 4 MG PO Q6H PRN for NAUSEA/VOMITING-1ST LINE, (Reported) Entered as Reported by: CHALO CASTAÑEDA on 05/17/16 0814 Potassium Gluconate (Potassium) 99 Mg Tablet, 99 MG PO DAILY, (Reported) Entered as Reported by: ALBAN ELISE on 05/16/16 2221 Tramadol HCl (Tramadol HCl) 50 Mg Tablet, 50 MG PO Q8H PRN for PAIN-MILD TO MODERATE Prescribed by: SOLEDAD KENDRICK on 11/10/16 2111 Review of Systems Review of Systems Constitutional: see HPI EENTM: No Symptoms Reported Respiratory: No Symptoms Reported Cardiovascular: No Symptoms Reported Gastrointestinal: See HPI, Abdominal Pain, Nausea Genitourinary: No Symptoms Reported Musculoskeletal: no symptoms reported Skin: no symptoms reported Psychiatric/Neurological: No Symptoms Reported Endocrine: No Symptoms Reported Hematologic/Lymphatic: No Symptoms Reported Past Wmplwdd-[id number]-Fkzqut Hx Patient Social History Tobacco Use?: No Use of E-Cig and/or Vaping dev: No Substance use?: No Alcohol Use?: No Pt feels they are or have been: No Immunizations Up To Date Tetanus Booster (TDap): Less than 5yrs PED Vaccines UTD: No Influenza Vaccine Up-to-Date: Yes; Up-to-Date First/Initial COVID19 Vaccinat: 2020 Second COVID19 Vaccination Jorge Luis: 2020 COVID19 Vaccine [employer]: [employer] Seasonal Allergies Seasonal Allergies: Yes Past Medical History Surgeries: Yes Appendectomy, Gallbladder, Hysterectomy, Oophorectomy Respiratory: Yes Pneumonia Cardiac: Yes Heart Murmur Neurological: No Reproductive Disorders: Yes (CERVICAL CANCER) Female Reproductive Disorders: 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 Problems, 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 Sexually Transmitted Disease: No HIV/AIDS: No Genitourinary: No Gastrointestinal: Yes Gastroesophageal Reflux, Irritable Bowel Musculoskeletal: No Endocrine: Yes (hypoglycemia, hypokalemia) HEENT: No Cancer: Yes Cervical Did You Recieve Any Treatments: Yes What Type of Treatment Did You: Surgical Intervention Psychosocial: Yes Depression Integumentary: No Blood Disorders: Yes (Anemia) Adverse Reaction/Blood Tranf: No Family Medical History Blood coagulation disorder 19 MOTHER Cancer of mouth Diabetes mellitus 19 MOTHER FH: COPD (chronic obstructive pulmonary disease) 19 MOTHER Hypercholesterolemia 19 MOTHER Hypertension 19 MOTHER Thyroid disease 19 MOTHER No Pertinent Family Hx Physical Exam Vital Signs Vital Signs - First Documented 05/15/21 14:45 Temp 36.3 Pulse 106 Resp 20 B/P (MAP) 149/72 (97) Pulse Ox 97 O2 Delivery Room Air Capillary Refill : Less Than 3 Seconds Height/Weight/BMI Height: 5'1.00" Weight: 175lbs. 0.0oz. [id number]; 36.00 BMI Method:Stated General Appearance: WD/WN, no apparent distress HEENT: PERRL/EOMI, normal ENT inspection Respiratory: no respiratory distress, no accessory muscle use Cardiovascular: regular rate, rhythm, no murmur Gastrointestinal: normal bowel sounds, soft, tenderness Extremities: normal range of motion, non-tender Neurologic/Psychiatric: alert, normal mood/affect, oriented x 3 Skin: normal color, warm/dry Progress/Results/Core Measures Results/Orders Lab Results Laboratory Tests Test 05/15/21 14:46 Range/Units White Blood Count 9.6 4.3-11.0 10^3/uL Red Blood Count 4.74 3.80-5.11 10^6/uL Hemoglobin 13.7 11.5-16.0 g/dL Hematocrit 42 35-52 % Mean Corpuscular Volume 88 80-99 fL Mean Corpuscular Hemoglobin 29 25-34 pg Mean Corpuscular Hemoglobin Concent 33 32-36 g/dL Red Cell Distribution Width 12.6 10.0-14.5 % Platelet Count 219 130-400 10^3/uL Mean Platelet Volume 12.1 9.0-12.2 fL Immature Granulocyte % (Auto) 0 % Neutrophils (%) (Auto) 77 H 42-75 % Lymphocytes (%) (Auto) 17 12-44 % Monocytes (%) (Auto) 4 0-12 % Eosinophils (%) (Auto) 1 0-10 % Basophils (%) (Auto) 0 0-10 % Neutrophils # (Auto) 7.4 1.8-7.8 10^3/uL Lymphocytes # (Auto) 1.7 1.0-4.0 10^3/uL Monocytes # (Auto) 0.4 0.0-1.0 10^3/uL Eosinophils # (Auto) 0.1 0.0-0.3 10^3/uL Basophils # (Auto) 0.0 0.0-0.1 10^3/uL Immature Granulocyte # (Auto) 0.0 0.0-0.1 10^3/uL Urine Color YELLOW Urine Clarity CLEAR Urine pH 5.5 5-9 Urine Specific [place] >=1.030 1.016-1.022 Urine Protein NEGATIVE NEGATIVE Urine Glucose (UA) NEGATIVE NEGATIVE Urine Ketones NEGATIVE NEGATIVE Urine Nitrite NEGATIVE NEGATIVE Urine Bilirubin 1+ H NEGATIVE Urine Urobilinogen 0.2 < = 1.0 MG/DL Urine Leukocyte Esterase NEGATIVE NEGATIVE Urine RBC (Auto) NEGATIVE NEGATIVE Urine RBC RARE /HPF Urine WBC 2-5 /HPF Urine Squamous Epithelial Cells 5-10 /HPF Urine Crystals NONE /LPF Urine Bacteria LARGE H /HPF Urine Casts NONE /LPF Urine Mucus SMALL H /LPF Urine Culture Indicated YES Sodium Level 142 135-145 MMOL/L Potassium Level 3.8 3.6-5.0 MMOL/L Chloride Level 104 98-107 MMOL/L Carbon Dioxide Level 23 21-32 MMOL/L Anion Gap 15 H 5-14 MMOL/L Blood Urea Nitrogen 8 7-18 MG/DL Creatinine 0.93 0.60-1.30 MG/DL Estimat Glomerular Filtration Rate 76 BUN/Creatinine Ratio 9 Glucose Level 103 70-105 MG/DL Calcium Level 9.2 8.5-10.1 MG/DL Corrected Calcium 9.0 8.5-10.1 MG/DL Total Bilirubin 0.7 0.1-1.0 MG/DL Aspartate Amino Transf (AST/SGOT) 22 5-34 U/L Alanine Aminotransferase (ALT/SGPT) 32 0-55 U/L Alkaline Phosphatase 84 40-136 U/L Total Protein 7.5 6.4-8.2 GM/DL Albumin 4.2 3.2-4.5 GM/DL Lipase 19 8-78 U/L My Orders Orders - DEONDRE CHARLES APRN Ketorolac Injection (Toradol Injection) (05/15/21 15:00) Ondansetron Injection (Zofran Injectio (05/15/21 15:00) Cbc With Automated Diff (05/15/21 14:54) Comprehensive Metabolic Panel (05/15/21 14:54) Lipase (05/15/21 14:54) Ua Culture If Indicated (05/15/21 14:54) Ed Iv/Invasive Line Start (05/15/21 14:54) Protime With Inr (05/15/21 14:54) Ct Abdomen/Pelvis W (05/15/21 14:54) Promethazine Injection (Phenergan Injec (05/15/21 15:15) Urine Culture (05/15/21 14:46) Promethazine Injection (Phenergan Injec (05/15/21 16:00) Iohexol Injection (Omnipaque 350 Mg/Ml 1 (05/15/21 16:15) Ns (Ivpb) (Sodium Chloride 0.9% Ivpb Bag (05/15/21 16:15) Morphine Injection (Morphine Injection (05/15/21 16:56) Medications Given in ED Current Medications Medications Dose Ordered Sig/Gus Route Start Time Stop Time Status Last Admin Dose Admin Iohexol 100 ml ONCE ONCE IV 05/15/21 16:15 05/15/21 16:16 DC 05/15/21 16:14 100 ML Ketorolac Tromethamine 15 mg ONCE ONCE IVP 05/15/21 15:00 05/15/21 15:01 DC 05/15/21 15:13 15 MG Ondansetron HCl 8 mg ONCE ONCE IVP 05/15/21 15:00 05/15/21 15:01 DC 05/15/21 15:13 8 MG Promethazine HCl 12.5 mg ONCE ONCE IVP 05/15/21 15:15 05/15/21 15:16 DC 05/15/21 15:13 12.5 MG Promethazine HCl 12.5 mg ONCE ONCE IVP 05/15/21 16:00 05/15/21 16:01 DC 05/15/21 15:54 12.5 MG Sodium Chloride 100 ml ONCE ONCE IV 05/15/21 16:15 05/15/21 16:16 DC 05/15/21 16:14 80 ML Vital Signs/I&O 05/15/21 14:45 Temp 36.3 Pulse 106 Resp 20 B/P (MAP) 149/72 (97) Pulse Ox 97 O2 Delivery Room Air Blood Pressure Mean: 97 Departure Communication (Admissions) 3411-was nauseous on arrival, she was given 12.5 mg of Phenergan and 8 mg of Zofran with the hopes that she could tolerate some oral contrast. However after being given the medication and then starting the oral contrast she began puking again. We gave an additional 12.5 mg of Phenergan just a few minutes ago and will abort further efforts to give oral contrast. Impression Primary Impression: Nausea & vomiting Disposition: 01 HOME, SELF-CARE Condition: Stable Departure-Patient Inst. Decision time for Depature: 16:31 Referrals: NO,LOCAL PHYSICIAN (PCP) Primary Care Physician MANISH MEIER (Family) Primary Care Physician Patient Instructions: No Instuctions Given Add. Discharge Instructions: 1. Clear liquids for the next 24 hours. Return to ER for any concerns or worsening symptoms. Follow-up with your doctor next week. All discharge instructions reviewed with patient and/or family. Voiced understanding. Scripts Promethazine HCl (Promethazine Tablet) 25 Mg Tablet 25 MG PO Q6H PRN for NAUSEA/VOMITING, #14 TAB Prov: DEONDRE CHARLES APRN 05/15/21 Ondansetron (Ondansetron Odt) 4 Mg Tab.rapdis 4 MG PO Q6H PRN for NAUSEA/VOMITING, #30 TAB 0 Refills Prov: DEONDRE CHARLES APRN 05/15/21 Work/School Note: Work Release Form Date Seen in the Emergency Department: May 15, 2021 Return to Work: May 17, 2021 DEONDRE CHARLES APRN May 15, 2021 15:00
[2021-05-15 15:02] LABS: BILIRUBIN,URINE 1+ (NEGATIVE); CLARITY,URINE CLEAR; COLOR,URINE YELLOW; GLUCOSE, URINE (UA) NEGATIVE (NEGATIVE); KETONES,URINE NEGATIVE (NEGATIVE); LEUKOCYTE ESTERASE ,URINE NEGATIVE (NEGATIVE); NITRITE,URINE NEGATIVE (NEGATIVE); PH,URINE 5.5 (5-9); PROTEIN,URINE NEGATIVE (NEGATIVE)
[2021-05-15 15:03] LABS: BASOPHILS % (AUTO) 0 % (0-10); EOSINOPHILS # (AUTO) 0.1 10^3/uL (0.0-0.3); EOSINOPHILS % (AUTO) 1 % (0-10); HEMATOCRIT 42 % (35-52); HEMOGLOBIN 13.7 g/dL (11.5-16.0); LYMPHOCYTES # (AUTO) 1.7 10^3/uL (1.0-4.0); LYMPHOCYTES % (AUTO) 17 % (12-44); MEAN CORPUSCULAR HEMOGLOBIN 29 pg (25-34); MEAN CORPUSCULAR HGB CONC 33 g/dL (32-36); MEAN CORPUSCULAR VOLUME 88 fL (80-99); MEAN PLATELET VOLUME 12.1 fL (9.0-12.2); MONOCYTES # (AUTO) 0.4 10^3/uL (0.0-1.0); MONOCYTES % (AUTO) 4 % (0-12); NEUTROPHILS # (AUTO) 7.4 10^3/uL (1.8-7.8); NEUTROPHILS % (AUTO) 77 % (42-75); PLATELET COUNT 219 10^3/uL (130-400); WHITE BLOOD COUNT 9.6 10^3/uL (4.3-11.0)
[2021-05-15 15:10] LABS: ALBUMIN 4.2 GM/DL (3.2-4.5)
[2021-05-15 15:11] LABS: POTASSIUM 3.8 MMOL/L (3.6-5.0)
[2021-05-15 15:12] LABS: CALCIUM 9.2 MG/DL (8.5-10.1)
[2021-05-15 15:13] LABS: TOTAL PROTEIN 7.5 GM/DL (6.4-8.2)
[2021-05-15 15:14] LABS: BACTERIA,URINE LARGE /HPF; RBC,URINE RARE /HPF
[2021-05-15 15:15] LABS: BILIRUBIN,TOTAL 0.7 MG/DL (0.1-1.0)
[2021-05-15] MEDS ORDERED: PROMETHAZINE INJ 25 MG/ML (PHENERGAN) AMP IVP ONE ×2 (15:15→16:00)
[2021-05-15 15:17] LABS: CREATININE SERUM 0.93 MG/DL (0.60-1.30)
[2021-05-15] MEDS ORDERED: IOHEXOL 350 MG/ML 100 ML (OMNIPAQUE 350) VIAL IV ONE (16:15)
[2021-05-15] MEDS ORDERED: NS 100 ML (IVPB) BAG IV ONE (16:15)
--- NOTE | 2021-05-15 16:27 | Diagnostic Imaging Report ---
PROCEDURE: CT abdomen and pelvis with contrast. TECHNIQUE: Multiple contiguous axial images were obtained through the abdomen and pelvis after administration of intravenous contrast. Auto Exposure Controls were utilized during the CT exam to meet ALARA standards for radiation dose reduction. All CT scans use one or more of the following dose optimizing techniques: Automated exposure control, MA and/or KvP adjustment based on patient size and exam type or iterative reconstruction. INDICATION: Abdominal pain. FINDINGS: There is low-density throughout the liver indicating steatosis. Gallbladder is surgically absent without evidence of biliary ductal dilatation. There is no evidence of pancreatic or adrenal gland abnormality. Spleen and kidneys are also unremarkable in appearance. There is no evidence of free fluid or pathologically enlarged abdominal adenopathy. The colon is largely collapsed; however, there is evidence of [id number] mural thickening in the ascending colon with fluid distention of distal small bowel loops. The appendix is not definitely visualized and may be absent. Unopacified urinary bladder is unremarkable in appearance. Uterus is surgically absent. Note is made of L5-S1 degenerative disc disease. IMPRESSION: Nonspecific mural thickening in the right colon, possibly related to colitis, although evaluation is limited due to underdistention. Mild distention of distal small bowel loops with fluid may be on the basis of ileus. There is hepatic steatosis. Dictated by: Dictated on workstation # [id number]
[2021-05-15] MEDS ORDERED: morphine INJ 10 MG/ML 1ML (SYR OR VIAL) IVP STA (16:56)
[2021-05-15] MEDS ORDERED: PROM25TA14 PO (16:57)
[2021-05-15] MEDS ORDERED: ONDA4TAB11 PO (16:57)
[2021-05-15 17:14] VITALS: BP 113/72
== END 2021-05-15 17:14 | disposition home or self-care (01) ==
LOC: EDUNIT# 14:31 → ER 14:33
DX: R11.2 Nausea with vomiting, unspecified (principal)
CPT/HCPCS: 36415; 74177; 80053; 81000; 83690; 85025; 87088

== ENCOUNTER → 2021-08-23 | Outpatient (CLI) | payer OTHER ==
[~2021-08-23] MED LIST changes: +ONDA4TAB11 PO; +PROM25TA14 PO
--- NOTE | 2021-08-23 13:54 | Diagnostic Imaging Report ---
Indication: Routine screening. Comparison is made with prior mammogram 03/29/2017 and 02/09/2016. 2-D and 3-D bilateral screening mammography was performed with CAD. CAD is utilized. The current study was also evaluated with a Computer Aided Detection (CAD) system. Scattered fibroglandular densities are identified bilaterally. No mass or malignant-appearing microcalcifications are seen. Axillae are unremarkable. IMPRESSION: BI-RADS Category 1 No mammographic features suspicious for malignancy are identified. ACR BI-RADS Category 1: Negative. Result letter will be mailed to the patient. Note: At least 10% of breast cancer is not imaged by mammography. Dictated by: Dictated on workstation # [id number]
== END ==
LOC: RAD 09:49
PROVIDERS: ATTEND Internal Medicine
DX: Z12.31 Encounter for screening mammogram for malignant neoplasm of breast (principal)
CPT/HCPCS: 77063; 77067

== ENCOUNTER → 2021-09-26 | Outpatient (CLI) | payer OTHER ==
--- NOTE | 2021-09-26 17:46 | Diagnostic Imaging Report ---
EXAMINATION: Left hand radiograph EXAM DATE: 09/26/2021 4:48 PM COMPARISON: 10/01/2017 HISTORY: LT HAND PAIN TECHNIQUE: 3 views FINDINGS: There is no acute fracture, dislocation, or destructive osseous process. The joint spaces are normal. The soft tissues are normal. IMPRESSION: 1. No acute osseous abnormality. Dictated by: Dictated on workstation # [id number]
== END ==
LOC: RAD 16:29
PROVIDERS: ATTEND Physician Assistant
DX: M79.642 Pain in left hand (principal)
CPT/HCPCS: 73130

== ENCOUNTER → 2021-10-27 | Outpatient (CLI) | payer OTHER ==
--- NOTE | 2021-10-27 17:25 | Diagnostic Imaging Report ---
PROCEDURE: CT left upper extremity without contrast. TECHNIQUE: Multiple contiguous axial images were obtained through the left upper extremity without the use of intravenous contrast. Auto Exposure Controls were utilized during the CT exam to meet ALARA standards for radiation dose reduction. INDICATION: Pain in the left hand laterally shooting into the wrist. COMPARISON: Radiographs from 09/26/2021. FINDINGS: Imaged portions of the wrist demonstrate no acute fracture. The wrist is in extension on the exam. Alignment otherwise appears normal. There is no significant widening at the scapholunate or lunotriquetral joints. No cortical erosions are seen. No focal muscular atrophy is seen. No soft tissue masses or fluid collections are seen on this noncontrast CT. IMPRESSION: 1. No acute osseous abnormality is seen in the left wrist. Dictated by: Dictated on workstation # [id number]
== END ==
LOC: RAD 15:45
PROVIDERS: ATTEND Physician Assistant
DX: M25.532 Pain in left wrist (principal)
CPT/HCPCS: 73200

== ENCOUNTER 2021-11-09 07:53 | Outpatient (RCR) | payer OTHER | END 2021-11-10 | PROVIDERS: ATTEND Physician Assistant | DX: M25.532 Pain in left wrist (principal) ==

== ENCOUNTER 2021-11-27 08:00 | Outpatient (RCR) | payer OTHER | END 2021-12-11 | disposition home or self-care (01) | PROVIDERS: ATTEND Physician Assistant | DX: M25.532 Pain in left wrist (principal) ==

== ENCOUNTER → 2021-12-19 | Outpatient (CLI) | payer OTHER ==
--- NOTE | 2021-12-21 11:18 | Diagnostic Imaging Report ---
TECHNIQUE: Multiplanar, multisequence non contrast-enhanced MRI of the left upper extremity was accomplished. INDICATION: Wrist pain worsening recently. EXAMINATION: Left upper extremity MRI without contrast 12/19/2021 FINDINGS: There is a marker along the radial aspect of the wrist at the site of pain. Near the marker site, there is diffuse fluid tracking along the sheaths of the tendons within the second compartment of the wrist. This surrounds the course of the extensor carpi radialis brevis and longus tendons which are both slightly enlarged consistent with tenosynovitis. There is no discontinuity. A small amount of fluid is also seen surrounding the tendons within the first compartment with mild hyperintensity noted within the extensor pollicis brevis and abductor pollicis longus tendons suspicious for a process such as de Quervain's tenosynovitis. No focal tears or discontinuity appreciated. Overlying soft tissue edema is noted. Carpal tunnel unremarkable. Median nerve demonstrates normal signal intensity. The extensor carpi ulnaris tendon is not seen in its normal location. It is most likely dislocated. It appears to lie volar to the distal ulna and is diffusely enlarged consistent with changes of tenosynovitis. There is no acute osseous abnormality. The triangular fibrocartilage is grossly intact with mild degenerative signal noted. Intrinsic ligaments are grossly intact on this noncontrast examination. IMPRESSION: 1. Findings of tenosynovitis throughout the 2nd compartment of the wrist and also noted within the 1st compartment suggesting de Quervain's tenosynovitis. 2. Apparent dislocation of the extensor carpi ulnaris tendon which is enlarged consistent with findings of tenosynovitis. No discontinuity appreciated. Remaining visualized tendons intact. 3. Intrinsic ligaments grossly intact on this noncontrast examination with the triangular fibrocartilage unremarkable. Dictated by: Dictated on workstation # [id number]
== END ==
LOC: RAD 08:45
PROVIDERS: ATTEND Physician Assistant
DX: M65.842 Other synovitis and tenosynovitis, left hand (principal); S63.095A Other dislocation of left wrist and hand, initial encounter; X58.XXXA Exposure to other specified factors, initial encounter
CPT/HCPCS: 73221

== ENCOUNTER → 2021-12-19 | Outpatient (CLI) | payer OTHER ==
[2021-12-19 09:50] LABS: BASOPHILS # (AUTO) 0.1 10^3/uL (0.0-0.1); BASOPHILS % (AUTO) 0 % (0-10); EOSINOPHILS % (AUTO) 0 % (0-10); HEMATOCRIT 40 % (35-52); HEMOGLOBIN 12.8 g/dL (11.5-16.0); LYMPHOCYTES # (AUTO) 4.7 10^3/uL (1.0-4.0); LYMPHOCYTES % (AUTO) 31 % (12-44); MEAN CORPUSCULAR HEMOGLOBIN 29 pg (25-34); MEAN CORPUSCULAR HGB CONC 32 g/dL (32-36); MEAN CORPUSCULAR VOLUME 91 fL (80-99); MONOCYTES # (AUTO) 0.8 10^3/uL (0.0-1.0); MONOCYTES % (AUTO) 5 % (0-12); NEUTROPHILS # (AUTO) 9.5 10^3/uL (1.8-7.8); NEUTROPHILS % (AUTO) 63 % (42-75); PLATELET COUNT 276 10^3/uL (130-400); WHITE BLOOD COUNT 15.1 10^3/uL (4.3-11.0)
[2021-12-19 10:34] LABS: BAND NEUTROPHILS 1 %; BASOPHILS % (MANUAL) 0 %; EOSINOPHILS % (MANUAL) 0 %; LYMPHOCYTES % (MANUAL) 35 %; MONOCYTES % (MANUAL) 1 %; NEUTROPHILS % (MANUAL) 63 %; RBC MORPH NORMAL
== END ==
LOC: LAB 09:35
PROVIDERS: ATTEND Internal Medicine Gastroenterology
DX: D64.9 Anemia, unspecified (principal)
CPT/HCPCS: 36415; 82728; 85007; 85027

== ENCOUNTER → 2022-01-10 | Outpatient (RCR) | payer OTHER ==
[~2022-01-10] MED LIST changes: +DEXAMETHASONE 4 MG/ML TOP SCH
== END | disposition home or self-care (01) ==
PROVIDERS: ATTEND Physician Assistant
DX: M25.532 Pain in left wrist (principal)

== ENCOUNTER 2022-02-08 09:51 | Outpatient (RCR) | payer OTHER ==
[~2022-02-08 09:51] MED LIST changes: -DEXAMETHASONE 4 MG/ML TOP SCH
== END 2022-02-08 12:20 | disposition home or self-care (01) ==
PROVIDERS: ATTEND Physician Assistant
DX: M25.532 Pain in left wrist (principal)

== ENCOUNTER 2022-07-17 15:41 | Emergency (ER) | payer OTHER ==
[~2022-07-17] VITALS: Ht 154 cm; Wt 84.3 kg
[2022-07-17] MEDS ORDERED: morphine INJ 10 MG/ML 1ML (SYR OR VIAL) IV STA (15:56)
[2022-07-17] MEDS ORDERED: ASPIRIN 81 MG CHEW (CHILDREN'S ASA) PO ONE (16:00)
--- NOTE | 2022-07-17 16:01 | ED Chest Pain ---
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 Source: patient Exam Limitations: no limitations (MINDI HODGES) History of Present Illness Date Seen by Provider: Jul 17, 2022 Time Seen by Provider: 15:57 Initial Comments Patient is a 51-year-old female with a history of tachycardia, IBS, gastroparesis who presents the ED for chest pain. Chest pain started 5 minutes before arrival. Feels like someone is sitting on her chest. Rates pain 6 out of 10 without shortness of breath or cough. 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 Started having lightheadedness and dizziness. She states she had a negative COVID swab. She denies history of coronary artery disease, COPD, asthma. Previous smoker 20 years ago. Denies of any cough, sore throat, fevers, ear pain, abdominal pain, vomiting, diarrhea or urinary symptoms. She denies of any unilateral muscle weakness or sensory changes. Denies taking thing for pain. She states she does have a history of diabetes but not currently on medication. Denies history of dyslipidemia or hypertension. History of tachycardia and does take metoprolol (MINDI HODGES) Allergies and Home Medications Allergies Coded Allergies: Sulfa (Sulfonamide Antibiotics) (Verified Allergy, Unknown, 01/18/14) ciprofloxacin (Verified Allergy, Unknown, 01/18/14) sulfamethoxazole (Verified Allergy, Unknown, 01/18/14) trimethoprim (Verified Allergy, Unknown, 01/18/14) Patient Home Medication List Home Medication List Reviewed: Yes (MINDI HODGES) Amitriptyline HCl (Amitriptyline HCl) 10 Mg Tablet, 10 MG PO HS, (Reported) Entered as Reported by: SUSAN GALINDO on 06/01/15 1249 Aspirin (Aspirin) 81 Mg Tab.chew, 81 MG PO BID, (Reported) Entered as Reported by: ALBAN ELISE on 05/16/16 1327 Calcium Carb/Magnesium Hydrox (Antacid Extra Strngth Tab Chew) 1 Each Tab.chew, 750 MG PO QID PRN for INDIGESTION, (Reported) Entered as Reported by: YEHUDA ANDREW on 09/26/16 0830 Cholecalciferol (Vitamin D3) (Vitamin D3) 1,000 Unit Capsule, 1,000 UNIT PO DAILY, (Reported) Entered as Reported by: YEHUDA ANDREW on 09/26/16 0830 Clindamycin HCl (Clindamycin HCl) 300 Mg Capsule, 300 MG PO TID Prescribed by: DEONDRE CHARLES on 10/18/17 1050 Hydrocodone/Acetaminophen (Hydrocodone/Acetaminophen 5 MG/325 MG TAB) 1 Each Tablet, 1 EACH PO Q4H PRN for PAIN-MODERATE TO SEVERE Prescribed by: DEONDRE CHARLES on 10/18/17 1050 Hyoscyamine Sulfate (Hyoscyamine Sulfate) 0.125 Mg Tab.subl, 0.0625 MG SL Q6H, (Reported) Entered as Reported by: ALBAN ELISE on 05/16/16 2219 Meclizine HCl (Meclizine HCl) 25 Mg Tab.chew, 25 MG PO TID PRN for DIZZINESS, (Reported) Entered as Reported by: SUSAN GALINDO on 05/16/16 1810 [place]-3S/Dha/Epa/Fish Oil (Fish Oil [place]-3 Softgel) 1 Each Capsule.dr, 1 CAP PO DAILY, (Reported) Entered as Reported by: CLAUDETTE FRASER on 09/25/16 1639 Omeprazole Magnesium (Prilosec Otc) 20 Mg Tablet.dr, 20 MG PO BID, (Reported) Entered as Reported by: SUSAN GALINDO on 06/01/15 1249 Ondansetron (Ondansetron Odt) 4 Mg Tab.rapdis, 4 MG PO Q6H PRN for NAUSEA/VOMITING Prescribed by: DEONDRE CHARLES on 05/15/21 1657 Ondansetron HCl (Ondansetron HCl) 4 Mg Tablet, 4 MG PO Q6H PRN for NAUSEA/VOMITING-1ST LINE, (Reported) Entered as Reported by: CHALO CASTAÑEDA on 05/17/16 0814 Potassium Gluconate (Potassium) 99 Mg Tablet, 99 MG PO DAILY, (Reported) Entered as Reported by: ALBAN ELISE on 05/16/16 2221 Promethazine HCl (Promethazine Tablet) 25 Mg Tablet, 25 MG PO Q6H PRN for NAUSEA/VOMITING Prescribed by: DEONDRE CHARLES on 05/15/21 1657 Tramadol HCl (Tramadol HCl) 50 Mg Tablet, 50 MG PO Q8H PRN for PAIN-MILD TO MODERATE Prescribed by: SOLEDAD KENDRICK on 11/10/162110 Review of Systems Review of Systems Constitutional: chills; No diaphoresis, No fever, No malaise, No weakness EENTM: No Blurred Vision, No Double Vision, No Eye Pain Respiratory: Denies Cough, Denies Orthopnea Cardiovascular: Chest Pain Gastrointestinal: Denies Abdominal Pain, Denies Diarrhea, Denies Nausea, Denies Vomiting Genitourinary: Denies Burning, Denies Discharge, Denies Drainage, Denies Frequency Musculoskeletal: No back pain, No joint pain Skin: No change in color, No change in hair/nails Psychiatric/Neurological: Other (Dizziness, lightheadedness) (MINDI HODGES) All Other Systems Reviewed Negative Unless Noted: Yes (MINDI HODGES) Past Wbexgbr-Dflsqw-Svgcuq Hx Patient Social History Tobacco Use?: No Substance use?: No Alcohol Use?: No Pt feels they are or have been: No (MINDI HODGES) Immunizations Up To Date Tetanus Booster (TDap): Less than 5yrs PED Vaccines UTD: No First/Initial COVID19 Vaccinat: 2020 Second COVID19 Vaccination Jorge Luis: 2020 Third COVID19 Vaccination Date: 2020 (MNIDI HODGES) Seasonal Allergies Seasonal Allergies: Yes (MINDI HODGES) Past Medical History Surgery/Hospitalization HX: PMH: GASTROPERESIS, IBS, TACHYCARDIA Surgeries: Yes Appendectomy, Gallbladder, Hysterectomy, Oophorectomy Respiratory: Yes Pneumonia Cardiac: Yes Heart Murmur Neurological: No Reproductive Disorders: Yes (CERVICAL CANCER) Female Reproductive Disorders: Menstrual Problems, 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 Sexually Transmitted Disease: No HIV/AIDS: No Genitourinary: No Gastrointestinal: Yes Gastroesophageal Reflux, Irritable Bowel Musculoskeletal: No Endocrine: Yes (hypoglycemia, hypokalemia) HEENT: No Cancer: Yes Cervical Did You Recieve Any Treatments: Yes What Type of Treatment Did You: Surgical Intervention Psychosocial: Yes Depression Integumentary: No Blood Disorders: Yes (Anemia) Adverse Reaction/Blood Tranf: No (MINDI HODGES) Family Medical History Blood coagulation disorder 19 MOTHER Cancer of mouth Diabetes mellitus 19 MOTHER FH: COPD (chronic obstructive pulmonary disease) 19 MOTHER Hypercholesterolemia 19 MOTHER Hypertension 19 MOTHER Thyroid disease 19 MOTHER No Pertinent Family Hx (MINDI HODGES) Physical Exam Vital Signs Vital Signs - First Documented 07/17/22 15:50 Temp 36.2 Pulse 76 Resp 18 B/P (MAP) 134/74 (94) Pulse Ox 100 (SOLEDAD 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 0.0oz. 79.407023hs; 35.00 BMI Method:Stated General Appearance: No Apparent Distress, WD/WN HEENT: PERRL/EOMI, TMs Normal, Normal ENT Inspection, Pharynx Normal Neck: Full Range of Motion, Normal Inspection, Non Tender, Supple Respiratory: Chest Non Tender, Lungs Clear, Normal Breath Sounds, No Accessory Muscle Use, No Respiratory Distress Cardiovascular: Regular Rate, Rhythm, No Edema, No Gallop, No JVD, No Murmur Gastrointestinal: Normal Bowel Sounds, No Organomegaly, No Pulsatile Mass, Non Tender, Soft Extremity: Normal Capillary Refill, Normal Inspection, Normal Range of Motion, Non Tender, No Calf Tenderness Neurologic/Psychiatric: Alert, Oriented x3, No Motor/Sensory Deficits, Normal 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, 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 Norm as Tested (MINDI HODGES) Progress/Results/Core Measures Results/Orders Lab Results Laboratory Tests Test 07/17/22 15:50 07/17/22 18:40 Range/Units White Blood Count 9.1 4.3-11.0 10^3/uL Red Blood Count 4.43 3.80-5.11 10^6/uL Hemoglobin 12.7 11.5-16.0 g/dL Hematocrit 39 35-52 % Mean Corpuscular Volume 87 80-99 fL Mean Corpuscular Hemoglobin 29 25-34 pg Mean Corpuscular Hemoglobin Concent 33 32-36 g/dL Red Cell Distribution Width 12.7 10.0-14.5 % Platelet Count 220 130-400 10^3/uL Mean Platelet Volume 12.3 H 9.0-12.2 fL Immature Granulocyte % (Auto) 0 % Neutrophils (%) (Auto) 50 42-75 % Lymphocytes (%) (Auto) 42 12-44 % Monocytes (%) (Auto) 7 0-12 % Eosinophils (%) (Auto) 1 0-10 % Basophils (%) (Auto) 1 0-10 % Neutrophils # (Auto) 4.5 1.8-7.8 10^3/uL Lymphocytes # (Auto) 3.8 1.0-4.0 10^3/uL Monocytes # (Auto) 0.6 0.0-1.0 10^3/uL Eosinophils # (Auto) 0.1 0.0-0.3 10^3/uL Basophils # (Auto) 0.1 0.0-0.1 10^3/uL Immature Granulocyte # (Auto) 0.0 0.0-0.1 10^3/uL Prothrombin Time 12.6 12.2-14.7 SEC INR Comment 0.9 0.8-1.4 Activated Partial Thromboplast Time 28 24-35 SEC Sodium Level 140 135-145 MMOL/L Potassium Level 3.8 3.6-5.0 MMOL/L Chloride Level 105 98-107 MMOL/L Carbon Dioxide Level 27 21-32 MMOL/L Anion Gap 8 5-14 MMOL/L Blood Urea Nitrogen 10 7-18 MG/DL Creatinine 0.91 0.60-1.30 MG/DL Estimat Glomerular Filtration Rate 77 BUN/Creatinine Ratio 11 Glucose Level 97 70-105 MG/DL Calcium Level 9.4 8.5-10.1 MG/DL Corrected Calcium 9.2 8.5-10.1 MG/DL Magnesium Level 2.0 1.6-2.4 MG/DL Total Bilirubin 0.3 0.1-1.0 MG/DL Aspartate Amino Transf (AST/SGOT) 14 5-34 U/L Alanine Aminotransferase (ALT/SGPT) 18 0-55 U/L Alkaline Phosphatase 92 40-136 U/L Myoglobin 23.0 10.0-92.0 NG/ML Troponin I < 0.028 < 0.028 <0.028 NG/ML B-Type Natriuretic Peptide 16.0 <100.0 PG/ML Total Protein 7.6 6.4-8.2 GM/DL Albumin 4.3 3.2-4.5 GM/DL Lipase 43 8-78 U/L (SOLEDAD KENDRICK) My Orders (SOLEDAD KENDRICK) Medications Given in ED Current Medications Medications Dose Ordered Sig/Gus Route Start Time Stop Time Status Last Admin Dose Admin Aspirin 324 mg ONCE ONCE PO 07/17/22 16:00 07/17/22 16:01 DC 07/17/22 16:17 324 MG Morphine Sulfate 2 mg ONCE ONCE IVP 07/17/22 16:15 07/17/22 16:16 DC 07/17/22 16:16 2 MG Ondansetron HCl 4 mg ONCE ONCE IVP 07/17/22 16:15 07/17/22 16:16 DC 07/17/22 16:18 4 MG (SOLEDAD KENDRICK) Vital Signs/I&O 07/17/22 15:50 Temp 36.2 Pulse 76 Resp 18 B/P (MAP) 134/74 (94) Pulse Ox 100 (SOLEDAD KENDRICK) Blood Pressure Mean: 94 Progress Progress Note : Progress Note 1700 Assumed care of patient, report received from BERTRAM Miller. Patient denies chest pain or nausea, reports her symptoms resolved after vomiting. Discussed repeat Troponin, if remains normal and no further symptoms, will plan discharge. 1745 ambulated to bathroom, denies chest pain with activity. Has remained in Sinus Rhythm 60-80. B/P 105/50. No complaints. 1830 eating dinner, no complaints. 1914 second troponin negative. Continues to have no chest pain. Discharge instructions and return precautions reviewed with the patient. All questions answered. (SOLEDAD KENDRICK) Comment Sinus rhythm, low QRS voltage in precordial leads, 69 bpm, QRS duration 76 MS, QTc 395 MS (MINDI HODGES) Initial ECG Impression Date: Jul 17, 2022 Initial ECG Impression Time: 15:51 Initial ECG Rate: 69 Initial ECG Rhythm: Normal Sinus Initial ECG Impression: Normal Initial ECG Comparisson: Unchanged Comment Reviewed with BERTRAM Miller, Agree no ST elevation or other abnormalities. (SOLEDAD KENDRICK) Diagnostic Imaging Diagonstic Imaging: Xray Plain Films/CT/US/NM/MRI: chest Comments NAME: ANDREZ HOFFMAN [facility] REC#: [id number] PT STATUS: REG ER : 1970 PHYSICIAN: MINDI HODGES ADMIT DATE: 07/17/22/ER Signed Date of Exam:07/17/22 CHEST 1 VIEW, AP/PA ONLY INDICATION: Chest pain and dizziness and lightheadedness. Frontal chest obtained at 4:16 p.m. Heart and mediastinal silhouette are normal in appearance. The lungs are clear. There is no pneumothorax or pleural fluid. IMPRESSION: Negative chest. Dictated by: Dictated on workstation # [id number] Dict: 07/17/22 1621 Trans: 07/17/22 1641 CVB [id number] Interpreted by: LEATHA FONSECA MD (SOLEDAD KENDRICK) Departure Impression Primary Impression: Chest pain Qualified Codes: R07.89 - Other chest pain Disposition: HOME, SELF-CARE Condition: Improved Departure-Patient Inst. Decision time for Depature: 19:05 (SOLEDAD KENDRICK) Referrals: MANISH MEIER (PCP/Family) Primary Care Physician Patient Instructions: Chest Pain That Is Not Caused by the Heart (DC) Add. Discharge Instructions: Continue to take your medications, as prescribed. Follow up with Dr. Whitten, outpatient. Call Wed for appt. Return to Emergency Dept if chest pain returns or any other urgent healthcare concerns. All discharge instructions reviewed with patient and/or family. Voiced understanding. Copy Copies To 1: KENISHA WHITTEN MD, ZACHARY A PA Jul 17, 2022 16:00 SOLEDAD KENDRICK Jul 17, 2022 17:35
[2022-07-17 16:02] LABS: BASOPHILS # (AUTO) 0.1 10^3/uL (0.0-0.1); BASOPHILS % (AUTO) 1 % (0-10); EOSINOPHILS # (AUTO) 0.1 10^3/uL (0.0-0.3); EOSINOPHILS % (AUTO) 1 % (0-10); HEMATOCRIT 39 % (35-52); HEMOGLOBIN 12.7 g/dL (11.5-16.0); LYMPHOCYTES # (AUTO) 3.8 10^3/uL (1.0-4.0); LYMPHOCYTES % (AUTO) 42 % (12-44); MEAN CORPUSCULAR HEMOGLOBIN 29 pg (25-34); MEAN CORPUSCULAR HGB CONC 33 g/dL (32-36); MEAN CORPUSCULAR VOLUME 87 fL (80-99); MEAN PLATELET VOLUME 12.3 fL (9.0-12.2); MONOCYTES # (AUTO) 0.6 10^3/uL (0.0-1.0); MONOCYTES % (AUTO) 7 % (0-12); NEUTROPHILS # (AUTO) 4.5 10^3/uL (1.8-7.8); NEUTROPHILS % (AUTO) 50 % (42-75); PLATELET COUNT 220 10^3/uL (130-400); WHITE BLOOD COUNT 9.1 10^3/uL (4.3-11.0)
[2022-07-17 16:08] LABS: ALBUMIN 4.3 GM/DL (3.2-4.5); CHLORIDE 105 MMOL/L (98-107); POTASSIUM 3.8 MMOL/L (3.6-5.0); SODIUM 140 MMOL/L (135-145)
[2022-07-17 16:10] LABS: CALCIUM 9.4 MG/DL (8.5-10.1); INR 0.9 (0.8-1.4); PROTHROMBIN TIME PATIENT 12.6 SEC (12.2-14.7)
[2022-07-17 16:11] LABS: GLUCOSE 97 MG/DL (70-105); TOTAL PROTEIN 7.6 GM/DL (6.4-8.2)
[2022-07-17 16:12] LABS: CARBON DIOXIDE 27 MMOL/L (21-32)
[2022-07-17 16:13] LABS: BILIRUBIN,TOTAL 0.3 MG/DL (0.1-1.0)
[2022-07-17 16:14] LABS: ALKALINE PHOSPHATASE 92 U/L (40-136); CREATININE SERUM 0.91 MG/DL (0.60-1.30); GFR ESTIMATED 77
[2022-07-17 16:15] LABS: BUN/CREATININE RATIO 11
[2022-07-17] MEDS ORDERED: morphine INJ 10 MG/ML 1ML (SYR OR VIAL) IVP ONE (16:15)
[2022-07-17] MEDS ORDERED: ONDANSETRON 4 MG/2 ML (SDV) Z0FRAN IVP ONE (16:15)
[2022-07-17] MEDS ORDERED: morphine INJ 4 MG/ML 1 ML (VIAL/SYRINGE) IVP ONE (16:15)
[2022-07-17 16:17] LABS: ALANINE AMINOTRANSFERASE 18 U/L (0-55)
[2022-07-17 16:19] LABS: LIPASE 43 U/L (8-78)
--- NOTE | 2022-07-17 16:27 | Diagnostic Imaging Report ---
INDICATION: Chest pain and dizziness and lightheadedness. Frontal chest obtained at 4:16 p.m. Heart and mediastinal silhouette are normal in appearance. The lungs are clear. There is no pneumothorax or pleural fluid. IMPRESSION: Negative chest. Dictated by: Dictated on workstation # [id number]
[2022-07-17 19:20] VITALS: BP 108/76
== END 2022-07-17 19:22 | disposition home or self-care (01) ==
LOC: EDUNIT# 15:41 → ER 15:43
DX: R07.9 Chest pain, unspecified (principal); R00.0 Tachycardia, unspecified; Z87.891 Personal history of nicotine dependence
CPT/HCPCS: 36415; 71045; 80053; 83690; 83735; 83874; 83880; 84484; 85025; 85610; 85730; 93005; 93041

== ENCOUNTER 2023-01-07 13:13 | Emergency (ER) | payer OTHER ==
[~2023-01-07] VITALS: Ht 154.9 cm; Wt 84.3 kg
[~2023-01-07 13:13] MED LIST changes: -MECL-149 PO; +MECL-291 PO
[2023-01-07 13:37] LABS: BILIRUBIN,URINE NEGATIVE (NEGATIVE); CLARITY,URINE CLOUDY; COLOR,URINE YELLOW; GLUCOSE, URINE (UA) NEGATIVE (NEGATIVE); KETONES,URINE NEGATIVE (NEGATIVE); LEUKOCYTE ESTERASE ,URINE 2+ (NEGATIVE); NITRITE,URINE POSITIVE (NEGATIVE); PH,URINE 5.5 (5-9); PROTEIN,URINE 1+ (NEGATIVE)
--- NOTE | 2023-01-07 13:39 | ED GU-Female ---
General Chief Complaint: - Reproductive Stated Complaint: DIFFICULTY URINATING Nursing Triage Note: "PINKISH" DISCHARGE WITH URINATION STARTED ON SATURDAY, PAIN WITH URINATION YESTERDAY. Source: patient Exam Limitations: no limitations History of Present Illness Date Seen by Provider: Jan 07, 2023 Time Seen by Provider: 13:30 Initial Comments This is a well-appearing 52-year-old female who presented to the ER with complaints of burning with urination, frequency, urgency that started 5 days ago. Today has significant burning just at urethra, no pain in abdomen or flanks. Denies fever, nausea, vomiting, diarrhea. Nothing taken prior to arrival. Allergies and Home Medications Allergies Coded Allergies: Sulfa (Sulfonamide Antibiotics) (Verified Allergy, Unknown, 01/18/14) ciprofloxacin (Verified Allergy, Unknown, 01/18/14) sulfamethoxazole (Verified Allergy, Unknown, 01/18/14) trimethoprim (Verified Allergy, Unknown, 01/18/14) Patient Home Medication List Home Medication List Reviewed: Yes Amitriptyline HCl (Amitriptyline HCl) 10 Mg Tablet, 10 MG PO HS, (Reported) Entered as Reported by: SUSAN GALINDO on 06/01/15 1249 Aspirin (Aspirin) 81 Mg Tab.chew, 81 MG PO BID, (Reported) Entered as Reported by: ALBAN ELISE on 05/16/16 2217 Calcium Carb/Magnesium Hydrox (Antacid Extra Strngth Tab Chew) 1 Each Tab.chew, 750 MG PO QID PRN for INDIGESTION, (Reported) Entered as Reported by: YEHUDA ANDREW on 09/26/16 0830 Cefpodoxime Proxetil (Cefpodoxime Proxetil) 200 Mg Tablet, 200 MG PO BID Prescribed by: SYDNI MEIER on 01/07/23 1358 Cholecalciferol (Vitamin D3) (Vitamin D3) 1,000 Unit Capsule, 1,000 UNIT PO DAILY, (Reported) Entered as Reported by: YEHUDA ANDREW on 09/26/16 0830 Clindamycin HCl (Clindamycin HCl) 300 Mg Capsule, 300 MG PO TID Prescribed by: DEONDRE CHARLES on 10/18/17 1050 Hydrocodone/Acetaminophen (Hydrocodone/Acetaminophen 5 MG/325 MG TAB) 1 Each Tablet, 1 EACH PO Q4H PRN for PAIN-MODERATE TO SEVERE Prescribed by: DEONDRE CHARLES on 10/18/17 1050 Hyoscyamine Sulfate (Hyoscyamine Sulfate) 0.125 Mg Tab.subl, 0.0625 MG SL Q6H, (Reported) Entered as Reported by: ALBAN ELISE on 05/16/16 2219 Meclizine HCl (Meclizine HCl) 25 Mg Tab.chew, 25 MG PO TID PRN for DIZZINESS, (Reported) Entered as Reported by: SUSAN GALINDO on 05/16/16 1810 [place]-3S/Dha/Epa/Fish Oil (Fish Oil [place]-3 Softgel) 1 Each Capsule.dr, 1 CAP PO DAILY, (Reported) Entered as Reported by: CLAUDETTE FRASER on 09/25/16 1639 Omeprazole Magnesium (Prilosec Otc) 20 Mg Tablet.dr, 20 MG PO BID, (Reported) Entered as Reported by: SUSAN GALINDO on 06/01/15 1249 Ondansetron (Ondansetron Odt) 4 Mg Tab.rapdis, 4 MG PO Q6H PRN for NAUSEA/VOMITING Prescribed by: DEONDRE CHARLES on 05/15/21 1657 Ondansetron HCl (Ondansetron HCl) 4 Mg Tablet, 4 MG PO Q6H PRN for NAUSEA/VOMITING-1ST LINE, (Reported) Entered as Reported by: CHALO CASTAÑEDA on 05/17/16 0814 Potassium Gluconate (Potassium) 99 Mg Tablet, 99 MG PO DAILY, (Reported) Entered as Reported by: ALBAN ELISE on 05/16/16 2221 Promethazine HCl (Promethazine Tablet) 25 Mg Tablet, 25 MG PO Q6H PRN for NAUSEA/VOMITING Prescribed by: DEONDRE CHARLES on 05/15/21 1657 Tramadol HCl (Tramadol HCl) 50 Mg Tablet, 50 MG PO Q8H PRN for PAIN-MILD TO MODERATE Prescribed by: SOLEDAD KENDRICK on 11/10/162110 Review of Systems Review of Systems Constitutional: see HPI EENTM: no symptoms reported Respiratory: no symptoms reported Genitourinary: burning; denies discharge; dysuria, frequency; denies flank pain; hematuria, urgency Musculoskeletal: no symptoms reported Skin: no symptoms reported Past Mhdiyhp-Fiveng-Mgavqo Hx Patient Social History Tobacco Use?: No Substance use?: No Alcohol Use?: No Pt feels they are or have been: No Immunizations Up To Date Tetanus Booster (TDap): Less than 5yrs PED Vaccines UTD: No Influenza Vaccine Up-to-Date: Yes; Up-to-Date First/Initial COVID19 Vaccinat: 3 SHOTS Second COVID19 Vaccination Jorge Luis: 2020 Third COVID19 Vaccination Date: 2020 Seasonal Allergies Seasonal Allergies: Yes Past Medical History Surgery/Hospitalization HX: PMH: GASTROPERESIS, IBS, TACHYCARDIA Surgeries: Yes Appendectomy, Gallbladder, Hysterectomy, Oophorectomy Respiratory: Yes Pneumonia Cardiac: Yes Heart Murmur Neurological: No Reproductive Disorders: Yes (CERVICAL CANCER) Female Reproductive Disorders: 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, 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 Sexually Transmitted Disease: No HIV/AIDS: No Genitourinary: No Gastrointestinal: Yes Gastroesophageal Reflux, Irritable Bowel Musculoskeletal: No Endocrine: Yes (hypoglycemia, hypokalemia) HEENT: No Cancer: Yes Cervical Did You Recieve Any Treatments: Yes What Type of Treatment Did You: Surgical Intervention Psychosocial: Yes Depression Integumentary: No Blood Disorders: Yes (Anemia) Adverse Reaction/Blood Tranf: No Family Medical History Blood coagulation disorder 19 MOTHER Cancer of mouth Diabetes mellitus 19 MOTHER FH: COPD (chronic obstructive pulmonary disease) 19 MOTHER Hypercholesterolemia 19 MOTHER Hypertension 19 MOTHER Thyroid disease 19 MOTHER No Pertinent Family Hx Physical Exam Vital Signs Vital Signs - First Documented 01/07/23 13:21 Temp 36.7 Pulse 83 Resp 18 B/P (MAP) 121/80 (94) Pulse Ox 98 O2 Delivery Room Air Capillary Refill : Less Than 3 Seconds Height, Weight, BMI Height: 5'1.00" Weight: 175lbs. 0.0oz. 79.973412iu; 35.00 BMI Method:Stated General Appearance: WD/WN, no apparent distress HEENT: normal ENT inspection, pharynx normal Neck: full range of motion, normal inspection Cardiovascular: regular rate, rhythm, no murmur Respiratory: lungs clear, normal breath sounds, no respiratory distress Gastrointestinal: normal bowel sounds, non tender, soft Back: no CVA tenderness Extremities: normal range of motion, normal inspection Neurologic/Psychiatric: no motor/sensory deficits, alert, normal mood/affect, oriented x 3 Skin: normal color, warm/dry Progress/Results/Core Measures Suspected Sepsis SIRS Temperature: Pulse: 83 Respiratory Rate: 18 Blood Pressure 121 /80 Mean: 94 Results/Orders Lab Results Laboratory Tests Test 01/07/23 13:28 Range/Units Urine Color YELLOW Urine Clarity CLOUDY Urine pH 5.5 5-9 Urine Specific [place] 1.010 L 1.016-1.022 Urine Protein 1+ H NEGATIVE Urine Glucose (UA) NEGATIVE NEGATIVE Urine Ketones NEGATIVE NEGATIVE Urine Nitrite POSITIVE H NEGATIVE Urine Bilirubin NEGATIVE NEGATIVE Urine Urobilinogen 0.2 < = 1.0 MG/DL Urine Leukocyte Esterase 2+ H NEGATIVE Urine RBC (Auto) 2+ H NEGATIVE Urine RBC 10-25 H /HPF Urine WBC TNTC H /HPF Urine Squamous Epithelial Cells 5-10 /HPF Urine Crystals NONE /LPF Urine Bacteria LARGE H /HPF Urine Casts NONE /LPF Urine Mucus NEGATIVE /LPF Urine Culture Indicated YES My Orders Orders - SYDNI MEIER APRN Ua Culture If Indicated (01/07/23 13:17) Phenazopyridine Tablet (Phenazopyridine (01/07/23 13:45) Urine Culture (01/07/23 13:28) Ceftriaxone Iv/Im (Ceftriaxone Iv/Im) (01/07/23 14:00) Lidocaine 1% Inj 20 Ml (Xylocaine 1% Inj (01/07/23 14:00) Medications Given in ED Current Medications Medications Dose Ordered Sig/Gus Route Start Time Stop Time Status Last Admin Dose Admin Phenazopyridine HCl 200 mg ONCE ONCE PO 01/07/23 13:45 01/07/23 13:46 DC 01/07/23 13:48 200 MG Vital Signs/I&O 01/07/23 13:21 Temp 36.7 Pulse 83 Resp 18 B/P (MAP) 121/80 (94) Pulse Ox 98 O2 Delivery Room Air Capillary Refill : Less Than 3 Seconds Blood Pressure Mean: 94 Progress Note : Progress Note Patient examined no acute distress. Symptoms consistent with acute cystitis. Urine sample sent to lab and Pyridium 200 mg x 1 ordered. No history of renal disease. Last CMP from July 2022 reviewed. GFR 77 and creatinine 0.91. UA positive for urinary tract infection (TNC WBC, positive . Given Rocephin 1 g IM in ER. Antibiotic sent to pharmacy of choice. Strict return precautions discussed verbalized understanding. Departure Impression Primary Impression: Acute cystitis with hematuria Disposition: HOME, SELF-CARE Condition: Improved Departure-Patient Inst. Decision time for Depature: 13:56 Referrals: MANISH MEIER (PCP/Family) Primary Care Physician Patient Instructions: Blood in Urine (Hematuria), Adult ED Add. Discharge Instructions: Plan: 1. Drink plenty of fluids up to 100ml a day to flush bladder 2. Pyridium as directed, may cause orange urine, this is normal 3. Take antibiotics as directed and complete full course. 4. If fever, flank pain, nausea, vomiting f/u with PCP or return. All discharge instructions reviewed with patient and/or family. Voiced understanding. Scripts Cefpodoxime Proxetil (Cefpodoxime Proxetil) 200 Mg Tablet 200 MG PO BID for 7 Days, #14 TAB 0 Refills Prov: SYDNI MEIER APRN 01/07/23 Copy Copies To 1: SYDNI MEIER APRN, STORMY D APRN Jan 07, 2023 13:39
[2023-01-07] MEDS ORDERED: PHENAZOPYRIDINE 100 MG TABLET PO ONE (13:45)
[2023-01-07 13:49] LABS: BACTERIA,URINE LARGE /HPF; WBC,URINE TNTC /HPF
[2023-01-07] MEDS ORDERED: CEFP200T2 PO (13:58)
[2023-01-07] MEDS ORDERED: LIDOCAINE 1% INJ 20 ML VIAL INJ ONE (14:00)
[2023-01-07] MEDS ORDERED: cefTRIAXone 1,000 MG VIAL IV/IM IM ONE (14:00)
[2023-01-07 14:38] VITALS: BP 122/75
== END 2023-01-07 14:39 | disposition home or self-care (01) ==
LOC: EDUNIT# 13:13 → ER 13:14
DX: N30.01 Acute cystitis with hematuria (principal); Z88.2 Allergy status to sulfonamides
CPT/HCPCS: 81000; 87077; 87088; 87186; 99284